=== PATIENT | male | born 1940 | race Hispanic/Latino ===

== ENCOUNTER 2020-01-11 11:50 | Inpatient (IN) | payer OTHER ==
--- NOTE | 2020-01-15 15:06 | R.PREADM ---
PRE-ADMISSION SCREENING FORM SCREENING DATE AND TIME 01/11/2020 07:57 (DB2 DEVELOPER) ANTICIPATED REHAB ADMISSION DATE 01/13/[address] [facility] MEDICAL REFERRAL DATE AND TIME 01/11/2020 07:57 (DB2 DEVELOPER) ACUTE ADMIT DATE 01/12/2020 Previous Rehabilitation(s): No. ACUTE JAVA JSF DEVELOPER/DC REEL MAN NERY ZAVALA REFERRING PHYSICIAN marilyn Connors PRIMARY CARE PHYSICIAN [facility]NYFER [facility] REHAB FACILITY [facility] CLINICAL LIAISON Erik Pace PHYSICIAN REVIEWER Dr. Marcell Mccarthy M.D. MR# [id number] NAME ALEXANDER PUTNAM ADDRESS [address] [place] [address] PHONE [facility] [id number] DATE OF 1940 AGE 79 SSN# [id number] GENDER male MARITAL STATUS RACE unknown race ADMIT FROM 02 - [facility] PRE-HOSPITAL LIVING SETTING 01 - Home (private home/apt. board/care, assisted living, retirement, transitional living) HOME TYPE AND DETAILS Type of home: single family house # of levels in the residence: 1 # of steps within the residence: 0 # of steps to enter the residence: 0 PRE-HOSPITAL LIVING WITH Family/Relatives FAMILY SUPPORT Yes PRIMARY FAMILY CONTACT NAME Sonja Putnam PRIMARY FAMILY CONTACT PHONE PRIMARY FAMILY CONTACT RELATIONSHIP Spouse PHONE PRIMARY FAMILY CONTACT ON ADM.? no IS PRIMARY FAMILY CONTACT AUTH. REP.? no 1ST EMERGENCY CONTACT Sonja Putnam 1ST CONTACT PHONE 1ST CONTACT RELATIONSHIP Spouse PHONE 1ST CONTACT ON ADM. no IS 1ST CONTACT AUTH. REP.? no PHONE 2ND CONTACT ON ADM.? no PATIENT EMPLOYMENT STATUS Retired (for age) PATIENT EMPLOYER No Employer PAYOR INFORMATION: 1ST PAYOR NAME [facility] 1ST PAYOR CONTACT Karlee 1ST PAYOR INJURY/ILLNESS DUE TO ACCIDENT? No ANOTHER CONSTITUTION PARTY RESPONSIBLE? No PRIMARY REHAB/ACUTE DIAGNOSIS: WEAKNESS,SCS PLACEMENT ONSET DATE 01/02/2020 REHAB IMPAIRMENT CATEGORY (JEROME): 20 Miscellaneous (Misc) does NOT meet 60% rule PRIMARY DIAGNOSIS-RELATED SURGERIES: PLACEMENT OF SPINAL CORD STIMULATOR SUMMARY OF ACUTE HOSPITALIZATION: Pt. is a 79 yo Right-handed male of unknown race. On 01/02/2020 he was admitted to [facility] with diagnosis WEAKNESS,SCS PLACEMENT. His impairment category is Debility 16 - Debility (16). Pre-morbidly, Pt. was independent/mod-I in Safety Awareness, Social Cognition, Transfers Control, and Communication; and he had good Endurance and Self-Care. Currently, he has deficits of Balance, Sphincter Control, Transfers Control, Social Cognition, and En durance. Pt. is now referred to [facility] for acute in-patient rehabilitation in order to maximize patient's functional independence in activities of daily living, strength, ROM, and mobi lity. Patient has realistic goal of being discharged at assistance level 7-Ind to reside at Home with Fami ly/Relatives. PAST MEDICAL HISTORY ARRHYTHMIA DYSPHAGIA PNEUMONIA BMI 33.0-33.9, ADULT BPH CHRONIC PAIN CURRENT USE OF ANTICOAGULANT THERAPY DEPRESSION HIGH CHOLESTEROL HYPERTENSION CHRONIA PAIN MALAISE PAROXYSMAL ARTIL FIB PAST SURGICAL HISTORY: ANKLE SURGERY BACK SURGERY CERVICAL SPINE SURGERY INSERTION, NEUROSTIMULATOR ELECTRODE PERCUTANEOUS SPINAL CORD STIMULATOR TRIAL KNEE SURGERY PROCEDURE W/C-ARM REPLACEMENT, SPINAL CORD NEUROSTIMULATOR GENERATOR/SALES RECRUITING COORDINATOR UPPER ENDOSCOPY, BIOPSY MEDICATION ALLERGIES: No Known Drug Allergies (NKDA) ENVIRONMENTAL ALLERGIES: - Substance Allergies None Known - Other Allergies None Known CODE STATUS: Full code WEIGHT/HEIGHT/BMI: WEIGHT 210 lbs HEIGHT 5' 7" BMI 32.9 DIET: - Diet Type Regular - Diet - Solid Texture Regular - Diet - Liquid Texture Regular - Tube Feed N/A REVIEW OF SYSTEMS: - Gen Alert and awake Lying in bed No apparent distress Oriented to: person, time, and place - Vital Signs Temperature: 97.5 F SBP/DBP: 182/81 Pulse: 49 Resp: 18 Vital signs stable, afebrile - CVS RRR VITAL SIGNS Temperature: 97.5 F SBP/DBP: 182/81 Pulse: 49 Resp: 18 Vital signs stable, afebrile MEDICATIONS/TREATMENT: Other- See attached MAR (Medication Administration Record). CURRENT SPHINCTER CONTROL: Pre-hospital bladder status: unspecified # of bladder accidents in the last 7 days prior to screenin Pre-hospital bowel status: unspecified # of bowel accidents in the last 7 days prior to screenin Last Bowel Movement Date: 01/11/2020 CURRENT LOCOMOTION STATUS: distance walked 70 feet WITH ROLLING WALKER DETAILED CURRENT FUNCTIONAL STATUS: - Bladder accident frequency: Ind - No accidents in the past 7 days - Bowel accident frequency: Ind - No accidents in the past 7 days - Walking score based on distance walked: 0(N/A) score based on distance walked: 2(5149ft) - Wheelchair score based on distance traveled: 0(N/A) QI SCORES: - Self-Care A. Eating 04-Supervision or touching assistance B. Oral hygiene 03-Partial/moderate assistance C. Toileting hygiene 03-Partial/moderate assistance E. Shower/bathe self 03-Partial/moderate assistance F. Upper body dressing 03-Partial/moderate assistance G. Lower body dressing 03-Partial/moderate assistance H. Putting on/taking off footwear 88-Not attempted due to medical condition or safety concerns - Mobility A. Roll left and right 03-Partial/moderate assistance B. Sit to lying 03-Partial/moderate assistance C. Lying to sitting on side of bed 03-Partial/moderate assistance D. Sit to stand 03-Partial/moderate assistance E. Chair/wkq-eh-xrwup transfer 03-Partial/moderate assistance F. Toilet transfer 03-Partial/moderate assistance G. Car transfer 88-Not attempted due to medical condition or safety concerns I. Walk 10 feet 03-Partial/moderate assistance J. Walk 50 feet with two turns 88-Not attempted due to medical condition or safety concerns K. Walk 150 feet 88-Not attempted due to medical condition or safety concerns L. Walking 10 feet on uneven surfaces 88-Not attempted due to medical condition or safety concerns M. 1 step (curb) 88-Not attempted due to medical condition or safety concerns N. 4 steps 88-Not attempted due to medical condition or safety concerns O. 12 steps 88-Not attempted due to medical condition or safety concerns P. Picking up object 88-Not attempted due to medical condition or safety concerns R. Wheel 50 feet with two turns 88-Not attempted due to medical condition or safety concerns S. Wheel 150 feet 88-Not attempted due to medical condition or safety concerns - Bladder and Bowel Bladder continence Bowel continence - Endurance Fair - Balance Fair - Safety Awareness Fair CURRENT FUNC. DEFICITS: Self-Care, Mobility, Endurance, Balance, and Safety Awareness HISTORY OF FALLS. HAS THE PATIENT HAD TWO OR MORE FALLS IN THE PAST YEAR OR ANY FALL WITH INJURY IN T HE PAST YEAR?: No PRIOR SURGERY. DID THE PATIENT HAVE MAJOR SURGERY DURING THE 100 DAYS PRIOR TO ADMISSION?: No THERAPY NOTES FROM ACUTE CARE: Attached. SPECIAL NEEDS: - Safety Concerns Skin breakdown precautions needed due to skin breakdown risk PATIENT NEEDS ACTIVE AND ONGOING THERAPEUTIC INTERVENTION OF MULTIPLE THERAPY DISCIPLINES, INCLUDING: - Dietary and Nutrition Adequate Nutrition. Nutritional Education. Nutritional Supplements. PATIENT NEEDS CLOSE MEDICAL SUPERVISION BY A REHABILITATION PHYSICIAN FOR: Coordination of Treatment Team PATIENT REQUIRES 24X7 REHAB NURSING FOR MEDICAL AND FUNCTIONAL MGT. OF THE FOLLOWING DEFICITS: Disease Management Medication Management Patient/Family Education Providing Safe Environment PATIENT REQUIRES INTENSIVE, COORDINATED INTERDISCIPLINARY APPROACH TO REHAB: Arranging Home Equipment/Services Discharge Planning Family Intervention/Training Monorail Car Operator/Case Management PATIENT REHAB POTENTIAL: Jose PUTNAM is able and expected to receive 3 hours of individualized therapy daily on at least 5 of e very 7 days Jose PUTNAM'shaan prognosis for significant practical improvement within a reasonable period of time appea rs Good Expected level of measurable improvement will be of a practical value to Jose PUTNAM'shaan functional cap[place] city or adaptations to impairments Has a viable Discharge Plan Medically appropriate; condition is sufficiently stable to participate in intensive rehab program DISCHARGE PLAN: - Estimated Length of Stay (days) 13. - Consensus on plan Discharge plan has been discussed with primary caregiver. Patient/Family is in agreement with the megan n. Primary caregiver is in agreement with the plan. - Patient/Family Goals Return home independently. - Planned Living Setting Upon Discharge Home, to live with Family/Relatives. Transitional Living. RECOMMENDED CARE LEVEL: IRF RECOMMENDATION DETAILS: Recommended Admission to Comprehensive Rehabilitation Program to Increase Functional Lydia SCREENER'S COMPLETENESS CONFIRMATION: - Screening Confirmation The patient data collection on this preadmission screening form is finished PHYSICIANS REVIEW AND ADMISSION DETERMINATION Admit - Based on my review of the Pre-Admission Screening results, in my medical judgment and experie nce, I concur with the findings and recommend admission to [facility], as this patient requires an IRF level of care. SIGNATURE PANEL: Loader Operator/Ground Leader - [electronically] signed by Erik Pace on 01/15/2020 at 14:23 (DB2 DEVELOPER) Loader Operator/Ground Leader - [electronically] signed by Paco Carbajal PT on 01/15/2020 at 14:28 (DB2 DEVELOPER) Physician Reviewer - [electronically] signed by Dr. Marcell Mccarthy M.D. on 01/15/2020 at 15:05 (DB2 DEVELOPER )
--- OUTSIDE RECORDS SUMMARY | 2020-01-15 18:44 | XMS REPORT | Clinical Summary ---
:1940 Author Organization [facility] Address [address] [place] [address] Care Team Providers Name Role Phone Reynaldo Odom Primary Care Provider Unavailable Allergies No Known Allergies Medications Medication Sig Dispensed Refills Start End Date Status Date amiodarone Take 200 mg by 0 Acti ve (PACERONE) 200 MG mouth 2 (two) tablet times daily. DULoxetine Take 60 mg by 0 Activ e (CYMBALTA) 60 MG mouth daily. capsule finasteride Take 5 mg by 0 Activ e (PROSCAR) 5 mg mouth daily. tablet fLUoxetine Take 10 mg by 0 Activ e (PROZAC) 10 MG mouth daily. capsule HYDROcodone-aceta Take 1 tablet by 0 Active minophen (NORCO mouth every 6 7.5-325) 7.5-325 (six) hours as mg per tablet needed for Pain. metoprolol Take by mouth 2 0 Act anastasiya tartrate (two) times (LOPRESSOR) 50 MG daily Takes 2 tablet tab in am and 1 tab in pm . loratadine Take 10 mg by 0 Activ e (CLARITIN) 10 mg mouth daily as tablet needed for Allergies. mirabegron Take 50 mg by 0 Activ e (MYRBETRIQ) 50 mg mouth daily. Tb24 ER tablet pravastatin Take 40 mg by 0 Acti ve (PRAVACHOL) 40 MG mouth daily. tablet terazosin Take 10 mg by 0 Active (HYTRIN) 10 MG mouth nightly. capsule traZODone Take 100 mg by 0 Activ e (DESYREL) 100 MG mouth nightly. tablet tiZANidine Take 4 mg by 0 Active (ZANAFLEX) 4 MG mouth every 6 tablet (six) hours as needed. rivaroxaban Take 1 tablet by 0 A ctive (Xarelto) 20 mg mouth daily. 0 Tab tablet amLODIPine Take 10 mg by 0 Activ e (NORVASC) 10 MG mouth daily. 7 tablet diclofenac 1 % Apply 1 0 Activ e Gel application 0 topically 2 (two) times daily. cloNIDine HCL Take 2 tablets 0 A ctive (CATAPRES) 0.1 MG (0.2 mg total) 0 tablet by mouth 2 (two) times daily. lisinopriL Take 2 tablets 0 Acti ve (PRINIVIL,ZESTRIL (40 mg total) by 0 ) 20 MG tablet mouth daily. docusate sodium Take 1 capsule 10 capsule 0 01/26/20 Active (COLACE) 100 MG (100 mg total) 0 20 capsule by mouth daily for 10 days. fluconazole Take 1 tablet 0 01/23/20 Acti ve (DIFLUCAN) 200 MG (200 mg total) 0 20 tablet by mouth daily for 7 days. pantoprazole Take 1 tablet 0 Act anastasiya (PROTONIX) 40 MG (40 mg total) by 0 tablet mouth 2 (two) times daily before meals. cloNIDine HCL Take 0.1 mg by 0 01/15/20 D iscontinued (CATAPRES) 0.1 MG mouth 2 (two) 20 (Reorder) tablet times daily. lisinopriL Take 20 mg by 0 01/15/20 Disco ntinued (PRINIVIL,ZESTRIL mouth daily. 20 (Reorder) ) 20 MG tablet rivaroxaban Take 20 mg by 0 12/31/19 Disc ontinued (XARELTO) 20 mg mouth daily with 20 (Stop Taking at Tab tablet dinner. Discharge ) Active Problems Problem Noted Date Weakness 01/03/2020 Postoperative complication 01/02/2020 Shortness of breath 01/02/2020 Post-operative complication 12/28/2019 Pre-op testing 12/27/2019 Chronic pain disorder 11/29/2019 Encounters Date Type Specialty Care Team Description 01/08/2020 Anesthesia Event Gastroenterology Amilcar So MD 01/08/2020 Surgery Gastroenterology Priscilla, BIPIN Springereal Migel, ENDOSCOPY,BIOP MANJINDER ARAUZ 01/04/2020 Travel 01/03/2020 Orders Only General Internal Medicine 01/02/2020 [facility] Internal Saeed, Postoperati ve surgical complication involving nervous system associated with nervous system procedure, unspecified complication (Primary Dx); - Encounter Medicine Trish Impaired mobili ty and ADLs; 01/15/2020 MD Jodi Delirium; Dory, Visual hallucin ations; MD Adithya Pain; Leukocytosis, u nspecified type; Aspiration pneu monia, unspecified aspiration pneumonia type, unspecified laterality, unspecified part of lung (HCC); Essential hyper tension; Acute pancreati tis, unspecified complication status, unspecified pancreatitis type; Paroxysmal atri al fibrillation (HCC); Other chronic p ain; Physical decond itioning; Dysphagia, unsp ecified type; Pneumonia due t o infectious organism, unspecified laterality, unspecified part of lung 01/02/2020 Travel 12/27/2019 Anesthesia Event Loreto Stewart MD Narayan, Rakesh, MD 12/27/2019 Surgery Dory, INSERTION,NEURO STIMUL MD Adithya ATOR ELECTRODE PERCUTANEOUS 12/27/2019 [facility], Pre-op test ing (Primary Dx); - Encounter Medicine MD Adithya Chronic pain di sorder; 12/31/2019 Impaired mobili ty and ADLs; Pain 12/27/2019 Travel 12/26/2019 Hospital Pre-Admission Testing Encounter 12/26/2019 Travel 12/25/2019 Hospital Pre-Admission Testing [facility], Pre-op testing Encounter MD Adithya 12/22/2019 Orders Only Adithya Connors MD 12/08/2019 Orders Only Neurosurgery [facility], Pre-op testing MD Adithya (Primary Dx) 11/29/2019 Surgery Dory, INSERTION,SPINA L CORD MD Adithya NEUROSTIMULATOR TRIAL 11/29/2019 Anesthesia Event Chris Osman MD 11/29/2019 [facility], Pre-op testing Encounter MD Adithya 11/29/2019 Travel 11/28/2019 Hospital Pre-Admission Testing Encounter 11/28/2019 Travel 11/24/2019 Hospital Pre-Admission Testing [facility], Pre-op testing; Encounter MD Adithya Special screeni ng examination for viral disease 11/24/2019 Orders Only Neurosurgery Special bere Connors examination for viral disease (Primary Dx); MD Adithya Pre-op testing after 01/14/2019 Social History Tobacco Use Types Packs/Day Years Used Date Former Smoker Quit: 2007 Smokeless Tobacco: Never Used Alcohol Use Drinks/Week oz/Week Comments No Alcohol Habits Answer Date Recorded How often do you have a drink containing alcohol? Never 11/28/2019 How many drinks containing alcohol do you have on a typical Not asked day when you are drinking? How often do you have six or more drinks on one occasion? No t asked Sex Assigned at Date Recorded Not on file COVID-19 Exposure Response Date Recorded In the last month, have you been in contact with No / Unsure 01/04/2020 5:46 AM DISPLAY SPECIALIST someone who was confirmed or suspected to have Coronavirus / COVID-19? Last Filed Vital Signs Vital Sign Reading Time Taken Comments Blood Pressure 138/88 01/15/2020 4:28 PM DISPLAY SPECIALIST Pulse 128 01/15/2020 4:28 PM DISPLAY SPECIALIST Temperature 36.6 C (97.9 F) 01/15/2020 4:28 PM DISPLAY SPECIALIST Respiratory Rate 18 01/15/2020 4:28 PM DISPLAY SPECIALIST Oxygen Saturation 95% 01/15/2020 4:28 PM DISPLAY SPECIALIST Inhaled Oxygen Concentration 21% 01/14/2020 7:24 PM DISPLAY SPECIALIST Weight 95.3 kg (210 lb) 01/02/2020 5:15 PM DISPLAY SPECIALIST Height 170.2 cm (5' 7") 01/02/2020 5:15 PM DISPLAY SPECIALIST Body Mass Index 32.89 01/02/2020 5:15 PM DISPLAY SPECIALIST Plan of Treatment Health Maintenance Due Date Last Done Comments PNEUMOCOCCAL 65+ YRS (1 of 1 - [id number]) 2005 Medicare IPPE (WELCOME TO MEDICARE) 03/01/2019 INFLUENZA VACCINE (#1) 2019 Implants Implanted Type Area Timber Management Professor Device Shelf Model / Identifier Expiration Serial / Date Lot Kt Trial Lead 03/16 Cntct 50cm [id number] - [id number] IMPLANT S N/A: Spine [employer]: 10/08/2021 [id number] / Implanted: Qty: 1 on 11/29/2019 by Adithya Monk MD at [facility] Thoracic NEUROMODULATION [id number] / Kt Trial Lead 03/16 Cntct 50cm [id number] - [id number] IMPLANT S N/A: Spine [employer]: 10/08/2021 [id number] / Implanted: Qty: 1 on 11/29/2019 by Adithya Monk MD at [facility] Thoracic NEUROMODULATION [id number] / Clik X Zapata [id number] - [id number] IMPLANTS N/A: Back [employer]:ADV 11/11/2021 [id number] / Implanted: Qty: 1 on 12/27/2019 by Adithya Monk MD at [facility] BIONICS / [id number] Kt Lead Infinion Cx 50cm [id number] - [id number] IMPLANTS N/A: Back [employer]: 05/20/2021 [id number] / Implanted: Qty: 1 on 12/27/2019 by Adithya Monk MD at [facility] NEUROMODULATION [id number] / Genrtr Imp Pulse Spectr W[place] [id number] - [id number] IMPLANTS N/A: Back KUMAR STON 12/05/2021 [id number] / Implanted: Qty: 1 on 12/27/2019 by Adithya Monk MD at [facility] SCI:NEUROVASC [id number] / Kt Lead Infinion Cx 50cm [id number] - [id number] IMPLANTS N/A: Back [employer]: 05/15/2021 [id number] / Implanted: Qty: 1 on 12/27/2019 by Adithya Monk MD at [facility] NEUROMODULATION [id number] / Procedures Procedure Name Priority Date/Time Associated Comments Diagnosis POCT-GLUCOSE METER Routine 01/15/2020 1:01 Resul ts for this PM DISPLAY SPECIALIST procedure are i n the results section. POCT-GLUCOSE METER Routine 01/15/2020 8:05 Resul ts for this AM DISPLAY SPECIALIST procedure are i n the results section. CBC W/PLT COUNT & Routine 01/15/2020 6:56 Result s for this AUTO DIFFERENTIAL AM DISPLAY SPECIALIST procedure are in the results section. BASIC METABOLIC PANEL Routine 01/15/2020 6:56 Re sults for this (7) AM DISPLAY SPECIALIST procedure are i n the results section. CBC W/PLT COUNT & Routine 01/15/2020 6:56 Result s for this AUTO DIFFERENTIAL AM DISPLAY SPECIALIST procedure are in the results section. POCT-GLUCOSE METER Routine 01/14/2020 8:36 Resul ts for this PM DISPLAY SPECIALIST procedure are i n the results section. POCT-GLUCOSE METER Routine 01/14/2020 5:26 Resul ts for this PM DISPLAY SPECIALIST procedure are i n the results section. POCT-GLUCOSE METER Routine 01/14/2020 8:43 Resul ts for this AM DISPLAY SPECIALIST procedure are i n the results section. POCT-GLUCOSE METER Routine 01/13/2020 9:02 Resul ts for this PM DISPLAY SPECIALIST procedure are i n the results section. POCT-GLUCOSE METER Routine 01/13/2020 8:47 Resul ts for this AM DISPLAY SPECIALIST procedure are i n the results section. POCT-GLUCOSE METER Routine 01/12/2020 8:39 Resul ts for this PM DISPLAY SPECIALIST procedure are i n the results section. POCT-GLUCOSE METER Routine 01/12/2020 5:14 Resul ts for this PM DISPLAY SPECIALIST procedure are i n the results section. POCT-GLUCOSE METER Routine 01/12/2020 12:14 Resul ts for this PM DISPLAY SPECIALIST procedure are i n the results section. CBC W/PLT COUNT & SAI 01/12/2020 8:47 Result s for this AUTO DIFFERENTIAL AM DISPLAY SPECIALIST procedure are in the results section. BASIC METABOLIC PANEL SAI 01/12/2020 8:47 Re sults for this (7) AM DISPLAY SPECIALIST procedure are i n the results section. CBC W/PLT COUNT & SAI 01/12/2020 8:47 Result s for this AUTO DIFFERENTIAL AM DISPLAY SPECIALIST procedure are in the results section. POCT-GLUCOSE METER Routine 01/12/2020 8:20 Resul ts for this AM DISPLAY SPECIALIST procedure are i n the results section. POCT-GLUCOSE METER Routine 01/11/2020 8:18 Resul ts for this PM DISPLAY SPECIALIST procedure are i n the results section. POCT-GLUCOSE METER Routine 01/11/2020 4:55 Resul ts for this PM DISPLAY SPECIALIST procedure are i n the results section. POCT-GLUCOSE METER Routine 01/11/2020 12:05 Resul ts for this PM DISPLAY SPECIALIST procedure are i n the results section. POCT-GLUCOSE METER Routine 01/11/2020 7:45 Resul ts for this AM DISPLAY SPECIALIST procedure are i n the results section. CBC W/PLT COUNT & Routine 01/11/2020 6:14 Result s for this AUTO DIFFERENTIAL AM DISPLAY SPECIALIST procedure are in the results section. BASIC METABOLIC PANEL Routine 01/11/2020 6:14 Re sults for this (7) AM DISPLAY SPECIALIST procedure are i n the results section. CBC W/PLT COUNT & Routine 01/11/2020 6:14 Result s for this AUTO DIFFERENTIAL AM DISPLAY SPECIALIST procedure are in the results section. HEMOGLOBIN A1C Routine 01/11/2020 6:14 Results f or this AM DISPLAY SPECIALIST procedure are i n the results section. POCT-GLUCOSE METER Routine 01/10/2020 8:59 Resul ts for this PM DISPLAY SPECIALIST procedure are i n the results section. POCT-GLUCOSE METER Routine 01/10/2020 12:13 Resul ts for this PM DISPLAY SPECIALIST procedure are i n the results section. SARS-COV2/RT-PCR Routine 01/10/2020 11:41 Results for this (HS & REF LABS) AM DISPLAY SPECIALIST procedure are in the results section. POCT-GLUCOSE METER Routine 01/10/2020 8:52 Resul ts for this AM DISPLAY SPECIALIST procedure are i n the results section. CBC W/PLT COUNT & Routine 01/10/2020 5:35 Result s for this AUTO DIFFERENTIAL AM DISPLAY SPECIALIST procedure are in the results section. CBC W/PLT COUNT & Routine 01/10/2020 5:35 Result s for this AUTO DIFFERENTIAL AM DISPLAY SPECIALIST procedure are in the results section. POCT-GLUCOSE METER Routine 01/09/2020 10:01 Resul ts for this PM DISPLAY SPECIALIST procedure are i n the results section. URINALYSIS W/ REFLEX Routine 01/09/2020 7:14 Res ults for this URINE CULTURE PM DISPLAY SPECIALIST procedure are in the results section. XR CHEST 1 VIEW Routine 01/09/2020 10:42 Results for this PORTABLE/BEDSIDE AM DISPLAY SPECIALIST procedure a re in the results section. POCT-GLUCOSE METER Routine 01/09/2020 8:41 Resul ts for this AM DISPLAY SPECIALIST procedure are i n the results section. CBC W/PLT COUNT & Routine 01/09/2020 5:09 Result s for this AUTO DIFFERENTIAL AM DISPLAY SPECIALIST procedure are in the results section. BASIC METABOLIC PANEL Routine 01/09/2020 5:09 Re sults for this (7) AM DISPLAY SPECIALIST procedure are i n the results section. CBC W/PLT COUNT & Routine 01/09/2020 5:09 Result s for this AUTO DIFFERENTIAL AM DISPLAY SPECIALIST procedure are in the results section. POCT-GLUCOSE METER Routine 01/08/2020 9:38 Resul ts for this PM DISPLAY SPECIALIST procedure are i n the results section. POCT-GLUCOSE METER Routine 01/08/2020 4:31 Resul ts for this PM DISPLAY SPECIALIST procedure are i n the results section. POCT-GLUCOSE METER Routine 01/08/2020 1:11 Resul ts for this PM DISPLAY SPECIALIST procedure are i n the results section. REPORT OF PROCEDURE - 01/08/2020 11:49 ENDOSCOPY URL AM DISPLAY SPECIALIST TISSUE EXAM AP Routine 01/08/2020 11:40 Results for this AM DISPLAY SPECIALIST procedure are i n the results section. UPPER 01/08/2020 11:14 Dysphagia, ENDOSCOPY,BIOPSY AM DISPLAY SPECIALIST unspecified type POCT-GLUCOSE METER Routine 01/08/2020 8:40 Resul ts for this AM DISPLAY SPECIALIST procedure are i n the results section. CBC W/PLT COUNT & Routine 01/08/2020 4:12 Result s for this AUTO DIFFERENTIAL AM DISPLAY SPECIALIST procedure are in the results section. BASIC METABOLIC PANEL Routine 01/08/2020 4:12 Re sults for this (7) AM DISPLAY SPECIALIST procedure are i n the results section. CBC W/PLT COUNT & Routine 01/08/2020 4:12 Result s for this AUTO DIFFERENTIAL AM DISPLAY SPECIALIST procedure are in the results section. POCT-GLUCOSE METER Routine 01/07/2020 9:52 Resul ts for this PM DISPLAY SPECIALIST procedure are i n the results section. POCT-GLUCOSE METER Routine 01/07/2020 4:59 Resul ts for this PM DISPLAY SPECIALIST procedure are i n the results section. POCT-GLUCOSE METER Routine 01/07/2020 12:12 Resul ts for this PM DISPLAY SPECIALIST procedure are i n the results section. POCT-GLUCOSE METER Routine 01/07/2020 8:21 Resul ts for this AM DISPLAY SPECIALIST procedure are i n the results section. POCT-GLUCOSE METER Routine 01/06/2020 9:52 Resul ts for this PM DISPLAY SPECIALIST procedure are i n the results section. POCT-GLUCOSE METER Routine 01/06/2020 5:36 Resul ts for this AM DISPLAY SPECIALIST procedure are i n the results section. FL ESOPHAGUS PHARNYX SAI 01/05/2020 10:38 Res ults for this AND/OR CERVICAL AM DISPLAY SPECIALIST procedure ar e in the results section. XR ESOPH SWALLOW Routine 01/05/2020 10:38 Results for this FUNCTION W/CINE VIDEO AM DISPLAY SPECIALIST proced ure are in the results section. POCT-GLUCOSE METER Routine 01/05/2020 7:21 Resul ts for this AM DISPLAY SPECIALIST procedure are i n the results section. MAGNESIUM Routine 01/05/2020 3:55 Results for this AM DISPLAY SPECIALIST procedure are i n the results section. BASIC METABOLIC PANEL Routine 01/05/2020 3:55 Re sults for this (7) AM DISPLAY SPECIALIST procedure are i n the results section. MR BRAIN WITHOUT IV Routine 01/04/2020 6:55 Resu lts for this CONTRAST PM DISPLAY SPECIALIST procedure are i n the results section. BLOOD CULTURE Routine 01/04/2020 3:58 Results fo r this PM DISPLAY SPECIALIST procedure are i n the results section. BLOOD CULTURE Routine 01/04/2020 3:58 Results fo r this PM DISPLAY SPECIALIST procedure are i n the results section. 2D ECHO W/ DOPPLER Routine 01/04/2020 2:29 Resul ts for this (CW/PW/COLOR) PM DISPLAY SPECIALIST procedure are in the results section. SPUTUM CULTURE + GRAM Routine 01/04/2020 8:34 Re sults for this STAIN AM DISPLAY SPECIALIST procedure are i n the results section. HEPATIC FUNCTION Add-On 01/04/2020 6:39 Results for this PANEL AM DISPLAY SPECIALIST procedure are i n the results section. MAGNESIUM Routine 01/04/2020 6:39 Results for this AM DISPLAY SPECIALIST procedure are i n the results section. BASIC METABOLIC PANEL Routine 01/04/2020 6:39 Re sults for this (7) AM DISPLAY SPECIALIST procedure are i n the results section. XR CHEST 1 VIEW SAI 01/03/2020 8:04 Results for this PORTABLE/BEDSIDE PM DISPLAY SPECIALIST procedure a re in the results section. ECG 12-LEAD Routine 01/03/2020 7:51 PM DISPLAY SPECIALIST Procedure Note - Interface, External Ris In - 01/03/2020 8:05 PM DISPLAY SPECIALIST Ventricular Rate 67 BPM Atrial Rate 67 BPM P-R Interval 218 ms QRS Duration 106 ms Q-T Interval 430 ms QTC Calculation(Bazett) 454 ms P [place] -4 degrees R [place] -33 degrees T [place] 1 degrees Sinus rhythm with 1st degree A-V block Left axis deviation Possible Inferior infarct (c ited on or before 24-NOV-2019) Abnormal ECG When compared with ECG of 12:50, No significant change was fo und ECG 12-LEAD Routine 01/03/2020 7:51 Results for this PM DISPLAY SPECIALIST procedure are i n the results section. URINALYSIS W/ REFLEX Routine 01/03/2020 5:51 Res ults for this URINE CULTURE PM DISPLAY SPECIALIST procedure are in the results section. POCT-GLUCOSE METER Routine 01/03/2020 12:19 Resul ts for this PM DISPLAY SPECIALIST procedure are i n the results section. (CELLAVISION MANUAL Routine 01/03/2020 5:32 Resu lts for this DIFF) AM DISPLAY SPECIALIST procedure are i n the results section. CBC W/PLT COUNT & AUTO Routine 01/03/2020 5:32 R esults for this DIFFERENTIAL AM DISPLAY SPECIALIST procedure are i n the results section. LIPASE STAT Add-on 01/03/2020 5:32 Results for this AM DISPLAY SPECIALIST procedure are i n the results section. AMYLASE STAT Add-on 01/03/2020 5:32 Results for this AM DISPLAY SPECIALIST procedure are i n the results section. COMPREHENSIVE STAT Add-on 01/03/2020 5:32 Results fo r this METABOLIC PANEL AM DISPLAY SPECIALIST procedure ar e in the results section. PHOSPHORUS Routine 01/03/2020 5:32 Results for this AM DISPLAY SPECIALIST procedure are i n the results section. MAGNESIUM Routine 01/03/2020 5:32 Results for this AM DISPLAY SPECIALIST procedure are i n the results section. BASIC METABOLIC PANEL Routine 01/03/2020 5:32 Re sults for this (7) AM DISPLAY SPECIALIST procedure are i n the results section. CBC W/PLT COUNT & AUTO Routine 01/03/2020 5:32 R esults for this DIFFERENTIAL AM DISPLAY SPECIALIST procedure are i n the results section. CT CHEST PE TEST STAT 01/03/2020 12:42 Results for this DESIGN AM DISPLAY SPECIALIST procedure are i n the results section. VENOUS DOPPLER LEGS STAT 01/02/2020 11:24 Resu lts for this BILATERAL PM DISPLAY SPECIALIST procedure are i n the results section. ED ECG INTERPRETATION Routine 01/02/2020 9:08 Re sults for this PM DISPLAY SPECIALIST procedure are i n the results section. SARS-COV2/RT-PCR ([facility] STAT 01/02/2020 7:38 R esults for this & REF LABS) PM DISPLAY SPECIALIST procedure are i n the results section. XR CHEST 1 VIEW STAT 01/02/2020 6:22 Results for this PORTABLE/BEDSIDE PM DISPLAY SPECIALIST procedure a re in the results section. (CELLAVISION MANUAL STAT 01/02/2020 6:04 Resu lts for this DIFF) PM DISPLAY SPECIALIST procedure are i n the results section. CBC W/PLT COUNT & AUTO STAT 01/02/2020 6:04 R esults for this DIFFERENTIAL PM DISPLAY SPECIALIST procedure are i n the results section. D-DIMER STAT 01/02/2020 6:04 Results for this PM DISPLAY SPECIALIST procedure are i n the results section. PROTHROMBIN TIME/INR STAT 01/02/2020 6:04 Res ults for this PM DISPLAY SPECIALIST procedure are i n the results section. B-TYPE NATRIURETIC STAT 01/02/2020 6:04 Resul ts for this FACTOR (BNP) PM DISPLAY SPECIALIST procedure are i n the results section. CBC W/PLT COUNT & AUTO STAT 01/02/2020 6:04 R esults for this DIFFERENTIAL PM DISPLAY SPECIALIST procedure are i n the results section. TROPONIN I STAT 01/02/2020 6:04 Results for this PM DISPLAY SPECIALIST procedure are i n the results section. MAGNESIUM STAT 01/02/2020 6:04 Results for this PM DISPLAY SPECIALIST procedure are i n the results section. BASIC METABOLIC PANEL STAT 01/02/2020 6:04 Re sults for this (7) PM DISPLAY SPECIALIST procedure are i n the results section. URINALYSIS W/ Routine 12/31/2019 11:23 Results fo r this MICROSCOPIC AM DISPLAY SPECIALIST procedure are i n the results section. POCT-GLUCOSE METER Routine 12/30/2019 8:54 Resul ts for this PM CDT procedure are i n the results section. POCT-GLUCOSE METER Routine 12/30/2019 5:04 Resul ts for this PM CDT procedure are i n the results section. (CELLAVISION MANUAL STAT 12/30/2019 4:39 Resu lts for this DIFF) PM CDT procedure are i n the results section. CBC W/PLT COUNT & AUTO STAT 12/30/2019 4:39 R esults for this DIFFERENTIAL PM CDT procedure are i n the results section. COMPREHENSIVE STAT 12/30/2019 4:39 Results fo r this METABOLIC PANEL PM CDT procedure ar e in the results section. CBC W/PLT COUNT & AUTO STAT 12/30/2019 4:39 R esults for this DIFFERENTIAL PM CDT procedure are i n the results section. POCT-GLUCOSE METER Routine 12/30/2019 7:50 Resul ts for this AM CDT procedure are i n the results section. POCT-GLUCOSE METER Routine 12/30/2019 12:36 Resul ts for this AM CDT procedure are i n the results section. POCT-GLUCOSE METER Routine 12/29/2019 4:10 Resul ts for this PM CDT procedure are i n the results section. POCT-GLUCOSE METER Routine 12/29/2019 12:06 Resul ts for this PM CDT procedure are i n the results section. POCT-GLUCOSE METER Routine 12/29/2019 8:49 Resul ts for this AM CDT procedure are i n the results section. POCT-GLUCOSE METER Routine 12/28/2019 9:07 Resul ts for this PM CDT procedure are i n the results section. BASIC METABOLIC PANEL Routine 12/28/2019 11:31 Re sults for this (7) AM CDT procedure are i n the results section. POCT-GLUCOSE METER Routine 12/28/2019 8:46 Resul ts for this AM CDT procedure are i n the results section. CBC (HEMOGRAM ONLY) Routine 12/28/2019 6:53 Resu lts for this AM CDT procedure are i n the results section. POCT-GLUCOSE METER Routine 12/27/2019 7:26 Resul ts for this PM CDT procedure are i n the results section. CT LUMBAR SPINE STAT 12/27/2019 4:13 Results for this WITHOUT IV CONTRAST PM CDT procedur e are in the results section. CT THORACIC SPINE STAT 12/27/2019 4:13 Result s for this WITHOUT IV CONTRAST PM CDT procedur e are in the results section. FL FLUORO NON-SPECIFIC Routine 12/27/2019 1:57 R esults for this UP TO 1 HOUR PM CDT procedure are i n the results section. PROCEDURE W/ C-ARM 12/27/2019 12:34 Chronic pain PM CDT disorder Case Notes 60 MINS PER CHEYANNEPATIENT ISN'T A DIALYSIS PATIENT Special Needs (C-ARM, [employer]) REPLACEMENT,SPINAL CORD 12/27/2019 12:34 PM CDT Chroni c pain disorder NEUROSTIMULATOR GENERATOR/BOATWRIGHT Case Notes 60 MINS PER CHEYANNEPATIENT ISN'T A DIALYSIS PATIENT Special Needs (C-ARM, [employer]) INSERTION,NEUROSTIMULATOR ELECTRODE 12/27/2019 12:34 P M CDT Chronic pain PERCUTANEOUS disorder Case Notes 60 MINS PER CHEYANNEPATIENT ISN'T A DIALYSIS PATIENT Special Needs (C-ARM, [employer]) CBC W/PLT COUNT & AUTO Routine 12/25/2019 1:18 PM Results for this DIFFERENTIAL CDT procedure are i n the results section. TYPE AND SCREEN, Routine 12/25/2019 1:18 PM Pre-op testing Re sults for this AUTOMATED CDT procedure are i n the results section. URINALYSIS W/ REFLEX Routine 12/25/2019 1:18 PM Results for this URINE CULTURE CDT procedure are in the results section. PT/APTT Routine 12/25/2019 1:18 PM Results for this CDT procedure are i n the results section. CBC W/PLT COUNT & AUTO Routine 12/25/2019 1:18 PM Results for this DIFFERENTIAL CDT procedure are i n the results section. BASIC METABOLIC PANEL Routine 12/25/2019 1:18 PM Results for this (7) CDT procedure are i n the results section. SARS-COV2/RT-PCR ([facility] Routine 12/25/2019 1:18 PM Results for this REF LABS) CDT procedure are i n the results section. TRANSFUSION SERVICE 11/30/2019 6:04 PM REPORT - SCAN CDT RHYTHM STRIP - SCAN 11/30/2019 3:21 PM CDT FL FLUORO NON-SPECIFIC Routine 11/29/2019 9:00 AM Results for this UP TO 1 HOUR CDT procedure are i n the results section. INSERTION,SPINAL CORD 11/29/2019 7:37 AM Chronic pain NEUROSTIMULATOR TRIAL CDT disorder ABORH, MANUAL STAT 11/29/2019 6:15 AM Results for this CDT procedure are i n the results section. TRANSFUSION SERVICE 11/25/2019 6:03 PM REPORT - SCAN CDT XR CHEST 2 VIEWS Routine 11/24/2019 1:14 PM Pre-op testing Re sults for this CDT procedure are i n the results section. ECG 12-LEAD Routine 11/24/2019 12:50 PM CDT Procedure Note - Interface, External Ris In - 11/24/2019 4:27 PM CDT Ventricular Rate 68 BPM Atrial Rate 68 BPM P-R Interval 218 ms QRS Duration 106 ms Q-T Interval 424 ms QTC Calculation(Bazett) 450 ms P [place] 2 degrees R [place] -63 degrees T [place] 5 degrees Sinus rhythm with 1st degree A-V block Left anterior fascicular blo ck Cannot rule out Inferior inf arct (masked by fascicular block?) , age undetermined Possible Anterior infarct , age undetermined Abnormal ECG No previous ECGs available ECG 12-LEAD STAT 11/24/2019 12:50 PM Pre-op testing Result s for this CDT procedure are i n the results section. CBC W/PLT COUNT & Routine 11/24/2019 12:49 PM Pre-op testing R esults for this AUTO DIFFERENTIAL CDT procedure are in the results section. TYPE AND SCREEN, Routine 11/24/2019 12:49 PM Pre-op testing Re sults for this AUTOMATED CDT procedure are i n the results section. URINALYSIS W/ REFLEX Routine 11/24/2019 12:49 PM Pre-op testin g Results for this URINE CULTURE CDT procedure are in the results section. CBC W/PLT COUNT & Routine 11/24/2019 12:49 PM Pre-op testing R esults for this AUTO DIFFERENTIAL CDT procedure are in the results section. PROTHROMBIN TIME/INR Routine 11/24/2019 12:49 PM Pre-op testin g Results for this CDT procedure are i n the results section. APTT Routine 11/24/2019 12:49 PM Pre-op testing Result s for this CDT procedure are i n the results section. SARS-COV2/RT-PCR Routine 11/24/2019 12:49 PM Special screening Results for this ([facility] & REF LABS) CDT examination for procedu re are in viral disease the results section. after 01/14/2019 Results POC-Glucose meter (01/15/2020 1:01 PM DISPLAY SPECIALIST)Only the most recent of42 results within the time period is included. POC-Glucose Meter 114 (H) 70 - 110 mg/dL [facility] Comment: [facility] : TESTED AT [address], [address] MEDICAL CENTER : Supervisor [employer]/Invasive Cardiologist ID = [id number] for TENA GRIMALDO Specimen Blood Performing Organization Address City/State/Zipcode Phone Number [place] [phone] CENTER CBC with platelet count + automated diff (01/15/2020 6:56 AM DISPLAY SPECIALIST)Only the most recent of11 resultswithin the time period is included. Pathologist Sig nature WBC 11.5 (H) 3.5 - 10.5 [facility] K/L [facility] RBC 4.37 (L) 4.63 - 6.08 [facility] M/L [facility] Hemoglobin 12.6 (L) 13.7 - 17.5 [facility] GM/DL [facility] Hematocrit 40.7 40.1 - 51.0 % [facility] MCV 93.1 (H) 79.0 - 92.2 fL [facility] MCH 28.8 25.7 - 32.2 pg [facility] MCHC 31.0 (L) 32.3 - 36.5 [facility] GM/DL [facility] RDW 13.8 11.6 - 14.4 % [facility] Platelets 186 150 - 450 K/CU [facility] MPV 10.3 9.4 - 12.4 fL [facility] nRBC 0 0 - 0 /100 WBC [facility] % Neutros 74 % [facility] % Lymphs 14 % [facility] % Monos 10 % [facility] % Eos 2 % [facility] % Baso 0 % [facility] # Neutros 8.48 (H) 1.78 - 5.[address] [facility] [place] # Lymphs 1.63 1.32 - 3.57 [facility] # Monos 1.12 (H) 0.30 - 0.[address] [facility] [place] # Eos 0.18 0.04 - 0.[address] [facility] [place] # Baso 0.02 0.01 - 0.[address] [facility] [place] Immature 1 0 - 1 % [facility] Granulocytes-Relative [facility] Specimen Blood Performing Organization Address City/State/Zipcode Phone Number [facility] [address] [place] [address] CENTER Basic Metabolic Panel (01/15/2020 6:56 AM DISPLAY SPECIALIST)Only the most recent of11 results within the time period is included. Sodium 134 (L) 136 - 145 meq/L [facility] Potassium 5.0 3.5 - 5.1 meq/L [facility] Chloride 100 98 - 107 meq/L [facility] CO2 29 22 - 29 meq/L [facility] BUN 18 7 - 21 mg/dL [facility] Creatinine 0.91 0.57 - 1.25 [facility] mg/dL [facility] Glucose 127 (H) 70 - 105 mg/dL [facility] Calcium 8.1 (L) 8.4 - 10.2 [facility] mg/dL [facility] EGFR 80Comment: ESTIMATED mL/min/1.73 sq [facility] GFR IS NOT m [facility] ACCURATE [place] CREATININE CLEARANCE IN PREDICTING GLOMERULAR FILTRATION RATE. ESTIMATED GFR IS NOT APPLICABLE FOR DIALYSIS PATIENTS. Specimen Blood Narrative Performed At [facility] DANA - KAVON [facility] Performing Organization Address City/State/Zipcode Phone Number [facility] [address] [place] [address] [place] Hemoglobin A1c (01/11/2020 6:14 AM DISPLAY SPECIALIST) Pathologist Sig nature Hemoglobin A1C 6.0 4.3 - 6.1 % [facility] Specimen Blood Performing Organization Address City/[facility]/Zipcode Phone Number [facility] [address] [place] [address] CENTER SARS-CoV2/RT-PCR (Asymptomatic ONLY) (01/10/2020 11:41 AM DISPLAY SPECIALIST)Only the most recent of4 resultswithin the time period is included. SARS-COV2/RT-PCR Negative Not Detected, [facility] Negative, [facility] external report CENTER for linked test SARS-COV-2 [facility] ALEX [facility] PERFORMING LAB [facility] Specimen Other - Nasopharyngeal wall structure (b allen structure) Narrative Performed At Negative result for this test determines that [facility] SARS-CoV-2 RNA was not present in the specimen above the Limit of Detection (LOD). However, Negative results do not preclude SARS-CoV-2 infection and should not be used as the sole basis for treatment or patient management decisions. Negative results must be combined with clinical observations, patient history, and epidemiological information. A false negative result may occur if a specimen is improperly collected, transported or handled. A false negative result should be considered if patient's recent exposures or clinical presentation indicate that COVID-19 (SARS-CoV-2) is likely and diagnostic tests for other causes of illness are negative. Re-testing should be considered in cases of suspected false negatives. The limit of detection for this assay is 800 copies/mL. This SARS CoV-2 test is a real-time RT-PCR test intended for the qualitative detection of nucleic acid from SARS-CoV-2 in a nasopharyngeal swab specimen collected from individuals suspected of COVID-19 by their healthcare provider. This test has not been Food and Drug Administration (FDA) cleared or approved. This is a modified version of an approved Emergency Use Authorization (EUA) and is in the process of review by the FDA. Once authorized by the FDA, the issued EUA will be effective until the declaration that circumstances exist justifying the authorization of the emergency use of in vitro diagnostic tests for detection and/or diagnosis of COVID-19 is terminated under Section 564(b)(2) of the Act or the EUA is revoked under Section 564(g) of the Act. Fact Sheet for Healthcare Providers: https://www.[employer].com/sites/default/files/pro duct/documents/Fact_Sheet_HC_Providers_Lyra_SA RS-CoV-2.pdf Fact Sheet for Healthcare Patients: https://www.[employer].com/sites/default/files/pro duct/documents/Fact_Sheet_Patients_Lyra_SARS-C oV-2.pdf Performing Laboratory: [place] [address] [place] [address] Performing Organization Address City/State/Zipcode Phone Number [facility] [address] [place] [address] [place] Urinalysis w/Microscopic + Reflex to Culture (01/09/2020 7:14 PM DISPLAY SPECIALIST)Only the most recent of4 resultswithin the time period is included. Color, UA Light Yellow [facility] Clarity, UA Clear [facility] Specific [place], 1.015 1.001 - 1.035 [facility] pH, UA 8.0 5.0 - 8.0 [facility] Protein, UA Negative Negative [facility] Glucose, UA Negative Negative [facility] Ketones, UA Negative Negative [facility] Bilirubin, UA Negative Negative [facility] Blood, UA Negative Negative [facility] Nitrite, UA Negative Negative [facility] Leukocytes, UA Negative Negative [facility] Urobilinogen, UA 0.2 0.2 - 1.0 mg/dL [facility] RBC, UA 0 /HPF [facility] WBC, UA 1 /HPF [facility] Bacteria, UA Rare [facility] Mucus Rare [facility] Specimen Source [facility] Specimen Urine Narrative Performed At [facility] ID - [auto] [facility] Supervisor [facility] ID - tech Performing Organization Address City/State/Zipcode Phone Number [facility] [address] [place] [address] [place] XR chest 1 view portable / bedside (01/09/2020 10:42 AM DISPLAY SPECIALIST)Only the most recent of3 resultswithin the time period is included. Specimen Narrative Performed At FINAL REPORT GE RIS INDICATION: increasing leukocytosis COMPARISON: None TECHNIQUE: Single frontal view of the ch est. FINDINGS: Lungs and pleura: Diffuse bilateral inte rstitial thickening, unchanged. No effusion. Heart and mediastinum: Normal heart size . Unremarkable mediastinal contours. Osseous structures: No acute abnormality . Other: Cervical hardware and spinal stim ulator are unchanged. Signed: Wilmer Myles MD Report Verified Date/Time: 01/09/2020 10:55:15 Reading Location: [employer] Reading Room Procedure Note Interface, External Ris In - 01/09/2020 11:36 AM DISPLAY SPECIALIST FINAL REPORT INDICATION: increasing leukocytosis COMPARISON: None TECHNIQUE: Single frontal view of the ch est. FINDINGS: Lungs and pleura: Diffuse bilateral inte rstitial thickening, unchanged. No effusion. Heart and mediastinum: Normal heart size . Unremarkable mediastinal contours. Osseous structures: No acute abnormality . Other: Cervical hardware and spinal stim ulator are unchanged. Signed: Wilmer Myles MD Report Verified Date/Time: 01/09/2020 1 0:55:15 Reading Location: [employer] Reading Room Performing Organization Address City/State/Zipcode Phone Number RIS REPORT OF PROCEDURE - ENDOSCOPY URL (01/08/2020 11:49 AM DISPLAY SPECIALIST) Narrative Performed At This result has an attachment that is no t available. Tissue Exam (01/08/2020 11:40 AM DISPLAY SPECIALIST) Case Report Surgical Pathology Report Case: [id number] [facility] Authorizing Provider: Nathalia Sloan MD Collected: 01/08/2020 11:40 AM [facility] Ordering Location: [address] Received: 01/08/2020 01:47 PM MEDICAL CENTER Service Pathologist: Ketan Oseguera MD Specimen: Biopsy, Gastr oesophageal Junction, Bx DIAGNOSIS A. GASTROESOPHAGEAL JUNCTION, BIOPSY [facility] Electronically - SQUAMOCOLUMNAR MUCOSA WITH MILD CHRONIC CARDITIS [facility] signed by Oumar, - NEGATIVE FOR GOBLET CELL METAPLASIA [facility] MD Ketan on 01/09/2020 at 6:17 Signing Pathologist Direct Phone Line: PM CPT Code(s) [address]87 [facility] NAVEEDClayton [facility] CLINICAL HISTORY Dysphagia, unspecific [facility] type [facility] SPECIMEN SOURCE A. Biopsy esophagus [facility] junction biopsy [facility] GROSS DESCRIPTION A. The specimen is JENNA MURRIETA received in one [facility] container A, labeled MEDICAL CENTER with the patient's information, accession number and medical record number and "GE junction biopsy" are two fragments of gonzales-pink tissue measuring up to 0.2 cm in the greatest dimension. The specimen is submitted in toto in cassette A1. WA/pl MICROSCOPIC Section shows JENNA MURRIETA DESCRIPTION squamocolumnar mucosa [facility] with mild chronic MEDICAL CENTER carditis. There is multilayered epithelium and focal pancreatic acinar metaplasia. No goblet cell metaplasia is seen. Specimen Tissue - Biopsy, Gastroesophageal Juncti on Performing Organization Address City/State/Zipcode Phone Number [facility] AKUTANCynthia [facility] [address] [place] [address] [facility] esophagus (01/05/2020 10:38 AM DISPLAY SPECIALIST) Specimen Narrative Performed At FINAL REPORT GE RIS Barium esophagogram Clinical History: dysphagia Discussion: Effervescent crystals, thick barium, and thin barium are given to the patient to drink, without difficulties. There is distal esophageal spasm. No def inite mucosal abnormality is identified. GE junction appears unremark able. There is severe gastroesophageal reflux. Fluoro time: 1.5 minutes Number of images obtained: 12 Impression: Normal barium esophagogram Signed: Hoa Soto MD Report Verified Date/Time: 01/05/2020 13:46:40 Reading Location: [facility] [id number] [facility] Reading Room Procedure Note Interface, External Ris In - 01/05/2020 1:48 PM DISPLAY SPECIALIST FINAL REPORT Barium esophagogram Clinical History: dysphagia Discussion: Effervescent crystals, thick barium, and thin barium are given to the patient to drink, without difficulties. There is distal esophageal spasm. No def inite mucosal abnormality is identified. GE junction appears unremark able. There is severe gastroesophageal reflux. Fluoro time: 1.5 minutes Number of images obtained: 12 Impression: Normal barium esophagogram Signed: Hoa Soto MD Report Verified Date/Time: 01/05/2020 1 3:46:40 Reading Location: [address] Reading Room Performing Organization Address [facility] Phone Number GE RIS [place] esoph swallow funct with cine video (01/05/2020 10:38 AM DISPLAY SPECIALIST) Specimen Narrative Performed At FINAL REPORT GE RIS Modified barium swallow exam with speech pathology service CLINICAL HISTORY: dysphagia IMPRESSION: Please see the speech pathology service report for details. Barium contrast of multiple consistencie s is given to the patient to swallow. Fluoroscopic observation is per formed during swallowing. No aspiration Fluoro time: Two minutes Number of images: 1 Signed: Hoa Soto MD Report Verified Date/Time: 01/05/2020 13:42:46 Reading Location: [facility] C013[facility] Reading Room Procedure Note Interface, External Ris In - 01/05/2020 1:44 PM DISPLAY SPECIALIST FINAL REPORT Modified barium swallow exam with speech pathology service CLINICAL HISTORY: dysphagia IMPRESSION: Please see the speech pathology service report for details. Barium contrast of multiple consistencie s is given to the patient to swallow. Fluoroscopic observation is per formed during swallowing. No aspiration Fluoro time: Two minutes Number of images: 1 Signed: Hoa Soto MD Report Verified Date/Time: 01/05/2020 1 3:42:46 Reading Location: [address] Reading Room Performing Organization Address [facility] Phone Number GE RIS Magnesium (01/05/2020 3:55 AM DISPLAY SPECIALIST)Only the most recent of4 resultswithin the time period is included. Pathologist Sig nature Magnesium 1.9 1.6 - 2.6 mg/dL [facility] [place] Specimen Blood Narrative Performed At Supervisor [facility] ID - KAVON [facility] MED [facility] Performing Organization Address City/[facility] Phone Number [facility] [address] [place] [address] CENTER MR brain without IV contrast (01/04/2020 6:55 PM DISPLAY SPECIALIST) Specimen Narrative Performed At FINAL REPORT [facility] MR, BRAIN, WITHOUT CONTRAST INDICATION: Altered mental status TECHNIQUE: Multiplanar, multisequence MR imaging of the brain was obtained. COMPARISON: None FINDINGS: Brain parenchyma is normal in morphology . Midline structures are normally developed. No restricted diffus ion to suggest recent ischemic insult. No abnormal susceptibil ity. Scattered T2/FLAIR hyperintense foci wit hin the periventricular and subcortical white matter are nonspecific , however, statistically represent chronic microvascular ischemic changes. No hydrocephalus. Orbits are within normal limits. No obstructive paranasal sinus disease. IMPRESSION: No acute intracranial findings Signed: Wilmer Myles MD Report Verified Date/Time: 01/04/2020 19:26:20 Reading Location: [address] Room Procedure Note Interface, External Ris In - 01/04/2020 7:28 PM DISPLAY SPECIALIST FINAL REPORT MR, BRAIN, WITHOUT CONTRAST INDICATION: Altered mental status TECHNIQUE: Multiplanar, multisequence MR imaging of the brain was obtained. COMPARISON: None FINDINGS: Brain parenchyma is normal in morphology . Midline structures are normally developed. No restricted diffus ion to suggest recent ischemic insult. No abnormal susceptibil ity. Scattered T2/FLAIR hyperintense foci wit hin the periventricular and subcortical white matter are nonspecific , however, statistically represent chronic microvascular ischemic changes. No hydrocephalus. Orbits are within normal limits. No obstructive paranasal sinus disease. IMPRESSION: No acute intracranial findings Signed: Wilmer Myles MD Report Verified Date/Time: 01/04/2020 1 9:26:20 Reading Location: [facility] [address] [place] [address] Room Performing Organization Address City/State/Zipcode Phone Number [facility] Blood Culture - Routine (Left Venipuncture) (01/04/2020 3:58 PM DISPLAY SPECIALIST)Only the most recent of2 resultswithin the time period is included. Pathologist Sig nature Result No growth in 5 days [facility] Specimen Blood - Entire left upper arm (body stru cture) Performing Organization Address City/State/Zipcode Phone Number [facility] [address] [place] [address] CENTER 2D Echo W/Doppler(CW/PW/Color) (01/04/2020 2:29 PM DISPLAY SPECIALIST) Pathologist Sig nature Ejection Fraction [facility] ECHO [facility] Specimen Narrative Performed At Transthoracic Echocardiography Report (T TE) [facility] ECHO [facility] Demographics Patient Name LINDEN PUTNAM Date of Study 01/04/2020 EROS VAZQUEZ Gender Male Visit Number [id number] Race Unknown Room Number 2209 Number Date of 1940 Referring LULA CORTEZ Physician MIGEL Age 79 year(s) Mechanical Facilities Technician Fanny Linton RD CS Family Health Nurse Practitioner Avery Burkett Interpreting Char Valles Physician Procedure Type of Study TTE procedure:2DECHO W DOPPLER(CW/PW/COLOR) (Routine) Indications:Shortness of breath. Clinical History ARRHYTHMIA; HIGH CHOLEST;HTN. Height: 67 inches Weight: 95.25 kg (210 lbs) BSA: 2.06 m^2 BMI: 32.89 kg/m^2 HR: 64 bpm BP: 191/87 mmHg Summary 1. The left ventricle is chamber size (by vol index) is normal. Mild concentric LV hypertrophy. All of the LV segments contract normally. Estimated LVEF by qualitative assessment is normal (55-60%). Normal diastolic function with normal LV filling pressure (LAP) at rest. LA size is mildly enlarged . 2. Normal right ventricle structure and function. Normal right atrium. Estimated peak systolic PA pressure is 20-25 mmHg + RA pressure. 3. Irfr-pt-zlqinrhc mitral regurgitation. Mild aortic regurgitation. 4. Yqku-ao-zjizupyd tricuspid regurgita tion. Previous Study No prior exam available for comparison. Signature Findings Left Ventricle The left ventricle is chamber size (by vol index) is normal (male - LVED vol - 34-74ml/m2). Mild concentric LV hypertrophy. All of the LV segments contract normally . Estimated LVEF by qualitative assessment is normal (55-60%) . Normal diastolic function with normal LV filling pressure (LAP) at rest . Left Atrium LA size is mildly enlarged . Right Ventricle Normal right ventricle structure and function. Right Atrium Normal righ t atrium. Aortic Valve Mild AoV cusp thickening. Mild aortic regurgitation. Mitral Valve Mild MV leaflet thickening. Rcoe-dx-gmmbgtpj mitral regu rgitation. Tricuspid Valve Ldlb-hh-jadfdvpb tricuspid regurgitation. Estimated peak systolic PA pressure is 20-25 mmHg + RA p ressure. Pulmonic Valve Normal PV structure and function by limited views and Doppler. Aorta Aortic root size (SInus of Valsalva diameter) is norm al . Pericardium No evidence of pericardial effusion. IVC/SVC/PA/PV/Pleural The estimated RA pressure by IVC dynamics indeterminate . Chambers/Structures Left Atrium LA Dimension: 5.05 cm LA Volume: 78.95 ml LA Vol. Index: 38 ml/m^2 Left Ventricle LVIDd: 5.34 cm LVEDV:137.78 ml LV Septum Diastolic: 1.34 cm LV PW Diastolic: 1.32 cm LVEDV Cline's:98.85 ml LVESV Cline's:34.87 ml LVEF Cline's: 57.5 % LVEDVI: 48 ml/m^2 LVESVI: 17 ml/ m^2 LVOT Diameter: 2.24 cm Right Ventricle RVOT VTI: 15.83 cm Aorta Ao Root S of Aysha.: 3.74 cm Doppler/Quantitative Measurements Mitral Valve MV Peak E-Wave: 0.55 m/s MV Peak A-Wave: 0.47 m/s E/A Ratio: 1.18 Peak Gradient: 1.23 mmHg Deceleration Time: 213.5 msec MV Ranulfo. Peak: Tissue Doppler E' Lateral Velocity: 0.07 m/s E/E': 8.33 Aortic Valve Peak Velocity: 1.25 m/s Mean Velocity: 0.89 m/s Peak Gradient: 6.28 mmHg Mean Gradient: 3.6 mmHg AV Area (continuity): 3.04 cm^2 AV VTI: 34.39 cm AV DVI: 0.77 LVOT Peak Velocity: 1.08 m/s Peak Gradient: 4.64 mmHg Mean Velocity: 0.75 m/s Mean Gradient: 2.5 mmHg LVOT Diameter: 2.24 cm LVOT VTI: 26.53 cm LVOT Area: 3.94 cm^2 LVOT SV:104.5 ml LVOT CO: 6.69 l/min LVOT CI: 3.25 l/min/m^2 Procedure Note Interface, External Ris In - 01/04/2020 7:21 PM DISPLAY SPECIALIST Transthoracic Echocardiography Report (TTE) Demographics Patient Name LINDEN PUTNAM Date of Study 01/04/2020 EROS VAZQUEZ Genkendall r Male Visit Number [id number] Race Unknown Room Number 2209 Number Date of 1940 Refer ring LULA CORTEZ Physi live MIGEL Age 79 year(s) Sonog nancy Linton [facility] Family Health Nurse Practitioner Avery Oleary MD Physi live Procedure Type of Study TTE procedure:2DECHO W DOPPLE R(CW/PW/COLOR) (Routine) Indications:Shortness of breath. Clinical History ARRHYTHMIA; HIGH CHOLEST;HTN. Height: 67 inches Weight: 95.25 kg (210 lbs) BSA: 2.06 m^2 BMI: 32.89 kg/m^2 HR: 64 bpm BP: 191/87 mmHg Summary 1. The left ventricle is chamber size ( by vol index) is normal. Mild concentric LV hypertrophy. All of the L V segments contract normally. Estimated LVEF by qualitative assessmen t is normal (55-60%). Normal diastolic function with normal LV filli ng pressure (LAP) at rest. LA size is mildly enlarged . 2. Normal right ventricle structure and function. Normal right atrium. Estimated peak systolic PA pressure is 20-25 mmHg + RA pressure. 3. Ecsc-gm-capvwoku mitral regurgitatio n. Mild aortic regurgitation. 4. Yksj-jx-ajgtkeef tricuspid regurgita tion. Previous Study No prior exam available for comparison. Signature Findings Left Ventricle The left ventric le is chamber size (by vol index) is normal (male - LVED vol - 34-74ml/m2). Mild concentric LV hy pertrophy. All of the LV segments contract normall y . Estimated LVEF by qualitative assessment is no rmal (55-60%) . Normal diastolic function with no rmal LV filling pressure (LAP) at rest. Left Atrium LA size is mildl y enlarged . Right Ventricle Normal right kai tricle structure and function. Right Atrium Normal right atr ium. Aortic Valve Mild AoV cusp th ickening. Mild aortic regu rgitation. Mitral Valve Mild MV leaflet thickening. Qnkp-jx-exohtgrk mitral regurgitation. Tricuspid Valve Vyjj-at-dclczjsf tricuspid regurgitation. Estimated peak s ystolic PA pressure is 20-25 mmHg + RA pressure. Pulmonic Valve Normal PV struct ure and function by limited views and Doppler. Aorta Aortic root size (SInus of Valsalva diameter) is normal . Pericardium No evidence of p ericardial effusion. IVC/SVC/PA/PV/Pleural The estimated RA pressure by IVC dynamics indeterminate . Chambers/Structures Left Atrium LA Dimension: 5.05 cm LA Volume: 78.95 ml LA Vol. Index: 38 ml/m^2 Left Ventricle LVIDd: 5.34 cm LVEDV:137.78 ml LV Septum Diastolic: 1.34 cm LV PW Diastolic: 1.32 cm LVEDV Cline's:98.85 ml LVESV Cline's:34.87 ml LVEF Cline's: 57.5 % LVEDVI: 48 ml/m^2 LVESVI: 17 ml/m^2 LVOT Diameter: 2.24 cm Right Ventricle RVOT VTI: 15.83 cm Aorta Ao Root S of Aysha.: 3.74 cm Doppler/Quantitative Measurements Mitral Valve MV Peak E-Wave: 0.55 m/s M V Peak A-Wave: 0.47 m/s E /A Ratio: 1.18 P eak Gradient: 1.23 mmHg D eceleration Time: 213.5 msec MV Ranulfo. Peak: Tissue Doppler E' Lateral Velocity: 0.07 m/s E /E': 8.33 Aortic Valve Peak Velocity: 1.25 m/s Mean Velocity: 0.89 m/s Peak Gradient: 6.28 mmHg Mean Gradient: 3.6 mmHg AV Area (continuity): 3.04 cm^2 AV VTI: 34.39 cm AV DVI: 0.77 LVOT Peak Velocity: 1.08 m/s Pea k Gradient: 4.64 mmHg Mean Velocity: 0.75 m/s Nava n Gradient: 2.5 mmHg LVOT Diameter: 2.24 cm LVO T VTI: 26.53 cm LVOT Area: 3.94 cm^2 LVO T SV:104.5 ml LVOT CO: 6.69 l/min LVO T CI: 3.25 l/min/m^2 Performing Organization Address City/State/Zipcode Phone Number [facility] Sputum Culture + Gram Stain (01/04/2020 8:34 AM DISPLAY SPECIALIST) Result Oropharyngeal [facility], [facility] specimen rejected. [facility] Recollect requested. Gram Stain Result <1+ WBCs [facility] Gram Stain Result >25 epithelial cells [facility] Gram Stain Result 2+ gram negative rods [facility] Gram Stain Result 2+ gram positive rods [facility] Gram Stain Result 1+ gram negative [facility] cocci [facility] Gram Stain Result 2+ gram positive [facility] cocci in pairs [facility] Gram Stain Result 2+ gram positive [facility] cocci in clusters [facility] Specimen Sputum - Expectorated Performing Organization Address City/[facility]/Zipcode Phone Number [facility] [address] [place] [phone] [place] Hepatic function panel (01/04/2020 6:39 AM DISPLAY SPECIALIST) Pathologist Sig nature Protein, Total 6.0 6.0 - 8.3 gm/dL [facility] Albumin 3.1 (L) 3.5 - 5.0 g/dL [facility] Total Bilirubin 0.7 0.2 - 1.2 mg/dL [facility] Bilirubin, Direct 0.4 0.1 - 0.5 mg/dL [facility] Alkaline Phosphatase 81 40 - 150 U/L [facility] AST 23 5 - 34 U/L [facility] ALT 46 6 - 55 U/L [facility] Specimen Blood Narrative Performed At [facility] DANA - ZOYA Schneider [facility] Performing Organization Address City/[facility] Cent[facility]ode Phone Number [address] [address] [place] ECG 12 lead (01/03/2020 7:51 PM DISPLAY SPECIALIST)Only the most recent of2 resultswithin the time period is included. Specimen Narrative Performed At Ventricular Rate 67 BPM GE MUSE Atrial Rate 67 BPM P-R Interval 218 ms QRS Duration 106 ms Q-T Interval 430 ms QTC Calculation(Bazett) 454 ms P [place] -4 degrees R [place] -33 degrees T [place] 1 degrees Sinus rhythm with 1st degree A-V block Left axis deviation Possible Inferior infarct (cited on or b efore 24-NOV-2019) Abnormal ECG When compared with ECG of 24-NOV-2019 12 :50, No significant change was found Confirmed by Ottoniel Castellanos ([id number]) on 01/04/2020 8:03:36 AM Procedure Note Interface, External Ris In - 01/04/2020 8:03 AM DISPLAY SPECIALIST Ventricular Rate 67 BPM Atrial Rate 67 BPM P-R Interval 218 ms QRS Duration 106 ms Q-T Interval 430 ms QTC Calculation(Bazett) 454 ms P [place] -4 degrees R [place] -33 degrees T [place] 1 degrees Sinus rhythm with 1st degree A-V block Left axis deviation Possible Inferior infarct (cited on or b efore 24-NOV-2019) Abnormal ECG When compared with ECG of 24-NOV-2019 12 :50, No significant change was found Confirmed by Ottoniel Castellanos ([id number]) on 01/03 8:03:36 AM Performing Organization Address City/State/Zipcode Phone Number GE MUSE Manual Differential (01/03/2020 5:32 AM DISPLAY SPECIALIST)Only the most recent of3 results within the time period is included. Pathologist Sig nature % Neutros 86 % [facility] % Lymphs 2 % [facility] % Monos 10 % [facility] % Bands 1 0 - 10 % [facility] % Atypical Lymphs 1 (H) 0 - 0 % [facility] # Neutros 12.73 (H) 1.78 - 5.38 K/ul [facility] # Lymphs 0.30 (L) 1.32 - 3.57 K/ul [facility] # Monos 1.48 (H) 0.30 - 0.82 K/uL [facility] # Bands 0.15 0.00 - 0.80 K/uL [facility] # Atypical Lymphs 0.15 (H) 0.00 - 0.00 K/uL [facility] Total Counted 100 [facility] WBC Morphology Normal [facility] Large Platelet Present [facility] Polychromasia 1+ few [facility] Hypochromia 1+ few [facility] Anisocytosis 1+ few [facility] Poikilocytes 1+ few [facility] Spherocytes 1+ few [facility] Ovalocytes 1+ few [facility] Artifact Present [facility] Platelet Conc Adequate [facility] Specimen Blood Narrative Performed At [facility] ID - Zoya Montemayor [facility] User comments: Slide comments: Performing Organization Address City/[facility]/Zipcode Phone Number [facility] [address] [place] [address] C[place] Phosphorus (01/03/2020 5:32 AM DISPLAY SPECIALIST) Pathologist Sig nature Phosphorus 2.6Comment: 2.3 - 4.7 mg/dL [facility] hemolyzed [place] Specimen Blood Narrative Performed At [facility] ID - DENISHA Pardo [facility] Performing Organization Address City/[facility] Centercode Phone Number [address] [address] [place] Lipase (01/03/2020 5:32 AM DISPLAY SPECIALIST) Pathologist Sig nature Lipase 27 8 - 78 U/L [facility] Specimen Blood Narrative Performed At [facility] ID - SUZANNE [facility] Performing Organization Address City/[facility] Centercode Phone Number [address] [address] C[place] Amylase (01/03/2020 5:32 AM DISPLAY SPECIALIST) Pathologist Sig nature Amylase 32Comment: Specimen 25 - 125 U/L [facility] slightly hemolyzed [facility] Specimen Blood Narrative Performed At [facility] ID - [facility] Performing Organization Address City/[facility]/Zipcode Phone Number [address] [address] CENTER Comprehensive metabolic panel (01/03/2020 5:32 AM DISPLAY SPECIALIST)Only the most recent of2 resultswithin the time period is included. Protein, Total 6.2Comment: 6.0 - 8.3 [facility] Specimen slightly gm/dL [facility] Albumin 3.2 (L)Comment: 3.5 - 5.0 [facility] Specimen slightly g/dL [facility] Alkaline 83 40 - 150 U/L [facility] Phosphatase [facility] Total Bilirubin 1.3 (H)Comment: 0.2 - 1.2 [facility] Specimen slightly mg/dL [facility] Sodium 137 136 - 145 [facility] meq/L [facility] Potassium 4.3Comment: 3.5 - 5.1 [facility] Specimen slightly meq/L [facility] Chloride 104 98 - 107 [facility] meq/L [facility] CO2 23 22 - 29 meq/L [facility] BUN 16 7 - 21 mg/dL [facility] Creatinine 0.76Comment: 0.57 - 1.25 [facility] slightly mg/dL [facility] Glucose 103 70 - 105 [facility] mg/dL [facility] Calcium 8.3 (L) 8.4 - 10.2 [facility] mg/dL [facility] AST 38 (H)Comment: 5 - 34 U/L [facility] ALT 52Comment: 6 - 55 U/L [facility] EGFR 99Comment: mL/min/1.73 [facility] ESTIMATED GFR IS sq [facility] NOT ACCURATE MEDICAL CENTER CREATININE CLEARANCE IN PREDICTING GLOMERULAR FILTRATION RATE. ESTIMATED GFR IS NOT APPLICABLE FOR DIALYSIS PATIENTS. Specimen Blood Narrative Performed At [facility] ID - [facility] Performing Organization Address City/State/Zipcode Phone Number [facility] [address] [place] [address] chest PE test design (01/03/2020 12:42 AM DISPLAY SPECIALIST) Specimen Narrative Performed At FINAL REPORT [employer] RIS EXAM: CT of the chest, with contrast, PE protocol CLINICAL HISTORY: PE suspected, high p retest probability. Shortness of breath. TECHNIQUE: Chest CT was performed with i ntravenous contrast utilizing a PE protocol. 2-D and 3-D reformatted i mages were obtained. This exam was performed according to our depa rtmental dose optimization program which includes automated exposur e control, adjustment of the mA and/or kV according to patient's size and/or use of iterative reconstructive technique. COMPARISON: None FINDINGS: LOWER NECK: Within normal limits. AIRWAYS AND LUNGS: Patent central trache obronchial tree. No focal pulmonary consolidation. PLEURA: No pleural effusion or pneumotho rax. VESSELS: Atherosclerotic calcifications of the aorta and branches. No thoracic aortic aneurysm. No pulmonary e mbolism. HEART: Mild cardiomegaly. Trace pericard ial effusion. SONAL AND MEDIASTINUM: Within normal limi ts. VISUALIZED UPPER ABDOMEN: Status post ch olecystectomy. Diffuse hepatic steatosis. Diffuse fatty stran ding surrounding the head and body of the pancreas and in the lesser c urvature concerning for acute pancreatitis. Mild nonspecific bilateral adrenal gland thickening. Calcified splenic and liver granulomata. SOFT TISSUES: Partially imaged thoracic neurostimulator with lead tip at the T7 spinal canal. BONES: Partially imaged lower cervical s aleja fixation hardware. Thoracic kyphosis. Degenerative changes of the visualized spine and bilateral shoulders. Small sclerotic foc i in the T3 and T5 vertebral bodies, favored to represent bone island s. IMPRESSION: No pulmonary embolism. Mild cardiomegaly. Trace pericardial eff usion. Diffuse peripancreatic fatty stranding c oncerning for acute pancreatitis. Findings were not present on thoracic spine CT 12/27/2019. Clinical correlation is advi sed. A CT abdomen is recommended for further evaluation. Hepatic steatosis. Signed: Kayce Roman MD Report Verified Date/Time: 01/03/2020 00:54:14 Procedure Note Interface, External Ris In - 01/03/2020 12:57 AM DISPLAY SPECIALIST FINAL REPORT EXAM: CT of the chest, with contrast, PE protocol CLINICAL HISTORY: PE suspected, high pr etest probability. Shortness of breath. TECHNIQUE: Chest CT was performed with i ntravenous contrast utilizing a PE protocol. 2-D and 3-D reformatted i mages were obtained. This exam was performed according to our depa rtmental dose optimization program which includes automated exposur e control, adjustment of the mA and/or kV according to patient's size and/or use of iterative reconstructive technique. COMPARISON: None FINDINGS: LOWER NECK: Within normal limits. AIRWAYS AND LUNGS: Patent central trache obronchial tree. No focal pulmonary consolidation. PLEURA: No pleural effusion or pneumotho rax. VESSELS: Atherosclerotic calcifications of the aorta and branches. No thoracic aortic aneurysm. No pulmonary e mbolism. HEART: Mild cardiomegaly. Trace pericard ial effusion. SONAL AND MEDIASTINUM: Within normal limi ts. VISUALIZED UPPER ABDOMEN: Status post ch olecystectomy. Diffuse hepatic steatosis. Diffuse fatty strand ing surrounding the head and body of the pancreas and in the lesser c urvature concerning for acute pancreatitis. Mild nonspecific bilateral adrenal gland thickening. Calcified splenic and liver granulomata. SOFT TISSUES: Partially imaged thoracic neurostimulator with lead tip at the T7 spinal canal. BONES: Partially imaged lower cervical s aleja fixation hardware. Thoracic kyphosis. Degenerative changes of the visualized spine and bilateral shoulders. Small sclerotic foc i in the T3 and T5 vertebral bodies, favored to represent bone island s. IMPRESSION: No pulmonary embolism. Mild cardiomegaly. Trace pericardial eff usion. Diffuse peripancreatic fatty stranding c oncerning for acute pancreatitis. Findings were not present on thoracic spine CT 12/27/2019. Clinical correlation is advi sed. A CT abdomen is recommended for further evaluation. Hepatic steatosis. Signed: Kayce Roman MD Report Verified Date/Time: 01/03/2020 0 0:54:14 Performing Organization Address City/State/Zipcode Phone Number [employer] Venous doppler legs bilateral (01/02/2020 11:24 PM DISPLAY SPECIALIST) Pathologist Sig nature Ejection Fraction [facility] U Catch [employer] Marketing Agency[employer] [facility] CPACS Specimen Impressions Performed At Right Impression [facility] 1. There is no deep venous obstruction in the common femoral, profunda femoral, femoral, popliteal, posterior tibial or peroneal veins. 2. There is no superficial venous obstruction in the great saphenous vein. Left Impression 1. There is no deep venous obstruction in the common femoral, profunda femoral, femoral, popliteal, posterior tibial or peroneal veins. 2. There is no superficial venous obstruction in the great saphenous vein. Conclusions Summary Venous duplex imaging and compression of the bilateral lower extremities were performed. The veins were adequately visualized. The bilateral venous systems were patent and compressible with no evidence of thrombus. Signature Velocities are measured in cm/s ; Diameters are measured in cm Narrative Performed At PV LAB - Lower Extremities DVT Study [facility] Demographics Patient Name LINDEN PUTNAM Date of Study 01/02/2020 EROS VAZQUEZ Age 79 Visit Number [id number] Gender Male Accession Number [id number] Date of 1940 Referring Trish Saeed Room Number ED13 Physician Mechanical Facilities Technician Reji Elliott Interpreting Physician DAVONTE Brandt Procedure Type of Study: Veins: Lower Extremities DVT Study, VENOUS DOPPLER LEG, BILATERAL. Indications for Study:Shortness of breath, Leg pain and Swelling. Patient Status:STAT. Study Location:Portable. Technical Quality:Adequate visualization . Risk Factors History of Disease + +----+ + !Diagnosis !Date!Comments ! + +----+ + !History/Risk ! !Recent Surgery (Spinal Stimulator), HTN, HLD, ! !Factors: ! !Obesity ! + +----+ + Procedure Note Interface, External Ris In - 01/03/2020 8:27 AM DISPLAY SPECIALIST [facility] - Lower Extremities DVT Study Demographics Patient Name LINDEN PUTNAM te of Study 01/02/2020 EROS VAZQUEZ Ag e 79 Visit Number [id number] nder Male Accession Number [id number] Da te of 1940 Referring Trish Klein om Number [id number] Physician Mechanical Facilities Technician Reji Elliott In terpreting Molly Plaza, Ph ysician Procedure Type of Study: Veins: Lower Extremities DVT Study, KAI OUS DOPPLER LEG, BILATERAL. Indications for Study:Shortness of breat h, Leg pain and Swelling. Patient Status:STAT. Study Location:Portable. Technical Quality:Adequate visualization . Risk Factors History of Disease + +----+ + !Diagnosis !Date!Comments ! + +----+ + !History/Risk ! !Recent Surgery (Spinal Stimulator), HTN, HLD, ! !Factors: ! !Obesity ! + +----+ + Impressions Right Impression 1. There is no deep venous obstruction i n the common femoral, profunda femoral, femoral, popliteal, posterior t ibial or peroneal veins. 2. There is no superficial venous obstru ction in the great saphenous vein. Left Impression 1. There is no deep venous obstruction i n the common femoral, profunda femoral, femoral, popliteal, posterior t ibial or peroneal veins. 2. There is no superficial venous obstru ction in the great saphenous vein. Conclusions Summary Venous duplex imaging and compression o f the bilateral lower extremities were performed. The veins were adequate ly visualized. The bilateral venous systems were patent and compressible wi th no evidence of thrombus. Signature Velocities are measured in cm/s ; Diamet ers are measured in cm Performing Organization Address [place] [place] [facility] ECG/EKG Interpretation (01/02/2020 9:08 PM DISPLAY SPECIALIST) Narrative Performed At Trish Saeed MD 0 4:40 PM ECG/EKG Interpretation Date/Time: 01/03/2020 1:45 AM Performed by: Trish Saeed MD Authorized by: Trish Saeed MD Troponin I (01/02/2020 6:04 PM DISPLAY SPECIALIST) Pathologist Sig nature Troponin I <0.01 0.00 - 0.03 ng/mL [facility] Specimen Blood Narrative Performed At Troponin I (TnI) levels must be interpreted [facility] in the context of the presenting symptoms and the clinical findings. Elevated TnI levels indicate myocardial damage, but are not specific for ischemic heart disease. Elevated TnI levels are seen in patients with other cardiac conditions (including myocarditis and congestive heart failure), and slight TnI elevations occur in patients with other conditions, including sepsis, renal failure, acidosis, acute neurological disease, and persistent tachyarrhythmia. [facility] ID - ADMIN Performing Organization Address City/State/Zipcode Phone Number [address] [address] C[place] PT/INR (01/02/2020 6:04 PM DISPLAY SPECIALIST)Only the most recent of2 resultswithin the time period is included. Pathologist Sig nature Protime 14.7 (H) 11.9 - 14.2 seconds [facility] INR 1.18 <=5.90 [facility] Specimen Blood Narrative Performed At Effective 07/27/2018: PT Reference Range [facility] Change New: 11.9-14.2 Previous: 11.7-14.7 RECOMMENDED COUMADIN/WARFARIN INR THERAPY RANGES STANDARD DOSE: 2.0-3.0 Includes: PROPHYLAXIS for venous thrombosis, systemic embolization; TREATMENT for venous thrombosis and/or pulmonary embolus. HIGH RISK: Target INR is 2.5-3.5 for patients wiht mechanical heart valves. Performing Organization Address City/State/Zipcode Phone Number [address] [phone] CENTER D-dimer, quantitative (01/02/2020 6:04 PM DISPLAY SPECIALIST) Pathologist Sig elieser D-Dimer, Quant 3.30 (H) <0.50 MG/L FEU [facility] Specimen Blood Narrative Performed At Intended Use: The D-Dimer Assay can be used [facility] to aid in the diagnosis of Deep Vein Thrombosis (DVT) and Pulmonary Embolism Disease (PED). In patients with low pre-test probability, various studies concerning STA Liatest D-dimer test have reported that with a cutoff value of 0.50 MG/L FEU, the Negative Predictive Value (NPV) regarding the exclusion of thrombosis is within 95-100% range. Performing Organization Address City/[facility]/Zipcode Phone Number [address] [address] CENTER B-type Natriuretic Factor (BNP) (01/02/2020 6:04 PM DISPLAY SPECIALIST) Pathologist [facility]er BNP 57 0 - 100 pg/mL [facility] [place] Specimen Blood Narrative Performed At Super[facility] ID - ADMIN [facility] [place] Performing Organization Address City/[facility]/Zipcode Phone Number [address] [address] CENTER Urinalysis w/Microscopic (12/31/2019 11:23 AM DISPLAY SPECIALIST) Color, UA Yellow [facility] Clarity, UA Clear [facility] Specific [place], 1.023 1.001 - 1.035 [facility] pH, UA 6.0 5.0 - 8.0 [facility] Protein, UA 30 mg/dL (A) Negative [facility] Glucose, UA Negative Negative [facility] Ketones, UA Negative Negative [facility] Bilirubin, UA Negative Negative [facility] Blood, UA Trace (A) Negative [facility] Nitrite, UA Negative Negative [facility] Leukocytes, UA Negative Negative [facility] Urobilinogen, UA 0.2 0.2 - 1.0 mg/dL [facility] RBC, UA 1 /HPF [facility] WBC, UA 1 /HPF [facility] Mucus Rare [facility] Squam Epithel, UA <1 /HPF [facility] Specimen Source [facility] Specimen Urine Narrative Performed At [facility] ID - [auto] [facility] Supervisor [facility] ID - tech Performing Organization Address City/State/Zipcode Phone Number [facility] [address] [place] [address] CENTER CBC w/o diff (12/28/2019 6:53 AM CDT) Pathologist Sig nature WBC 13.1 (H) 3.5 - 10.5 K/L [facility] RBC 4.19 (L) 4.63 - 6.08 M/L [facility] Hemoglobin 12.3 (L) 13.7 - 17.5 GM/DL [facility] Hematocrit 39.4 (L) 40.1 - 51.0 % [facility] MCV 94.0 (H) 79.0 - 92.2 fL [facility] MCH 29.4 25.7 - 32.2 pg [facility] MCHC 31.2 (L) 32.3 - 36.5 GM/DL [facility] RDW 13.8 11.6 - 14.4 % [facility] Platelets 207 150 - 450 K/CU MM [facility] MPV 10.2 9.4 - 12.4 fL [facility] nRBC 0 0 - 0 /100 WBC [facility] Specimen Blood Performing Organization Address City/State/Zipcode Phone Number [facility] [address] [place] [address] spine lumbar without IV contrast (12/27/2019 4:13 PM CDT) Specimen Narrative Performed At FINAL REPORT [employer] CT, SPINE, THORACIC, WO CONTRAST, CT, SP INE, LUMBAR, WO CONTRAST INDICATION: Spinal cord neurostimulator displacement COMPARISON: None TECHNIQUE: Contiguous noncontrast axial images of t he thoracic and lumbar spine are obtained. Computer reformatted coron al and sagittal images are also provided. Axial images are availabl e in both bone and soft tissue algorithm. DOSE REDUCTION: Dose modulation, iterati ve reconstruction, and/or weight-based adjustment of the mA/kV was utilized to reduce the radiation dose to as low as reasonably a chievable. FINDINGS: Nomenclature: L5-S1 is axial image 134. Alignment: Normal. Vertebrae: Thin anterior syndesmophytes spanning T4-T12, consistent with ankylosing spondylitis. Bones are d iffusely demineralized. Sclerotic bone islands within the T3, T5 , T9, and L4 vertebral bodies. Degenerative loss of interverteb ral disc space at L2-3 with Schmorl's nodes indenting the endplates. Prior laminectomy and interbody fusion of L5-S1. No acute frac ture. No aggressive osseous lesions. Spondylosis: A spinal cord stimulator barreto s been placed within the left gluteal soft tissues. There are two lead s, one entering the spinal canal on the left at T12-L1 and the othe r entering on the right at T11-12. The leads terminate at the T7-8 level. No high-grade canal or foraminal stenosi s. Soft tissues: Dorsal paraspinous soft ti ssue fluid and air as expected postoperatively. Scattered bila teral pulmonary groundglass opacities. Trace pleural fluid tracks al leonard the fissures. Small bilateral renal stones. Cholecystectomy clips are in place. Extensive vascular calcifications. IMPRESSION: Spinal cord stimulator leads terminate a t the T7-8 level. Signed: Jodi Olivarez MD Report Verified Date/Time: 12/27/2019 16:55:12 Procedure Note Interface, External Ris In - 12/27/2019 4:57 PM CDT FINAL REPORT CT, SPINE, THORACIC, WO CONTRAST, CT, SP INE, LUMBAR, WO CONTRAST INDICATION: Spinal cord neurostimulator displacement COMPARISON: None TECHNIQUE: Contiguous noncontrast axial images of t he thoracic and lumbar spine are obtained. Computer reformatted coron al and sagittal images are also provided. Axial images are availabl e in both bone and soft tissue algorithm. DOSE REDUCTION: Dose modulation, iterati ve reconstruction, and/or weight-based adjustment of the mA/kV was utilized to reduce the radiation dose to as low as reasonably a chievable. FINDINGS: Nomenclature: L5-S1 is axial image 134. Alignment: Normal. Vertebrae: Thin anterior syndesmophytes spanning T4-T12, consistent with ankylosing spondylitis. Bones are d iffusely demineralized. Sclerotic bone islands within the T3, T5 , T9, and L4 vertebral bodies. Degenerative loss of interverteb ral disc space at L2-3 with Schmorl's nodes indenting the endplates. Prior laminectomy and interbody fusion of L5-S1. No acute frac ture. No aggressive osseous lesions. Spondylosis: A spinal cord stimulator barreto s been placed within the left gluteal soft tissues. There are two lead s, one entering the spinal canal on the left at T12-L1 and the othe r entering on the right at T11-12. The leads terminate at the T7-8 level. No high-grade canal or foraminal stenosi s. Soft tissues: Dorsal paraspinous soft ti ssue fluid and air as expected postoperatively. Scattered bila teral pulmonary groundglass opacities. Trace pleural fluid tracks al leonard the fissures. Small bilateral renal stones. Cholecystectomy clips are in place. Extensive vascular calcifications. IMPRESSION: Spinal cord stimulator leads terminate a t the T7-8 level. Signed: Jodi Olivarez MD Report Verified Date/Time: 12/27/2019 1 6:55:12 Performing Organization Address City/State/Zipcode Phone Number [facility] CT spine thoracic without IV contrast (12/27/2019 4:13 PM CDT) Specimen Narrative Performed At FINAL REPORT [facility] CT, SPINE, THORACIC, WO CONTRAST, CT, SP INE, LUMBAR, WO CONTRAST INDICATION: Spinal cord neurostimulator displacement COMPARISON: None TECHNIQUE: Contiguous noncontrast axial images of t he thoracic and lumbar spine are obtained. Computer reformatted coron al and sagittal images are also provided. Axial images are availabl e in both bone and soft tissue algorithm. DOSE REDUCTION: Dose modulation, iterati ve reconstruction, and/or weight-based adjustment of the mA/kV was utilized to reduce the radiation dose to as low as reasonably a chievable. FINDINGS: Nomenclature: L5-S1 is axial image 134. Alignment: Normal. Vertebrae: Thin anterior syndesmophytes spanning T4-T12, consistent with ankylosing spondylitis. Bones are d iffusely demineralized. Sclerotic bone islands within the T3, T5 , T9, and L4 vertebral bodies. Degenerative loss of interverteb ral disc space at L2-3 with Schmorl's nodes indenting the endplates. Prior laminectomy and interbody fusion of L5-S1. No acute frac ture. No aggressive osseous lesions. Spondylosis: A spinal cord stimulator barreto s been placed within the left gluteal soft tissues. There are two lead s, one entering the spinal canal on the left at T12-L1 and the othe r entering on the right at T11-12. The leads terminate at the T7-8 level. No high-grade canal or foraminal stenosi s. Soft tissues: Dorsal paraspinous soft ti ssue fluid and air as expected postoperatively. Scattered bila teral pulmonary groundglass opacities. Trace pleural fluid tracks al leonard the fissures. Small bilateral renal stones. Cholecystectomy clips are in place. Extensive vascular calcifications. IMPRESSION: Spinal cord stimulator leads terminate a t the T7-8 level. Signed: Jodi Olivarez MD Report Verified Date/Time: 12/27/2019 16:55:12 Procedure Note Interface, External Ris In - 12/27/2019 4:57 PM CDT FINAL REPORT CT, SPINE, THORACIC, WO CONTRAST, CT, SP INE, LUMBAR, WO CONTRAST INDICATION: Spinal cord neurostimulator displacement COMPARISON: None TECHNIQUE: Contiguous noncontrast axial images of t he thoracic and lumbar spine are obtained. Computer reformatted coron al and sagittal images are also provided. Axial images are availabl e in both bone and soft tissue algorithm. DOSE REDUCTION: Dose modulation, iterati ve reconstruction, and/or weight-based adjustment of the mA/kV was utilized to reduce the radiation dose to as low as reasonably a chievable. FINDINGS: Nomenclature: L5-S1 is axial image 134. Alignment: Normal. Vertebrae: Thin anterior syndesmophytes spanning T4-T12, consistent with ankylosing spondylitis. Bones are d iffusely demineralized. Sclerotic bone islands within the T3, T5 , T9, and L4 vertebral bodies. Degenerative loss of interverteb ral disc space at L2-3 with Schmorl's nodes indenting the endplates. Prior laminectomy and interbody fusion of L5-S1. No acute frac ture. No aggressive osseous lesions. Spondylosis: A spinal cord stimulator barreto s been placed within the left gluteal soft tissues. There are two lead s, one entering the spinal canal on the left at T12-L1 and the othe r entering on the right at T11-12. The leads terminate at the T7-8 level. No high-grade canal or foraminal stenosi s. Soft tissues: Dorsal paraspinous soft ti ssue fluid and air as expected postoperatively. Scattered bila teral pulmonary groundglass opacities. Trace pleural fluid tracks al leonard the fissures. Small bilateral renal stones. Cholecystectomy clips are in place. Extensive vascular calcifications. IMPRESSION: Spinal cord stimulator leads terminate a t the T7-8 level. Signed: Jodi Olivarez MD Report Verified Date/Time: 12/27/2019 1 6:55:12 Performing Organization Address City/State/Zipcode Phone Number [employer] fluoro non-specific up to 1 hour (12/27/2019 1:57 PM CDT)Only the most recent of2 resultswithin the time period is included. Specimen Narrative Performed At Fluoroscopic unit utilized for a procedure performed i n the OR. No GE RIS interpretation was requested. Refer to the operative report for findings. Refer to PACS for patient radiation dose i nformation. Procedure Note Interface, External Ris In - 01/01/2020 9:17 AM DISPLAY SPECIALIST Fluoroscopic unit utilized for a procedu re performed in the OR. No interpretation was requested. Refer to the operative r eport for findings. Refer to PACS for patient radiation dose information. Performing Organization Address City/[facility] Phone Number GE RIS Type and screen, automated (12/25/2019 1:18 PM CDT)Only the most recent of2 resultswithin the time period is included. Pathologist Sig nature ABO/RH AUTOMATED A POSITIVE [facility] Ab Scrn NEGATIVE [facility] Specimen Blood Performing Organization Address [facility] Phone Number [address] [address] PT/aPTT (12/25/2019 1:18 PM CDT) Pathologist Sig nature Protime 13.6 11.9 - 14.2 seconds [facility] INR 1.07 <=5.90 [facility] PTT 30.3 22.5 - 36.0 seconds [facility] Specimen Blood Narrative Performed At Effective 07/27/2018: PT Reference Range [facility] Change New: 11.9-14.2 Previous: 11.7-14.7 RECOMMENDED COUMADIN/WARFARIN INR THERAPY RANGES STANDARD DOSE: 2.0-3.0 Includes: PROPHYLAXIS for venous thrombosis, systemic embolization; TREATMENT for venous thrombosis and/or pulmonary embolus. HIGH RISK: Target INR is 2.5-3.5 for patients wiht mechanical heart valves. Performing Organization Address City/[facility] Phone Number [address] [address] CENTER TRANSFUSION SERVICE REPORT - SCAN (11/30/2019 6:04 PM CDT)Only the most recent of2 resultswithin the time period is included. Narrative Performed At This result has an attachment that is no t available. RHYTHM STRIP - SCAN (11/30/2019 3:21 PM CDT) Narrative Performed At This result has an attachment that is no t available. ABORH, manual (11/29/2019 6:15 AM CDT) Pathologist Sig nature ABO Grouping A [facility] DICAL [place] Rh Factor POS [facility] Specimen Blood Performing Organization Address City/State/Zipcode Phone Number [facility] [address] [place] [address] XR chest 2 views (11/24/2019 1:14 PM CDT) Specimen Narrative Performed At FINAL REPORT RIS TECHNIQUE: Frontal and lateral views of the chest. INDICATION: Chronic pain disorder COMPARISON: None. FINDINGS: LINES/TUBES: None. LUNGS: The lungs are well inflated and c lear. No consolidation or pulmonary edema. PLEURA: No pleural effusion or pneumotho rax. HEART AND MEDIASTINUM: The cardiomediast inal silhouette is within normal limits. SOFT TISSUES AND BONES: Status post ante rior cervical fusion.. IMPRESSION: No acute cardiopulmonary abnormalities. Signed: Rocio Rivera MD Report Verified Date/Time: 11/24/2019 14:23:08 Procedure Note Interface, External Ris In - 11/24/2019 2:25 PM CDT FINAL REPORT TECHNIQUE: Frontal and lateral views of the chest. INDICATION: Chronic pain disorder COMPARISON: None. FINDINGS: LINES/TUBES: None. LUNGS: The lungs are well inflated and c lear. No consolidation or pulmonary edema. PLEURA: No pleural effusion or pneumotho rax. HEART AND MEDIASTINUM: The cardiomediast inal silhouette is within normal limits. SOFT TISSUES AND BONES: Status post ante rior cervical fusion.. IMPRESSION: No acute cardiopulmonary abnormalities. Signed: Rocio Rivera MD Report Verified Date/Time: 11/24/2019 1 4:23:08 Performing Organization Address City/State/Zipcode Phone Number GE RIS aPTT (11/24/2019 12:49 PM CDT) Pathologist Sig nature PTT 35.4 22.5 - 36.0 seconds [facility] Specimen Blood - Entire left upper arm (body stru cture) Performing Organization Address City/State/Zipcode Phone Number [facility] [address] [place] [address] CENTER after 01/14/2019 Insurance Payer Benefit Plan / Subscriber ID Effective Phone Address T ype Group Dates CIGNA CIGNA [id number] 2019-Pre Maps [employer] [facility] sent Cont racted ALL CDC REVIEW CDC REVIEW [id number] 2019-[place] [address] Advance Directives For more information, please contact: [phone] Code Status Date Activated Date Inactivated Comments Full Code 12/27/2019 9:01 PM 12/31/2019 5:01 PM This code status was determined by: Patient Full Code 12/27/2019 11:29 AM 12/27/2019 9:00 PM This code status was determined by: Patient Full Code 11/29/2019 5:48 AM 11/29/2019 1:28 PM This code status was determined by: Patient
--- OUTSIDE RECORDS SUMMARY | 2020-01-15 18:48 | XMS REPORT | Summary of Care ---
:1940 Author Organization [facility] [place] [address] Care Team Providers Name Role Phone MD Lei Primary Care Provider Reason for Visit Reason Comments Post-op Follow-up chronic pain - s/p SCS trial Consult, Test & Treat (Routine) Status Reason Specialty Diagnoses / Referred By Referred To Procedures Contact Contact Authorized Neurosurgery Diagnoses Lumbar spine instability ok per anton (SCS, Pending: MRI L-spine) SCS Pt will bring 11/06 MRI L-spine Singh Odom Viswanathan, Procedures NEUROSURGERY NEW OFFICE VISIT MD Chrissy [address] [place] [address] [address]th [address] Phone: [place], [place] [address] Phone: Fax: Encounter Details Date Type Department Care Team Description 12/07/2019 Office Visit [facility] Gertrude, Post-op Fo llow-up Medicine Brennen Taveras, (chronic pain - s/p Neurosurgery 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- 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 ) [address] [facility] [address], [address] [place], [place] [address] [phone] Allergies No Known Allergiesdocumented as of this encounter (statuses as of 12/07/2019) Medications Medication Sig Dispensed Refills Start Date End Date Status clonidine (CATAPRES) TAKE 1 TABLET BY 0 08/21/2019 Active 0.1 MG tablet MOUTH TWICE A DAY amiodarone TAKE 1 TABLET BY 0 08/31/2019 A ctive (PACERONE) 200 MG MOUTH TWICE A DAY tablet Diclofenac Sodium 1 DIRECTED TWICE A 0 09/07/2019 Active % GEL DAY TRANSDERMAL 90 duloxetine TAKE 1 CAPSULE BY 0 08/31/2019 Active (CYMBALTA) 60 MG MOUTH EVERY DAY capsule finasteride TAKE 1 TABLET BY 0 08/17/2019 Active (PROSCAR) 5 MG MOUTH EVERY DAY tablet fluoxetine (PROZAC) Take 10 mg by mouth. 0 Active 10 MG capsule hydrocodone-acetamin TAKE 1/2 1 TABLET 0 0 Active ophen (NORCO) NEEDED EVERY 8 7.5-325 MG per HOURS NEEDED FOR tablet PAIN ORALLY 28 DAYS Lidocaine HCl 15 ML NEEDED 0 10/20/2019 Active (LIDOCAINE VISCOUS EVERY 3 HRS HCL) 2 % SOLN MOUTH/THROAT PROCTOSOL HC 2.5 % APPLY A SMALL AMOUNT 0 09/06/2019 Active CREA RECTALLY 3 4 TIMES DAILY lisinopril TAKE 1 TABLET BY 0 08/31/2019 A ctive (PRINIVIL, ZESTRIL) MOUTH EVERY DAY 20 MG tablet loratadine TAKE 1 TABLET BY 0 08/17/2019 A ctive (CLARITIN) 10 MG MOUTH EVERY DAY tablet metoprolol TAKE 2 TABLETS BY 0 08/17/2019 Active (LOPRESSOR) 50 MG MOUTH EVERY DAY IN tablet THE MORNING AND TAKE ONE TABLET IN PM TWICE DAILY WITH FOOD MYRBETRIQ 50 MG TB24 TAKE 1 TABLET BY 0 08/17/2019 Active MOUTH EVERY DAY nystatin TAKE 4 ML BY MOUTH 0 10/11/2019 Active (MYCOSTATIN) 395124 FOUR TIMES A DAY UNIT/ML suspension pravastatin Take 40 mg by mouth. 0 Active (PRAVACHOL) 40 MG tablet XARELTO 20 MG TABS TAKE 1 TABLET BY 0 10/02/2019 Active MOUTH EVERY DAY WITH FOOD terazosin (HYTRIN) Take 10 mg by mouth. 0 Active 10 MG capsule tizanidine TAKE 1 TABLET BY 0 10/05/2019 A ctive (ZANAFLEX) 4 MG MOUTH THREE TIMES A tablet DAY NEEDED FOR 2 WEEKS trazodone (DESYREL) Take 100 mg by 0 Active 100 MG tablet mouth. documented as of this encounter (statuses as of 12/07/2019) Active Problems Not on filedocumented as of this encounter (statuses as of 12/07/2019) Social History Tobacco Use Types Packs/Day Years Used Date Never Smoker Smokeless Tobacco: Never Used Alcohol Use Drinks/Week oz/Week Comments Not Currently Sex Assigned at Date Recorded Not on file documented as of this encounter Last Filed Vital Signs Vital Sign Reading Time Taken Comments Blood Pressure 192/96 12/07/2019 1:07 PM CDT 196/95 Pulse 88 12/07/2019 1:07 PM CDT Temperature 35.2 C (95.4 F) 12/07/2019 1:07 PM CDT Respiratory Rate 14 12/07/2019 1:07 PM CDT Oxygen Saturation 97% 12/07/2019 1:07 PM CDT Inhaled Oxygen Concentration - - Weight 100.5 kg (221 lb 8 oz) 12/07/2019 1:07 PM CDT Height 172.7 cm (5' 8") 12/07/2019 1:07 PM CDT Body Mass Index 33.68 12/07/2019 1:07 PM CDT documented in this encounter Patient Instructions Patient InstructionsBrennen Loredo, 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-BC - 12/07/2019 1:20 PM CDTYour Body mass index is 33.68 kg/m. Body mass index (BMI) can help you see if your weight is raising your risk for health problems. It uses a formula to compare how much you weigh with how tall you are. A BMI between 18.5 and 24.9 is considered healthy. A BMI between 25 and 29.9 is considered overweight. A BMI of 30 or higher is considered obese. If your BMI is in the normal range, it means that you have a lower risk for weight-related health problems. If your BMI is in the overweight or obese range, you may be at increased risk for weight-related health problems, such as high blood pressure, heart disease, stroke, arthritis or joint pain, anddiabetes. BMI is just one measure of your risk for weight-related health problems. You may be at higher risk for health problems if you are not active, you eat an unhealthy diet, or you drink too much alcohol oruse tobacco products. Follow-up care is a cabrales part of your treatment and safety. Be sure to make and go to all appointments, and call your doctor if you are having problems. It's also a good idea to know your test results and keep a list of the medicines you take. How can you care for yourself at home? Practice healthy eating habits. This includes eating plenty of fruits, vegetables, whole grains, lean protein, and low-fat dairy. Get at least 30 minutes of exercise 5 days a week or more. Brisk walking is a good choice. You also may want to do other activities, such as running, swimming, cycling, or playing tennis or team sports. Do not smoke. Smoking can increase your risk for health problems. If you need help quitting, talkto your doctor about stop-smoking programs and medicines. These can increase your chances of quitting for good. Limit alcohol Where can you learn more? Go to [email or web address] Go to the Search tab with the magnifying glass on the right side of AT Internet home page. Enter S176 in the search box to learn more about "Body Mass Index: Care Instructions." documented in this encounter Progress Notes Brennen Loredo FNP-BC - 12/07/2019 1:20 PM CDTRE: Linden Putnam : 1940 DOS: 12/07/2019 Mr. Putnam was seen in the [facility] today as a follow up. Chief Complaint: chronic pain - s/p SCS trial History of Present Illness: Mr. Putnam is a pleasant 79 y.o. {male with who presents with chronic neck, and low back pain. The patient has failed multimodal conservative management by his pain management physician. Mr. Putnam underwent an attempted trial of spinal cord stimulation however, they w ere unable to pass the perc leads. He is now s/p percutaneous SCS trial ( [facility]) by Dr. Connors on 11/29/19. Mr. Putnam reports significant improvement in his low back, and knee pain with the trial and would like to proceed with the permanent implantation. He states he is currently getting close to 100% pain relief with the trial. Medications: Mr. Putnam has a current medication list which includes the following prescription(s):amiodarone, clonidine, diclofenac sodium, duloxetine, finasteride, fluoxetine, hydrocodone-acetaminophen, lidocaine viscous hcl, lisinopril, loratadine, metoprolol, myrbetriq, nystatin, pravastatin, proctosol hc, terazosin, tizanidine, trazodone, and xarelto. Vital Signs: BP (!) 192/96 (BP Location: right arm, Patient Position: Sitting, Cuff Size: regular) Comment: 196/95 | Pulse 88 | Temp 95.4 F (35.2 C) (Temporal) | Resp 14 | Ht 5' 8" (1.727 m) |Wt 221 lb 8 oz (100.5 kg) | SpO2 97% | BMI 33.68 kg/m Plans/Recommendations: Perc SCS trial leads removed in clinic without difficulty. No drainage noted. We discussed the surgical procedure including the associated risks which can include bleeding, infection, lead migration, hardware malfunction, and failure to achieve desired results. Patient voiced his understanding and wishes to proceed. All his questions were answered. documented in this encounter Plan of Treatment Health Maintenance Due Date Last Done Comments TETANUS SHOT (ADULT) 11[birth year]22/1955 HEPATITIS C SCREENING 1958 ZOSTER VACCINE (1 of 2) 1990 PNEUMOVAX >=65 (PPSV23) 2005 MEDICARE IPPE (WELCOME TO MEDICARE) 03/01/2019 FLU VACCINE > 6 MONTHS 09/30/2019 BMI FOLLOW UP PLAN 11/12/2020 11/13/2019 FALL SCREEN 12/06/2020 12/07/2019 documented as of this encounter Results Not on filedocumented in this encounter Visit Diagnoses Diagnosis Chronic pain syndrome - Primary documented in this encounter Insurance Payer Benefit Plan / Subscriber ID Effective Phone Address T ype Group Dates [employer]IGNA TOTALCARE SNP [id number] 2019-Pres [address] Medicare HEALTHCARE HMO-CIGNA ent [id number] [facility] [place] [address] documented as of this encounter
--- OUTSIDE RECORDS SUMMARY | 2020-01-15 18:48 | XMS REPORT | Continuity of Care Document ---
:1940 Author Organization [facility] t Address [facility] [place] [address] Care Team Providers Name Role Phone Reynaldo Odom Primary Care Physician Unavailable Lorrie Saeed MD Attending Clinician Dory ARAUZ Attending Clinician Florin So MD Attending Clinician Migel Wells MD Attending Clinician LORRIE SAEED Attending Clinician Unavailable Mina Stewart MD Attending Clinician Parveen ARAUZ Attending Clinician DORY Attending Clinician Unavailable Nitin Lamas Attending Clinician Jim Osman MD Attending Clinician Dory ARAUZ Attending Clinician DORY Admitting Clinician Unavailable Payers Payer Name Policy Type Policy Effective Date Expiration Date Sour ce Number CIG[employer] [id number] 2019 [facility] 00:00:00 [facility] [id number] -PresentMaps Contracted [facility] [place] 2] REVIEWCD [id number] [facility] [id number] 00:00:00 - [place] [address] Problems Condition Condition Condition Status Onset Resolution Last Treating Co mments Source Name Details Category Date Date Treatment Clinician Date Weakness Weakness Disease Active 2019-03 [facility] Center Postoperat Postoperat Disease Active 2019-[address] anastasiya anastasiya 1-03 [facility] - complicati complicati 00:00: Me dical on on Center Shortness Shortness Disease Active 2019-[address] [facility] of breath of breath 1-03 [facility] - 00:00: Medical 00 [place] Post-opera Post-opera Disease Active 2019-[address] tive tive 0-29 [facility] - complicati complicati 00:00: Me dical on Center Pre-op Pre-op Disease Active 2019-[address] [facility] testing testing 0-28 [facility] - 00:00: Medical 00 [place] Chronic Chronic Disease Active 2019- [facility] pain [facility] 9-30 [facility] [address] Allergies, Adverse Reactions, Alerts Allergy Allergy Status Severity Reaction(s) Onset Inactive Treating Comm ents Source Name Type Date Date Clinician No Known DA Active U 2019-0 [facility] 7[facility] 00:[facility]: e 00 [facility] No Known DA Active U 2019-0 [facility] All[facility]ie 9-07 [facility] 00:[facility]: e 00 [facility] No Known DA Active U 2019-0 [facility] Allergie 9-04 Clear s 00:00: Joseph 00 [facility] No Known DA Active U 2019-0 [facility] Allergie 6-21 Clear s 00:00: Joseph 00 [facility] No Known DA Active U 2016-0 [facility] Allergie 1-24 Clear s 00:00: Joseph 00 [facility] Social History Social Habit Start Date Stop Date Quantity Comments Source History of tobacco Current sm[facility] - use Medical [place] History SDOH [facility] - Alcohol Std Drinks [facility] History SDOH [facility] - Alcohol Binge Medical [facility] Sex Assigned At [facility] Exposure to Not sure [facility] Kramer - SARS-CoV-2 (event) [facility] Tobacco use and 2020-01-08 2020-01-08 Never used [facility] Allyson cantu - exposure 00:00:00 00:00:00 [facility] Alcohol intake 2020-01-08 2020-01-08 Current [facility] Shepard es - 00:00:00 00:00:00 non-drinker of Medical Ce nter alcohol (finding) History SDOH 2019-11-28 2019-11-28 1 [facility] [place] - Alcohol Frequency 00:00:00 00:00:00 [facility] Smoking Status Start Date Stop Date Source Former smoker 2020-01-08 00:00:00 2020-01-08 00:00:00 [facility] Medications Ordered Filled Start Stop Current Ordering Indication Dosage Frequency Signature Comments Components Source Medication Medication Date Date Medication? Clinician (SIG) Name Name amiodarone 2019-03 Yes 200mg Q.5D Take [address] (PACERONE) 1-16 mg by [facility] - 200 MG 17:38: mouth 2 Medical tablet 17 (two) Center times daily. DULoxetine 2019-03 Yes 60mg QD Take [address] (CYMBALTA) 1-16 by mouth [facility] - 60 MG 17:38: daily. Medical capsule 17 [place] finasteride 2019-03 Yes 5mg QD Take [address] (PROSCAR) 5 1-16 by mouth Luke s - mg tablet 17:38: daily. Medica l 17 [place] fLUoxetine 2019-03 Yes 10mg QD Take [address] (PROZAC) 10 -16 by mouth Luke s - MG capsule 17:38: daily. Medic al 17 Center HYDROcodone 2019-03 Yes 1{tbl} Take [address] -acetaminop 1-16 tablet by Drea es - hen (NORCO 17:38: mouth Medica l 7.5-325) 17 every 6 Center 7.5-325 mg (six) per tablet hours as needed for Pain. metoprolol 2019-03 Yes Q.5D Take by [facility] tartrate 1-16 mouth 2 [facility] - (LOPRESSOR) 17:38: (two) Medic al 50 MG 17 times Center tablet daily Takes 2 tab in am and 1 tab in pm . loratadine 2019-03 Yes 10mg Take [address] (CLARITIN) 1-16 by mouth [facility] - 10 mg 17:38: daily as Medical tablet 17 needed for Center Allergies. mirabegron 2019-03 Yes 50mg QD Take [address] (MYRBETRIQ) 1-16 by mouth Luke s - 50 mg Tb24 17:38: daily. Medic al ER tablet 17 [place] pravastatin 2019-03 Yes 40mg QD Take [address] (PRAVACHOL) 1-16 by mouth Luke s - 40 MG 17:38: daily. Medical tablet 17 [place] terazosin 2019-03 Yes 10mg QD Take [address] (HYTRIN) 10 1-16 by mouth Luke s - MG capsule 17:38: nightly. Med ical 17 [place] traZODone 2019-03 Yes 100mg QD Take [address] (DESYREL) 1-16 mg by [facility]ukes - 100 MG 17:38: mouth Medical tablet 17 nightly. [place] tiZANidine 2019-03 Yes 4mg Take [address] (ZANAFLEX) 1-16 by mouth [facility] - 4 MG tablet 17:38: every 6 Med ical 17 (six) Center hours as needed. lisinopriL 2019-03 2020- No 20mg QD Take [address] (PRINIVIL,Z 1-16 11-16 by mouth Drea es - ESTRIL) 20 14:30: 00:00 daily. Medi yo MG tablet 23 :00 Center cloNIDine 2019-03 2020- No .1mg Q.5D Take 0.[address] HCL 1-16 11-16 mg by [facility]ukes - (CATAPRES) 14:30: 00:00 mouth 2 Med ical 0.1 MG 22 :00 (two) Center tablet times daily. cloNIDine 2019-03 Yes .2mg Q.5D Take [address] HCL 1-16 tablets [facility]ukes - (CATAPRES) 00:00: (0.2 mg Medi yo 0.1 MG 00 total) by Center tablet mouth 2 (two) times daily. lisinopriL 2019-03 Yes 40mg QD Take 2 [facility] t (PRINIVIL,Z 1-16 tablets [facility]ukes - ESTRIL) 20 00:00: (40 mg Medic al MG tablet 00 total) by Cente r mouth daily. pantoprazol 2019-03 Yes 40mg Take [address] e 1-16 tablet (40 [facility] - (PROTONIX) 00:00: mg total) Me dical 40 MG 00 by mouth 2 Center tablet (two) times daily before meals. rivaroxaban 2019-03- No 20mg Take [address] (XARELTO) 03-01 by mouth [facility] - 20 mg Tab 11:59: 00:00 daily with M edical tablet 14 :00 dinner. [place] rivaroxaban Yes 1{tbl} QD Take [address] (Xarelto) 8-03 tablet by [facility] - 20 mg Tab 00:00: mouth Medical tablet 00 daily. [place] diclofenac Yes 1{appli Q.5D Apply [address] 1 % Gel 09-06 cation} applicatio Drea es - 00:00: n Medical 00 topically Center 2 (two) times daily. amLODIPine 2016-03 Yes 10mg QD Take [address] (NORVASC) 1-25 by mouth [facility] - 10 MG 00:00: daily. Medical tablet 00 Center Vital Signs Vital Name Observation Time Observation Value Comments Source Systolic blood 2020-01-15 16:28:00 138 mm[Hg] [facility] Diastolic blood 2020-01-15 16:28:00 88 mm[Hg] [facility] Heart rate 2020-01-15 16:28:00 128 /min [facility] Body temperature 2020-01-15 16:28:00 36.61 Cathy [facility] Respiratory rate 2020-01-15 16:28:00 18 /min [facility] Oxygen saturation in 2020-01-15 16:28:00 95 /min [facility] Arterial blood by Medical Ce nter Pulse oximetry Body height 2020-01-02 17:15:00 170.2 cm [facility] Body weight 2020-01-02 17:15:00 95.255 kg [facility] BMI 2020-01-02 17:15:00 32.89 kg/m2 [facility] Procedures Procedure Date / Time Performing Clinician Source Performed POCT-GLUCOSE METER 2020-01-15 13:01:00 Dory, [facility] POCT-GLUCOSE METER 2020-01-15 08:05:00 [facility] BASIC METABOLIC PANEL (7) 2020-01-15 06:56:00 Avery Cramer [facility] CBC W/PLT COUNT & AUTO 2020-01-15 06:56:00 Avery Cramer [facility] POCT-GLUCOSE METER 2020-01-14 20:36:00 [facility] Adihtya [facility] POCT-GLUCOSE METER 2020-01-14 17:26:00 [facility] POCT-GLUCOSE METER 2020-01-14 08:43:00 [facility] POCT-GLUCOSE METER 2020-01-13 21:02:00 [facility] POCT-GLUCOSE METER 2020-01-13 08:47:00 [facility] POCT-GLUCOSE METER 2020-01-12 20:39:00 [facility] POCT-GLUCOSE METER 2020-01-12 17:14:00 [facility] POCT-GLUCOSE METER 2020-01-12 12:14:00 [facility] BASIC METABOLIC PANEL (7) 2020-01-12 08:47:00 Josefina Velasquez [facility] CBC W/PLT COUNT & AUTO 2020-01-12 08:47:00 Josefina Velasquez [facility] POCT-GLUCOSE METER 2020-01-12 08:20:00 [facility] POCT-GLUCOSE METER 2020-01-11 20:18:00 [facility] POCT-GLUCOSE METER 2020-01-11 16:55:00 [facility] POCT-GLUCOSE METER 2020-01-11 12:05:00 [facility] POCT-GLUCOSE METER 2020-01-11 07:45:00 [facility] HEMOGLOBIN A1C 2020-01-11 06:14:00 Josefina Velasquez [facility] BASIC METABOLIC PANEL (7) 2020-01-11 06:14:00 Josefina Velasquez [facility] CBC W/PLT COUNT & AUTO 2020-01-11 06:14:00 Josefina Velasquez [facility] POCT-GLUCOSE METER 2020-01-10 20:59:00 [facility] POCT-GLUCOSE METER 2020-01-10 12:13:00 [facility] SARS-COV2/RT-PCR ([facility] & 2020-01-10 11:41:00 Josefina Velasquez [facility] REF [facility]) [facility] POCT-GLUCOSE METER 2020-01-10 08:52:00 [facility] CBC W/PLT COUNT & AUTO 2020-01-10 05:35:00 Josefina Velasquez [facility] POCT-GLUCOSE METER 2020-01-09 22:01:00 [facility] URINALYSIS W/ REFLEX URINE 2020-01-09 19:14:00 Josefina Velasquez [facility] XR CHEST 1 VIEW 2020-01-09 10:42:00 Josefina Velasquez [facility] PORTABLE/BEDSIDE [facility] POCT-GLUCOSE METER 2020-01-09 08:41:00 [facility] BASIC METABOLIC PANEL (7) 2020-01-09 05:09:00 Josefina Velasquez [facility] CBC W/PLT COUNT & AUTO 2020-01-09 05:09:00 Josefina Velasquez [facility] POCT-GLUCOSE METER 2020-01-08 [facility] 2020-01-08 [facility]:31[facility] POCT-[facility]SE METER 2020-01-08 13:11:00 [facility] REPORT OF PROCEDURE - 2020-01-08 11:49:56 Priscilla [facility] ENDOSCOPY [facility] TISSUE EXAM 2020-01-08 11:40:00 Priscilla [facility] UPPER ENDOSCOPY,BIOPSY 2020-01-08 11:14:00 [facility] POCT-GLUCOSE METER 2020-01-08 08:40[facility]EL (7) 2020-01-08 04:12:00 Josefina Velasquez [facility] CBC W/PLT COUNT & AUTO 2020-01-08 04:12:00 Josefina Velasquez [facility] POCT-GLUCOSE METER 2020-01-07 21:52:00 [facility] POCT-GLUCOSE METER 2020-01-07 16:59:00 [facility] POCT-GLUCOSE METER 2020-01-07 12:12:00 [facility] POCT-GLUCOSE METER 2020-01-07 08:21:00 [facility] POCT-GLUCOSE METER 2020-01-06 21:52:00 [facility] POCT-GLUCOSE METER 2020-01-06 05:36:00 [facility] XR ESOPH SWALLOW FUNCTION 2020-01-05 10:38:00 Mirna Rust I [facility] - W/CINE VIDEO [facility] [place] ESOPHAGUS PHARNYX 2020-01-05 10:38:00 Mirna Rust [facility] - AND/OR CERVICAL [facility] POCT-GLUCOSE METER 2020-01-05 07:21:00 Adithya Connors [facility] BASIC METABOLIC PANEL (7) 2020-01-05 03:55:00 Avery Cramer [facility] MAGNESIUM 2020-01-05 03:55:00 Avery Cramer [facility] MR BRAIN WITHOUT IV 2020-01-04 18:55:00 Bill Bond [facility] BLOOD CULTURE 2020-01-04 15:58:00 [facility]in[facility] 2D ECHO W/ DOPPLER 2020-01-04 14:29:37 [facility] SPUTUM CULTURE + GRAM 2020-01-04 08:34:00 MigelMirna [facility] STAIN [facility] BASIC METABOLIC PANEL (7) 2020-01-04 06:39:00 Avery Cramer [facility] MAGNESIUM 2020-01-04 06:39:00 Avery Cramer [facility] HEPATIC FUNCTION PANEL 2020-01-04 06:39:00 Migel [facility] XR CHEST 1 VIEW 2020-01-03 20:04:00 MigelMirna [facility] - PORTABLE/BEDSIDE [facility] ECG 12-LEAD 2020-01-03 19:51:37 Unknown, Hl7 [facility] URINALYSIS W/ REFLEX URINE 2020-01-03 17:51:[address] [facility] POCT-GLUCOSE METER 2020-01-03 12:19:00 Adithya Connors [facility] BASIC METABOLIC PANEL (7) 2020-01-03 05:32:00 Avery Cramer [facility] MAGNESIUM 2020-01-03 05:32:00 Avery Cramer [facility] PHOSPHORUS 2020-01-03 05:32:00 Avery Cramer [facility] COMPREHENSIVE METABOLIC 2020-01-03 05:32:00 Rao Villeda Mariano [facility] AMYLASE 2020-01-03 05:32:00 Rao Villeda Mariano [facility] LIPASE 2020-01-03 05:32:00 Rao Villeda Mariano [facility] CBC W/PLT COUNT & AUTO 2020-01-03 05:32:00 Avery Cramer [facility] (CELLAVISION MANUAL DIFF) 2020-01-03 05:32:00 Avery Cramer [facility] CT CHEST PE TEST DESIGN 2020-01-03 00:42:00 Trish Saeed [facility] VENOUS DOPPLER LEGS 2020-01-02 23:24:00 Trish Saeed [facility] ED ECG INTERPRETATION 2020-01-02 21:08:42 Trish Saeed [facility] SARS-COV2/RT-PCR ([facility] & 2020-01-02 19:38:00 Trish Saeed [facility] REF LABS) [facility] XR CHEST 1 VIEW 2020-01-02 18:22:00 Trish Saeed [facility] PORTABLE/BEDSIDE Medical Center BASIC METABOLIC PANEL (7) 2020-01-02 18:04:00 Trish Saeed Ma [facility] MAGNESIUM 2020-01-02 18:04:00 Trish Saeed [facility] TROPONIN I 2020-01-02 18:04:00 Trish Saeed [facility] B-TYPE NATRIURETIC FACTOR 2020-01-02 18:04:00 Trish Saeed Ma [facility] (BNP) [facility] PROTHROMBIN TIME/INR 2020-01-02 18:04:00 Trish Saeed [facility] D-DIMER 2020-01-02 18:04:00 Trish Saeed [facility] CBC W/PLT COUNT & AUTO 2020-01-02 18:04:00 Trish Saeed [facility] (CELLAVISION MANUAL DIFF) 2020-01-02 18:04:00 Trish Saeed Ma [facility] URINALYSIS W/ MICROSCOPIC 2019-12-31 11:23:00 [facility] POCT-GLUCOSE METER 2019-12-30 20:54:00 [facility] POCT-GLUCOSE METER 2019-12-30 17:04:00 [facility] COMPREHENSIVE METABOLIC 2019-12-30 16:39:00 [facility] CBC W/PLT COUNT & AUTO 2019-12-30 16:39:00 [facility] (CELLAVISION MANUAL DIFF) 2019-12-30 16:39:00 Addison Fawad [facility] POCT-GLUCOSE METER 2019-12-30 07:50:00 [facility] POCT-GLUCOSE METER 2019-12-30 00:36:00 [facility] POCT-GLUCOSE METER 2019-12-29 16:10:00 [facility] POCT-GLUCOSE METER 2019-12-29 12:06:00 [facility] POCT-GLUCOSE METER 2019-12-29 08:49:00 [facility] POCT-GLUCOSE METER 2019-12-28 21:07:00 [facility] BASIC METABOLIC PANEL (7) 2019-12-28 11:31:00 [facility] POCT-GLUCOSE METER 2019-12-28 08:46:00 [facility] CBC (HEMOGRAM ONLY) 2019-12-28 06:53:00 Hans Calvin [facility] POCT-GLUCOSE METER 2019-12-27 19:26:00 Dory, Adithya [facility] CT THORACIC SPINE WITHOUT 2019-12-27 16:13:00 Hans Calvin [facility] - IV CONTRAST [facility] CT LUMBAR SPINE WITHOUT IV 2019-12-27 16:13:00 Leodan Calvin [facility] - CONTRAST [facility] [place] FLUORO NON-SPECIFIC UP 2019-12-27 13:57:00 Zaid Connors [facility] - TO 1 HOUR [facility] INSERTION,NEUROSTIMULATOR 2019-12-27 12:34:00 Dory [facility] - ELECTRODE PERCUTANEOUS Medical C enter REPLACEMENT,SPINAL CORD 2019-12-27 12:34:00 Dory, [facility] NEUROSTIMULATOR [facility] GENERATOR/ROBOTICS SYSTEMS ENGINEER PROCEDURE W/ C-ARM 2019-12-27 12:34:00 Dory, Adithya [facility] SARS-COV2/RT-PCR ([facility] & 2019-12-25 13:18:00 Dory Adithya [facility] - REF LABS) [facility] BASIC METABOLIC PANEL (7) 2019-12-25 13:18:00 Dory, [facility] PT/APTT 2019-12-25 13:18:00 Adithya Connors [facility] URINALYSIS W/ REFLEX URINE 2019-12-25 13:18:[address] [facility] TYPE AND SCREEN, AUTOMATED 2019-12-25 13:18:00 David Connors in [facility] CBC W/PLT COUNT & AUTO 2019-12-25 13:18:00 Adithya Connors [facility] TRANSFUSION SERVICE REPORT 2019-11-30 18:04:48 Provider, Default [facility] - - SCAN Scanning [facility] RHYTHM STRIP - SCAN 2019-11-30 15:21:03 Provider, Default [facility] - Scanning [facility] [place] FLUORO NON-SPECIFIC UP 2019-11-29 09:00:00 Zaid Connors [facility] - TO 1 HOUR [facility] INSERTION,SPINAL CORD 2019-11-29 07:37:00 Adithya Connors CH I [facility] - NEUROSTIMULATOR TRIAL Medical Ce nter ABORH, MANUAL 2019-11-29 06:15:00 Jenny Chaudhry [facility] TRANSFUSION SERVICE REPORT 2019-11-25 18:03:48 Provider, Sergio [facility] - - SCAN Scanning [facility] XR CHEST 2 VIEWS 2019-11-24 13:14:00 Adithya Connors [facility] ECG 12-LEAD 2019-11-24 12:50:13 Unknown, Hl7 Doctor [facility] SARS-COV2/RT-PCR ([facility] & 2019-11-24 12:49:00 Adithya Connors [facility] - REF LABS) [facility] APTT 2019-11-24 12:49:00 Dory Adithya [facility] PROTHROMBIN TIME/INR 2019-11-24 12:49:00 Adithya Connors [facility] URINALYSIS W/ REFLEX URINE 2019-11-24 12:49:00 David Connors in [facility] TYPE AND SCREEN, AUTOMATED 2019-11-24 12:49:00 David Connors in [facility] CBC W/PLT COUNT & AUTO 2019-11-24 12:49:00 Adithya Connors [facility] Plan of Care Planned Activity Planned Date Details Comments Source Future Scheduled 2019-10-31 INFLUENZA VACCINE (#[facility] [code = INFLUENZA Medical Ce nter VACCINE (#1)] Future Scheduled 2019-03-01 Medicare IPPE (WELCOME [facility]00 TO MEDICARE) [code = [facility] Medicare IPPE (WELCOME TO MEDICARE)] Future Scheduled 2005 PNEUMOCOCCAL 65+ YRS [facility] - Test 00:00:00 (1 of 1 - Medical Center [id number]) [code = PNEUMOCOCCAL 65+ YRS (1 of 1 - [id number] PCV13)] Medication 2020-01-16 docusate sodium [facility] - 00:00:00 (COLACE) 100 MG Medical Cent er capsule [code = 1370924] Medication 2020-01-16 fluconazole (DIFLUCAN) [facility] - 00:00:00 200 MG tablet [[facility] = [facility] 483660] Encounters Start End Encounter Admission Attending Care Care Encounter Source Date/Time Date/Time Type Type Clinicians Facility Department ID 2019-12-07 2019-12-07 Office BRENDA Loredo [id number] 12:51:04 16:09:13 Visit Brennen AMBULATOR [id number] Nitin Y [id number] 2019-11-13 2019-11-13 Office Dory BCM [id number] 08:10:52 10:06:49 Visit Adithya AMBULATOR [id number] Y [id number] 2018-06-14 2018-06-14 Outpatient MHSE URO [id number] MH 09:00:00 09:00:00 [facility] Results Test Description Test Time Test Comments Results Result Comments Source POC-Glucose meter 2020-01-15 13:13:00 Test Item Value Reference Range Interpretation Comme [facility] POC-Glucose Meter (test code = 114 mg/dL 70-110 H : TESTED AT [facility] [address] [address]) [facility], [facility] 30: Metal Riveter/Techni live ID = [id number] for BROWN, TENA Lab Interpretation (test code = Abnormal 57500-2) [facility] [id number] 13:13:00 Test Item Value Reference Range Interpretation Comments POC-GLUCOSE METER 114 mg/dL 70-110 H : TESTED A T [facility] [address] (BEAKER) (test code = [facility], 1538) [address]: Metal Riveter/Techni live ID = [id number] for BR OWN, TENA POCT-GLUCOSE [id number] 08:17:00 Test Item Value Reference Range Interpretation Comments POC-GLUCOSE METER 121 mg/dL 70-110 H : TESTED A T [facility] 67[address] (BEAKER) (test code = [facility], 1538) [address]: Metal Riveter/Techni live ID = [id number] for BR OWN, TENA Basic Metabolic [id number] 07:33:00 Test Item Value Reference Range Interpretation Comments Sodium (test code = 134 meq/L 136-145 L 2951-2) Potassium (test code = 5.0 meq/L 3.5-5.1 2823-3) Chloride (test code = 100 meq/L 98-107 2075-0) CO2 (test code = 29 meq/L 22-29 2028-9) BUN (test code = 18 mg/dL 7-21 3094-0) Creatinine (test code 0.91 mg/dL 0.57-1.25 = 2160-0) Glucose (test code = 127 mg/dL 70-105 H 2345-7) Calcium (test code = 8.1 mg/dL 8.4-10.2 L 35266-3) EGFR (test code = 80 mL/min/1.73 [place] [address]-0) NOT ACCURATE CREATININE CLEARANCE IN PREDICTING GLOMERULAR FILTRATION RATE . ESTIMATED GFR I S NOT APPLICABLE FOR DIALYSIS PATIENTS. JACKIE (test code = JACKIE) Metal Riveter ID - EDASI Lab Interpretation Abnormal (test code = 66098-5) [facility] METABOLIC [id number] 07:33:00 Test Item Value Reference Range Interpretation Comments SODIUM (BEAKER) 134 meq/L 136-145 L (test code = 381) POTASSIUM (BEAKER) 5.0 meq/L 3.5-5.1 (test code = 379) CHLORIDE (BEAKER) 100 meq/L 98-107 (test code = 382) CO2 (BEAKER) (test 29 meq/L 22-29 code = 355) BLOOD UREA NITROGEN 18 mg/dL 7-21 (BEAKER) (test code = 354) CREATININE (BEAKER) 0.91 mg/dL 0.57-1.25 (test code = 358) GLUCOSE RANDOM 127 mg/dL 70-105 H (BEAKER) (test code = 652) CALCIUM (BEAKER) 8.1 mg/dL 8.4-10.2 L (test code = 697) EGFR (BEAKER) (test 80 mL/min/1.73 ESTIMA LEONIDES GFR IS code = 1092) sq m NOT ACCURATE CREATININE CLEARANCE IN PREDICTING GLOMERULAR FILTRATION RATE . ESTIMATED GFR I S NOT APPLICABLE FOR DIALYSIS PATIEN TS. Metal Riveter ID - EDASICBC with platelet count + automated [id number] 07:15:00 Test Item Value Reference Range Interpretation Comments WBC (test code = 6690-2) 11.5 3.5- 10.5 K/L H RBC (test code = 789-8) 4.37 4.63- 6.08 M/L L MCHC (test code = 786-4) 31.0 32.3- 36.5 GM/DL L Hematocrit (test code = 4544-3) 40.7 % 40.1-51 MCV (test code = 787-2) 93.1 fL 79-92.2 H MCH (test code = 785-6) 28.8 pg 25.7-32.2 RDW (test code = 788-0) 13.8 % 11.6-14.4 Platelets (test code = 777-3) 186 150- 450 K/CU MM MPV (test code = 45586-5) 10.3 fL 9.4-12.4 nRBC (test code = 413) 0 0- 0 /100 WBC % Neutros (test code = 429) 74 % % Lymphs (test code = 430) 14 % % Monos (test code = 431) 10 % % Eos (test code = 432) 2 % % Baso (test code = 437) 0 % # Neutros (test code = 670) 8.48 1.78- 5.38 K/L H # Lymphs (test code = 414) 1.63 1.32- 3.57 K/L # Monos (test code = 415) 1.12 0.30- 0.82 K/L H # Eos (test code = 416) 0.18 0.04- 0.54 K/L # Baso (test code = 417) 0.02 0.01- 0.08 K/L Immature Granulocytes-Relative 1 % 0-1 (test code = 2801) Lab Interpretation (test code = Abnormal 86764-0) [facility] W/PLT COUNT & AUTO [id number] 07:15:00 Test Item Value Reference Range Interpretation Comments WHITE BLOOD CELL COUNT (BEAKER) 11.5 K/ L 3.5-10.5 H (test code = 775) RED BLOOD CELL COUNT (BEAKER) 4.37 M/ L 4.63-6.08 L (test code = 761) HEMOGLOBIN (BEAKER) (test code = 12.6 GM/DL 13.7-17.5 L 410) HEMATOCRIT (BEAKER) (test code = 40.7 % 40.1-51.0 411) MEAN CORPUSCULAR VOLUME (BEAKER) 93.1 fL 79.0-92.2 H (test code = 753) MEAN CORPUSCULAR HEMOGLOBIN 28.8 pg 25.7-32.2 (BEAKER) (test code = 751) MEAN CORPUSCULAR HEMOGLOBIN CONC 31.0 GM/DL 32.3-36.5 L (BEAKER) (test code = 752) RED CELL DISTRIBUTION WIDTH 13.8 % 11.6-14.4 (BEAKER) (test code = 412) PLATELET COUNT (BEAKER) (test 186 K/CU MM 150-450 code = 756) MEAN PLATELET VOLUME (BEAKER) 10.3 fL 9.4-12.4 (test code = 754) NUCLEATED RED BLOOD CELLS 0 /100 WBC 0-0 (BEAKER) (test code = 413) NEUTROPHILS RELATIVE PERCENT 74 % (BEAKER) (test code = 429) LYMPHOCYTES RELATIVE PERCENT 14 % (BEAKER) (test code = 430) MONOCYTES RELATIVE PERCENT 10 % (BEAKER) (test code = 431) EOSINOPHILS RELATIVE PERCENT 2 % (BEAKER) (test code = 432) BASOPHILS RELATIVE PERCENT 0 % (BEAKER) (test code = 437) NEUTROPHILS ABSOLUTE COUNT 8.48 K/ L 1.78-5.38 H (BEAKER) (test code = 670) LYMPHOCYTES ABSOLUTE COUNT 1.63 K/ L 1.32-3.57 (BEAKER) (test code = 414) MONOCYTES ABSOLUTE COUNT (BEAKER) 1.12 K/ L 0.30-0.82 H (test code = 415) EOSINOPHILS ABSOLUTE COUNT 0.18 K/ L 0.04-0.54 (BEAKER) (test code = 416) BASOPHILS ABSOLUTE COUNT (BEAKER) 0.02 K/ L 0.01-0.08 (test code = 417) IMMATURE GRANULOCYTES-RELATIVE 1 % 0-1 PERCENT (BEAKER) (test code = 2801) POCT-GLUCOSE [id number] 20:47:00 Test Item Value Reference Range Interpretation Comments POC-GLUCOSE METER 168 mg/dL 70-110 H : Notified RN/MD: ([facility]) (test code = TESTED AT [place] [address] 1537) [facility], [address]: Metal Riveter/Techni live ID = [id number] for DO VE, CHEKARA POCT-GLUCOSE [id number] 17:37:00 Test Item Value Reference Range Interpretation Comments POC-GLUCOSE METER 119 mg/dL 70-110 H : [facility]) (test code = [facility], [facility]) [address]: Metal Riveter/Techni live ID = [id number] for BR OWN, TENA POCT-GLUCOSE [id number] 08:55:00 Test Item Value Reference Range Interpretation Comments POC-GLUCOSE METER 100 mg/dL 70-110 : [facility] ([facility]) (test code = [facility], [facility]) [address]: Metal Riveter/Techni live ID = [id number] for BR OWN, TENA POCT-GLUCOSE [id number] 21:14:00 Test Item Value Reference Range Interpretation Comments POC-GLUCOSE METER 132 mg/dL 70-110 H : [facility] ([facility] (test code = [facility], [facility]) [address]: Metal Riveter/Techni live ID = [id number] for DEBRA HNSON, ALEXAQUETTA POCT-GLUCOSE [id number] 08:59:00 Test Item Value Reference Range Interpretation Comments POC-GLUCOSE METER 106 mg/dL 70-110 : [facility] ([facility]) (test code = [facility], [facility]) [address]: Metal Riveter/Techni live ID = [id number] for BR OWN, TENA POCT-GLUCOSE [id number] 20:50:00 Test Item Value Reference Range Interpretation Comments POC-GLUCOSE METER 247 mg/dL 70-110 H : [facility] ([facility]) (test code = [facility], [facility]) [address]: Metal Riveter/Techni live ID = [id number] for LO PEZ, NADINA POCT-GLUCOSE [id number] 17:28:00 Test Item Value Reference Range Interpretation Comments POC-GLUCOSE METER 90 mg/dL 70-110 : TESTED A T [facility] 6720 (BEAKER) (test code [facility], = 1538) [address]: Metal Riveter/Techni live ID = [id number] for HAYDER COLE POCT-GLUCOSE [id number] 12:26:00 Test Item Value Reference Range Interpretation Comments POC-GLUCOSE METER 196 mg/dL 70-110 H : Notified RN/MD: TESTED (BEAKER) (test code AT [facility] [address] [place] = 1538) [facility], [address]: Metal Riveter/Techni live ID = [id number] for HAYDER COLE BASIC METABOLIC [id number] 11:05:00 Test Item Value Reference Range Interpretation Comments SODIUM (BEAKER) 134 meq/L 136-145 L (test code = 381) POTASSIUM (BEAKER) 4.8 meq/L 3.5-5.1 Specimen slightly (test code = 379) hemolyzed CHLORIDE (BEAKER) 100 meq/L 98-107 (test code = 382) CO2 (BEAKER) (test 27 meq/L 22-29 code = 355) BLOOD UREA NITROGEN 17 mg/dL 7-21 (BEAKER) (test code = 354) CREATININE (BEAKER) 0.83 mg/dL 0.57-1.25 Specimen slightly (test code = 358) hemolyzed GLUCOSE RANDOM 124 mg/dL 70-105 H (BEAKER) (test code = 652) CALCIUM (BEAKER) 8.1 mg/dL 8.4-10.2 L (test code = 697) EGFR (BEAKER) (test 89 mL/min/1.73 ESTIMA LEONIDES GFR IS code = 1092) sq m NOT ACCURATE CREATININE CLEARANCE IN PREDICTING GLOMERULAR FILTRATION RATE . ESTIMATED GFR I S NOT APPLICABLE FOR DIALYSIS PATIEN TS. Metal Riveter ID - EDU CCBC W/PLT COUNT & AUTO [id number] 09:02:00 Test Item Value Reference Range Interpretation Comments WHITE BLOOD CELL COUNT (BEAKER) 16.8 K/ L 3.5-10.5 H (test code = 775) RED BLOOD CELL COUNT (BEAKER) 4.57 M/ L 4.63-6.08 L (test code = 761) HEMOGLOBIN (BEAKER) (test code = 13.7 GM/DL 13.7-17.5 410) HEMATOCRIT (BEAKER) (test code = 41.7 % 40.1-51.0 411) MEAN CORPUSCULAR VOLUME (BEAKER) 91.2 fL 79.0-92.2 (test code = 753) MEAN CORPUSCULAR HEMOGLOBIN 30.0 pg 25.7-32.2 (BEAKER) (test code = 751) MEAN CORPUSCULAR HEMOGLOBIN CONC 32.9 GM/DL 32.3-36.5 (BEAKER) (test code = 752) RED CELL DISTRIBUTION WIDTH 13.3 % 11.6-14.4 (BEAKER) (test code = 412) PLATELET COUNT (BEAKER) (test 223 K/CU MM 150-450 code = 756) MEAN PLATELET VOLUME (BEAKER) 10.2 fL 9.4-12.4 (test code = 754) NUCLEATED RED BLOOD CELLS 0 /100 WBC 0-0 (BEAKER) (test code = 413) NEUTROPHILS RELATIVE PERCENT 86 % (BEAKER) (test code = 429) LYMPHOCYTES RELATIVE PERCENT 7 % (BEAKER) (test code = 430) MONOCYTES RELATIVE PERCENT 5 % (BEAKER) (test code = 431) EOSINOPHILS RELATIVE PERCENT 0 % (BEAKER) (test code = 432) BASOPHILS RELATIVE PERCENT 0 % (BEAKER) (test code = 437) NEUTROPHILS ABSOLUTE COUNT 14.50 K/ L 1.78-5.38 H (BEAKER) (test code = 670) LYMPHOCYTES ABSOLUTE COUNT 1.13 K/ L 1.32-3.57 L (BEAKER) (test code = 414) MONOCYTES ABSOLUTE COUNT (BEAKER) 0.90 K/ L 0.30-0.82 H (test code = 415) EOSINOPHILS ABSOLUTE COUNT 0.02 K/ L 0.04-0.54 L (BEAKER) (test code = 416) BASOPHILS ABSOLUTE COUNT (BEAKER) 0.01 K/ L 0.01-0.08 (test code = 417) IMMATURE GRANULOCYTES-RELATIVE 2 % 0-1 H PERCENT (BEAKER) (test code = 2801) POCT-GLUCOSE [id number] 08:56:00 Test Item Value Reference Range Interpretation Comments POC-GLUCOSE METER 222 mg/dL 70-110 H : TESTED A T [facility] 6720 (BEAKER) (test code [facility], = 1538) [address]: Metal Riveter/Techni live ID = [id number] for TSEG GARobinson, THONGEREDA POCT-GLUCOSE [id number] 20:30:00 Test Item Value Reference Range Interpretation Comments POC-GLUCOSE METER 183 mg/dL 70-110 H : TESTED A T [facility] 6720 (BEAKER) (test code = ADRIANA Cha [facility], 1538) [address]: Metal Riveter/Techni live ID = [id number] for MEREDITH LYONS POCT-GLUCOSE [id number] 17:07:00 Test Item Value Reference Range Interpretation Comments POC-GLUCOSE METER 147 mg/dL 70-110 H : TESTED A T [facility] 6720 (BEAKER) (test code [facility], = 1538) [address]: Metal Riveter/Techni live ID = [id number] for MAXIMOG GARobinson, STEPHANIEIGHEREDA POCT-GLUCOSE [id number] 12:18:00 Test Item Value Reference Range Interpretation Comments POC-GLUCOSE METER 209 mg/dL 70-110 H : Notified RN/MD: TESTED (BEAKER) (test [facility] [facility], [address]: Metal Riveter/Techni live ID = [id number] for SHILPA ROD, FAROOQA Hemoglobin [id number] 08:48:00 Test Item Value Reference Range Interpretation Comments Hemoglobin A1C (test code = 4548-4) 6.0 % 4.3-6.1 Lab Interpretation (test code = Normal 76999-9) [facility] [id number] 08:48:00 Test Item Value Reference Range Interpretation Comments HEMOGLOBIN A1C (BEAKER) (test code = 6.0 % 4.3-6.1 368) BASIC METABOLIC [id number] 08:02:00 Test Item Value Reference Range Interpretation Comments SODIUM (BEAKER) 137 meq/L 136-145 (test code = 381) POTASSIUM (BEAKER) 4.5 meq/L 3.5-5.1 Specimen slightly (test code = 379) hemolyzed CHLORIDE (BEAKER) 103 meq/L 98-107 (test code = 382) CO2 (BEAKER) (test 31 meq/L 22-29 H code = 355) BLOOD UREA NITROGEN 19 mg/dL 7-21 (BEAKER) (test code = 354) CREATININE (BEAKER) 0.90 mg/dL 0.57-1.25 Specimen slightly (test code = 358) hemolyzed GLUCOSE RANDOM 129 mg/dL 70-105 H (BEAKER) (test code = 652) CALCIUM (BEAKER) 8.1 mg/dL 8.4-10.2 L (test code = 697) EGFR (BEAKER) (test 81 mL/min/1.73 ESTIMA LEONIDES GFR IS code = 1092) sq m NOT ACCURATE CREATININE CLEARANCE IN PREDICTING GLOMERULAR FILTRATION RATE . ESTIMATED GFR I S NOT APPLICABLE FOR DIALYSIS PATIEN TS. Metal Riveter ID - DENISHA MPOCT-GLUCOSE [id number] 07:59:00 Test Item Value Reference Range Interpretation Comments POC-GLUCOSE METER 106 mg/dL 70-110 : TESTED A T [facility] 6720 (BEAKER) (test code [facility], = 1538) [address]: Metal Riveter/Techni live ID = [id number] for HAYDER COLE CBC W/PLT COUNT & AUTO [id number] 07:36:00 Test Item Value Reference Range Interpretation Comments WHITE BLOOD CELL COUNT (BEAKER) 18.5 K/ L 3.5-10.5 H (test code = 775) RED BLOOD CELL COUNT (BEAKER) 4.25 M/ L 4.63-6.08 L (test code = 761) HEMOGLOBIN (BEAKER) (test code = 12.5 GM/DL 13.7-17.5 L 410) HEMATOCRIT (BEAKER) (test code = 38.7 % 40.1-51.0 L 411) MEAN CORPUSCULAR VOLUME (BEAKER) 91.1 fL 79.0-92.2 (test code = 753) MEAN CORPUSCULAR HEMOGLOBIN 29.4 pg 25.7-32.2 (BEAKER) (test code = 751) MEAN CORPUSCULAR HEMOGLOBIN CONC 32.3 GM/DL 32.3-36.5 (BEAKER) (test code = 752) RED CELL DISTRIBUTION WIDTH 13.3 % 11.6-14.4 (BEAKER) (test code = 412) PLATELET COUNT (BEAKER) (test 220 K/CU MM 150-450 code = 756) MEAN PLATELET VOLUME (BEAKER) 10.2 fL 9.4-12.4 (test code = 754) NUCLEATED RED BLOOD CELLS 0 /100 WBC 0-0 (BEAKER) (test code = 413) NEUTROPHILS RELATIVE PERCENT 82 % (BEAKER) (test code = 429) LYMPHOCYTES RELATIVE PERCENT 9 % (BEAKER) (test code = 430) MONOCYTES RELATIVE PERCENT 7 % (BEAKER) (test code = 431) EOSINOPHILS RELATIVE PERCENT 1 % (BEAKER) (test code = 432) BASOPHILS RELATIVE PERCENT 0 % (BEAKER) (test code = 437) NEUTROPHILS ABSOLUTE COUNT 15.06 K/ L 1.78-5.38 H (BEAKER) (test code = 670) LYMPHOCYTES ABSOLUTE COUNT 1.73 K/ L 1.32-3.57 (BEAKER) (test code = 414) MONOCYTES ABSOLUTE COUNT (BEAKER) 1.20 K/ L 0.30-0.82 H (test code = 415) EOSINOPHILS ABSOLUTE COUNT 0.10 K/ L 0.04-0.54 (BEAKER) (test code = 416) BASOPHILS ABSOLUTE COUNT (BEAKER) 0.04 K/ L 0.01-0.08 (test code = 417) IMMATURE GRANULOCYTES-RELATIVE 2 % 0-1 H PERCENT (BEAKER) (test code = 2801) SARS-CoV2/RT-PCR (Asymptomatic ONLY)2020-01-11 02:35:00 Test Item Value Reference Range Interpretation Comments SARS-COV2/RT-PCR Negative Not Detected, (test code = Negative, See 97950-7) external report for linked test [facility]-COV-2 [facility] (test code = 34757-4) JACKIE (test code = Negative result for this JACKIE) test determines that SARS-CoV-2 RNA was not present in the [...] of the Act. Fact Sheet for Healthcare Providers:https://www.infoBizz/sites/default/f kvng/product/documents/F act_Sheet_HC_Providers_L czk_RABA-QpX-5.pdf Fact Sheet for Healthcare Patients:https://www.[employer]/sites/default/fi les/product/documents/Fa ct_Sheet_Patients_Lyra_S ARS-CoV-2.pdf Performing Laboratory:[facility], [place] [id number] [place], [place] [address]ARS-COV2/RT-PCR ([facility] REF LABS)2020-01-11 02:35:00 Test Item Value Reference Range Interpretation Comments SARS-COV2/RT-PCR (test Negative Not Detected, Negative, code = 7568923) See external report for linked test SARS-COV-[address] [facility] ALEX (test code = 8424627) Negative result for this test determines that SARS-CoV-2 RNA was not present in the specimen above the Limit of Detection (LOD). However, Negative results do not preclude SARS-CoV-2 infection and should not be used as the sole basis for treatment or patient management decisions. Negative results mustbe combined with clinical observations, patient history, and epidemiological information. A false negative result may occur if a specimen is improperly collected, transported or handled. A false negative result should be considered if patient's recent exposures or clinical presentation indicate that COVID-19 (SARS-CoV-2) is likely and diagnostic tests for other causes of illness are negative. Re-testing should be considered in cases of suspected false negatives.The limit of detection for this assay is 800 copies/mL.This SARS CoV-2 test is a real-time RT-PCR test intended for the qualitative detection of nucleic acid from SARS-CoV-2 in a nasopharyngeal swab specimen collected from individuals susp ected of COVID-19 by their healthcare provider.This test has not been Food and Drug [...] is revoked under Section 564(g) of the Act.Fact Sheet for Healthcare Providers:https://www.[employer].iValidate.me/sites/default/files/product/documents/Fact_Shee j_TG_Ettwvudcd_Lhwy_ATMN-OzZ-5.pdfFact Sheet for Healthcare Patients:https://www.[employer].iValidate.me/sites/default/files/product/ documents/Hszu_Meotj_Zyhmgiam_Mgaj_CXAY-TjR-4.pdfPerforming Laboratory:[facility], [place] [address]EOFA-PEGYGHC METER 2020-01-10 21:11:00 Test Item Value Reference Range Interpretation Comments POC-GLUCOSE METER 173 mg/dL 70-110 H : TESTED A T [facility] 6720 (BEAKER) (test code = [facility], 1538) [address]: Metal Riveter/Techni live ID = [id number] for SAMSON FREY POCT-GLUCOSE [id number] 12:26:00 Test Item Value Reference Range Interpretation Comments POC-GLUCOSE METER 186 mg/dL 70-110 H : TESTED A T [facility] 6720 (BEAKER) (test code = [facility], 1538) [address]: Metal Riveter/Techni live ID = [id number] for JERRY PERSAUD POCT-GLUCOSE [id number] 09:04:00 Test Item Value Reference Range Interpretation Comments POC-GLUCOSE METER 115 mg/dL 70-110 H : TESTED A T [facility] 6720 (BEAKER) (test code = [facility] [place] [place], 1538) [address]: Metal Riveter/Techni live ID = [id number] for TENA CORBETT CBC W/PLT COUNT & AUTO [id number] 07:10:00 Test Item Value Reference Range Interpretation Comments WHITE BLOOD CELL COUNT (BEAKER) 17.1 K/ L 3.5-10.5 H (test code = 775) RED BLOOD CELL COUNT (BEAKER) 4.20 M/ L 4.63-6.08 L (test code = 761) HEMOGLOBIN (BEAKER) (test code = 12.3 GM/DL 13.7-17.5 L 410) HEMATOCRIT (BEAKER) (test code = 38.3 % 40.1-51.0 L 411) MEAN CORPUSCULAR VOLUME (BEAKER) 91.2 fL 79.0-92.2 (test code = 753) MEAN CORPUSCULAR HEMOGLOBIN 29.3 pg 25.7-32.2 (BEAKER) (test code = 751) MEAN CORPUSCULAR HEMOGLOBIN CONC 32.1 GM/DL 32.3-36.5 L (BEAKER) (test code = 752) RED CELL DISTRIBUTION WIDTH 13.5 % 11.6-14.4 (BEAKER) (test code = 412) PLATELET COUNT (BEAKER) (test 237 K/CU MM 150-450 code = 756) MEAN PLATELET VOLUME (BEAKER) 10.2 fL 9.4-12.4 (test code = 754) NUCLEATED RED BLOOD CELLS 0 /100 WBC 0-0 (BEAKER) (test code = 413) NEUTROPHILS RELATIVE PERCENT 88 % (BEAKER) (test code = 429) LYMPHOCYTES RELATIVE PERCENT 6 % (BEAKER) (test code = 430) MONOCYTES RELATIVE PERCENT 5 % (BEAKER) (test code = 431) EOSINOPHILS RELATIVE PERCENT 0 % (BEAKER) (test code = 432) BASOPHILS RELATIVE PERCENT 0 % (BEAKER) (test code = 437) NEUTROPHILS ABSOLUTE COUNT 15.02 K/ L 1.78-5.38 H (BEAKER) (test code = 670) LYMPHOCYTES ABSOLUTE COUNT 0.95 K/ L 1.32-3.57 L (BEAKER) (test code = 414) MONOCYTES ABSOLUTE COUNT (BEAKER) 0.77 K/ L 0.30-0.82 (test code = 415) EOSINOPHILS ABSOLUTE COUNT 0.02 K/ L 0.04-0.54 L (BEAKER) (test code = 416) BASOPHILS ABSOLUTE COUNT (BEAKER) 0.02 K/ L 0.01-0.08 (test code = 417) IMMATURE GRANULOCYTES-RELATIVE 2 % 0-1 H PERCENT (BEAKER) (test code = 2801) Urinalysis w/Microscopic + Reflex to [id number] 04:45:00 Test Item Value Reference Range Interpretation Comments Color, UA (test code = Light Yellow 5778-6) Clarity, UA (test code Clear = 5767-9) Specific [place], UA 1.015 1.001-1.035 (test code = 5811-5) pH, UA (test code = 8.0 5.0-8.0 5803-2) Protein, UA (test code Negative Negative = 23974-9) Glucose, UA (test code Negative Negative = 365) Ketones, UA (test code Negative Negative = 2514-8) Bilirubin, UA (test Negative Negative code = 44123-3) Blood, UA (test code = Negative Negative 19859-0) Nitrite, UA (test code Negative Negative = 5802-4) Leukocytes, UA (test Negative Negative code = 5799-2) Urobilinogen, UA (test 0.2 mg/dL 0.2-1 code = 10731-1) RBC, UA (test code = 0 /HPF 13493-3) WBC, UA (test code = 1 /HPF 5821-4) Bacteria, UA (test code Rare = 02086-4) Mucus (test code = Rare 8247-9) Specimen Source (test code = 2795) JACKIE (test code = JACKIE) Metal Riveter ID - [auto]Metal Riveter ID - tech [facility] URINE [id number] 04:45:00 Test Item Value Reference Range Interpretation Comments COLOR (BEAKER) (test code = 470) Light Yellow CLARITY (BEAKER) (test code = Clear 469) SPECIFIC GRAVITY UA (BEAKER) 1.015 1.001-1.035 (test code = 468) PH UA (BEAKER) (test code = 467) 8.0 5.0-8.0 PROTEIN UA (BEAKER) (test code = Negative Negative 464) GLUCOSE UA (BEAKER) (test code = Negative Negative 365) KETONES UA (BEAKER) (test code = Negative Negative 371) BILIRUBIN UA (BEAKER) (test code Negative Negative = 462) BLOOD UA (BEAKER) (test code = Negative Negative 461) NITRITE UA (BEAKER) (test code = Negative Negative 465) LEUKOCYTE ESTERASE UA (BEAKER) Negative Negative (test code = 466) UROBILINOGEN UA (BEAKER) (test 0.2 mg/dL 0.2-1.0 code = 463) RBC UA (BEAKER) (test code = 0 /HPF 519) WBC UA (BEAKER) (test code = 1 /HPF 520) BACTERIA (BEAKER) (test code = Rare 517) MUCUS (BEAKER) (test code = Rare 1574) SOURCE(BEAKER) (test code = 4944) Metal Riveter ID - [auto]Metal Riveter ID - techPOCT-GLUCOSE [id number] 22:13:00 Test Item Value Reference Range Interpretation Comments POC-GLUCOSE METER 184 mg/dL 70-110 H : Notified RN/MD: (ARTIE) (test code = TESTED AT [facility] 6720 3428) [facility], [address]: Metal Riveter/Techni live ID = [id number] for DO VE, CHEKARA Blood Culture - Routine (Left Venipuncture)2020-01-09 19:00:00 Test Item Value Reference Range Interpretation Comments Result (test code = No growth in 5 days 6463-4) [facility] [id number] 19:00:00 Test Item Value Reference Range Interpretation Comments CULTURE (BEAKER) (test No growth in 5 days code = 1095) BLOOD [id number] 19:00:00 Test Item Value Reference Range Interpretation Comments CULTURE (BEAKER) (test No growth in 5 days code = 1095) Tissue [id number] 18:17:00 Test Item Value Reference Range Interpretation Comments Case Report (test Surgical Pathology Report code = 104) Case: [id number] Authorizing Provider: Nathalia Wells MD Collected: 01/08/2020 11:40 AM Ordering Location: [address] Received: 01/08/2020 01:47 PM Service Pathologist: Ketan Oseguera MD Specimen: Biopsy, Gastroesophageal Junction, Bx DIAGNOSIS (test code k6dakUWgBOQhw1peKJEfzKWnX = 3220) zEwMzNcZnRuYmpcdWMxIHtccn RmMVxlcGljOTIwMFxhbnNpXHN unDXgY0XikdldHUyrIL6zHR6o uXequLLrtWJwBWYiLzOcu7usd 785uDQaf8mnVTLGkdvgiQt2nD voN67yb7C5PhsbB90akANtSCk xpNLbztwcxkTqKAXqPKqTD2HD A6RMS7SSPHnDLIbaOtNUO4IWI 18dODFQX3LSVOkbGIKsGIKUHX NMME8XA5lHPE6FPgVLEHGXB4Z rA7pQCGKYIWbPWCHZLr9LNGLd I2JCJNmKAOAolBUfBE7wUmYUW QRVGsTjAy0SSDpAUpmTPUQXNC fJMA6NAPXKFHOBUHVerDWpYPF zkw62GFB9PoApq7H1VWG9TEQl CWHzz4roENQbqHGlYhTbUvLmW qUiXhrynIRgGCDcAvTis2fkn1 47gCFfh0nmSDBfBpT7rUKfOWP yxMCuV066VMZbIPxdc3hvy4Gm UXJhbXQqq3Y2XGGUewecrEr8c EuiT28kl0Z1IdofX7dpZAGtHO YmL5BvSR3wLEIrWfj0KHQ3KZO 4KRGyLTDtQ9ZlCT9zFDYltIOm TVq8g2sskHmdGFClFZH0q4opO PqzjiGpGR0tcm5usBc6z4zamg IqRBUoMSEeaTHTREBxC2DldRe bEc5ssGu3rHncEoccYJB7Htg5 EL9tyv26zmd3nJkdRQZkrekrB eB8XBgnKJWtnkfwKTn6WXvuTB EajXJ3RJRbnHGfX7EeTJLkFX4 yryq0RRU1MJeqOWGfQeB6TQIx mGOkSHDkpCwvUYete732GNI7B wMxVN2wC0Vxh5K0rY6sgURxNA EpcJCxBoDkKRSmia1poKXrTGr yy0AfHUE0zfP5fHVadQYpOQLb EgY6NNluBZ9qld35JXEzJXR1g k8dmIHxmLybcdVotBHwQVojP9 ZhFUFvz753HYTkH7RhNFMbb3Y 0txYeQdPlTFEpiMX6ksL5QMYy TX8qylcpv8pmMOgkXTdiLTMwd uD0hqV9BMHfqAHzW9SyfI9aWK ZlVH3wfumhk4ioCDG3TTflJVI gIUQ9KwQyZVYwe1Vgouw1ZvVo p0IdxPIeUWkdD76ql659NTDzv dLzP9nsnTWkwwcckRYktpjlOT uzbxE2CYCpAPalzmrvTZAhNEv zV3jqSlUxGBYtyXlbJWqpg6Ga EWUbXYIgIsQhtRVlTTEjJwg4Y OHlaVYiSELoReFdV7xqbqeoBg ULPYXdg5bgA5tekTQNyGKiI3W gUGhvbmUgTGluZTogODMyLTM1 QB3sHULvMHPaty23 CPT Code(s) (test h4gveBKzYJCdcHO5FdRcVFPlv code = 3357) 0bkt6YgwLRudURjAJfcoZKdpg Mmga83tPO9wB21FO9iMYVhNyK 7YONkccP2Nel3SCOxFCItwPCn E901e6nfx9ufvkLofDS3fTvkG XJkXHBsYWluXGZzMjAgODgzMD VccGFyfQ== CLINICAL HISTORY x4fxqRLaPZRtcTQ1SbPbQWLlg (test code = 3356) 9iir5CgsWNtnLBvMUqnaPZefo Kdvc56wGA8mF45EY0jXQIdWjT 3EMScfhJ9Bgi8QBNaKTBghKDa J259w2ibl4uffhLxjWK1xHiqN XJkXHBsYWluXGZzMjAgRHlzcG guQ0pzRXH6qrShSHDaIbnsDJF 5cGVccGFyfQ== SPECIMEN SOURCE h5qojCAsOMVzeUS1DnZiOESvc (test code = 3377) 2hzk9ZxnORvhAGwDMfjvYFehi Evwt67bSV4pH09GS4iTOMeRnN 4NTSqlxA8Lvb0FTFkRDBlkIGw V200f6kol8auluFtfHE3aTnpO OUkGYZaLOwnKUTsTeFbSA5rTl jsyBV0WDEfi7CsDNo0liPzhO5 kzHktgmAseJ4di0poqQYyvZ== GROSS DESCRIPTION u6dnhCUyKSSphOK0QqSuWIBtp (test code = 3366) 9tfd7OcvYJznLYaVFjmwQAjzm Nans58gRT9sB55NM9eKMYiTqU 0YLActaE5Txg2XZAoLPCpkGZx T874z5ash7ylacGbdSW5jLbxB DKzVGNzYOgwYZHiHgKaQX6eNN nyHPTcUIAeeVKvBYnnEPSlI9C zqgEeAChuDX5mCCYdd358MPjd GVBiTOrmlEPpOSoiYEX5iXCfR SRxNHPqNSKkLX25M5SywN9cg2 YyOBRjr94iHDGoZ3Dzk1cesnW avM3kPGMpFV2rKX5lEEnoQBdn uwQef4ViAR13yLXzzyUgodDdQ yiAENl8gzX4eV0rSESfm2YmxO EoYZHkKPF4wpMxfaGqqTZvlKN pt8ZquUNtDJBzyghlePmcw8Rd AG9aSOO8twfeYqN2qXB5vyHyC gRsH43gpF2xmUqmATqsSRC8AS Q3VPDpsXHqe2nckl7mPYdfXFX aJWBpaQVeLTxeYFR3Gl2fwWAm JGEktvD7l7SpBRujJNPkg6Opi MIaONHbFxYsBJqFX1GzNXEqxz 0= MICROSCOPIC w0odoWKkWIFcwGY1OvBnCKWld DESCRIPTION (test 3fxx1DqaBNscPXnKEfnkLKlvt code = 3371) Dzhy83oAH3wX67CQ9iMOGmUqV 7WZNmyfO0Mcq7HJCjRNJcwHBb P517w6rtq8qcwaCjsAX7uRbxY YOwCEYtXRoyBWMyGnYhB2JqlH aunoEuiD01jbLjnFHvtN0hc4w 5dD5wuuGwdKQpu2Iqt7p4jIEu rUrsCFKlrn3xhSKlL7WyGOf4u YCbXZSmSRWcEBwbAT67yXEgiV Z6PRBjBHGshCp1dYTaqMVaQBH dLIKkm5XdpEReVE4btzIyaTal FZVegV3wxmNtNCLscYevj7kzZ eJXewUgu6VbEPOuA0VrhHYnOE ZpnQbai4mnJHchTRNnHS4oVVh wYXJ9 [id number] 18:17:00Surgical Pathology Report Case: [id number] Authorizing Provider: Nathalia Wells MD Collected: 01/08/2020 11:40 AM Ordering Location: [address] Received: 01/08/2020 01:47 PM Service Pathologist: Ketan Oseguera MD Specimen: Biopsy, Gastroesophageal Junction, Bx A. GASTROESOPHAGEAL JUNCTION, BIOPSY- SQUAMOCOLUMNAR MUCOSA WITH MILD CHRONIC CARDITIS- NEGATIVE FOR GOBLET CELL METAPLASIA Signing Pathologist Direct Phone Line: [phone] signed by Ketan Oseguera MD on 01/09/2020 at 6:17 [id number], unspecific typeA. Biopsy esophagus junction biopsyA. The specimen is received in one container A, labeled with the patient's information, accession number and medical record number and "GE junction biopsy" are two fragments of gonzales-pink tissue measuring up to 0.2 cm in the greatest dimension. The specimen is submitted in toto in cassette A1. WA/plSectionshows squamocolumnar mucosa with mild chronic carditis. There is multilayered epithelium and focal pancreatic acinar metaplasia. No goblet cell metaplasia is seen.RAD, CHEST, 1 VIEW, NON [id number] 10:55:00Reason for exam:->increasing leukocytosisShould this be performed at the bedside?->Yes[facility] : 1940 Sex: MFINAL REPORT INDICATION: increasing leukocytosis COMPARISON: None TE CHNIQUE: Single frontal view of the chest. FINDINGS: Lungs and pleura: Diffuse bilateral interstitial thickening, unchanged. No effusion.Heart and mediastinum: Normal heart size. Unremarkable mediastinal contours.Osseous structures: No acute abnormality.Other: Cervical hardware and spinal stimulator are unchanged. Signed: Khadra Reddyort Verified Date/Time: 01/09/2020 10:55:15 Reading Location: [facility] Radiology Reading Room XR chest 1 view portable / [id number] 10:55:00Interface, External Ris In - 01/09/2020 11:36 AM CSTFINAL REPORT INDICATION: increasing leukocytosis COMPARISON: None TECHNIQUE: Single frontal view of the chest. FINDINGS: Lungsand pleura: Diffuse bilateral interstitial thickening, unchanged. No effusion.Heart and mediastinum:Normal heart size. Unremarkable mediastinal contours.Osseous structures: No acute abnormality.Other:Cervical hardware and spinal stimulator are unchanged. Signed: Khadra Reddy MDReport Verified Date/Time: 01/09/2020 10:55:15 Reading Location: [facility] Radiology Reading Room [facility] [id number] 08:53:00 Test Item Value Reference Range Interpretation Comments POC-GLUCOSE METER 123 mg/dL 70-110 H : TESTED A T [facility] 6720 (BEAKER) (test code = ADRIANA [place], 1538) [address]: Metal Riveter/Techni live ID = [id number] for TENA CORBETT CBC W/PLT COUNT & AUTO [id number] 07:45:00 Test Item Value Reference Range Interpretation Comments WHITE BLOOD CELL COUNT (BEAKER) 18.2 K/ L 3.5-10.5 H (test code = 775) RED BLOOD CELL COUNT (BEAKER) 4.21 M/ L 4.63-6.08 L (test code = 761) HEMOGLOBIN (BEAKER) (test code = 12.3 GM/DL 13.7-17.5 L 410) HEMATOCRIT (BEAKER) (test code = 38.5 % 40.1-51.0 L 411) MEAN CORPUSCULAR VOLUME (BEAKER) 91.4 fL 79.0-92.2 (test code = 753) MEAN CORPUSCULAR HEMOGLOBIN 29.2 pg 25.7-32.2 (BEAKER) (test code = 751) MEAN CORPUSCULAR HEMOGLOBIN CONC 31.9 GM/DL 32.3-36.5 L (BEAKER) (test code = 752) RED CELL DISTRIBUTION WIDTH 13.4 % 11.6-14.4 (BEAKER) (test code = 412) PLATELET COUNT (BEAKER) (test 249 K/CU MM 150-450 code = 756) MEAN PLATELET VOLUME (BEAKER) 10.3 fL 9.4-12.4 (test code = 754) NUCLEATED RED BLOOD CELLS 0 /100 WBC 0-0 (BEAKER) (test code = 413) NEUTROPHILS RELATIVE PERCENT 86 % (BEAKER) (test code = 429) LYMPHOCYTES RELATIVE PERCENT 6 % (BEAKER) (test code = 430) MONOCYTES RELATIVE PERCENT 5 % (BEAKER) (test code = 431) EOSINOPHILS RELATIVE PERCENT 0 % (BEAKER) (test code = 432) BASOPHILS RELATIVE PERCENT 0 % (BEAKER) (test code = 437) NEUTROPHILS ABSOLUTE COUNT 15.68 K/ L 1.78-5.38 H (BEAKER) (test code = 670) LYMPHOCYTES ABSOLUTE COUNT 1.13 K/ L 1.32-3.57 L (BEAKER) (test code = 414) MONOCYTES ABSOLUTE COUNT (BEAKER) 0.88 K/ L 0.30-0.82 H (test code = 415) EOSINOPHILS ABSOLUTE COUNT 0.02 K/ L 0.04-0.54 L (BEAKER) (test code = 416) BASOPHILS ABSOLUTE COUNT (BEAKER) 0.03 K/ L 0.01-0.08 (test code = 417) IMMATURE GRANULOCYTES-RELATIVE 2 % 0-1 H PERCENT (BEAKER) (test code = 2801) BASIC METABOLIC [id number] 07:09:00 Test Item Value Reference Range Interpretation Comments SODIUM (BEAKER) 135 meq/L 136-145 L (test code = 381) POTASSIUM (BEAKER) 4.5 meq/L 3.5-5.1 (test code = 379) CHLORIDE (BEAKER) 101 meq/L 98-107 (test code = 382) CO2 (BEAKER) (test 28 meq/L 22-29 code = 355) BLOOD UREA NITROGEN 18 mg/dL 7-21 (BEAKER) (test code = 354) CREATININE (BEAKER) 0.82 mg/dL 0.57-1.25 (test code = 358) GLUCOSE RANDOM 133 mg/dL 70-105 H (BEAKER) (test code = 652) CALCIUM (BEAKER) 8.1 mg/dL 8.4-10.2 L (test code = 697) EGFR (BEAKER) (test 91 mL/min/1.73 ESTIMA LEONIDES GFR IS code = 1092) sq m NOT ACCURATE CREATININE CLEARANCE IN PREDICTING GLOMERULAR FILTRATION RATE . ESTIMATED GFR I S NOT APPLICABLE FOR DIALYSIS PATIEN TS. Metal Riveter ID - ZOYA FPOCT-GLUCOSE [id number] 21:50:00 Test Item Value Reference Range Interpretation Comments POC-GLUCOSE METER 128 mg/dL 70-110 H : TESTED A T [facility] 6720 (BEAKER) (test code = [facility], 1538) [address]: Metal Riveter/Techni live ID = [id number] for DO VE, HAYLEEA POCT-GLUCOSE [id number] 16:49:00 Test Item Value Reference Range Interpretation Comments POC-GLUCOSE METER 134 mg/dL 70-110 H : TESTED A T [facility] 6720 (BEAKER) (test code = [facility], 1538) [address]: Metal Riveter/Techni live ID = [id number] for MERRILL NNY, MAHESH POCT-GLUCOSE [id number] 13:31:00 Test Item Value Reference Range Interpretation Comments POC-GLUCOSE METER 131 mg/dL 70-110 H : TESTED A T [facility] 6720 (BEAKER) (test code = [facility], 1538) [address]: Metal Riveter/Techni live ID = [id number] for MERRILL NNY, MAHESH POCT-GLUCOSE [id number] 08:51:00 Test Item Value Reference Range Interpretation Comments POC-GLUCOSE METER 120 mg/dL 70-110 H : TESTED A T [facility] 6720 (BEAKER) (test code = [facility], 1538) [address]: Metal Riveter/Techni live ID = [id number] for MERRILL NNY, MAHESH BASIC METABOLIC [id number] 05:30:00 Test Item Value Reference Range Interpretation Comments SODIUM (BEAKER) 136 meq/L 136-145 (test code = 381) POTASSIUM (BEAKER) 4.2 meq/L 3.5-5.1 (test code = 379) CHLORIDE (BEAKER) 102 meq/L 98-107 (test code = 382) CO2 (BEAKER) (test 26 meq/L 22-29 code = 355) BLOOD UREA NITROGEN 17 mg/dL 7-21 (BEAKER) (test code = 354) CREATININE (BEAKER) 0.82 mg/dL 0.57-1.25 (test code = 358) GLUCOSE RANDOM 147 mg/dL 70-105 H (BEAKER) (test code = 652) CALCIUM (BEAKER) 8.1 mg/dL 8.4-10.2 L (test code = 697) EGFR (BEAKER) (test 91 mL/min/1.73 ESTIMA LEONIDES GFR IS code = 1092) sq m NOT ACCURATE CREATININE CLEARANCE IN PREDICTING GLOMERULAR FILTRATION RATE . ESTIMATED GFR I S NOT APPLICABLE FOR DIALYSIS PATIEN TS. Metal Riveter ID - DENISHA MCBC W/PLT COUNT & AUTO [id number] 05:24:00 Test Item Value Reference Range Interpretation Comments WHITE BLOOD CELL COUNT (BEAKER) 17.0 K/ L 3.5-10.5 H (test code = 775) RED BLOOD CELL COUNT (BEAKER) 4.25 M/ L 4.63-6.08 L (test code = 761) HEMOGLOBIN (BEAKER) (test code = 12.4 GM/DL 13.7-17.5 L 410) HEMATOCRIT (BEAKER) (test code = 38.4 % 40.1-51.0 L 411) MEAN CORPUSCULAR VOLUME (BEAKER) 90.4 fL 79.0-92.2 (test code = 753) MEAN CORPUSCULAR HEMOGLOBIN 29.2 pg 25.7-32.2 (BEAKER) (test code = 751) MEAN CORPUSCULAR HEMOGLOBIN CONC 32.3 GM/DL 32.3-36.5 (BEAKER) (test code = 752) RED CELL DISTRIBUTION WIDTH 13.3 % 11.6-14.4 (BEAKER) (test code = 412) PLATELET COUNT (BEAKER) (test 254 K/CU MM 150-450 code = 756) MEAN PLATELET VOLUME (BEAKER) 10.0 fL 9.4-12.4 (test code = 754) NUCLEATED RED BLOOD CELLS 0 /100 WBC 0-0 (BEAKER) (test code = 413) NEUTROPHILS RELATIVE PERCENT 86 % (BEAKER) (test code = 429) LYMPHOCYTES RELATIVE PERCENT 6 % (BEAKER) (test code = 430) MONOCYTES RELATIVE PERCENT 4 % (BEAKER) (test code = 431) EOSINOPHILS RELATIVE PERCENT 0 % (BEAKER) (test code = 432) BASOPHILS RELATIVE PERCENT 0 % (BEAKER) (test code = 437) NEUTROPHILS ABSOLUTE COUNT 14.52 K/ L 1.78-5.38 H (BEAKER) (test code = 670) LYMPHOCYTES ABSOLUTE COUNT 1.07 K/ L 1.32-3.57 L (BEAKER) (test code = 414) MONOCYTES ABSOLUTE COUNT (BEAKER) 0.70 K/ L 0.30-0.82 (test code = 415) EOSINOPHILS ABSOLUTE COUNT 0.02 K/ L 0.04-0.54 L (BEAKER) (test code = 416) BASOPHILS ABSOLUTE COUNT (BEAKER) 0.05 K/ L 0.01-0.08 (test code = 417) IMMATURE GRANULOCYTES-RELATIVE 4 % 0-1 H PERCENT (BEAKER) (test code = 2801) POCT-GLUCOSE [id number] 22:04:00 Test Item Value Reference Range Interpretation Comments POC-GLUCOSE METER 186 mg/dL 70-110 H : Notified RN[facility]: [facility] (test code = TESTED AT [place] [address] 1538) [facility], [address]: Metal Riveter/Techni live ID = [id number] for DO VE, CHEKARA POCT-GLUCOSE [id number] 17:10:00 Test Item Value Reference Range Interpretation Comments POC-GLUCOSE METER 122 mg/dL 70-110 H : [facility]) (test code [facility], = 1538) [address]: Metal Riveter/Techni live ID = [id number] for TSEG GAI, TSIGHEREDA POCT-GLUCOSE [id number] 12:27:00 Test Item Value Reference Range Interpretation Comments POC-GLUCOSE METER 218 mg/dL 70-110 H : Notified RN/MD: TESTED ([facility]) (test code AT [facility] = 1538) [facility], [address]: Metal Riveter/Techni live ID = [id number] for TSEG GAI, TSIGHEREDA POCT-GLUCOSE [id number] 08:43:00 Test Item Value Reference Range Interpretation Comments POC-GLUCOSE METER 119 mg/dL 70-110 H : TESTED A T [facility] 6720 ([facility] (test code [facility], = 1538) [address]: Metal Riveter/Techni live ID = [id number] for TSEFAROOQ DAOA POCT-GLUCOSE [id number] 22:04:00 Test Item Value Reference Range Interpretation Comments POC-GLUCOSE METER 146 mg/dL 70-110 H : TESTED A T [facility] 6720 (ARTIE) (test code = [facility], 1538) [address]: Metal Riveter/Techni live ID = [id number] for LO PEZ, NADINA POCT-GLUCOSE [id number] 05:48:00 Test Item Value Reference Range Interpretation Comments POC-GLUCOSE METER 129 mg/dL 70-110 H : TESTED A T [facility] 6720 (ARTIE) (test code = [facility], 1538) [address]: Metal Riveter/Techni live ID = [id number] for LO PEZ, NADINA FL, [id number] 13:46:00Reason for exam:->dysphagia [facility] : 1940 Sex: MFINAL REPORT Barium esophagogram Clinical History: dysphagia Discus kaushal: Effervescent crystals, thick barium, and thin barium are given to the patient to drink, without difficulties. There is distal esophageal spasm. No definite mucosal abnormality is identified. GE junction appears unremarkable. There is severe gastroesophageal reflux. Fluoro time: 1.5 minutes Number of images obtained: 12 Impression: Normal barium esophagogram Signed: Hoa Soto Verified Date/Time: 01/05/2020 13:46:40 Reading Location: [facility] C0X [facility] Consult Reading Room [place] [id number] 13:46:00Interface, External Ris In - 01/05/2020 1:48 PM CSTFINAL REPORT Barium esophagogram Clinical History: dysphagia Discussion: Effervescent crystals, thick barium, and thin bariumare given to the patient to drink, without difficulties. There is distal esophageal spasm. No definite mucosal abnormality is identified. GE junction appears unremarkable. There is severe gastroesophageal reflux. Fluoro time: 1.5 minutes Number of images obtained: 12 Impression: Normal barium esophagogram Signed: Hoa Soto Verified Date/Time: 01/05/2020 13:46:40 Reading Location: [address] Reading Room [facility] FL, ESOPH, SWALLOW FUNCTION, WITH CINE OR [id number] 13:42:00Reason for exam:->dysphagia [facility] : 1940 Sex: MFINAL REPORT Modified barium swallow exam with speech pathology ser vice CLINICAL HISTORY: dysphagia IMPRESSION: Please see the speech pathology service report for details. Barium contrast of multiple consistencies is given to the patient to swallow. Fluoroscopic observation is performed during swallowing. No aspiration Fluoro time: Two minutes Number of images: 1 Signed: Hoa Soto Verified Date/Time: 01/05/2020 13:42:46 Reading Location: [address] OrthoConsult Reading Room [place] esoph swallow funct with cine [id number] 13:42:00Interface, External Ris In - 01/05/2020 1:44 PM CSTFINAL REPORT Modified barium swallow exam with speech pathology service CLINICAL HISTORY: dysphagia IMPRESSION: Please see the speech pathology service report for details. Barium contrast of multiple consistencies is given to the patient to swallow. Fluoroscopic observation is performed during swallowing. No aspiration Fluorotime: Two minutes Number of images: 1 Signed: Hoa Soto MDReport Verified Date/Time: 01/05/2020 13:42:46 Reading Location: [address] Ortho Consult Reading [facility] [id number] 07:32:00 Test Item Value Reference Range Interpretation Comments POC-GLUCOSE METER 205 mg/dL 70-110 H : TESTED A T [facility] 67[address] (BEAKER) (test code = [place]ANA [place], 1538) [address]: Metal Riveter/Techni live ID = [id number] for BOOM CAMERON [id number] 04:35:00 Test Item Value Reference Range Interpretation Comments Magnesium (test code = 1.9 mg/dL 1.6-2.6 95755-1) JACKIE (test code = JACKIE) Metal Riveter ID - EDASI Lab Interpretation (test Normal code = 07587-8) [facility] [id number] 04:35:00 Test Item Value Reference Range Interpretation Comments SODIUM (BEAKER) 136 meq/L 136-145 (test code = 381) POTASSIUM (BEAKER) 4.4 meq/L 3.5-5.1 (test code = 379) CHLORIDE (BEAKER) 101 meq/L 98-107 (test code = 382) CO2 (BEAKER) (test 28 meq/L 22-29 code = 355) BLOOD UREA NITROGEN 13 mg/dL 7-21 (BEAKER) (test code = 354) CREATININE (BEAKER) 0.80 mg/dL 0.57-1.25 (test code = 358) GLUCOSE RANDOM 171 mg/dL 70-105 H (BEAKER) (test code = 652) CALCIUM (BEAKER) 8.2 mg/dL 8.4-10.2 L (test code = 697) EGFR (BEAKER) (test 93 mL/min/1.73 ESTIMA LEONIDES GFR IS code = 1092) sq m NOT ACCURATE CREATININE CLEARANCE IN PREDICTING GLOMERULAR FILTRATION RATE . ESTIMATED GFR I S NOT APPLICABLE FOR DIALYSIS PATIEN TS. Metal Riveter ID - [id number] 04:35:00 Test Item Value Reference Range Interpretation Comments MAGNESIUM (BEAKER) (test code = 1.9 mg/dL 1.6-2.6 627) Metal Riveter ID - EDASIMR, BRAIN, WITHOUT [id number] 19:26:00Unlisted Reason for Exam - Click Yes and Enter Reason Below->NoDeos the patient have an implantedelectronic device?->YesSpinal Cord Stimulator, placed by NSGY last week.[facility] : 1940 Sex: MFINAL REPORT MR, BRAIN, WITHOUT CONTRAST INDICATION: Altered mental status TECHNIQUE: Multiplanar, multisequence MR imaging of the brain was obtained. COMPARISON: None FINDINGS:Brain parenchyma is normal in morphology. Midline structures are normally developed. No restricted diffusion to suggest recent ischemic insult. No abnormal susceptibility. Scattered T2/FLAIR hyp erintense foci within the periventricular and subcortical white matter are nonspecific, however, statistically represent chronic microvascular ischemic changes. No hydrocephalus. Orbits are within normal limits. No obstructive paranasal sinus disease. IMPRESSION: No acute intracranial findings Signed: Khadra Reddy Verified Date/Time: 01/04/2020 19:26:20 Reading Location: [address] Neuro Reading Room MR brain without IV contrast 2020-01-04 19:26:00Interface, External Ris In - 01/04/2020 7:28 PM CSTFINAL REPORT MR, BRAIN, WITHOUT CONTRAST INDICATION: Altered mental status TECHNIQUE: Multiplanar, multisequence MR imaging ofthe brain was obtained. COMPARISON: None FINDINGS:Brain parenchyma is normal in morphology. Midline structures are normally developed. No restricted diffusion to suggest recent ischemic insult. No abnormal susceptibility. Scattered T2/FLAIR hyperintense foci within the periventricular and subcortical white matter are nonspecific, however, statistically represent chronic microvascular ischemic changes. No hydrocephalus. Orbits are within normal limits. No obstructive paranasal sinus disease. IMPRESSION: No acute intracranial findings Signed: Khadra Reddy MDReport Verified Date/Time: 01/04/202019:26:20 Reading Location: [facility] B1 C013V Neuro Reading Room [facility]2D Echo W/Doppler(CW/PW/Color)2020-01-04 19:20:49Ejection FractionSLE ECHO HEARTLAB MKCKESSON CPACSInterface, External Ris In - 01/04/2020 7:21 PM C STTransthoracic Echocardiography Report (TTE) Demographics Patient Name ALEXANDER CONNOR Date of Study 01/04/2020 CARMEN VAZQUEZ Gender Male Visit Number [id number] Race Unknown Room Number 2209 Number Date of 1940 Referring LULA GREENTomi Physician MIGEL Age 79 year(s) Donor Recruitment Manager Fanny Linton [facility] Cyber Security Architect Avery Burkett Interpreting Catrachito Oleary MD Physician Procedure Type of Study TTE procedure:2DECHO W DOPPLER(CW/PW/COLOR) (Routine) Indications:Shortness of breath.Clinical HistoryARRHYTHMIA; HIGH CHOLEST;HTN.Height: 67 inches Weight: 95.25 kg (210 lbs) BSA: 2.06 m^2 BMI: 32.89 kg/m^2HR: 64 bpm BP: 191/87 mmHg Summary 1. The left ventricle is chamber size (by vol index) is normal. Mild concentric LV h ypertrophy. All of the LV segments contract normally. Estimated LVEF by qualitative assessment is normal (55-60%). Normal diastolic function with normal LV filling pressure (LAP) at rest. LA size is mildly enlarged . 2. Normal right ventricle structure and function. Normal right atrium. Estimated peak systolic PA pressure is 20-25 mmHg + RA pressure. 3. Jgut-iw-lhomarae mitral regurgitation. Mild aortic regurgitation. 4. Huxh-zw-xxcjtdyp tricuspid regurgitation. Previous Study No prior exam available for comparison. Signature Marisol ctronically signed by Catrachito Oleary MD(Interpreting physician) on 01/04/2020 07:20 PM Findings Left Ventricle The left ventricle is chamber size (by vol index) is normal (male - LVED vol - 34-74ml/m2).Mild concentric LV hypertrophy. All of the LV segmentscontract normally . Estimated LVEF by qualitative assessment is normal (55-60%) . Normal diastolic function with normal LV filling pressure (LAP) at rest. Left Atrium LA size is mildly enlarged . Right Ventricle Normal right ventricle structure and function. Right Atrium Normal right atrium. Aortic Aysha ve Mild AoV cusp thickening. Mild aortic regurgitation. Mitral Valve Mild MV leaflet thickening. Aemt-po-taugrhqw mitral regurgitation. Tricuspid Valve Gamn-kx-yksfmyse tricuspid regurgitation. Estimated peak systolic PA pressure is 20-25 mmHg + RA pressure. Pulmonic ValveNormal PV structure and function by limited views and Doppler. Aorta Aortic root size (SInus of Valsalva diameter) is normal . Pericardium No evidence of pericardial effusion. IVC/SVC/PA/PV/Pleural The estimated RA pressure by IVC dynamics indeterminate . Chambers/Structures Left Atrium LA Dimension:5.05 cm LA Volume: 78.95 ml LA Vol. [...] LVOT CO: 6.69 l/min LVOT CI: 3.25 l/min/m^2CEnloe Medical Centerputum Culture + Gram [id number] 18:08:00 Test Item Value Reference Range Interpretation Comments Result (test code = Oropharyngeal 6463-4) contamination, specimen rejected. Recollect requested. Gram Stain Result 2+ gram positive cocci in (test code = 1123) [facility] GRAM [id number] 18:08:00 Test Item Value Reference Range Interpretation Comments CULTURE (BEAKER) Oropharyngeal (test code = 1095) contamination, specimen rejected. Recollect requested. GRAM STAIN RESULT <1+ WBCs (BEAKER) (test code = 1123) GRAM STAIN RESULT >25 epithelial cells (BEAKER) (test code = 44976) GRAM STAIN RESULT 2+ gram negative rods (BEAKER) (test code = 19160) GRAM STAIN RESULT 2+ gram positive rods (BEAKER) (test code = 948459) GRAM STAIN RESULT 1+ gram negative cocci (BEAKER) (test code = 835142) GRAM STAIN RESULT 2+ gram positive cocci in (BEAKER) (test code pairs = 861936) GRAM STAIN RESULT 2+ gram positive cocci in (BEAKER) (test code clusters = 856782) Hepatic function [id number] 10:56:00 Test Item Value Reference Range Interpretation Comments Protein, Total (test code 6.0 6.0- 8.3 gm/dL = 2885-2) Albumin (test code = 3.1 g/dL 3.5-5 L 29645-1) Total Bilirubin (test code 0.7 mg/dL 0.2-1.2 = 1975-2) Bilirubin, Direct (test 0.4 mg/dL 0.1-0.5 code = 1968-7) Alkaline Phosphatase (test 81 U/L 40-150 code = 6768-6) AST (test code = 1920-8) 23 U/L 5-34 ALT (test code = 1742-6) 46 U/L 6-55 JACKIE (test code = JACKIE) Metal Riveter ID - ZOYA [facility] Interpretation (test Abnormal code = 70517-0) [facility] CenterHEPATIC FUNCTION [id number] 10:56:00 Test Item Value Reference Range Interpretation Comments TOTAL PROTEIN (BEAKER) (test code = 6.0 gm/dL 6.0-8.3 770) ALBUMIN (BEAKER) (test code = 1145) 3.1 g/dL 3.5-5.0 L BILIRUBIN TOTAL (BEAKER) (test code 0.7 mg/dL 0.2-1.2 = 377) BILIRUBIN DIRECT (BEAKER) (test 0.4 mg/dL 0.1-0.5 code = 706) ALKALINE PHOSPHATASE (BEAKER) (test 81 U/L 40-150 code = 346) AST (SGOT) (BEAKER) (test code = 23 U/L 5-34 353) ALT (SGPT) (BEAKER) (test code = 46 U/L 6-55 347) Metal Riveter ID - ZOYA FECG 12 [id number] 08:03:38Interface, External Ris In - 01/04/2020 8:03 AM CSTVentricular Rate 67 BPMAtrial Rate 67 BPMP-R Interval 218 msQRS Duration 106 msQ-T Interval 430 msQTC Calculation(Bazett) 454 msP [place] -4 degreesR [place] -33 degreesT [place] 1 degreesSinus rhythm with 1st degree A-V blockLeft axis deviationPossible Inferior infarct (cited on or before 24-NOV-2019)Abnormal ECGWhen compared with ECG of 24-NOV-2019 12:50,No significant change was foundConfirmed by Ottoniel Castellanos ([id number]) on 01/04/2020 8:03:36 [facility] [id number] 07:29:00 Test Item Value Reference Range Interpretation Comments SODIUM (BEAKER) 136 meq/L 136-145 (test code = 381) POTASSIUM (BEAKER) 4.3 meq/L 3.5-5.1 (test code = 379) CHLORIDE (BEAKER) 102 meq/L 98-107 (test code = 382) CO2 (BEAKER) (test 32 meq/L 22-29 H code = 355) BLOOD UREA NITROGEN 16 mg/dL 7-21 (BEAKER) (test code = 354) CREATININE (BEAKER) 0.80 mg/dL 0.57-1.25 (test code = 358) GLUCOSE RANDOM 151 mg/dL 70-105 H (BEAKER) (test code = 652) CALCIUM (BEAKER) 8.3 mg/dL 8.4-10.2 L (test code = 697) EGFR (BEAKER) (test 93 mL/min/1.73 ESTIMA LEONIDES GFR IS code = 1092) sq m NOT ACCURATE CREATININE CLEARANCE IN PREDICTING GLOMERULAR FILTRATION RATE . ESTIMATED GFR I S NOT APPLICABLE FOR DIALYSIS PATIEN TS. Metal Riveter ID Kassandra ZOYA [id number] 07:29:00 Test Item Value Reference Range Interpretation Comments MAGNESIUM (BEAKER) (test code = 2.1 mg/dL 1.6-2.6 627) Metal Riveter DANA NINO FRAD, CHEST, 1 VIEW, NON [id number] 02:24:00Reason for exam:->cough, dyspneaShould this be performed at the bedside?->Yes [facility] ALEXAND[facility] CONNOR : 1940 Sex: MFINAL REPORT RAD, CHEST, 1 VIEW, NON DEPT INDICATION: cough, dyspnea COMPARISON: Prior day's exam FINDINGS: Portable frontal view of the chest. IMPRESSION: Support Lines: Stable. Lungs and pleura: Unchanged airspace and pleural opacities. No pneumothorax.Heart and mediastinum: Stable contours. Additional findings: Stable surgical changes. Signed: Glo [place] Verified Date/Time: 01/04/2020 02:24:08 URINALYSIS W/ REFLEX URINE [id number] 18:41:00 Test Item Value Reference Range Interpretation Comments COLOR (BEAKER) (test code = 470) Yellow CLARITY (BEAKER) (test code = 469) Clear SPECIFIC GRAVITY UA (BEAKER) (test 1.029 1.001-1.035 code = 468) PH UA (BEAKER) (test code = 467) 6.5 5.0-8.0 PROTEIN UA (BEAKER) (test code = 30 mg/dL Negative A 464) GLUCOSE UA (BEAKER) (test code = 70 mg/dL Negative A 365) KETONES UA (BEAKER) (test code = Negative Negative 371) BILIRUBIN UA (BEAKER) (test code = Negative Negative 462) BLOOD UA (BEAKER) (test code = 461) Negative Negative NITRITE UA (BEAKER) (test code = Negative Negative 465) LEUKOCYTE ESTERASE UA (BEAKER) Negative Negative (test code = 466) UROBILINOGEN UA (BEAKER) (test code 6.0 mg/dL 0.2-1.0 H = 463) RBC UA (BEAKER) (test code = 519) 3 /HPF WBC UA (BEAKER) (test code = 520) 1 /HPF MUCUS (BEAKER) (test code = 1574) Rare SOURCE(BEAKER) (test code = 2795) Metal Riveter ID - [auto]Metal Riveter ID - techComprehensive metabolic [id number] 14:34:00 Test Item Value Reference Range Interpretation Comments Protein, Total (test 6.2 6.0- 8.3 gm/dL Speci men slightly code = 2885-2) hemolyzed Albumin (test code = 3.2 g/dL 3.5-5 L Specime n slightly 39995-6) hemolyzed Alkaline Phosphatase 83 U/L 40-150 (test code = 6768-6) Total Bilirubin (test 1.3 mg/dL 0.2-1.2 H Specim en slightly code = 1975-2) hemolyzed Sodium (test code = 137 meq/L 262-413 4888-2) Potassium (test code = 4.3 meq/L 3.5-5.1 Speci men slightly 2823-3) hemolyzed Chloride (test code = 104 meq/L 98-107 2075-0) CO2 (test code = 23 meq/L 22-29 8-9) BUN (test code = 16 mg/dL 7-21 3094-0) Creatinine (test code 0.76 mg/dL 0.57-1.25 Specim en slightly = 2160-0) hemolyzed Glucose (test code = 103 mg/dL 70-105 2345-7) Calcium (test code = 8.3 mg/dL 8.4-10.2 L 13896-3) AST (test code = 38 U/L 5-34 H Specimen sl ightly 1920-8) hemolyzed ALT (test code = 52 U/L 6-55 Specimen sl ightly 1742-6) hemolyzed EGFR (test code = 99 mL/min/1.73 [place] [address]-2) NOT ACCURATE CREATININE CLEARANCE IN PREDICTING GLOMERULAR FILTRATION RATE . ESTIMATED GFR I S NOT APPLICABLE FOR DIALYSIS PATIENTS. JACKIE (test code = JACKIE) Metal Riveter ID - JM Lab Interpretation Abnormal (test code = 08052-9) [facility] Center[facility] 14:34:00 Test Item Value Reference Range Interpretation Comments Amylase (test code = 32 U/L 25-125 Specime n 1798-8) slightly hemolyzed JACKIE (test code = JACKIE) Metal Riveter ID - JM Lab Interpretation Normal (test code = 92150-0) [facility] Center[facility] 14:34:00 Test Item Value Reference Range Interpretation Comments Lipase (test code = 3040-3) 27 U/L 8-78 JACKIE (test code = JACKIE) Metal Riveter ID - JM Lab Interpretation (test Normal code = 47161-8) [facility] CenterCOMPREHENSIVE METABOLIC [id number] 14:34:00 Test Item Value Reference Range Interpretation Comments TOTAL PROTEIN 6.2 gm/dL 6.0-8.3 Specimen sligh tly (BEAKER) (test code = hemoly zed 770) ALBUMIN (BEAKER) 3.2 g/dL 3.5-5.0 L Specimen sl ightly (test code = 1145) hemolyzed ALKALINE PHOSPHATASE 83 U/L 40-150 (BEAKER) (test code = 346) BILIRUBIN TOTAL 1.3 mg/dL 0.2-1.2 H Specimen sli ghtly (BEAKER) (test code = hemoly zed 377) SODIUM (BEAKER) (test 137 meq/L 136-145 code = 381) POTASSIUM (BEAKER) 4.3 meq/L 3.5-5.1 Specimen slightly (test code = 379) hemolyzed CHLORIDE (BEAKER) 104 meq/L 98-107 (test code = 382) CO2 (BEAKER) (test 23 meq/L 22-29 code = 355) BLOOD UREA NITROGEN 16 mg/dL 7-21 (BEAKER) (test code = 354) CREATININE (BEAKER) 0.76 mg/dL 0.57-1.25 Specimen slightly (test code = 358) hemolyzed GLUCOSE RANDOM 103 mg/dL 70-105 (BEAKER) (test code = 652) CALCIUM (BEAKER) 8.3 mg/dL 8.4-10.2 L (test code = 697) AST (SGOT) (BEAKER) 38 U/L 5-34 H Specimen slightly (test code = 353) hemolyzed ALT (SGPT) (BEAKER) 52 U/L 6-55 Specimen slightly (test code = 347) hemolyzed EGFR (BEAKER) (test 99 mL/min/1.73 ESTIMA LEONIDES GFR IS code = 1092) sq m NOT ACCURATE CREATININE CLEARANCE IN PREDICTING GLOMERULAR FILTRATION RATE . ESTIMATED GFR I S NOT APPLICABLE FOR DIALYSIS PATIEN TS. Metal Riveter ID - [id number] 14:34:00 Test Item Value Reference Range Interpretation Comments AMYLASE (BEAKER) (test 32 U/L 25-125 Speci men slightly code = 349) hemolyzed Metal Riveter ID - [id number] 14:34:00 Test Item Value Reference Range Interpretation Comments LIPASE (BEAKER) (test code = 749) 27 U/L 8-78 Metal Riveter ID - JMPOCT-GLUCOSE [id number] 12:30:00 Test Item Value Reference Range Interpretation Comments POC-GLUCOSE METER 167 mg/dL 70-110 H : Notified RN/MD: (ARTIE) (test code = TESTED AT [facility] 7159 8566) [facility], [address]: Metal Riveter/Techni live ID = [id number] for JÚNIOR PETERSON SARS-COV2/RT-PCR ([facility])2020-01-03 12:18:00 Test Item Value Reference Range Interpretation Comments SARS-COV2/RT-PCR (test code Negative Not Detected, Negative, = 6168733) See external report for linked test SARS-COV-[address] [facility] (test code = 3899208) Negative results do not preclude SARS-CoV-2 infection and should not be used as the sole basis for patient management decisions. Negative results must be combined with clinical observations, patient history, and epidemiological information. A false negative result may occur if a specimen is improperly collected, transported or handled.The limit of detection for this assay is 250 copies/mL.This SARS CoV-2 test is a rapid, real-time RT-PCR test intended for the qualitative detection of nucleic acid from SARS-CoV-2 in a nasopharyngeal swab specimen collected from individuals suspected of COVID-19 by their healthcare provider.This test has not been Food and Drug Administration (FDA) cleared or approved and has been authorized by FDA under an Emergency Use Authorization (EUA). This EUA will be effective until the declaration that circumstances exist justifying the authorization of the emergency use of in vitro diagnostic tests for detection and/or diagnosis of COVID-19 is terminated under Section 564(b)(2) of the Act or the EUA is revoked under Section 564(g) of the Act.Fact Sheet for Healthcare Pro viders:https://www.[employer]/Documents/Xpert%20Xpress%20SARS%20CoV-2/Fact%20Sh eets/302-3802%58KBCD-NAT-0%20HEALTHCARE%20PROVIDERS%20FACT%20SHEET.pdfFact Sheet for Healthcare Patients:https://www.[employer]/Documents/Xpert%20Xpress%20SARS%20CoV-2/Fact%20Sheets/302-3801%20SARS-COV -2%20PATIENT%20FACT%20SHEET.pdfPerforming Laboratory:[facility].[place], [place] [address]Wltxkg doppler legs [id number] 08:27:10Ejection FractionSLEH ECHO HEARTLAB MKCKESSON CPACSRight Impression1. There is no deep venous obstruction in the common femoral, profundafemoral, femoral, popliteal, posterior tibial or peroneal veins.2. There is no superficial venous obstruction in the great saphenous vein.Left Impression1. There is no deep venous obstruction in the common femoral, profundafemoral, femoral, popliteal, posterior tibial or peroneal veins.2. There is no superficial venous obstruction in the great saphenous vein. Conclusions Summary Venous duplex imaging and compression of the bilateral lower extremities were performed. The veins were adequately visualized. The bilateral venous systems were patent and compressiblewith no evidence of thrombus. Signature --- Velocities are measured in cm/s ; Diameters are measured in cm Interface, External Ris In - 01/03/2020 8:27 AM CSTPV LAB - Lower Extremities DVT Study Demographics Patient Name ALEXANDER CONNOR Date of Study 01/02/2020 CARMEN VAZQUEZ Age 79 Visit Number [id number] Gender Male Accession Number [id number] Date of 1940 Referring Trish Saeed Room Number ED13 Physician Donor Recruitment Manager Reji Elliott Interpreting [place] Physician ProcedureType of Study: Veins: Lower Extremities DVT Study, VENOUS DOPPLER LEG, BILATERAL. Indications for Study:Shortness of breath, Leg pain and Swelling.Patient Status:STAT.Study Location:Portable.Technical Quality:Adequate visualization.Risk FactorsHistory of Disease+ +----+ +!Diagnosis !Date!Comments !+ +----+ -----+!History/Risk ! !Recent Surgery (Spinal Stimulator), HTN, HLD, !!Factors: ! !Obesity !+ +----+ +ImpressionsRight Impression1. There is no deep venous obstruction inthe common femoral, profundafemoral, femoral, popliteal, posterior tibial or peroneal veins.2. Thereis no superficial venous obstruction in the great saphenous vein.Left Impression1. There is no deep venous obstruction in the common femoral, profundafemoral, femoral, popliteal, posterior tibial or peroneal veins.2. There is no superficial venous obstruction in the great saphenous vein. Conclusions Summary Venous duplex imaging and compression of the bilateral lower extremities were performed. Theveins were adequately visualized. The bilateral venous systems were patent and compressible with no evidence of thrombus. Signature Velocities are measured in cm/s ; Diameters aremeasured in [facility] Manual [id number] 07:54:00 Test Item Value Reference Range Interpretation Comments % Neutros (test code = 86 % 281) % Lymphs (test code = 2 % 2816) % Monos (test code = 10 % 2818) % Bands (test code = 1 % 0-10 2825) % Atypical Lymphs (test 1 % 0-0 H code = 2829) # Neutros (test code = 12.73 K/ul 1.78-5.38 H 2830) # Lymphs (test code = 0.30 K/ul 1.32-3.57 L 2831) # Monos (test code = 1.48 K/uL 0.3-0.82 H 2832) # Bands (test code = 0.15 K/uL 0-0.8 2840) # Atypical Lymphs (test 0.15 K/uL 0-0 H code = 2858) Total Counted (test 100 code = 1351) WBC Morphology (test Normal code = 487) Large Platelet (test Present code = 2156) Polychromasia (test 1+ few code = 478) Hypochromia (test code 1+ few = 963) Anisocytosis (test code 1+ few = 961) Poikilocytes (test code 1+ few = 966) Spherocytes (test code 1+ few = 768) Ovalocytes (test code = 1+ few 477) Artifact (test code = Present 3432) Platelet Conc (test Adequate code = 3438) JACKIE (test code = JACKIE) Metal Riveter ID - Zyoa Sumanth comments: Slide comments: Lab Interpretation Abnormal (test code = 07391-4) [facility] W/PLT COUNT & AUTO [id number] 07:54:00 Test Item Value Reference Range Interpretation Comments WHITE BLOOD CELL COUNT (BEAKER) 14.8 K/ L 3.5-10.5 H (test code = 775) RED BLOOD CELL COUNT (BEAKER) 4.12 M/ L 4.63-6.08 L (test code = 761) HEMOGLOBIN (BEAKER) (test code = 12.3 GM/DL 13.7-17.5 L 410) HEMATOCRIT (BEAKER) (test code = 38.7 % 40.1-51.0 L 411) MEAN CORPUSCULAR VOLUME (BEAKER) 93.9 fL 79.0-92.2 H (test code = 753) MEAN CORPUSCULAR HEMOGLOBIN 29.9 pg 25.7-32.2 (BEAKER) (test code = 751) MEAN CORPUSCULAR HEMOGLOBIN CONC 31.8 GM/DL 32.3-36.5 L (BEAKER) (test code = 752) RED CELL DISTRIBUTION WIDTH 13.6 % 11.6-14.4 (BEAKER) (test code = 412) PLATELET COUNT (BEAKER) (test 207 K/CU MM 150-450 code = 756) MEAN PLATELET VOLUME (BEAKER) 10.7 fL 9.4-12.4 (test code = 754) NUCLEATED RED BLOOD CELLS 0 /100 WBC 0-0 (BEAKER) (test code = 413) (CELLAVISION MANUAL DIFF)2020-01-03 07:54:00 Test Item Value Reference Range Interpretation Comments NEUTROPHILS - REL 86 % (CELLAVISION)(BEAKER) (test code = 2816) LYMPHOCYTES - REL 2 % (CELLAVISION)(BEAKER) (test code = 2817) MONOCYTES - REL 10 % (CELLAVISION)(BEAKER) (test code = 2818) BANDS - REL (CELLAVISION)(BEAKER) 1 % 0-10 (test code = 2826) ATYPICAL LYMPHOCYTES - REL 1 % 0-0 H (CELLAVISION)(BEAKER) (test code = 2829) NEUTROPHILS - ABS 12.73 K/ul 1.78-5.38 H (CELLAVISION)(BEAKER) (test code = 2830) LYMPHOCYTES - ABS 0.30 K/ul 1.32-3.57 L (CELLAVISION)(BEAKER) (test code = 2831) MONOCYTES - ABS 1.48 K/uL 0.30-0.82 H (CELLAVISION)(BEAKER) (test code = 2832) BANDS - ABS (CELLAVISION)(BEAKER) 0.15 K/uL 0.00-0.80 (test code = 2840) ATYPICAL LYMPHOCYTES - ABS 0.15 K/uL 0.00-0.00 H (CELLAVISION)(BEAKER) (test code = 2858) TOTAL COUNTED (BEAKER) (test code 100 = 1351) WBC MORPHOLOGY (BEAKER) (test code Normal = 487) LARGE PLT(BEAKER) (test code = Present 2156) POLYCHROMATOPHILLIC RBCS(BEAKER) 1+ few (test code = 478) HYPOCHROMIA (BEAKER) (test code = 1+ few 963) ANISOCYTOSIS (BEAKER) (test code = 1+ few 961) POIKILOCYTES (BEAKER) (test code = 1+ few 966) SPHEROCYTES (BEAKER) (test code = 1+ few 768) OVALOCYTES (BEAKER) (test code = 1+ few 477) ARTIFACT (CELLAVISION)(BEAKER) Present (test code = 3432) PLATELET CONCENTRATION Adequate (CELLAVISION)(BEAKER) (test code = 3438) Metal Riveter ID - Zoya Julio comments: Slide comments:Phosphorus 2020-01-03 06:10:00 Test Item Value Reference Range Interpretation Comments Phosphorus (test code 2.6 mg/dL 2.3-4.7 Specim en = 2777-1) slightly hemolyzed JACKIE (test code = JACKIE) Metal Riveter ID - DENISHA M Lab Interpretation Normal (test code = 98524-6) [facility] 06:10:00 Test Item Value Reference Range Interpretation Comments MAGNESIUM (BEAKER) 2.1 mg/dL 1.6-2.6 Specimen slightly (test code = 627) hemolyzed Metal Riveter ID - DENISHA [id number] 06:10:00 Test Item Value Reference Range Interpretation Comments PHOSPHORUS (BEAKER) 2.6 mg/dL 2.3-4.7 Specimen slightly (test code = 604) hemolyzed Metal Riveter ID - DENISHA MBASIC METABOLIC [id number] 06:10:00 Test Item Value Reference Range Interpretation Comments SODIUM (BEAKER) 136 meq/L 136-145 (test code = 381) POTASSIUM (BEAKER) 4.1 meq/L 3.5-5.1 Specimen slightly (test code = 379) hemolyzed CHLORIDE (BEAKER) 103 meq/L 98-107 (test code = 382) CO2 (BEAKER) (test 26 meq/L 22-29 code = 355) BLOOD UREA NITROGEN 15 mg/dL 7-21 (BEAKER) (test code = 354) CREATININE (BEAKER) 0.75 mg/dL 0.57-1.25 Specimen slightly (test code = 358) hemolyzed GLUCOSE RANDOM 112 mg/dL 70-105 H (BEAKER) (test code = 652) CALCIUM (BEAKER) 8.2 mg/dL 8.4-10.2 L (test code = 697) EGFR (BEAKER) (test 100 mL/min/1.73 ESTIM ATED GFR IS code = 1092) sq m NOT ACCURATE CREATININE CLEARANCE IN PREDICTING GLOMERULAR FILTRATION RATE . ESTIMATED GFR I S NOT APPLICABLE FOR DIALYSIS PATIEN TS. Metal Riveter ID - DENISHA MCT, CHEST WITH IV CONTRAST- PE TEST [id number] 00:54:00Reason for exam:->SHORTNESS OF BREATHWhat is the patient's sedation requirement?->No Sedation [facility] CENTERName: ALEXANDER CONNOR : 1940 Sex: MFINAL REPORT EXAM: CT of the chest, with contrast, PE protocol CLINI YO HISTORY: PE suspected, high pretest probability. Shortness of breath. TECHNIQUE: Chest CT was performed with intravenous contrast utilizing a PE protocol. 2-D and 3-D reformatted images were obtained. This exam was performed according to our departmental dose optimization program which includes automated exposure control, adjustment of the mA and/or kV according to patient's size and/or use of iterative reconstructive technique. COMPARISON: None FINDINGS: LOWER NECK: Within normal limits.AIRWAYS AND LUNGS: Patent central tracheobronchial tree. No focal pulmonary consolidation.PLEURA: No pleural effusion or pneumothorax.VESSELS: Atherosclerotic calcifications of the aorta and branches. No thoracic aortic aneurysm. No pulmonary embolism.HEART: Mild cardiomegaly. Trace pericardial effusion.SONAL AND MEDIASTINUM: Within normal limits. VISUALIZED UPPER ABDOMEN: Status post cholecystectomy. Diffuse hepatic steatosis. Diffuse fatty stranding surrounding the head and body of the pancreas and in the lesser curvature concerning for acute pancreatitis. Mild nonspecific bilateral adrenal gland thickening. Calcified splenic and liver granulomata.SOFT TISSUES: Partially imaged thoracic neurostimulator with lead tip at the T7 spinal canal.BONES: Partially imaged lower cervical spinal fixation hardware. Thoracic kyphosis. Degenerative changes of the visualized spine and bilateral shoulders. Small sclerotic foci in the T3 and T5 vertebral bodies, favored to represent bone islands. IMPRESSION:No pulmonary embolism. Mild cardiomegaly. Trace pericardial effusion. Diffuse peripancreatic fatty stranding concerning for acute pancreatitis. Findings were not present on thoracic spine CT 12/27/2019. Clinical correlation is advised. A CT abdomen is recommended for further evaluation. Hepatic steatosis. Signed: Kayce Santoyo Verified Date/Time: 01/03/2020 00:54:14 CT chest PE test [id number] 00:54:00Interface, External Ris In - 01/03/2020 12:57 AM CSTFINAL REPORT EXAM: CT of the chest, with contrast, PE protocol CLINICAL HISTORY: PE suspected, high pretest probability. Shortness of breath. TECHNIQUE: Chest CT was performed with intravenous contrast utilizing a PE protocol.2-D and 3-D reformatted images were obtained. This exam was performed according to our departmental dose optimization program which includes automated exposure control, adjustment of the mA and/or kV according to patient's size and/or use of iterative reconstructive technique. COMPARISON: None FINDINGS: LOWER NECK: Within normal limits.AIRWAYS AND LUNGS: Patent central tracheobronchial tree. No focal pulmonary consolidation.PLEURA: No pleural effusion or pneumothorax.VESSELS: Atherosclerotic calcifications of the aorta and branches. No thoracic aortic aneurysm. No pulmonary embolism.HEART: Mild car diomegaly. Trace pericardial effusion.SONAL AND MEDIASTINUM: Within normal limits. VISUALIZED UPPER ABDOMEN: Status post cholecystectomy. Diffuse hepatic steatosis. Diffuse fatty stranding surroundingthe head and body of the pancreas and in the lesser curvature concerning for acute pancreatitis. Mild nonspecific bilateral adrenal gland thickening. Calcified splenic and liver granulomata.SOFT TISSUES: Partially imaged thoracic neurostimulator with lead tip at the T7 spinal canal.BONES: Partially imaged lower cervical spinal fixation hardware. Thoracic kyphosis. Degenerative changes of the visualized spine and bilateral shoulders. Small sclerotic foci in the T3 and T5 vertebral bodies, favored to represent bone islands. IMPRESSION:No pulmonary embolism. Mild cardiomegaly. Trace pericardial effusion. Diffuse peripancreatic fatty stranding concerning for acute pancreatitis. Findings were not present on thoracic spine CT 12/27/2019. Clinical correlation is advised. A CT abdomen is recommended forfurther evaluation. Hepatic steatosis. Signed: Kayce Santoyo Verified Date/Time: 01/03/2020 00:54:14 [facility] [id number] 21:23:00 Test Item Value Reference Range Interpretation Comments D-Dimer, Quant (test code 3.30 <0.50 MG/L FEU H = 86152-1) JACKIE (test code = JACKIE) Intended Use: The D-Dimer Assay can be used to aid in the diagnosis of Deep Vein Thrombosis (DVT) and Pulmonary Embolism Disease (PED).In patients with low pre-test probability, various studies concerning STA Liatest D-dimer test have reported that with a cutoff value of 0.50 MG/L FEU, the Negative Predictive Value (NPV) regarding the exclusion of thrombosis is within 95-100% range. Lab Interpretation (test Abnormal code = 77459-5) [facility] CenterD-[id number] 21:23:00 Test Item Value Reference Range Interpretation Comments D-DIMER QUANTITATIVE (BEAKER) 3.30 MG/L FEU <0.50 H (test code = 671) Intended Use: The D-Dimer Assay can be used to aid in the diagnosis of Deep Vein Thrombosis (DVT) and Pulmonary Embolism Disease (PED).In patients with low pre- test probability, various studies concerning STA Liatest D-dimer test have reported that with a cutoff value of 0.50 MG/L FEU, the Negative Predictive Value (NPV) regarding the exclusion of thrombosis is within 95-100% range. ECG/EKG [id number] 21:08:42Trish Saeed MD 01/05/2020 4:40 PMECG/EKG Interpretation Date/Time: 01/03/2020 1:45 AMPerformed by: Trish Saeed MDAuthorized by: Trish Saeed, [facility] CenterRAD, CHEST, 1 VIEW, NON [id number] 19:17:00Reason for exam:- >SHORTNESS OF BREATH [facility] : 1940 Sex: MFINAL REPORT History: Shortness of breath. Comparison: 11/24/2019 Fi ndings: A single view of the chest is submitted. The cardiac silhouette is within normal limits for size. There is atherosclerotic calcification of the tortuous aorta. The lung volumes are low. There is mild central vascular engorgement, which may be exaggerated by low lung volumes or reflect pulmonary vascular congestion. There is no focal consolidation pneumothorax, large pleural effusion or acute bony abnormality. Thoracic spine stimulator leads and cervical fusion hardware are in place. Signed: Andria Groves MDRday [facility] Verified Date/Time: 01/02/2020 19:17:39 Troponin [id number] 18:52:00 Test Item Value Reference Range Interpretation Comments Troponin I (test code = <0.01 0-0.03 17666-4) JACKIE (test code = JACKIE) Troponin I (TnI) levels must be interpreted in the context of the presenting symptoms and the clinical findings. Elevated TnI levels indicate myocardial damage, but are not specific for ischemic heart disease. Elevated TnI levels are seen in patients with other cardiac conditions (including myocarditis and congestive heart failure), and slight TnI elevations occur in patients with other conditions, including sepsis, renal failure, acidosis, acute neurological disease, and persistent tachyarrhythmia.Opera tor ID - ADMIN Lab Interpretation (test Normal code = 92799-1) [facility] CenterTROPOBANNER [id number] 18:52:00 Test Item Value Reference Range Interpretation Comments TROPONIN I (BEAKER) (test code = 397) < ng/mL 0.00-0.03 Troponin I (TnI) levels must be interpreted in the context of the presenting symptoms and the clinical findings. Elevated TnI levels indicate myocardial damage, but are not specific for ischemic heart disease. Elevated TnI levels are seen in patients with other cardiac conditions (including myocarditis and congestive heart failure), and slight TnI elevations occur in patients with other conditions, including sepsis, renal failure, acidosis, acute neurological disease, and persistent tachyarrhythmia.Metal Riveter ID - ADMINB-type Natriuretic Factor (BNP)2020-01-02 18:48:00 Test Item Value Reference Range Interpretation Comments BNP (test code = 23898-8) 57 pg/mL 0-100 JACKIE (test code = JACKIE) Metal Riveter ID - ADMIN Lab Interpretation (test Normal code = 18554-9) [facility] CenterB-TYPE NATRIURETIC FACTOR (BNP)2020-01-02 18:48:00 Test Item Value Reference Range Interpretation Comments B-TYPE NATRIURETIC PEPTIDE (BEAKER) 57 pg/mL 0-100 (test code = 700) Metal Riveter ID - [id number] 18:44:00 Test Item Value Reference Range Interpretation Comments MAGNESIUM (BEAKER) 2.1 mg/dL 1.6-2.6 Specimen slightly (test code = 627) hemolyzed Metal Riveter ID - ADMINBASIC METABOLIC [id number] 18:44:00 Test Item Value Reference Range Interpretation Comments SODIUM (BEAKER) 138 meq/L 136-145 (test code = 381) POTASSIUM (BEAKER) 4.4 meq/L 3.5-5.1 Specimen slightly (test code = 379) hemolyzed CHLORIDE (BEAKER) 99 meq/L 98-107 (test code = 382) CO2 (BEAKER) (test 29 meq/L 22-29 code = 355) BLOOD UREA NITROGEN 19 mg/dL 7-21 (BEAKER) (test code = 354) CREATININE (BEAKER) 0.93 mg/dL 0.57-1.25 Specimen slightly (test code = 358) hemolyzed GLUCOSE RANDOM 149 mg/dL 70-105 H (BEAKER) (test code = 652) CALCIUM (BEAKER) 8.6 mg/dL 8.4-10.2 (test code = 697) EGFR (BEAKER) (test 78 mL/min/1.73 ESTIMA LEONIDES GFR IS code = 1092) sq m NOT ACCURATE CREATININE CLEARANCE IN PREDICTING GLOMERULAR FILTRATION RATE . ESTIMATED GFR I S NOT APPLICABLE FOR DIALYSIS PATIEN TS. Metal Riveter ID - ADMIN(CELLAVISION MANUAL DIFF)2020-01-02 18:43:00 Test Item Value Reference Range Interpretation Comments NEUTROPHILS - REL 87 % (CELLAVISION)(BEAKER) (test code = 2816) LYMPHOCYTES - REL 4 % (CELLAVISION)(BEAKER) (test code = 2817) MONOCYTES - REL 5 % (CELLAVISION)(BEAKER) (test code = 2818) BANDS - REL (CELLAVISION)(BEAKER) 4 % 0-10 (test code = 2826) NEUTROPHILS - ABS 13.83 K/ul 1.78-5.38 H (CELLAVISION)(BEAKER) (test code = 2830) LYMPHOCYTES - ABS 0.64 K/ul 1.32-3.57 L (CELLAVISION)(BEAKER) (test code = 2831) MONOCYTES - ABS 0.80 K/uL 0.30-0.82 (CELLAVISION)(BEAKER) (test code = 2832) BANDS - ABS (CELLAVISION)(BEAKER) 0.64 K/uL 0.00-0.80 (test code = 2840) TOTAL COUNTED (BEAKER) (test code 100 = 1351) RBC MORPHOLOGY (BEAKER) (test code Normal = 762) PLT MORPHOLOGY (BEAKER) (test code Normal = 486) SMUDGE CELLS (BEAKER) (test code = Present 1371) ARTIFACT (CELLAVISION)(BEAKER) Present (test code = 3432) PLATELET CONCENTRATION Adequate (CELLAVISION)(BEAKER) (test code = 3438) Metal Riveter ID - Renee Perry comments: Slide comments:PT/[id number] 18:23:00 Test Item Value Reference Range Interpretation Comments Protime (test code = 14.7 11.9- 14.2 H 5902-2) seconds INR (test code = 1.18 <=5.90 6301-6) JACKIE (test code = JACKIE) Effective 07/27/2018: PT Reference Range ChangeNew: 11.9-14.2 Previous: 11.7-14.7 RECOMMENDED COUMADIN/WARFARIN INR THERAPY RANGESSTANDARD DOSE: 2.0-3.0 Includes: PROPHYLAXIS for venous thrombosis, systemic embolization; TREATMENT for venous thrombosis and/or pulmonary embolus.HIGH RISK: Target INR is 2.5-3.5 for patients wiht mechanical heart valves. Lab Interpretation Abnormal (test code = 26992-7) [facility] CenterPROTHROMBIN TIME/[id number] 18:23:00 Test Item Value Reference Range Interpretation Comments PROTIME (BEAKER) (test code = 14.7 seconds 11.9-14.2 H 759) INR (BEAKER) (test code = 370) 1.18 <=5.90 Effective 07/27/2018: PT Reference Range ChangeNew: 11.9-14.2 Previous: 11.7- 14.7RECOMMENDED COUMADIN/WARFARIN INR THERAPY RANGESSTANDARD DOSE: 2.0-3.0 Includes: PROPHYLAXIS for venous thrombosis, systemic embolization; TREATMENT for venous thrombosis and/or pulmonary embolus.HIGH RISK: Target INR is2.5-3.5 for patients wiht mechanical heart valves.CBC W/PLT COUNT & AUTO [id number] 18:17:00 Test Item Value Reference Range Interpretation Comments WHITE BLOOD CELL COUNT (BEAKER) 15.9 K/ L 3.5-10.5 H (test code = 775) RED BLOOD CELL COUNT (BEAKER) 4.38 M/ L 4.63-6.08 L (test code = 761) HEMOGLOBIN (BEAKER) (test code = 12.7 GM/DL 13.7-17.5 L 410) HEMATOCRIT (BEAKER) (test code = 40.6 % 40.1-51.0 411) MEAN CORPUSCULAR VOLUME (BEAKER) 92.7 fL 79.0-92.2 H (test code = 753) MEAN CORPUSCULAR HEMOGLOBIN 29.0 pg 25.7-32.2 (BEAKER) (test code = 751) MEAN CORPUSCULAR HEMOGLOBIN CONC 31.3 GM/DL 32.3-36.5 L (BEAKER) (test code = 752) RED CELL DISTRIBUTION WIDTH 13.5 % 11.6-14.4 (BEAKER) (test code = 412) PLATELET COUNT (BEAKER) (test 220 K/CU MM 150-450 code = 756) MEAN PLATELET VOLUME (BEAKER) 10.4 fL 9.4-12.4 (test code = 754) NUCLEATED RED BLOOD CELLS 0 /100 WBC 0-0 (BEAKER) (test code = 413) Urinalysis w/[id number] 12:39:00 Test Item Value Reference Range Interpretation Comments Color, UA (test code = Yellow 5778-6) Clarity, UA (test code = Clear 5767-9) Specific [place], UA (test 1.023 1.001-1.035 code = 5811-5) pH, UA (test code = 6.0 5.0-8.0 5803-2) Protein, UA (test code = 30 mg/dL Negative A 12911-6) Glucose, UA (test code = Negative Negative 365) Ketones, UA (test code = Negative Negative 2514-8) Bilirubin, UA (test code = Negative Negative 47872-5) Blood, UA (test code = Trace Negative A 49490-3) Nitrite, UA (test code = Negative Negative 5802-4) Leukocytes, UA (test code Negative Negative = 5799-2) Urobilinogen, UA (test 0.2 mg/dL 0.2-1 code = 88423-7) RBC, UA (test code = 1 /HPF 74311-3) WBC, UA (test code = 1 /HPF 5821-4) Mucus (test code = 8247-9) Rare Squam Epithel, UA (test <1 /HPF code = 99767-3) Specimen Source (test code = 2795) JACKIE (test code = JACKIE) Metal Riveter ID - [auto]Metal Riveter ID - tech Lab Interpretation (test Abnormal code = 74643-7) [facility] Center[facility]IN[facility] W/ [id number] 12:39:00 Test Item Value Reference Range Interpretation Comments COLOR (BEAKER) (test code = 470) Yellow CLARITY (BEAKER) (test code = 469) Clear SPECIFIC GRAVITY UA (BEAKER) (test 1.023 1.001-1.035 code = 468) PH UA (BEAKER) (test code = 467) 6.0 5.0-8.0 PROTEIN UA (BEAKER) (test code = 30 mg/dL Negative A 464) GLUCOSE UA (BEAKER) (test code = Negative Negative 365) KETONES UA (BEAKER) (test code = Negative Negative 371) BILIRUBIN UA (BEAKER) (test code = Negative Negative 462) BLOOD UA (BEAKER) (test code = 461) Trace Negative A NITRITE UA (BEAKER) (test code = Negative Negative 465) LEUKOCYTE ESTERASE UA (BEAKER) Negative Negative (test code = 466) UROBILINOGEN UA (BEAKER) (test code 0.2 mg/dL 0.2-1.0 = 463) RBC UA (BEAKER) (test code = 519) 1 /HPF WBC UA (BEAKER) (test code = 520) 1 /HPF MUCUS (BEAKER) (test code = 1574) Rare SQUAMOUS EPITHELIAL (BEAKER) (test < /HPF code = 516) SOURCE(BEAKER) (test code = 2795) Metal Riveter ID - [auto]Metal Riveter ID - techPOCT-GLUCOSE [id number] 21:06:00 Test Item Value Reference Range Interpretation Comments POC-GLUCOSE METER 155 mg/dL 70-110 H : TESTED A T [facility] 67[facility] (BEAKER) (test code = [place], 1538) [address]: Metal Riveter/Techni live ID = [id number] for DE NNIS, OFELIA (CELLAVISION MANUAL DIFF)2019-12-30 17:33:00 Test Item Value Reference Range Interpretation Comments NEUTROPHILS - REL 88 % (CELLAVISION)(BEAKER) (test code = 2816) LYMPHOCYTES - REL 3 % (CELLAVISION)(BEAKER) (test code = 2817) MONOCYTES - REL 4 % (CELLAVISION)(BEAKER) (test code = 2818) BANDS - REL (CELLAVISION)(BEAKER) 4 % 0-10 (test code = 2826) ATYPICAL LYMPHOCYTES - REL 1 % 0-0 H (CELLAVISION)(BEAKER) (test code = 2829) NEUTROPHILS - ABS 15.49 K/ul 1.78-5.38 H (CELLAVISION)(BEAKER) (test code = 2830) LYMPHOCYTES - ABS 0.53 K/ul 1.32-3.57 L (CELLAVISION)(BEAKER) (test code = 2831) MONOCYTES - ABS 0.70 K/uL 0.30-0.82 (CELLAVISION)(BEAKER) (test code = 2832) BANDS - ABS (CELLAVISION)(BEAKER) 0.70 K/uL 0.00-0.80 (test code = 2840) ATYPICAL LYMPHOCYTES - ABS 0.18 K/uL 0.00-0.00 H (CELLAVISION)(BEAKER) (test code = 2858) TOTAL COUNTED (BEAKER) (test code 100 = 1351) WBC MORPHOLOGY (BEAKER) (test code Normal = 487) PLT MORPHOLOGY (BEAKER) (test code Normal = 486) ANISOCYTOSIS (BEAKER) (test code = 1+ few 961) MICROCYTES (BEAKER) (test code = 1+ few 965) PLATELET CONCENTRATION Adequate (CELLAVISION)(BEAKER) (test code = 3438) Metal Riveter ID - dalton Shaw comments: Slide comments:POCT-GLUCOSE METER 2019-12-30 17:16:00 Test Item Value Reference Range Interpretation Comments POC-GLUCOSE METER 144 mg/dL 70-110 H : TESTED A T [facility] (BEAKER) (test code = ADRIANA Starla [facility], 1538) [address]: Metal Riveter/Techni live ID = [id number] for FAN PARADA COMPREHENSIVE METABOLIC [id number] 17:11:00 Test Item Value Reference Range Interpretation Comments TOTAL PROTEIN 6.7 gm/dL 6.0-8.3 (BEAKER) (test code = 770) ALBUMIN (BEAKER) 3.8 g/dL 3.5-5.0 (test code = 1145) ALKALINE PHOSPHATASE 74 U/L 40-150 (BEAKER) (test code = 346) BILIRUBIN TOTAL 0.8 mg/dL 0.2-1.2 (BEAKER) (test code = 377) SODIUM (BEAKER) (test 139 meq/L 136-145 code = 381) POTASSIUM (BEAKER) 4.8 meq/L 3.5-5.1 (test code = 379) CHLORIDE (BEAKER) 104 meq/L 98-107 (test code = 382) CO2 (BEAKER) (test 28 meq/L 22-29 code = 355) BLOOD UREA NITROGEN 26 mg/dL 7-21 H (BEAKER) (test code = 354) CREATININE (BEAKER) 1.06 mg/dL 0.57-1.25 (test code = 358) GLUCOSE RANDOM 137 mg/dL 70-105 H (BEAKER) (test code = 652) CALCIUM (BEAKER) 8.2 mg/dL 8.4-10.2 L (test code = 697) AST (SGOT) (BEAKER) 46 U/L 5-34 H (test code = 353) ALT (SGPT) (BEAKER) 46 U/L 6-55 (test code = 347) EGFR (BEAKER) (test 67 mL/min/1.73 ESTIMA LEONIDES GFR IS code = 1092) sq m NOT ACCURATE CREATININE CLEARANCE IN PREDICTING GLOMERULAR FILTRATION RATE . ESTIMATED GFR I S NOT APPLICABLE FOR DIALYSIS PATIEN TS. Metal Riveter ID - EDASICBC W/PLT COUNT & AUTO [id number] 16:54:00 Test Item Value Reference Range Interpretation Comments WHITE BLOOD CELL COUNT (BEAKER) 17.6 K/ L 3.5-10.5 H (test code = 775) RED BLOOD CELL COUNT (BEAKER) 4.11 M/ L 4.63-6.08 L (test code = 761) HEMOGLOBIN (BEAKER) (test code = 12.2 GM/DL 13.7-17.5 L 410) HEMATOCRIT (BEAKER) (test code = 38.9 % 40.1-51.0 L 411) MEAN CORPUSCULAR VOLUME (BEAKER) 94.6 fL 79.0-92.2 H (test code = 753) MEAN CORPUSCULAR HEMOGLOBIN 29.7 pg 25.7-32.2 (BEAKER) (test code = 751) MEAN CORPUSCULAR HEMOGLOBIN CONC 31.4 GM/DL 32.3-36.5 L (BEAKER) (test code = 752) RED CELL DISTRIBUTION WIDTH 13.5 % 11.6-14.4 (BEAKER) (test code = 412) PLATELET COUNT (BEAKER) (test 175 K/CU MM 150-450 code = 756) MEAN PLATELET VOLUME (BEAKER) 10.3 fL 9.4-12.4 (test code = 754) NUCLEATED RED BLOOD CELLS 0 /100 WBC 0-0 (BEAKER) (test code = 413) NEUTROPHILS RELATIVE PERCENT 86 % (BEAKER) (test code = 429) LYMPHOCYTES RELATIVE PERCENT 3 % (BEAKER) (test code = 430) MONOCYTES RELATIVE PERCENT 10 % (BEAKER) (test code = 431) EOSINOPHILS RELATIVE PERCENT 0 % (BEAKER) (test code = 432) BASOPHILS RELATIVE PERCENT 0 % (BEAKER) (test code = 437) NEUTROPHILS ABSOLUTE COUNT 15.17 K/ L 1.78-5.38 H (BEAKER) (test code = 670) LYMPHOCYTES ABSOLUTE COUNT 0.49 K/ L 1.32-3.57 L (BEAKER) (test code = 414) MONOCYTES ABSOLUTE COUNT (BEAKER) 1.72 K/ L 0.30-0.82 H (test code = 415) EOSINOPHILS ABSOLUTE COUNT 0.00 K/ L 0.04-0.54 L (BEAKER) (test code = 416) BASOPHILS ABSOLUTE COUNT (BEAKER) 0.02 K/ L 0.01-0.08 (test code = 417) IMMATURE GRANULOCYTES-RELATIVE 1 % 0-1 PERCENT (BEAKER) (test code = 2801) POCT-GLUCOSE [id number] 13:54:00 Test Item Value Reference Range Interpretation Comments POC-GLUCOSE METER 155 mg/dL 70-110 H : TESTED A T [facility] 6720 (BEAKER) (test code = [facility], [facility]) [address]: Metal Riveter/Techni live ID = [id number] for HU NT, FAN POCT-GLUCOSE [id number] 13:48:00 Test Item Value Reference Range Interpretation Comments POC-GLUCOSE METER 153 mg/dL 70-110 H : TESTED A T [facility] 6720 (BEAKER) (test code = [facility], [facility]) [address]: Metal Riveter/Techni live ID = [id number] for RE REANNAS, CARMEN POCT-GLUCOSE [id number] 16:37:00 Test Item Value Reference Range Interpretation Comments POC-GLUCOSE METER 161 mg/dL 70-110 H : TESTED A T [facility] 6720 (BEAKER) (test code = [facility], 153) [address]: Metal Riveter/Techni live ID = [id number] for RO DGERS, JAMECA POCT-GLUCOSE [id number] 12:38:00 Test Item Value Reference Range Interpretation Comments POC-GLUCOSE METER 226 mg/dL 70-110 H : TESTED A T [facility] 6720 (BEAKER) (test code = [facility], 153) [address]: Metal Riveter/Techni live ID = [id number] for RO DGERS, JAMECA POCT-GLUCOSE [id number] 09:01:00 Test Item Value Reference Range Interpretation Comments POC-GLUCOSE METER 173 mg/dL 70-110 H : TESTED A T [facility] 6720 (BEAKER) (test code = [facility], 1538) [address]: Metal Riveter/Techni live ID = [id number] for SUSIE ALDRICH POCT-GLUCOSE [id number] 21:20:00 Test Item Value Reference Range Interpretation Comments POC-GLUCOSE METER 178 mg/dL 70-110 H : TESTED A T [facility] 6720 (BEAKER) (test code = [facility], 1538) [address]: Metal Riveter/Techni live ID = [id number] for OFELIA OLIVEIRA BASIC METABOLIC [id number] 12:22:00 Test Item Value Reference Range Interpretation Comments SODIUM (BEAKER) 135 meq/L 136-145 L (test code = 381) POTASSIUM (BEAKER) 4.7 meq/L 3.5-5.1 (test code = 379) CHLORIDE (BEAKER) 103 meq/L 98-107 (test code = 382) CO2 (BEAKER) (test 26 meq/L 22-29 code = 355) BLOOD UREA NITROGEN 26 mg/dL 7-21 H (BEAKER) (test code = 354) CREATININE (BEAKER) 1.24 mg/dL 0.57-1.25 (test code = 358) GLUCOSE RANDOM 195 mg/dL 70-105 H (BEAKER) (test code = 652) CALCIUM (BEAKER) 8.2 mg/dL 8.4-10.2 L (test code = 697) EGFR (BEAKER) (test 56 mL/min/1.73 ESTIMA LEONIDES GFR IS code = 1092) sq m NOT ACCURATE CREATININE CLEARANCE IN PREDICTING GLOMERULAR FILTRATION RATE . ESTIMATED GFR I S NOT APPLICABLE FOR DIALYSIS PATIEN TS. Metal Riveter ID - ZOYA FPOCT-GLUCOSE [id number] 08:58:00 Test Item Value Reference Range Interpretation Comments POC-GLUCOSE METER 183 mg/dL 70-110 H : TESTED A T [facility] 6720 (BEAKER) (test code = [facility], 1538) [address]: Metal Riveter/Techni live ID = [id number] for JESSICA PAVON CBC w/o [id number] 07:03:00 Test Item Value Reference Range Interpretation Comments WBC (test code = 6690-2) 13.1 3.5- 10.5 K/L H RBC (test code = 789-8) 4.19 4.63- 6.08 M/L L MCHC (test code = 786-4) 31.2 32.3- 36.5 GM/DL L Hematocrit (test code = 4544-3) 39.4 % 40.1-51 L MCV (test code = 787-2) 94.0 fL 79-92.2 H MCH (test code = 785-6) 29.4 pg 25.7-32.2 RDW (test code = 788-0) 13.8 % 11.6-14.4 Platelets (test code = 777-3) 207 150- 450 K/CU MM MPV (test code = 30591-2) 10.2 fL 9.4-12.4 nRBC (test code = 413) 0 0- 0 /100 WBC Lab Interpretation (test code = Abnormal 12861-8) [facility])2019-12-28 07:03:00 Test Item Value Reference Range Interpretation Comments WHITE BLOOD CELL COUNT (BEAKER) 13.1 K/ L 3.5-10.5 H (test code = 775) RED BLOOD CELL COUNT (BEAKER) 4.19 M/ L 4.63-6.08 L (test code = 761) HEMOGLOBIN (BEAKER) (test code = 12.3 GM/DL 13.7-17.5 L 410) HEMATOCRIT (BEAKER) (test code = 39.4 % 40.1-51.0 L 411) MEAN CORPUSCULAR VOLUME (BEAKER) 94.0 fL 79.0-92.2 H (test code = 753) MEAN CORPUSCULAR HEMOGLOBIN 29.4 pg 25.7-32.2 (BEAKER) (test code = 751) MEAN CORPUSCULAR HEMOGLOBIN CONC 31.2 GM/DL 32.3-36.5 L (BEAKER) (test code = 752) RED CELL DISTRIBUTION WIDTH 13.8 % 11.6-14.4 (BEAKER) (test code = 412) PLATELET COUNT (BEAKER) (test 207 K/CU MM 150-450 code = 756) MEAN PLATELET VOLUME (LIOAKER) 10.2 fL 9.4-12.4 (test code = 754) NUCLEATED RED BLOOD CELLS 0 /100 WBC 0-0 (LIOAKER) (test code = 413) POCT-GLUCOSE [id number] 19:37:00 Test Item Value Reference Range Interpretation Comments POC-GLUCOSE METER 176 mg/dL 70-110 H : Notified RN/MD: (ARTIE) (test code = TESTED AT [facility] 6720 1538) [facility], [address]: Metal Riveter/Techni live ID = [id number] for ABY BOX CT, SPINE, THORACIC, WO [id number] 16:55:00Unlisted Reason for Exam - Click Yes and Enter Reason Below->No [facility] : 1940 Sex: MFINAL REPORT CT, SPINE, THORACIC, WO CONTRAST, CT, SPINE, LUMBAR, WO CONTRAST INDICATION: Spinal cord neurostimulator displacement COMPARISON: None TECHNIQUE: Contiguous noncontrast axial images of the thoracic and lumbar spine are obtained. Computer reformatted coronal and sagittal images are also provided. Axial images are available in both bone and soft tissue algorithm. DOSE REDUCTION: Dose modulation, iterative reconstruction, and/or weight-based adjustment of the mA/kV was utilized to reduce the radiation dose to as low as reasonably achievable. FINDINGS: Nomenclature: L5-S1 is axial image 134. Alignment: Normal. Vertebrae: Thin anterior syndesmophytes spanning T4-T12, consistent with ankylosing spondylitis. Bones are diffusely demineralized. Sclerotic boneislands within the T3, T5, T9, and L4 vertebral bodies. Degenerative loss of intervertebral disc space at L2-3 with Schmorl's nodes indenting the endplates. Prior laminectomy and interbody fusion of L5-S1. No acute fracture. No aggressive osseous lesions. Spondylosis: A spinal cord stimulator has beenplaced within the left gluteal soft tissues. There are two leads, one entering the spinal canal on the left at T12-L1 and the other entering on the right at T11-12. The leads terminate at the T7-8 level. No high-grade canal or foraminal stenosis. Soft tissues: Dorsal paraspinous soft tissue fluid andair as expected postoperatively. Scattered bilateral pulmonary groundglass opacities. Trace pleural fluid tracks along the fissures. Small bilateral renal stones. Cholecystectomy clips are in place. Extensive vascular calcifications. IMPRESSION:Spinal cord stimulator leads terminate at the T7-8 level. Signed: Lorrie Olivarez MDReport Verified Date/Time: 12/27/2019 16:55:12 , SPINE, LUMBAR, WO [id number] 16:55:00Unlisted Reason for Exam - Click Yes and Enter Reason Below->No [facility] : 1940 Sex: MFINAL REPORT CT, SPINE, THORACIC, WO CONTRAST, CT, SPINE, LUMBAR, WO CONTRAST INDICATION: Spinal cord neurostimulator displacement COMPARISON: None TECHNIQUE: Contiguous noncontrast axial images of the thoracic and lumbar spine are obtained. Computer reformatted coronal and sagittal images are also provided. Axial images are available in both bone and soft tissue algorithm. DOSE REDUCTION: Dose modulation, iterative reconstruction, and/or weight-based adjustment of the mA/kV was utilized to reduce the radiation dose to as low as reasonably achievable. FINDINGS: Nomenclature: L5-S1 is axial image 134. Alignment: Normal. Vertebrae: Thin anterior syndesmophytes spanning T4-T12, consistent with ankylosing spondylitis. Bones are diffusely demineralized. Sclerotic boneislands within the T3, T5, T9, and L4 vertebral bodies. Degenerative loss of intervertebral disc space at L2-3 with Schmorl's nodes indenting the endplates. Prior laminectomy and interbody fusion of L5-S1. No acute fracture. No aggressive osseous lesions. Spondylosis: A spinal cord stimulator has beenplaced within the left gluteal soft tissues. There are two leads, one entering the spinal canal on the left at T12-L1 and the other entering on the right at T11-12. The leads terminate at the T7-8 level. No high-grade canal or foraminal stenosis. Soft tissues: Dorsal paraspinous soft tissue fluid andair as expected postoperatively. Scattered bilateral pulmonary groundglass opacities. Trace pleural fluid tracks along the fissures. Small bilateral renal stones. Cholecystectomy clips are in place. Extensive vascular calcifications. IMPRESSION:Spinal cord stimulator leads terminate at the T7-8 level. Signed: Lorrie Olivarez MDRort Verified Date/Time: 12/27/2019 16:55:12 spine thoracic without IV [id number] 16:55:00Interface, External Ris In - 12/27/2019 4:[address], SPINE, TH ORACIC, WO CONTRAST, CT, SPINE, LUMBAR, WO CONTRAST INDICATION: Spinal cord neurostimulator displacement COMPARISON: None TECHNIQUE: Contiguous noncontrast axial images of the thoracic and lumbar spineare obtained. Computer reformatted coronal and sagittal images are also provided. Axial images are available in both bone and soft tissue algorithm. DOSE REDUCTION: Dose modulation, iterative reconstruction, and/or weight-based adjustment of the mA/kV was utilized to reduce the radiation dose to as low as reasonably achievable. FINDINGS: Nomenclature: L5-S1 is axial image 134. Alignment: Normal. Vertebrae: Thin anterior syndesmophytes spanning T4-T12, consistent with ankylosing spondylitis. Bones are diffusely demineralized. Sclerotic bone islands within the T3, T5, T9, and L4 vertebral bodies. Degenerative loss of intervertebral disc space at L2-3 with Schmorl's nodes indenting the endplates. Prior laminectomy and interbody fusion of L5-S1. No acute fracture. No aggressive osseous lesions. Spondylosis: A spinal cord stimulator has been placed within the left gluteal soft tissues. There are twoleads, one entering the spinal canal on the left at T12-L1 and the other entering on the right at T11-12. The leads terminate at the T7-8 level. No high-grade canal or foraminal stenosis. Soft tissues: Dorsal paraspinous soft tissue fluid and air as expected postoperatively. Scattered bilateral pulmonary groundglass opacities. Trace pleural fluid tracks along the fissures. Small bilateral renal stones. Cholecystectomy clips are in place. Extensive vascular calcifications. IMPRESSION:Spinal cord stimulator leads terminate at the T7-8 level. Signed: Lorrie Olivarez MDReport Verified Date/Time: 12/27/2019 16:55:12 [facility] [id number] 16:55:00Interface, External Ris In - 12/27/2019 4:[address], SPINE, THORACIC, WO CONTRAST, CT, SPINE, LUMBAR, WO CONTRAST INDICATION: Spinal cord neurostimulator displacement COMPARISON: None TECHNIQUE: Contiguous noncontrast axial images of the thoracic and lumbar spineare obtained. Computer reformatted coronal and sagittal images are also provided. Axial images are available in both bone and soft tissue algorithm. DOSE REDUCTION: Dose modulation, iterative reconstruc tion, and/or weight-based adjustment of the mA/kV was utilized to reduce the radiation dose to as low as reasonably achievable. FINDINGS: Nomenclature: L5- S1 is axial image 134. Alignment: Normal. Vertebrae: Thin anterior syndesmophytes spanning T4-T12, consistent with ankylosing spondylitis. Bones ar e diffusely demineralized. Sclerotic bone islands within the T3, T5, T9, and L4 vertebral bodies. Degenerative loss of intervertebral disc space at L2-3 with Schmorl's nodes indenting the endplates. Prior laminectomy and interbody fusion of L5-S1. No acute fracture. No aggressive osseous lesions. Spondylosis: A spinal cord stimulator has been placed within the left gluteal soft tissues. There are twoleads, one entering the spinal canal on the left at T12-L1 and the other entering on the right at T11-12. The leads terminate at the T7-8 level. No high-grade canal or foraminal stenosis. Soft tissues: Dorsal paraspinous soft tissue fluid and air as expected postoperatively. Scattered bilateral pulmonary groundglass opacities. Trace pleural fluid tracks along the fissures. Small bilateral renal stones. Cholecystectomy clips are in place. Extensive vascular calcifications. IMPRESSION:Spinal cord stimulator leads terminate at the T7-8 level. Signed: Lorrie Olivarez Verified Date/Time: 12/27/2019 16:55:12 [facility] CenterFL, FLUORO, NON-SPECIFIC, UP TO 1 [id number] 14:23:56Reason for exam:->IMPLANTATION OF SPINAL CORD STIMULATOR, IMPLANTABLE PULSE GENERATORMARTIN [facility] : 1940 Sex: MFluoroscopic unit utilized for a procedure performed in the OR. No interpretation was requ ested. Refer to the operative report for findings. Refer to PACS for patient radiation dose information.FL fluoro non-specific up to 1 [id number] 13:57:00Interface, External Ris In - 01/01/2020 9:17 AM CSTFluoroscopic unit utilized for a procedure performed in the OR. No interpretation was requested. Refer to the operative report for findings. Referto PACS for patient radiation dose information.[facility] ([facility])2019-12-26 08:26:00 Test Item Value Reference Range Interpretation Comments SARS-COV2/RT-PCR (test Negative Not Detected, Negative, code = 3991793) See external report for linked test SARS-COV-[address] [facility] ALEX (test code = 0911672) Negative result for this test determines that SARS-CoV-2 RNA was not present in the specimen above the Limit of Detection (LOD). However, Negative results do not preclude SARS-CoV-2 infection and should not be used as the sole basis for treatment or patient management decisions. Negative results mustbe combined with clinical observations, patient history, and epidemiological information. A false negative result may occur if a specimen is improperly collected, transported or handled. A false negative result should be considered if patient's recent exposures or clinical presentation indicate that COVID-19 (SARS-CoV-2) is likely and diagnostic tests for other causes of illness are negative. Re-testing should be considered in cases of suspected false negatives.The limit of detection for this assay is 800 copies/mL.This SARS CoV-2 test is a real-time RT-PCR test intended for the qualitative detection of nucleic acid from SARS-CoV-2 in a nasopharyngeal swab specimen collected from individuals suspected of COVID-19 by their healthcare provider.This test has not been Food and Drug [...] is revoked under Section 564(g) of the Act.Fact Sheet for Healthcare Providers:https://www.[employer].iValidate.me/sites/default/files/product/documents/Fact_Shee l_EM_Cayuapkdd_Akex_QKYV-ZsM-7.pdfFact Sheet for Healthcare Patients:https://www.[employer].i[employer]ate.me/sites/default/files/product/ documents/Gccv_Mbifb_Zmhhkqto_Gkxh_TJXS-UgQ-0.pdfPerforming Laboratory:[facility], [place] [address]Tcrw and screen, [id number] 14:50:00 Test Item Value Reference Range Interpretation Comments ABO/RH AUTOMATED (BEAKER) (test A POSITIVE code = 2260) Ab Scrn (test code = 890-4) NEGATIVE [facility] [id number] 14:12:00 Test Item Value Reference Range Interpretation Comments SODIUM (BEAKER) 139 meq/L 136-145 (test code = 381) POTASSIUM (BEAKER) 4.7 meq/L 3.5-5.1 (test code = 379) CHLORIDE (BEAKER) 100 meq/L 98-107 (test code = 382) CO2 (BEAKER) (test 33 meq/L 22-29 H code = 355) BLOOD UREA NITROGEN 16 mg/dL 7-21 (BEAKER) (test code = 354) CREATININE (BEAKER) 1.14 mg/dL 0.57-1.25 (test code = 358) GLUCOSE RANDOM 106 mg/dL 70-105 H (BEAKER) (test code = 652) CALCIUM (BEAKER) 8.9 mg/dL 8.4-10.2 (test code = 697) EGFR (BEAKER) (test 62 mL/min/1.73 ESTIMA LEONIDES GFR IS code = 1092) sq m NOT ACCURATE CREATININE CLEARANCE IN PREDICTING GLOMERULAR FILTRATION RATE . ESTIMATED GFR I S NOT APPLICABLE FOR DIALYSIS PATIEN TS. Metal Riveter ID - ADMINURINALYSIS W/ REFLEX URINE [id number] 13:55:00 Test Item Value Reference Range Interpretation Comments COLOR (BEAKER) (test code = 470) Yellow CLARITY (BEAKER) (test code = 469) Clear SPECIFIC GRAVITY UA (BEAKER) (test 1.018 1.001-1.035 code = 468) PH UA (BEAKER) (test code = 467) 6.0 5.0-8.0 PROTEIN UA (BEAKER) (test code = Negative Negative 464) GLUCOSE UA (BEAKER) (test code = Negative Negative 365) KETONES UA (BEAKER) (test code = Negative Negative 371) BILIRUBIN UA (BEAKER) (test code = Negative Negative 462) BLOOD UA (BEAKER) (test code = 461) Small Negative A NITRITE UA (BEAKER) (test code = Negative Negative 465) LEUKOCYTE ESTERASE UA (BEAKER) Negative Negative (test code = 466) UROBILINOGEN UA (BEAKER) (test code 0.2 mg/dL 0.2-1.0 = 463) RBC UA (BEAKER) (test code = 519) 7 /HPF WBC UA (BEAKER) (test code = 520) < /HPF MUCUS (BEAKER) (test code = 1574) Rare SOURCE(BEAKER) (test code = 2795) Metal Riveter ID - [auto]Metal Riveter ID - techPT/[id number] 13:54:00 Test Item Value Reference Range Interpretation Comments Protime (test code = 13.6 11.9- 14.2 5902-2) seconds INR (test code = 1.07 <=5.90 6301-6) PTT (test code = 30.3 22.5- 36.0 69098-5) seconds JACKIE (test code = JACKIE) Effective 07/27/2018: PT Reference Range ChangeNew: 11.9-14.2 Previous: 11.7-14.7 RECOMMENDED COUMADIN/WARFARIN INR THERAPY RANGESSTANDARD DOSE: 2.0-3.0 Includes: PROPHYLAXIS for venous thrombosis, systemic embolization; TREATMENT for venous thrombosis and/or pulmonary embolus.HIGH RISK: Target INR is 2.5-3.5 for patients wiht mechanical heart valves. Lab Interpretation Normal (test code = 85331-0) [id number] 13:54:00 Test Item Value Reference Range Interpretation Comments PROTIME (BEAKER) (test code = 13.6 seconds 11.9-14.2 759) INR (BEAKER) (test code = 370) 1.07 <=5.90 PARTIAL THROMBOPLASTIN TIME 30.3 seconds 22.5-36.0 (BEAKER) (test code = 760) Effective 07/27/2018: PT Reference Range ChangeNew: 11.9-14.2 Previous: 11.7- 14.7RECOMMENDED COUMADIN/WARFARIN INR THERAPY RANGESSTANDARD DOSE: 2.0-3.0 Includes: PROPHYLAXIS for venous thrombosis, systemic embolization; TREATMENT for venous thrombosis and/or pulmonary embolus.HIGH RISK: Target INR is2.5-3.5 for patients wiht mechanical heart valves.CBC W/PLT COUNT & AUTO [id number] 13:44:00 Test Item Value Reference Range Interpretation Comments WHITE BLOOD CELL COUNT (BEAKER) 7.6 K/ L 3.5-10.5 (test code = 775) RED BLOOD CELL COUNT (BEAKER) 4.58 M/ L 4.63-6.08 L (test code = 761) HEMOGLOBIN (BEAKER) (test code = 13.4 GM/DL 13.7-17.5 L 410) HEMATOCRIT (BEAKER) (test code = 42.0 % 40.1-51.0 411) MEAN CORPUSCULAR VOLUME (BEAKER) 91.7 fL 79.0-92.2 (test code = 753) MEAN CORPUSCULAR HEMOGLOBIN 29.3 pg 25.7-32.2 (BEAKER) (test code = 751) MEAN CORPUSCULAR HEMOGLOBIN CONC 31.9 GM/DL 32.3-36.5 L (BEAKER) (test code = 752) RED CELL DISTRIBUTION WIDTH 13.3 % 11.6-14.4 (BEAKER) (test code = 412) PLATELET COUNT (BEAKER) (test 219 K/CU MM 150-450 code = 756) MEAN PLATELET VOLUME (BEAKER) 10.0 fL 9.4-12.4 (test code = 754) NUCLEATED RED BLOOD CELLS 0 /100 WBC 0-0 (BEAKER) (test code = 413) NEUTROPHILS RELATIVE PERCENT 66 % (BEAKER) (test code = 429) LYMPHOCYTES RELATIVE PERCENT 21 % (BEAKER) (test code = 430) MONOCYTES RELATIVE PERCENT 10 % (BEAKER) (test code = 431) EOSINOPHILS RELATIVE PERCENT 2 % (BEAKER) (test code = 432) BASOPHILS RELATIVE PERCENT 0 % (BEAKER) (test code = 437) NEUTROPHILS ABSOLUTE COUNT 5.01 K/ L 1.78-5.38 (BEAKER) (test code = 670) LYMPHOCYTES ABSOLUTE COUNT 1.63 K/ L 1.32-3.57 (BEAKER) (test code = 414) MONOCYTES ABSOLUTE COUNT (BEAKER) 0.77 K/ L 0.30-0.82 (test code = 415) EOSINOPHILS ABSOLUTE COUNT 0.16 K/ L 0.04-0.54 (BEAKER) (test code = 416) BASOPHILS ABSOLUTE COUNT (BEAKER) 0.03 K/ L 0.01-0.08 (test code = 417) IMMATURE GRANULOCYTES-RELATIVE 0 % 0-1 PERCENT (BEAKER) (test code = 2801) FL, FLUORO, NON-SPECIFIC, UP TO 1 [id number] 09:00:00Reason for exam:- >chronic painFluoroscopic unit utilized for a procedure performed in the OR. No interpretation was requested. Refer to the operative report for findings. Refer to PACS for patient radiation dose information.alvaro [id number] 06:46:00 Test Item Value Reference Range Interpretation Comments ABO Grouping (test code = 2588) A Rh Factor (test code = 2589) [facility])2019-11-25 10:41:00 Test Item Value Reference Range Interpretation Comments SARS-COV2/RT-PCR (test Negative Not Detected, Negative, code = 6614895) See external report for linked test SARS-COV-2 [facility] (test code = 4426202) Negative result for this test determines that SARS-CoV-2 RNA was not present in the specimen above the Limit of Detection (LOD). However, Negative results do not preclude SARS-CoV-2 infection and should not be used as the sole basis for treatment or patient management decisions. Negative results mustbe combined with clinical observations, patient history, and epidemiological information. A false negative result may occur if a specimen is improperly collected, transported or handled. A false negative result should be considered if patient's recent exposures or clinical presentation indicate that COVID-19 (SARS-CoV-2) is likely and diagnostic tests for other causes of illness are negative. Re-testing should be considered in cases of suspected false negatives.The limit of detection for this assay is 800 copies/mL.This SARS CoV-2 test is a real-time RT-PCR test intended for the qualitative detection of nucleic acid from SARS-CoV-2 in a nasopharyngeal swab specimen collected from individuals suspected of COVID-19 by their healthcare provider.This test has not been Food and Drug [...] is revoked under Section 564(g) of the Act.Fact Sheet for Healthcare Providers:https://www.[employer]/sites/default/files/product/documents/Fact_Shee x_UY_Lxoqqnhip_Gixn_INWY-YgA-0.pdfFact Sheet for Healthcare Patients:https://www.[employer]/sites/default/files/product/ documents/Wkpo_Kukwy_Jxlcchuu_Knqx_NHTG-TfE-0.pdfPerforming Laboratory:[address], [place] [address]ZEB, CHEST, 2 VIEWS 2019-11-24 14:23:00Reason for exam:->Chronic pain disorderFINAL REPORT TECHNIQUE: Frontal and lateral views of the chest. INDICATION: Chronic pain disorder COMPARISON: None. FINDINGS: LINES/TUBES: None. LUNGS: The lungs are well inflated and clear. No consolidation or pulmonary edema. PLEURA: No pleural effusion or pneumothorax. HEARTAND MEDIASTINUM: The cardiomediastinal silhouette is within normal limits. SOFT TISSUES AND BONES: Status post anterior cervical fusion.. IMPRESSION:No acute cardiopulmonary abnormalities. Signed: Rocio Rivera MDReport Verified Date/Time: 11/24/2019 14:23:08 XR chest 2 [id number] 14:23:00 Interface, External Ris In - 11/24/2019 2:25 PM CDTFINAL REPORT TECHNIQUE: Frontal and lateral views of the chest. INDICATION: Chronic pain disorder COMPARISON: None. FINDINGS:LINES/TUBES: None. LUNGS: The lungs are well inflated and clear. No consolidation or pulmonary edema. PLEURA: No pleural effusion or pneumothorax. HEART AND MEDIASTINUM: The cardiomediastinal silhouette is within normal limits. SOFT TISSUES AND BONES: Status post anterior cervical fusion.. IMPRESSION:No acute cardiopulmonary abnormalities. Signed: Rocio Rivera MDReport Verified Date/Time:11/24/2019 14:23:08 [facility] [id number] 14:12:00 Test Item Value Reference Range Interpretation Comments COLOR (BEAKER) (test code = 470) Yellow CLARITY (BEAKER) (test code = 469) Clear SPECIFIC GRAVITY UA (BEAKER) (test 1.023 1.001-1.035 code = 468) PH UA (BEAKER) (test code = 467) 5.5 5.0-8.0 PROTEIN UA (BEAKER) (test code = 20 mg/dL Negative A 464) GLUCOSE UA (BEAKER) (test code = Negative Negative 365) KETONES UA (BEAKER) (test code = Negative Negative 371) BILIRUBIN UA (BEAKER) (test code = Negative Negative 462) BLOOD UA (BEAKER) (test code = 461) Negative Negative NITRITE UA (BEAKER) (test code = Negative Negative 465) LEUKOCYTE ESTERASE UA (BEAKER) Negative Negative (test code = 466) UROBILINOGEN UA (BEAKER) (test code 2.0 mg/dL 0.2-1.0 H = 463) RBC UA (BEAKER) (test code = 519) 0 /HPF WBC UA (BEAKER) (test code = 520) 0 /HPF MUCUS (BEAKER) (test code = 1574) Few SQUAMOUS EPITHELIAL (BEAKER) (test 1 /HPF code = 516) HYALINE CASTS (BEAKER) (test code = 14 /LPF 514) SOURCE(BEAKER) (test code = 2795) Metal Riveter ID - [auto]Metal Riveter ID - [id number] 13:23:00 Test Item Value Reference Range Interpretation Comments PTT (test code = 11659-2) 35.4 22.5- 36.0 seconds Lab Interpretation (test code = Normal 00944-3) [id number] 13:23:00 Test Item Value Reference Range Interpretation Comments PARTIAL THROMBOPLASTIN TIME 35.4 seconds 22.5-36.0 (BEAKER) (test code = 760) PROTHROMBIN TIME/[id number] 13:22:00 Test Item Value Reference Range Interpretation Comments PROTIME (BEAKER) (test code = 14.6 seconds 11.9-14.2 H 759) INR (BEAKER) (test code = 370) 1.17 <=5.90 Effective 07/27/2018: PT Reference Range ChangeNew: 11.9-14.2 Previous: 11.7- 14.7RECOMMENDED COUMADIN/WARFARIN INR THERAPY RANGESSTANDARD DOSE: 2.0-3.0 Includes: PROPHYLAXIS for venous thrombosis, systemic embolization; TREATMENT for venous thrombosis and/or pulmonary embolus.HIGH RISK: Target INR is2.5-3.5 for patients wiht mechanical heart valves.CBC W/PLT COUNT & AUTO [id number] 13:10:00 Test Item Value Reference Range Interpretation Comments WHITE BLOOD CELL COUNT (BEAKER) 8.3 K/ L 3.5-10.5 (test code = 775) RED BLOOD CELL COUNT (BEAKER) 4.89 M/ L 4.63-6.08 (test code = 761) HEMOGLOBIN (BEAKER) (test code = 14.7 GM/DL 13.7-17.5 410) HEMATOCRIT (BEAKER) (test code = 45.1 % 40.1-51.0 411) MEAN CORPUSCULAR VOLUME (BEAKER) 92.2 fL 79.0-92.2 (test code = 753) MEAN CORPUSCULAR HEMOGLOBIN 30.1 pg 25.7-32.2 (BEAKER) (test code = 751) MEAN CORPUSCULAR HEMOGLOBIN CONC 32.6 GM/DL 32.3-36.5 (BEAKER) (test code = 752) RED CELL DISTRIBUTION WIDTH 13.5 % 11.6-14.4 (BEAKER) (test code = 412) PLATELET COUNT (BEAKER) (test 237 K/CU MM 150-450 code = 756) MEAN PLATELET VOLUME (BEAKER) 10.4 fL 9.4-12.4 (test code = 754) NUCLEATED RED BLOOD CELLS 0 /100 WBC 0-0 (BEAKER) (test code = 413) NEUTROPHILS RELATIVE PERCENT 69 % (BEAKER) (test code = 429) LYMPHOCYTES RELATIVE PERCENT 18 % (BEAKER) (test code = 430) MONOCYTES RELATIVE PERCENT 10 % (BEAKER) (test code = 431) EOSINOPHILS RELATIVE PERCENT 2 % (BEAKER) (test code = 432) BASOPHILS RELATIVE PERCENT 0 % (BEAKER) (test code = 437) NEUTROPHILS ABSOLUTE COUNT 5.76 K/ L 1.78-5.38 H (BEAKER) (test code = 670) LYMPHOCYTES ABSOLUTE COUNT 1.52 K/ L 1.32-3.57 (BEAKER) (test code = 414) MONOCYTES ABSOLUTE COUNT (BEAKER) 0.82 K/ L 0.30-0.82 (test code = 415) EOSINOPHILS ABSOLUTE COUNT 0.15 K/ L 0.04-0.54 (BEAKER) (test code = 416) BASOPHILS ABSOLUTE COUNT (BEAKER) 0.03 K/ L 0.01-0.08 (test code = 417) IMMATURE GRANULOCYTES-RELATIVE 0 % 0-1 PERCENT (BEAKER) (test code = 2801) COVID 19 Asymptomatic IH [id number] 18:07:00 Test Item Value Reference Range Interpretation Comments COVID 19 Asymptomatic IH AG (test NEGATIVE code = COVNONPUIAG) [id number] 15:13:00 Test Item Value Reference Range Interpretation Comments GLYCOSYLATED HEMOGLOBIN 6.1 % HbA1 LEXI NATARAJAN DIAGNOSIS: (HA1C) (test code = HbA1C GLYHGB) (%) ----- ----- Diab etic >6.4Prediabetes 5.7 - 6.4Normal <5.7 ESTIMATED AVERAGE 128 MG/DL GLUCOSE (test code = EAG) BASIC METABOLIC [id number] 15:11:00 Test Item Value Reference Range Interpretation Comments SODIUM (test code = 140 mmol/L 136-145 N NA) POTASSIUM (test code 4.2 mmol/L 3.5-5.1 N = K) CHLORIDE (test code = 105.0 mmol/L 98-107 N CL) CARBON DIOXIDE (test 31.0 mmol/L 21-32 N code = CO2) ANION GAP (test code 8.2 10-20 L = GAP) GLUCOSE (test code = 111 mg/dL 74-106 H GLU) BLOOD UREA NITROGEN 20 mg/dL 7-18 H (test code = BUN) GLOMERULAR FILTRATION 53 mL/min >=60 Estima leonides GFR by RATE (test code = using Sandi fied MDRD GFR) formula.Chronic kidney disease is defined as [facility] kidney damageor GFR <60 mL/min/1.73 m2 for >3 months. CREATININE (test code 1.30 mg/dL 0.7-1.3 N = CREAT) BUN/CREATININE RATIO 15.0 10-20 N (test code = BUN/CREA) CALCIUM (test code = 9.2 mg/dL 8.5-10.1 N CA) BASIC METABOLIC [id number] 15:08:00 Test Item Value Reference Range Interpretation Comments SODIUM (test code = NA) 140 mmol/L 136-145 N POTASSIUM (test code = K) 4.2 mmol/L 3.5-5.1 N CHLORIDE (test code = CL) 105.0 mmol/L 98-107 N CARBON DIOXIDE (test code = CO2) mmol/L 21-32 ANION GAP (test code = GAP) 10-20 GLUCOSE (test code = GLU) mg/dL 74-106 BLOOD UREA NITROGEN (test code = mg/dL 7-18 BUN) GLOMERULAR FILTRATION RATE (test mL/min >=60 code = GFR) CREATININE (test code = CREAT) mg/dL 0.7-1.3 BUN/CREATININE RATIO (test code 10-20 = BUN/CREA) CALCIUM (test code = CA) 9.2 mg/dL 8.5-10.1 N URINALYSIS [id number] 14:57:00 Test Item Value Reference Range Interpretation Comments UA COLOR (test code = COLU) YELLOW YELLOW UA APPEARANCE (test code = HAZY CLEAR A APPU) UA GLUCOSE DIPSTICK (test code NEGATIVE mg/dL NEGATIVE = DGLUU) UA BILIRUBIN DIPSTICK (test NEGATIVE NEGATIVE code = BILU) UA KETONE DIPSTICK (test code NEGATIVE mg/dL NEGATIVE = KETU) UA SPECIFIC GRAVITY (test code 1.025 1.001-1.035 = SGU) UA BLOOD DIPSTICK (test code = 1+ (Small) NEGATIVE A BETSY) UA PH DIPSTICK (test code = 6.0 5.0-8.0 SARA) UA PROTEIN DIPSTICK (test code NEGATIVE mg/dL Neg-15 = PROU) UA UROBILINIOGEN DIPSTICK 0.2 mg/dL 0.0-0.2 (test code = URO) UA NITRITE DIPSTICK (test code NEGATIVE NEGATIVE = KAI) UA LEUKOCYTE ESTERASE W REFLEX NEGATIVE NEGATIVE (test code = LEUUR) UA WBC (test code = WBCU) per HPF 0-5 UA RBC (test code = RBCU) per HPF 0-5 UA EPITHELIAL CELLS (test code per HPF Few = EPIU) UA BACTERIA (test code = BACU) per HPF NONE Urine Source? Clean CatchURINALYSIS [id number] 14:57:00 Test Item Value Reference Range Interpretation Comments UA COLOR (test code = YELLOW YELLOW COLU) UA APPEARANCE (test code HAZY CLEAR A = APPU) UA GLUCOSE DIPSTICK (test NEGATIVE mg/dL NEGATIVE code = DGLUU) UA BILIRUBIN DIPSTICK NEGATIVE NEGATIVE (test code = BILU) UA KETONE DIPSTICK (test NEGATIVE mg/dL NEGATIVE code = KETU) UA SPECIFIC GRAVITY (test 1.025 1.001-1.035 code = SGU) UA BLOOD DIPSTICK (test 1+ (Small) NEGATIVE A code = BETSY) UA PH DIPSTICK (test code 6.0 5.0-8.0 = SARA) UA PROTEIN DIPSTICK (test NEGATIVE mg/dL Neg-15 code = PROU) UA UROBILINIOGEN DIPSTICK 0.2 mg/dL 0.0-0.2 (test code = URO) UA NITRITE DIPSTICK (test NEGATIVE NEGATIVE code = KAI) UA LEUKOCYTE ESTERASE W NEGATIVE NEGATIVE REFLEX (test code = LEUUR) UA WBC (test code = WBCU) 0-5 per HPF 0-5 UA RBC (test code = RBCU) 11-20 #/HPF 0-5 A UA EPITHELIAL CELLS (test Few (2-5/hpf) per FEW code = EPIU) HPF UA BACTERIA (test code = FEW #/HPF NONE A BACU) UA HYALINE CAST (test 11-20 #/LPF 0-5 A code = HYALU) UA MUCUS (test code = FEW #/LPF FEW MUCU) Urine Source? Clean CatchCBC W/AUTO [id number] 14:44:00 Test Item Value Reference Range Interpretation Comments WHITE BLOOD CELL (test code = 7.5 K/mm3 4.5-12.5 N WBC) RED BLOOD CELL (test code = 4.79 mill/mm3 4.0-5.8 N RBC) HEMOGLOBIN (test code = HGB) 14.3 gram/dL 13.0-17.5 N HEMATOCRIT (test code = HCT) 44.4 % 42.0-52.0 N MEAN CELL VOLUME (test code = 92.7 fL 80-98 N MCV) MEAN CELL HGB (test code = MCH) 29.9 picogram 27.0-33.0 N MEAN CELL HGB CONCETRATION 32.2 gram/dL 33.0-36.0 L (test code = MCHC) RED CELL DISTRIBUTION WIDTH 13.4 % 11.6-16.2 N (test code = RDW) RED CELL DISTRIBUTION WIDTH SD 46.0 fL 37.0-51.0 N (test code = RDW-SD) PLATELET COUNT (test code = 209 K/mm3 150-450 N PLT) MEAN PLATELET VOLUME (test code 10.2 fL 6.7-11.0 N = MPV) NEUTROPHIL % (test code = NT%) 63.6 % 39.0-69.0 N IMMATURE GRANULOCYTE % (test 0.3 % 0.0-5.0 N code = IG%) LYMPHOCYTE % (test code = LY%) 22.4 % 25.0-55.0 L MONOCYTE % (test code = MO%) 10.0 % 0.0-10.0 N EOSINOPHIL % (test code = EO%) 3.3 % 0.0-5.0 N BASOPHIL % (test code = BA%) 0.4 % 0.0-1.0 N NUCLEATED RBC % (test code = 0.0 % 0-0 N NRBC%) NEUTROPHIL # (test code = NT#) 4.76 K/mm3 1.8-7.7 N IMMATURE GRANULOCYTE # (test 0.02 x10 3/uL 0-0.03 N code = IG#) LYMPHOCYTE # (test code = LY#) 1.68 K/mm3 1.0-5.0 N MONOCYTE # (test code = MO#) 0.75 K/mm3 0-0.8 N EOSINOPHIL # (test code = EO#) 0.25 K/mm3 0.0-0.5 N BASOPHIL # (test code = BA#) 0.03 K/mm3 0.0-0.2 N NUCLEATED RBC # (test code = 0.00 K/mm3 0.0-0.1 N NRBC#) [id number] 14:25:00 Test Item Value Reference Range Interpretation Comments ACT-ISTAT (test code 312 SEC 74-137 H Perform ed by certified = ACTI) 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 [facility] [id number] 14:00:00 Test Item Value Reference Range Interpretation Comments ACT-ISTAT (test code 367 SEC 74-137 H Perform ed by certified = ACTI) 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 FINDINGS: Left knee prosthesis appears well-positioned. No hardware loosening is identified. There is no fracture. No aggressive lesion is present. Tiny plantar calcanealspur is noted. IMPRESSION: 1. No acute abnormality involving left tibia or fibula. 2. 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 SL: [id number] at 1100 Reported and signed by: Tashi Hidalgo M.D. CC: Nazia Ellis DO Technologist: RT Kinga(Starla) Trnscrd Date/Time/By: 11/05/2018 (1100) : By: Maria [email or web address] Orig Print D/T: S: 11/05/2018 (4116) PAGE 1 Signed Report- XR CHEST 2 [id number] 12:49:00 FAX: Luciana Orantes MD [phone] [place]: St: PRE Name: ALEXANDER CONNOR [facility] : 1940 Age/S: 77/M [address] [place] [address] Unit#: [id number] Loc: [place] [address] Phys: Luciana Anguiano MD Acct: [id number] Dis Date: Status: PRE SD PHONE #: [phone] Exam Date: 11/02/2018 1228 FAX #: [phone] Reason: PRE-OP VENESSA,ABLATION EXAMS: CPT CODE: [id number] XR CHEST 2 V 38315 EXAM: PA and lateral chest. EXAM DATE: November 02, 2018 at 1150 hours CLINICAL HISTORY: PRE-OP VENESSA,ABLATION COMPARISON: August 19, 2018 at 0056 hours Heart size is within normal limits.. Atherosclerotic calcifications and tortuosity of the intrathoracic aorta is identified. Mild hyperinflation is identified. No acute lung disease is identified. Kyphosis is noted. Fixation device is identified in the lower cervical spine. IMPRESSION: No evidence of acute cardiopulmonary disease. at 1249 Reported and sign ed by: Marcie Groves M.D. CC: Luciana Anguiano MD Technologist: JAVIER Coppola) Gloria Date/Time/By: 11/02/2018 (8090) :By: Rahul Orig Print D/T: S: 11/02/2018 (6082) PAGE 1 Signed Report PROTHROMBIN [id number] 12:48:00 Test Item Value Reference Range Interpretation Comments PROTHROMBIN TIME 17.7 SECONDS 9.3-12.9 H PATIENT (test code = PTP) INTERNATIONAL NORMAL 1.6 0.8-1.2 H TARGET RATIO (test code = INR BY IN DICATION INR) Indication INR1. Prophyl axis of venous thrombos is 2.0 - 3. 0 (orthopedic deidra eduard), Prophylaxis of venous thrombos is (other than hig h-risk surgery), Scarlet tment of Deep Vein Thrombosis/Pulm onary Embolism, Preve ntion of systemic emb olism - Tissue heart va lves, Acute Myocardia l Infarction (to prevent systemic embo lism), Valvular heart disease, Atri al Fibrillation, Bileaflet mecha nical valve in aortic position.2. Mec hanical prosthetic valv es (high risk), 2.5 - 3.5 Presence of Lupus Anticoagu lant or Antiphospholi pid Antibodies, Pre vention of systemic e mbolism - Acute Myocard ial Infarction (t o prevent recurre nt infarct). BASIC METABOLIC [id number] 12:37:00 Test Item Value Reference Range Interpretation Comments SODIUM (test code = NA) 142 mEq/L 134-147 N POTASSIUM (test code = 3.9 mEq/L 3.4-5.0 N K) CHLORIDE (test code = 104 mEq/L 100-108 N CL) CARBON DIOXIDE (test 34 mEq/L 21-33 H code = CO2) ANION GAP (test code = 8 0-20 N GAP) GLUCOSE (test code = 100 mg/dL 70-110 N GLU) BLOOD UREA NITROGEN 15 mg/dL 7-18 N (test code = BUN) GLOMERULAR FILTRATION 64.9 70-80 L Units of measure = RATE (test code = GFR) ml/mi n/1.73 m2 CREATININE (test code = 1.1 mg/dL 0.6-1.3 N CREAT) CALCIUM (test code = 9.3 mg/dL 8.0-10.5 N CA) BASIC METABOLIC [id number] 12:36:00 Test Item Value Reference Range Interpretation Comments SODIUM (test code = NA) 142 mEq/L 134-147 N POTASSIUM (test code = K) 3.9 mEq/L 3.4-5.0 N CHLORIDE (test code = CL) 104 mEq/L 100-108 N CARBON DIOXIDE (test code = CO2) 34 mEq/L 21-33 H ANION GAP (test code = GAP) 8 0-20 N GLUCOSE (test code = GLU) 100 mg/dL 70-110 N BLOOD UREA NITROGEN (test code = 15 mg/dL 7-18 N BUN) GLOMERULAR FILTRATION RATE (test 70-80 code = GFR) CREATININE (test code = CREAT) mg/dL 0.6-1.3 CALCIUM (test code = CA) 9.3 mg/dL 8.0-10.5 N CBC W/AUTO [id number] 12:24:00 Test Item Value Reference Range Interpretation Comments WHITE BLOOD CELL (test code = 7.71 x10 3/uL 4.5-11.0 N WBC) RED BLOOD CELL (test code = 5.38 x10 6/uL 4.00-5.60 N RBC) HEMOGLOBIN (test code = HGB) 16.3 g/dL 12.5-16.9 N HEMATOCRIT (test code = HCT) 49.8 % 37.5-50.7 N MEAN CELL VOLUME (test code = 92.6 fL 81.0-99.0 N MCV) MEAN CELL HGB (test code = MCH) 30.3 pg 27.0-33.0 N MEAN CELL HGB CONCETRATION 32.7 g/dL 33.0-37.0 L (test code = MCHC) RED CELL DISTRIBUTION WIDTH CV 13.8 % 11.5-14.5 N (test code = RDW) RED CELL DISTRIBUTION WIDTH SD 46.9 fL 37.0-54.0 N (test code = RDW-SD) PLATELET COUNT (test code = 222 x10 3/uL 150-400 N PLT) MEAN PLATELET VOLUME (test code 10.7 fL 7.0-9.0 H = MPV) NEUTROPHIL % (test code = NT%) 64.3 % 56.0-77.0 N IMMATURE GRANULOCYTE % (test 0.3 % 0.0-2.0 N code = IG%) LYMPHOCYTE % (test code = LY%) 21.9 % 14.0-32.0 N MONOCYTE % (test code = MO%) 10.6 % 4.8-9.0 H EOSINOPHIL % (test code = EO%) 2.3 % 0.3-3.7 N BASOPHIL % (test code = BA%) 0.6 % 0.0-2.0 N NUCLEATED RBC % (test code = 0.0 % 0-0 N NRBC%) NEUTROPHIL # (test code = NT#) 4.95 x10 3/uL 2.0-7.6 N IMMATURE GRANULOCYTE # (test 0.02 x10 3/uL 0.00-0.03 N code = IG#) LYMPHOCYTE # (test code = LY#) 1.69 x10 3/uL 1.0-3.8 N MONOCYTE # (test code = MO#) 0.82 x10 3/uL 0.1-0.8 H EOSINOPHIL # (test code = EO#) 0.18 x10 3/uL 0.0-0.2 N BASOPHIL # (test code = BA#) 0.05 x10 3/uL 0.0-0.2 N NUCLEATED RBC # (test code = 0.00 x10 3/uL 0.0-0.1 N NRBC#) MANUAL DIFF REQUIRED (test code NO = MDIFF) BASIC METABOLIC [id number] 11:27:00 Test Item Value Reference Range Interpretation Comments SODIUM (test code = NA) 138 mEq/L 134-147 N POTASSIUM (test code = 4.2 mEq/L 3.4-5.0 N K) CHLORIDE (test code = 105 mEq/L 100-108 N CL) CARBON DIOXIDE (test 29 mEq/L 21-33 N code = CO2) ANION GAP (test code = 8 0-20 N GAP) GLUCOSE (test code = 98 mg/dL 70-110 N GLU) BLOOD UREA NITROGEN 18 mg/dL 7-18 N (test code = BUN) GLOMERULAR FILTRATION 64.9 70-80 L Units of measure = RATE (test code = GFR) ml/mi n/1.73 m2 CREATININE (test code = 1.1 mg/dL 0.6-1.3 N CREAT) CALCIUM (test code = 9.0 mg/dL 8.0-10.5 N CA) [id number] 11:27:00 Test Item Value Reference Range Interpretation Comments MAGNESIUM (test code = MAG) 2.20 mg/dL 1.8-2.4 N CBC W/AUTO [id number] 11:08:00 Test Item Value Reference Range Interpretation Comments WHITE BLOOD CELL (test code = 9.32 x10 3/uL 4.5-11.0 N WBC) RED BLOOD CELL (test code = 5.54 x10 6/uL 4.00-5.60 N RBC) HEMOGLOBIN (test code = HGB) 16.7 g/dL 12.5-16.9 N HEMATOCRIT (test code = HCT) 49.9 % 37.5-50.7 N MEAN CELL VOLUME (test code = 90.1 fL 81.0-99.0 N MCV) MEAN CELL HGB (test code = MCH) 30.1 pg 27.0-33.0 N MEAN CELL HGB CONCETRATION 33.5 g/dL 33.0-37.0 N (test code = MCHC) RED CELL DISTRIBUTION WIDTH CV 13.4 % 11.5-14.5 N (test code = RDW) RED CELL DISTRIBUTION WIDTH SD 44.4 fL 37.0-54.0 N (test code = RDW-SD) PLATELET COUNT (test code = 222 x10 3/uL 150-400 N PLT) MEAN PLATELET VOLUME (test code 10.2 fL 7.0-9.0 H = MPV) NEUTROPHIL % (test code = NT%) 71.1 % 56.0-77.0 N IMMATURE GRANULOCYTE % (test 0.5 % 0.0-2.0 N code = IG%) LYMPHOCYTE % (test code = LY%) 16.3 % 14.0-32.0 N MONOCYTE % (test code = MO%) 10.8 % 4.8-9.0 H EOSINOPHIL % (test code = EO%) 0.9 % 0.3-3.7 N BASOPHIL % (test code = BA%) 0.4 % 0.0-2.0 N NUCLEATED RBC % (test code = 0.0 % 0-0 N NRBC%) NEUTROPHIL # (test code = NT#) 6.62 x10 3/uL 2.0-7.6 N IMMATURE GRANULOCYTE # (test 0.05 x10 3/uL 0.00-0.03 H code = IG#) LYMPHOCYTE # (test code = LY#) 1.52 x10 3/uL 1.0-3.8 N MONOCYTE # (test code = MO#) 1.01 x10 3/uL 0.1-0.8 H EOSINOPHIL # (test code = EO#) 0.08 x10 3/uL 0.0-0.2 N BASOPHIL # (test code = BA#) 0.04 x10 3/uL 0.0-0.2 N NUCLEATED RBC # (test code = 0.00 x10 3/uL 0.0-0.1 N NRBC#) MANUAL DIFF REQUIRED (test code NO = MDIFF) B-TYPE NATRIURETIC [id number] 05:27:00 Test Item Value Reference Range Interpretation Comments B-TYPE NATRIURETIC PEPTIDE (test 288.6 PG/ML 0-100 H code = BNP) LIPID PROFILE (CORONARY RISK)2018-08-20 05:03:00 Test Item Value Reference Range Interpretation Comments TRIGLYCERIDES (test 98 mg/dL 40-150 N code = TRIG) CHOLESTEROL (test 146 mg/dL <200 code = CHOL) CHOLESTEROL/HDL 3.74 RATIO 3.43-4.97 N RISK ASSOCIA LEONIDES WITH RATIO (test code = CHOL/HDL RATIOS: RISK CHOLHDL) MALE FEMALE1/2 AVERA GE 3.43 3.27AVERAGE 4.97 4.4 42X AVERAGE 9.55 7.053X AVER AGE 23.39 1 1.04 NOTE THAT THE R EFERENCE VALUE IS RELATE DTO RISK LEVELS RECOM MENDED BY THE NATL.HEA RT, LUNG, AND BLOOD INST. HDL CHOLESTEROL 39.0 mg/dL 32-72 N (test code = HDL) LIPOPROTEIN LDL 99 mg/dL 0-100 N <100 OPT [id number] (test code = LDL) NEAR OPTI MAL/ABOVE [id number] 89 HIGH>DG=585 VE RY HIGH*Guidelines provided by the National Choles terol EducationProgra m Adult Treatment Panel III HGBA1C%2018-08-20 05:01:00 Test Item Value Reference Range Interpretation Comments HGBA1C% (test code = HGBA1C%) 6.3 %A1C 4.8-6.0 H [id number] 09:06:00 Test Item Value Reference Range Interpretation Comments TROPONIN-I < 0.015 ng/mL 0.000-0.045 N Negative: <= (test code = 0.045 Positive: TROPI) >= 0.046 Correl ation with serial results, other cardiac markers andclinical findings is nec essary to determine the clinicalsignifi cance of this result. Results using different metho dologies should not be c omparedto one another as cary titative results may rohan y by method. COMMENTS: 3 troponins total (including troponin done in ED)[id number] 05:04:00 Test Item Value Reference Range Interpretation Comments TROPONIN-I < 0.015 ng/mL 0.000-0.045 N Negative: <= (test code = 0.045 Positive: TROPI) >= 0.046 Correl ation with serial results, other cardiac markers andclinical findings is nec essary to determine the clinicalsignifi cance of this result. Results using different metho dologies should not be c omparedto one another as cary titative results may rohan y by method. COMMENTS: 3 troponins total (including troponin done in ED)BASIC METABOLIC PANEL 2018-08-19 02:41:00 Test Item Value Reference Range Interpretation Comments SODIUM (test code = NA) 141 mEq/L 134-147 N POTASSIUM (test code = 3.9 mEq/L 3.4-5.0 N K) CHLORIDE (test code = 105 mEq/L 100-108 N CL) CARBON DIOXIDE (test 30 mEq/L 21-33 N code = CO2) ANION GAP (test code = 10 0-20 N GAP) GLUCOSE (test code = 111 mg/dL 70-110 H GLU) BLOOD UREA NITROGEN 23 mg/dL 7-18 H (test code = BUN) GLOMERULAR FILTRATION 58.7 70-80 L Units of measure = RATE (test code = GFR) ml/mi n/1.73 m2 CREATININE (test code = 1.2 mg/dL 0.6-1.3 N CREAT) CALCIUM (test code = 8.9 mg/dL 8.0-10.5 N CA) HEPATIC FUNCTION [id number] 02:41:00 Test Item Value Reference Range Interpretation Comments TOTAL PROTEIN (test code = PROT) 7.0 g/dL 6.4-8.2 N ALBUMIN (test code = ALB) 3.60 g/dL 3.4-5.0 N BILIRUBIN TOTAL (test code = BILT) 1.10 mg/dL 0.0-1.0 H BILIRUBIN DIRECT (test code = 0.20 MG/DL 0.0-0.30 N BILD) BILIRUBIN INDIRECT (test code = 0.90 MG/DL BILIND) SGOT/AST (test code = AST) 21 IUnit/L 15-37 N SGPT/ALT (test code = ALT) 31 IUnit/L 15-65 N ALKALINE PHOSPHATASE TOTAL (test 64 IUnit/L 20-125 N code = ALKP) [id number] 02:41:00 Test Item Value Reference Range Interpretation Comments LIPASE (test code = LIP) 151 IUnit/L 73-393 N [id number] 02:41:00 Test Item Value Reference Range Interpretation Comments TROPONIN-I < 0.015 ng/mL 0.000-0.045 N Negative: <= (test code = 0.045 Positive: TROPI) >= 0.046 Correl ation with serial results, other cardiac markers andclinical findings is nec essary to determine the clinicalsignifi cance of this result. Results using different metho dologies should not be c omparedto one another as cary titative results may rohan y by method. PROTHROMBIN [id number] 02:32:00 Test Item Value Reference Range Interpretation Comments PROTHROMBIN TIME 13.5 SECONDS 9.3-12.9 H PATIENT (test code = PTP) INTERNATIONAL NORMAL 1.2 0.8-1.2 N TARGET RATIO (test code = INR BY IN DICATION INR) Indication INR1. Prophyl axis of venous thrombos is 2.0 - 3. 0 (orthopedic deidra eduard), Prophylaxis of venous thrombos is (other than hig h-risk surgery), Scarlet tment of Deep Vein Thrombosis/Pulm onary Embolism, Preve ntion of systemic emb olism - Tissue heart va lves, Acute Myocardia l Infarction (to prevent systemic embo lism), Valvular heart disease, Atri al Fibrillation, Bileaflet mecha nical valve in aortic position.2. Mec hanical prosthetic valv es (high risk), 2.5 - 3.5 Presence of Lupus Anticoagu lant or Antiphospholi pid Antibodies, Pre vention of systemic e mbolism - Acute Myocard ial Infarction (t o prevent recurre nt infarct). CBC W/AUTO [id number] 02:20:00 Test Item Value Reference Range Interpretation Comments WHITE BLOOD CELL (test code = 7.09 x10 3/uL 4.5-11.0 N WBC) RED BLOOD CELL (test code = 5.32 x10 6/uL 4.00-5.60 N RBC) HEMOGLOBIN (test code = HGB) 15.7 g/dL 12.5-16.9 N HEMATOCRIT (test code = HCT) 49.2 % 37.5-50.7 N MEAN CELL VOLUME (test code = 92.5 fL 81.0-99.0 N MCV) MEAN CELL HGB (test code = MCH) 29.5 pg 27.0-33.0 N MEAN CELL HGB CONCETRATION 31.9 g/dL 33.0-37.0 L (test code = MCHC) RED CELL DISTRIBUTION WIDTH CV 13.8 % 11.5-14.5 N (test code = RDW) RED CELL DISTRIBUTION WIDTH SD 46.7 fL 37.0-54.0 N (test code = RDW-SD) PLATELET COUNT (test code = 209 x10 3/uL 150-400 N PLT) MEAN PLATELET VOLUME (test code 10.4 fL 7.0-9.0 H = MPV) NEUTROPHIL % (test code = NT%) 68.7 % 56.0-77.0 N IMMATURE GRANULOCYTE % (test 0.4 % 0.0-2.0 N code = IG%) LYMPHOCYTE % (test code = LY%) 20.3 % 14.0-32.0 N MONOCYTE % (test code = MO%) 9.0 % 4.8-9.0 N EOSINOPHIL % (test code = EO%) 1.0 % 0.3-3.7 N BASOPHIL % (test code = BA%) 0.6 % 0.0-2.0 N NUCLEATED RBC % (test code = 0.0 % 0-0 N NRBC%) NEUTROPHIL # (test code = NT#) 4.87 x10 3/uL 2.0-7.6 N IMMATURE GRANULOCYTE # (test 0.03 x10 3/uL 0.00-0.03 N code = IG#) LYMPHOCYTE # (test code = LY#) 1.44 x10 3/uL 1.0-3.8 N MONOCYTE # (test code = MO#) 0.64 x10 3/uL 0.1-0.8 N EOSINOPHIL # (test code = EO#) 0.07 x10 3/uL 0.0-0.2 N BASOPHIL # (test code = BA#) 0.04 x10 3/uL 0.0-0.2 N NUCLEATED RBC # (test code = 0.00 x10 3/uL 0.0-0.1 N NRBC#) MANUAL DIFF REQUIRED (test code NO = IFF) - XR CHEST 1 [id number] 01:13:00 FAX: Jordan Krause MD [phone] [place]: St: REG Name: ALEXANDER CONNOR [facility] : 1940 Age/S: 77/M [address] [place] [address] Unit#: [id number] Loc: [address] [address] Phys: Jordan Crowley MD Acct: [id number] Dis Date: Status: REG ER PHONE #: [phone] Exam Date: 08/19/2018 0105 FAX #: [phone] Reason: Chest Pain EXAMS: CPT CODE: [id number] XR CHEST 1 V [id number] EXAM: CR, XR chest one view: 08/19/2018, 0048 hours HISTORY: Chest Pain TECHNIQUE: 1 view of the chest. COMPARISON: 08/17/2018, 1045 hours FINDINGS: Trachea is midline. Heart is borderline in size. Pulmonary vascularity is unremarkable. Calcified plaque in aortic arch. There is no airspace consolidation, pleural effusion or pneumothorax. Metallic plate and screws are projected to the lower cervical spine. IMPRESSION: No acute cardiopulmonary disease seen. SL: [JSYED-H] at 0113 Reported and signed by: Kenn Callaway M.D. CC: Jordan Crowley MD Technologist: Kristofer Massey RT(R) Trnscrd Date/Time/By: 08/19/2018 (0113) : By: Maria [email or web address] Orig Print D/T: S: 08/19/2018 (0116) PAGE 1 Signed ReportTROPONIN-I [id number] 01:09:00 Test Item Value Reference Range Interpretation Comments TROPONIN-I RAPID 0.02 ng/mL 0.00-0.08 N Performed b y certified (test code = 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 [facility]) [facility] Negative: <= 0.0 8 Positive: >= 0.09An elevated troponin value alone is not sufficient todi agnose a myocardial infa rction. Rather, the pat ient sclinical prese ntation (history, physi yo exam) and ECGshould b e used in conjunction wit h troponin in thediagnosti c evaluation of s uspected myocardial infa rction. Aserial samplin g protocol is recommended to facilitate the identification of temporal changes in trop onin levels characteristic of [place]. CHEMISTRY 8 [id number] 01:03:00 Test Item Value Reference Range Interpretation Comments ISTAT-SODIUM (test code = NAP) MMOL/L 134-147 ISTAT-POTASSIUM (test code = KP) MMOL/L 3.4-5.0 ISTAT-CHLORIDE (test code = CLP) MMOL/L 100-108 ISTAT CARBON DIOXIDE (test code = mmol/L 21-33 N ISTAT-CO2) ISTAT CALCIUM IONIZED (test code = MG/DL 1.12-1.32 ISTAT-JUANITA) ISTAT-GLUCOSE (test code = GLUP) MG/DL 70-110 H ISTAT-BUN (test code = BUNP) MG/DL 7-18 H BEDSIDE CREATININE (test code = MG/DL 0.6-1.3 N CREATBED) GLOMERULAR FILTRATION RATE POC 57 ML/MIN (test code = GFRBED) CHEMISTRY 8 [id number] 01:03:00 Test Item Value Reference Range Interpretation Comments ISTAT-SODIUM (test 141 MMOL/L 134-147 N code = NAP) ISTAT-POTASSIUM (test 4.1 MMOL/L 3.4-5.0 N code = KP) ISTAT-CHLORIDE (test 101 MMOL/L 100-108 N Perform ed by code = CLP) certified opera tor at [facility] ISTAT CARBON DIOXIDE 28.0 mmol/L 21-33 N (test code = ISTAT-CO2) ISTAT CALCIUM IONIZED 1.17 MG/DL 1.12-1.32 N (test code = ISTAT-JUANITA) ISTAT-GLUCOSE (test 119 MG/DL 70-110 H code = GLUP) ISTAT-BUN (test code = 24 MG/DL 7-18 H BUNP) BEDSIDE CREATININE 1.3 MG/DL 0.6-1.3 N (test code = CREATBED) GLOMERULAR FILTRATION 57 ML/MIN RATE POC (test code = GFRBED) BASIC METABOLIC [id number] 12:07:00 Test Item Value Reference Range Interpretation Comments SODIUM (test code = NA) 140 mEq/L 134-147 N POTASSIUM (test code = 3.8 mEq/L 3.4-5.0 N K) CHLORIDE (test code = 105 mEq/L 100-108 N CL) CARBON DIOXIDE (test 33 mEq/L 21-33 N code = CO2) ANION GAP (test code = 6 0-20 N GAP) GLUCOSE (test code = 98 mg/dL 70-110 N GLU) BLOOD UREA NITROGEN 15 mg/dL 7-18 N (test code = BUN) GLOMERULAR FILTRATION 58.7 70-80 L Units of measure = RATE (test code = GFR) ml/mi n/1.73 m2 CREATININE (test code = 1.2 mg/dL 0.6-1.3 N CREAT) CALCIUM (test code = 9.0 mg/dL 8.0-10.5 N CA) PROTHROMBIN [id number] 12:00:00 Test Item Value Reference Range Interpretation Comments PROTHROMBIN TIME 18.0 SECONDS 9.3-12.9 H PATIENT (test code = PTP) INTERNATIONAL NORMAL 1.6 0.8-1.2 H TARGET RATIO (test code = INR BY IN DICATION INR) Indication INR1. Prophyl axis of venous thrombos is 2.0 - 3. 0 (orthopedic deidra eduard), Prophylaxis of venous thrombos is (other than hig h-risk surgery), Scarlet tment of Deep Vein Thrombosis/Pulm onary Embolism, Preve ntion of systemic emb olism - Tissue heart va lves, Acute Myocardia l Infarction (to prevent systemic embo lism), Valvular heart disease, Atri al Fibrillation, Bileaflet mecha nical valve in aortic position.2. Mec hanical prosthetic valv es (high risk), 2.5 - 3.5 Presence of Lupus Anticoagu lant or Antiphospholi pid Antibodies, Pre vention of systemic e mbolism - Acute Myocard ial Infarction (t o prevent recurre nt infarct). CBC W/AUTO [id number] 11:47:00 Test Item Value Reference Range Interpretation Comments WHITE BLOOD CELL (test code = 8.31 x10 3/uL 4.5-11.0 N WBC) RED BLOOD CELL (test code = 5.61 x10 6/uL 4.00-5.60 H RBC) HEMOGLOBIN (test code = HGB) 16.8 g/dL 12.5-16.9 N HEMATOCRIT (test code = HCT) 51.0 % 37.5-50.7 H MEAN CELL VOLUME (test code = 90.9 fL 81.0-99.0 N MCV) MEAN CELL HGB (test code = MCH) 29.9 pg 27.0-33.0 N MEAN CELL HGB CONCETRATION 32.9 g/dL 33.0-37.0 L (test code = MCHC) RED CELL DISTRIBUTION WIDTH CV 13.7 % 11.5-14.5 N (test code = RDW) RED CELL DISTRIBUTION WIDTH SD 45.6 fL 37.0-54.0 N (test code = RDW-SD) PLATELET COUNT (test code = 227 x10 3/uL 150-400 N PLT) MEAN PLATELET VOLUME (test code 10.0 fL 7.0-9.0 H = MPV) NEUTROPHIL % (test code = NT%) 68.2 % 56.0-77.0 N IMMATURE GRANULOCYTE % (test 0.7 % 0.0-2.0 N code = IG%) LYMPHOCYTE % (test code = LY%) 20.7 % 14.0-32.0 N MONOCYTE % (test code = MO%) 9.0 % 4.8-9.0 N EOSINOPHIL % (test code = EO%) 1.0 % 0.3-3.7 N BASOPHIL % (test code = BA%) 0.4 % 0.0-2.0 N NUCLEATED RBC % (test code = 0.0 % 0-0 N NRBC%) NEUTROPHIL # (test code = NT#) 5.67 x10 3/uL 2.0-7.6 N IMMATURE GRANULOCYTE # (test 0.06 x10 3/uL 0.00-0.03 H code = IG#) LYMPHOCYTE # (test code = LY#) 1.72 x10 3/uL 1.0-3.8 N MONOCYTE # (test code = MO#) 0.75 x10 3/uL 0.1-0.8 N EOSINOPHIL # (test code = EO#) 0.08 x10 3/uL 0.0-0.2 N BASOPHIL # (test code = BA#) 0.03 x10 3/uL 0.0-0.2 N NUCLEATED RBC # (test code = 0.00 x10 3/uL 0.0-0.1 N NRBC#) MANUAL DIFF REQUIRED (test code NO = MDIFF) - XR CHEST 2 [id number] 10:57:00 FAX: Shayne Dillon MD [phone] [place]: St: PRE Name: ALEXANDER CONNOR [facility] : 1940 Age/S: 77/M [address] [place] [address] Unit#: [id number] Loc: [place] [address] Phys: Shayne Aburto MD Acct: [id number] Dis Date: Status: PRE SDC PHONE #: [phone] Exam Date: 08/17/2018 1055 FAX #: [phone] Reason: PREOP HEART CATH EXAMS: CPT CODE: [id number] XR CHEST 2 V [id number] CHEST RADIOGRAPHS - PA AND LATERAL: COMPARISON:July 19, 2006 CLINICAL HISTORY: PREOP HEART CATH Cardiomediastinal silhouette is borderline in size. There is mild tortuosity of the thoracic aorta. Lungs are clear. No vascular congestion or pneumothorax. Metallic plate noted in the lower cervical spine. IMPRESSION: No acute pulmonary abnormality. at 1057 Reported and signed by: Eros Alcantar M.D. CC: Shayne Aburto MD Technologist: RT Saima(R) Trnscrd Date/Time/By:08/17/2018 (5717) : By: Maria [email or web address] Orig Print D/T: S: 08/17/2018 (1100) PAGE 1 Signed Report
--- OUTSIDE RECORDS SUMMARY | 2020-01-15 18:48 | XMS REPORT | Summary of Care ---
:1940 Author Organization [facility] [place] [address] Care Team Providers Name Role Phone Singh Odom MD Primary Care Provider Reason for Visit Reason Comments Establish Care chronic pain - SCS consult Consult, Test & Treat (Routine) Status Reason Specialty Diagnoses / Referred By Referred To Procedures Contact Contact Authorized Neurosurgery Diagnoses Lumbar spine instability ok per anton (SCS, Pending: MRI L-spine) SCS Pt will bring 11/06 MRI L-spine Singh Odom Viswanathan, Procedures NEUROSURGERY NEW OFFICE VISIT MD Adithya MD [address] [place] [address] [address] [place] [address] 9th [address] Phone: [place] [phone] Phone: Fax: Encounter Details Date Type Department Care Team Description 11/13/2019 Office Visit [facility] Medicine Neurosurger mckinley Haji MD (chronic pain - SCS [address] consult ) 9th Floor, [address] 9th [address] [place], [place] [phone] Allergies No Known Allergiesdocumented as of this encounter (statuses as of 11/16/2019) Medications Medication Sig Dispensed Refills Start Date [...] ML BY MOUTH 0 10/11/2019 Active (MYCOSTATIN) 621221 FOUR TIMES A DAY UNIT/ML suspension pravastatin [...] as of this encounter (statuses as of 11/16/2019) Active Problems Not on filedocumented as of this encounter (statuses as of 11/16/2019) Social History Tobacco Use Types Packs/Day Years Used Date Never Smoker Smokeless Tobacco: Never Used Alcohol Use Drinks/Week oz/Week Comments Not Currently Sex Assigned at Date Recorded Not on file documented as of this encounter Last Filed Vital Signs Vital Sign Reading Time Taken Comments Blood Pressure 138/88 11/13/2019 8:34 AM CDT Pulse 81 11/13/2019 8:34 AM CDT Temperature 36.3 C (97.3 F) 11/13/2019 8:34 AM CDT Respiratory Rate 16 11/13/2019 8:34 AM CDT Oxygen Saturation 97% 11/13/2019 8:34 AM CDT Inhaled Oxygen Concentration - - Weight 97.5 kg (215 lb) 11/13/2019 8:34 AM CDT Height 172.7 cm (5' 8") 11/13/2019 8:34 AM CDT Body Mass Index 32.69 11/13/2019 8:34 AM CDT documented in this encounter Patient Instructions Patient InstructionsBrennen Loredo, INDUSTRIAL ORDER CLERK-BC - 11/13/2019 8:45 AM CDTYour Body mass index is 32.69 kg/m. Body mass index (BMI) can help [...] Where can you learn more? Go to [email or web address] [email or web address] [employer] Go to the Search tab with the magnifying glass on the right side of [employer] home page. Enter S176 in the search box to learn more about "Body Mass Index: Care Instructions." documented in this encounter Progress Notes Adithya Connors MD - 11/13/2019 8:45 AM CDT Referring Physician: Singh Odom MD [address] [place] [address] [place] [address] CHIEF COMPLAINT: Chronic pain - SCS consult HISTORY OF PRESENT ILLNESS: I had the pleasure of seeing Linden Putnam today at the [facility]. The patient is a 78 y.o. male who presents with chronic neck, and low back pain. The patient has failed multimodal conservative management by his pain management physician. Mr. Putnam underwent an attempted trial of spinal cord stimulation however, they were unable to pass the perc leads. He presents to our service to discuss surgery for paddle vs. perc SCS trial CURRENT MEDICATIONS: Current Outpatient Medications Medication Sig Dispense Refill amiodarone (PACERONE) 200 MG tablet TAKE 1 TABLET BY MOUTH TWICE A DAY clonidine (CATAPRES) 0.1 MG tablet TAKE 1 TABLET BY MOUTH TWICE A DAY Diclofenac Sodium 1 % GEL DIRECTED TWICE A DAY TRANSDERMAL 90 duloxetine (CYMBALTA) 60 MG capsule TAKE 1 CAPSULE BY MOUTH EVERY DAY finasteride (PROSCAR) 5 MG tablet TAKE 1 TABLET BY MOUTH EVERY DAY fluoxetine (PROZAC) 10 MG capsule Take 10 mg by mouth. hydrocodone-acetaminophen (NORCO) 7.5-325 MG per tablet TAKE 1/2 1 TABLET NEEDED EVERY 8 HOURS NEEDED FOR PAIN ORALLY 28 DAYS Lidocaine HCl (LIDOCAINE VISCOUS HCL) 2 % SOLN 15 ML NEEDED EVERY 3 HRS MOUTH/THROAT lisinopril (PRINIVIL, ZESTRIL) 20 MG tablet TAKE 1 TABLET BY MOUTH EVERY DAY loratadine (CLARITIN) 10 MG tablet TAKE 1 TABLET BY MOUTH EVERY DAY metoprolol (LOPRESSOR) 50 MG tablet TAKE 2 TABLETS BY MOUTH EVERY DAY IN THE MORNING AND TAKE ONE TABLET IN PM TWICE DAILY WITH FOOD MYRBETRIQ 50 MG TB24 TAKE 1 TABLET BY MOUTH EVERY DAY nystatin (MYCOSTATIN) 290981 UNIT/ML suspension TAKE 4 ML BY MOUTH FOUR TIMES A DAY pravastatin (PRAVACHOL) 40 MG tablet Take 40 mg by mouth. PROCTOSOL HC 2.5 % CREA APPLY A SMALL AMOUNT RECTALLY 3 4 TIMES DAILY terazosin (HYTRIN) 10 MG capsule Take 10 mg by mouth. tizanidine (ZANAFLEX) 4 MG tablet TAKE 1 TABLET BY MOUTH THREE TIMES A DAY NEEDED FOR 2 WEEKS trazodone (DESYREL) 100 MG tablet Take 100 mg by mouth. XARELTO 20 MG TABS TAKE 1 TABLET BY MOUTH EVERY DAY WITH FOOD No current facility-administered medications for this visit. ALLERGIES: No Known Allergies PAST MEDICAL HISTORY: Past Medical History: Diagnosis Date High blood pressure High cholesterol Prostate disorder PAST SURGICAL HISTORY: Past Surgical History: Procedure Laterality Date HX ANKLE SURGERY 2008 HX BACK SURGERY 2000 HX KNEE SURGERY 2009 HX KNEE SURGERY Left 2011 HX NECK SURGERY 2007 FAMILY HISTORY: Family History Problem Relation Name Age of Onset Other (blood disorder) Mother Brain Tumor Father SOCIAL HISTORY: Social History Socioeconomic History Marital status: Spouse name: Not on file Number of children: Not on file Years of education: Not on file Highest education level: Not on file Occupational History Not on file Social Needs Financial resource strain: Not on file Food insecurity Worry: Not on file Inability: Not on file Transportation needs Medical: Not on file Non-medical: Not on file Tobacco Use Smoking status: Never Smoker Smokeless tobacco: Never Used Substance and Sexual Activity Alcohol use: Not Currently Drug use: Never Sexual activity: Not Currently Lifestyle Physical activity Days per week: Not on file Minutes per session: Not on file Stress: Not on file Relationships Social connections Talks on phone: Not on file Gets together: Not on file Attends taoist service: Not on file Active member of club or organization: Not on file Attends meetings of clubs or organizations: Not on file Relationship status: Not on file Intimate partner violence Fear of current or ex partner: Not on file Emotionally abused: Not on file Physically abused: Not on file Forced sexual activity: Not on file Other Topics Concerns: Not on file Social History Narrative Left hand PHYSICAL EXAM: Body mass index is 32.69 kg/m. Vitals: 11/13/19 0834 BP: 138/88 BP Location: left arm Patient Position: Sitting Cuff Size: regular Pulse: 81 Resp: 16 Temp: 97.3 F (36.3 C) TempSrc: Temporal SpO2: 97% Weight: 215 lb (97.5 kg) Height: 5' 8" (1.727 m) DIAGNOSIS: Encounter Diagnosis and Orders ICD-10-CM 1. Chronic pain syndrome G89.4 2. Post-laminectomy syndrome ASSESSMENT/PLAN: Linden Putnam Is a 78 y.o. male who presents with chronic neck, and low back pain Will plan for trial of a spinal cord stimulation. The procedure was discussed in detail with the patient along with the technical aspects including paddle via laminectomy and percutaneous. We will attempt for percutaneous approach first, however givne previous failed attempt, we may need to convert to paddle approach. The risks of surgery were discussed to include infection, bleeding, CSF leak, migration of leads, spinal cord injury, continued pain, pain at battery site, and need for further surgery. All questions were answered and the patient wishes to proceed. More than 30 minutes were spent in the care of this patient of which greater than 50% of the time was spent in direct face to face consultation. Thank you for your referral. Adithya Connors Tow Motor Operator Department of Neurosurgery [facility] documented in this encounter Plan of Treatment Health Maintenance Due Date Last Done Comments TETANUS SHOT (ADULT) 11/22/1955 ZOSTER VACCINE (1 of 2) 1990 PNEUMOVAX >=65 (PPSV23) 2005 MEDICARE IPPE (WELCOME TO MEDICARE) 03/01/2019 FLU VACCINE > 6 MONTHS 09/30/2019 BMI FOLLOW UP PLAN 11/12/2020 11/13/2019 FALL SCREEN 11/12/2020 11/13/2019 documented as of this encounter Results Not on filedocumented in this encounter Visit Diagnoses Diagnosis Chronic pain syndrome - Primary documented in this encounter Insurance Payer Benefit Plan / Subscriber ID Effective Phone Address T ype Group Dates [employer] SNP [id number] 2019-Pres [address] Medicare HEALTHCARE HMO-[employer]IG[employer] ent [id number] [place] [address] documented as of this encounter
[2020-01-15] MEDS ORDERED: LORATADINE 10 MG TAB PO PRN (19:31)
[2020-01-15] MEDS ORDERED: APPL TOP SCH (20:00)
[2020-01-15] MEDS ORDERED: METOPROLOL TAR 50 MG TAB PO SCH ×2 (20:00→23:21)
[2020-01-15] MEDS: cloNIDine HCL 0.1 MG TAB PO SCH (20:00)
[2020-01-15] MEDS: TRAZODONE 50 MG TABLET PO SCH (20:45)
[2020-01-15] MEDS: AMIODARONE HCL 200 MG TAB PO SCH (20:46)
[2020-01-15] MEDS: ATORVASTATIN 40 MG TAB PO SCH (20:46)
[2020-01-15] MEDS: TERAZOSIN HCL 5 MG CAP PO SCH (20:50)
[2020-01-15 20:59] LABS: Urine Appearance CLEAR; Urine Bilirubin NEGATIVE (NEG); Urine Blood NEGATIVE (NEG); Urine Color YELLOW; Urine Glucose NEGATIVE (NEG); Urine Protein NEGATIVE (NEG); Urine Urobilinogen 0.2 mg/dL (0.2-1.0); Urine pH 5.5 (5.0-7.0)
[2020-01-15 21:25] LABS: Urine Bacteria <20 /HPF (NONE SEEN); Urine Mucus 1+ /HPF (NONE SEEN); Urine RBC <5 /HPF (NONE SEEN)
[2020-01-16] MEDS: HYDROCODONE/APAP 7.5/325 MG TAB PO PRN ×3 (00:14→12:46)
[2020-01-16] MEDS: METOPROLOL TAR 50 MG TAB PO SCH ×2 (05:10→17:27)
[2020-01-16 05:29] VITALS: BMI 32.6
[2020-01-16] MEDS ORDERED: METOPROLOL TAR 50 MG TAB PO SCH (06:00)
[2020-01-16 06:26] LABS: Absolute Lymphocytes (CBC) 1.5 K/uL (0.7-4.9); Basophils % 0.6 % (0-1.3); Hematocrit 37.2 % (39.6-49.0); Lymphocytes % 16.1 % (15.3-44.8); MPV 8.7 fL (7.6-11.3)
[2020-01-16] MEDS: PANTOPRAZOLE 40MG TABLET PO SCH ×2 (06:54→17:25)
[2020-01-16 07:03] LABS: Albumin 2.4 g/dL (3.4-5.0); Magnesium 2.1 mg/dL (1.8-2.4); Potassium 4.5 mmol/L (3.5-5.1); Prealbumin 22.8 mg/dL (20-40)
[2020-01-16] MEDS ORDERED: FLUCONAZOLE 100 MG TAB PO SCH (08:00)
[2020-01-16] MEDS ORDERED: [UNRECOGNIZED DRUG - OTHER] PO SCH (08:00)
[2020-01-16] MEDS: cloNIDine HCL 0.1 MG TAB PO SCH ×2 (08:00→21:16)
[2020-01-16] MEDS: DULOXETINE 30 MG CAP PO SCH (08:05)
[2020-01-16] MEDS: FINASTERIDE 5 MG TAB PO SCH (08:05)
[2020-01-16] MEDS: AMLODIPINE 10 MG TAB PO SCH (08:06)
[2020-01-16] MEDS: FLUOXETINE 10 MG CAP PO SCH (08:06)
[2020-01-16] MEDS: lisinopriL 20 MG TAB PO SCH (08:06)
[2020-01-16] MEDS: AMIODARONE HCL 200 MG TAB PO SCH ×2 (08:09→21:16)
[2020-01-16] MEDS: FLUCONAZOLE 100 MG TAB PO SCH (08:10)
[2020-01-16] MEDS ORDERED: PNEUMOCOCCAL VACCINE 0.5 ML IMVAC ONE (09:00)
[2020-01-16] MEDS ORDERED: TRAMADOL HCL 50 MG TAB PO PRN (13:42)
[2020-01-16] MEDS: ONDANSETRON 4 MG (ODT) TAB PO PRN (14:21)
[2020-01-16] MEDS: LIDOCAINE 4% PATCH TOP SCH (14:21)
[2020-01-16] MEDS ORDERED: RIVAROXABAN 10 MG TABLET PO SCH (17:00)
--- NOTE | 2020-01-16 17:10 | R.HP ---
HISTORY AND PHYSICAL FACILITY: [facility] ENCOUNTER DATE AND TIME: 01/16/2020 17:03 (FILM PRINTER) MR#: [id number] NAME ALEXANDER CONNOR ADDRESS: [address] [place] [address] CITY: [place] [address]IP [address] PHONE: DATE OF : 1940 AGE: 79 SSN# [id number] GENDER: Male DEXTERITY Right-handed MARITAL STATUS RACE Unknown race PRE-HOSPITAL LIVING SETTING 01 - Home (private home/apt. board/care, assisted living, mcc, transitional living) PRE-HOSPITAL LIVING WITH Family/Relatives ENCOUNTER PHYSICIAN: Dr. Marcell Mccarthy M.D. REFERRING DOCTOR: marilyn Connors DATE OF ADMISSION: 01/15/2020 16:40 (FILM PRINTER) REFERRING FACILITY [facility] PRIMARY CARE PHYSICIAN JENNYFER INTERIANO HOME TYPE AND DETAILS: Type of home: single family house # of levels in the residence: 1 # of steps within the residence: 0 # of steps to enter the residence: 0 ONSET DATE: 01/02/2020 PRIMARY DIAGNOSIS-RELATED SURGERIES: PLACEMENT OF SPINAL CORD STIMULATOR HISTORY OF PRESENT ILLNESS (HPI): Pt. is a 79 yo Right-handed male of unknown race. On 01/02/2020 he was admitted to [facility] with diagnosis WEAKNESS,SCS PLACEMENT. His impairment category is Debility 16 - Debility (16). Pre-morbidly, Pt. was independent/mod-I in Safety Awareness, Social Cognition, Transfers Control, and Communication; and he had good Endurance and Self-Care. Currently, he has deficits of Balance, Sphincter Control, Transfers Control, Social Cognition, and En durance. Pt. is now referred to [facility] for acute in-patient rehabilitation in order to maximize patient's functional independence in activities of daily living, strength, ROM, and mobi lity. Patient has realistic goal of being discharged at assistance level 7-Ind to reside at Home with Fami ly/Relatives. MEDICATION ALLERGIES: No Known Drug Allergies (NKDA) ENVIRONMENTAL ALLERGIES: - Substance Allergies None Known - Other Allergies None Known PAST MEDICAL HISTORY: ARRHYTHMIA DYSPHAGIA PNEUMONIA BMI 33.0-33.9, ADULT BPH CHRONIC PAIN CURRENT USE OF ANTICOAGULANT THERAPY DEPRESSION HIGH CHOLESTEROL HYPERTENSION CHRONIA PAIN MALAISE PAROXYSMAL ARTIL FIB PAST SURGICAL HISTORY: ANKLE SURGERY BACK SURGERY CERVICAL SPINE SURGERY INSERTION, NEUROSTIMULATOR ELECTRODE PERCUTANEOUS SPINAL CORD STIMULATOR TRIAL KNEE SURGERY PROCEDURE W/C-ARM REPLACEMENT, SPINAL CORD NEUROSTIMULATOR GENERATOR/MEETING MANAGER UPPER ENDOSCOPY, BIOPSY SOCIAL HISTORY: - Home Living Family/Relatives REVIEW OF SYSTEMS: - Gen No Chills Fatigue No Fever - Eyes No Double Vision No itchiness - ENMT Difficulty Swallowing - CVS No Chest Discomfort No Chest Pain Fatigue No Weight Gain - Resp No Cough No Shortness of Breath - GI Continent No Abdominal Pain Constipation No Diarrhea - Continent No Kidney Pain No Painful Urination No Urinary Urgency - MSK No Joint Pain Muscle Cramps Stiffness - Skin No Itching No Rash No Suspicious Lesions - Neuro Coordination Difficulty No Difficulty with Concentration No Memory Loss No Seizures Weakness - Psych No Anxiety No Depression No HIV Exposure No Persistent Infections No Seasonal Allergies - Endo No Cold/Heat Intolerance No Excessive Hunger No Excessive Thirst No Excessive Urination PHYSICAL EXAM - Gen Alert and awake Lying in bed No apparent distress Oriented to: person, time, and place - Skin No skin breakdown. Normacephalic - Eyes No abnormalities - ENMT No abnormalities - Neck No abnormalities No cervical adenopathy - CVS RRR - Chest No abnormalities - Resp Clear to auscultation - Abd Soft - GI + bowel sounds Deferred - No abnormalities - Ext No significant edema - MSK 4+/5 weakness in both lower extremities. - Neuro 4/5 strength bilaterally lower extremities. - Psych No abnormalities VITAL SIGNS Temperature: 97.2 F SBP/DBP: 121/62 Pulse: 61 Resp: 16 NURSING: - Shower allowing shower ACTIVITIES OOB only with supervision QI SCORES: - Self-Care A. Eating 04-Supervision or touching assistance B. Oral hygiene 03-Partial/moderate assistance C. Toileting hygiene 03-Partial/moderate assistance E. Shower/bathe self 03-Partial/moderate assistance F. Upper body dressing 03-Partial/moderate assistance G. Lower body dressing 03-Partial/moderate assistance H. Putting on/taking off footwear 88-Not attempted due to medical condition or safety concerns - Mobility A. Roll left and right 03-Partial/moderate assistance B. Sit to lying 03-Partial/moderate assistance C. Lying to sitting on side of bed 03-Partial/moderate assistance D. Sit to stand 03-Partial/moderate assistance E. Chair/dno-gv-tqkgs transfer 03-Partial/moderate assistance F. Toilet transfer 03-Partial/moderate assistance G. Car transfer 88-Not attempted due to medical condition or safety concerns I. Walk 10 feet 03-Partial/moderate assistance J. Walk 50 feet with two turns 88-Not attempted due to medical condition or safety concerns K. Walk 150 feet 88-Not attempted due to medical condition or safety concerns L. Walking 10 feet on uneven surfaces 88-Not attempted due to medical condition or safety concerns M. 1 step (curb) 88-Not attempted due to medical condition or safety concerns N. 4 steps 88-Not attempted due to medical condition or safety concerns O. 12 steps 88-Not attempted due to medical condition or safety concerns P. Picking up object 88-Not attempted due to medical condition or safety concerns R. Wheel 50 feet with two turns 88-Not attempted due to medical condition or safety concerns S. Wheel 150 feet 88-Not attempted due to medical condition or safety concerns - Bladder and Bowel Bladder continence Bowel continence - Endurance Fair - Balance Fair - Safety Awareness Fair CURRENT FUNC. DEFICITS: Self-Care, Mobility, Endurance, Balance, and Safety Awareness MEDICATIONS: - Other See attached MAR (Medication Administration Record) ASSESSMENT: Pt. is a 79 yo Right-handed male of unknown race.On 01/02/2020 he was admitted to [facility] with diagnosis WEAKNESS,SCS PLACEMENT.His impairment category is Debility 16 - Debility (1 6).Pre-morbidly, Pt. was independent/mod-I in Safety Awareness, Social Cognition, Transfers Control, and Communication; and he had good Endurance and Self-Care.Currently, he has deficits of Balance, Sph incter Control, Transfers Control, Social Cognition, and Endurance.Pt. is now referred to [facility] for acute in-patient rehabilitation in order to maximize patient's functional independence in activities of daily living, strength, ROM, and mobility.- Rehab Goal Patient has realistic goal of being discharged at assistance level 7-Ind to reside at Home with Fami ly/Relatives. REHAB PLAN: - Physical Therapy Gait dysfunction - to improve, our physical therapists will perform initial evaluation of pt's status upon admission and devise an individualized program for Gait Training, and Wheel Chair mobility Inability to transfer - to improve, our physical therapists will perform initial evaluation of pt's s tatus upon admission and devise an individualized program for Bed mobility Need for home safety evaluation - to improve, our physical therapists will perform initial evaluation of pt's status upon admission and devise an individualized program for Home Evaluation Need in caregiver upon discharge - to improve, our physical therapists will perform initial evaluatio n of pt's status upon admission and devise an individualized program for Caregiver Training New precaution - to improve, our physical therapists will perform initial evaluation of pt's status u anahi admission and devise an individualized program for Patient precaution education Edema - to improve, our physical therapists will perform initial evaluation of pt's status upon admi ssion and devise an individualized program for Elevation Training, and Lymphedema Therapy Poor balance - to improve, our physical therapists will perform initial evaluation of pt's status upo n admission and devise an individualized program for Balance Training Poor endurance - to improve, our physical therapists will perform initial evaluation of pt's status u anahi admission and devise an individualized program for Endurance Training Weakness - to improve, our physical therapists will perform initial evaluation of pt's status upon ad mission and devise an individualized program for Aquatic Therapy, Neuromuscular Reeducation, and Stre ngthening Achieving independence - to improve, our physical therapists will perform initial evaluation of pt's status upon admission and devise an individualized program for Community Reintegration Activities - Occupational Therapy Cognitive deficits - to improve, our occupation therapists will perform initial evaluation of pt's st atus upon admission and devise an individualized program for Cognition - orientation Need for nurse healthcare manager - to improve, our occupation therapists will perform initial evaluation of pt's s tatus upon admission and devise an individualized program for Caregiver Training Weakness - to improve, our occupation therapists will perform initial evaluation of pt's status upon admission and devise an individualized program for Aquatic Therapy, Balance, Endurance, UE ROM, and U E strengthening MEDICAL PLAN: - Diet Type Start Regular - Diet - Liquid Texture Start Regular - Tube Feed Start N/A - Other See attached MAR (Medication Administration Record) - Diet - Solid Texture Regular - Shower shower DISCHARGE PLAN: - Estimated Length of Stay (days) 13. - Consensus on plan Discharge plan has been discussed with primary caregiver. Patient/Family is in agreement with the megan n. Primary caregiver is in agreement with the plan. - Patient/Family Goals Return home independently. - Planned Living Setting Upon Discharge Home, to live with Family/Relatives. Transitional Living. SIGNATURE PANEL: (FILM PRINTER)
--- NOTE | 2020-01-16 17:12 | PAPE ---
POST ADMISSION PHYSICIAN EVALUATION PATIENT: [facility] MR# [id number] REFERRING DOCTOR marilyn Connors PRIMARY CARE PHYSICIAN JENNYFER INTERIANO EVALUATION DATE AND TIME 01/16/2020 17:10 (ADMINISTRATIVE SPECIALIST) NAME ALEXANDER CONNOR DATE OF 1940 AGE 79 PHONE SSN# [id number] GENDER male EVALUATING PHYSICIAN Dr. Marcell Mccarthy M.D. ADMISSION DIAGNOSIS: WEAKNESS,SCS PLACEMENT ONSET DATE 01/02/2020 POST-ADMISSION FUNCTIONAL/MEDICAL STATUS: - Bladder Same accident frequency: Ind - No accidents in the past 7 days - Bowel Same accident frequency: Ind - No accidents in the past 7 days - Walking Same score based on distance walked: 0(N/A) Same score based on distance walked: 2(5149ft) - Wheelchair Same score based on distance traveled: 0(N/A) STATUS CHANGE EVALUATION: No change in Functional or Medical Status is identified compared with Pre-Admission screening. PATIENT NEEDS CLOSE MEDICAL SUPERVISION BY A REHABILITATION PHYSICIAN FOR: Coordination of Treatment Team PATIENT REQUIRES 24X7 REHAB NURSING FOR MEDICAL AND FUNCTIONAL MGT. OF THE FOLLOWING DEFICITS: Disease Management Medication Management Patient/Family Education Providing Safe Environment PATIENT REQUIRES INTENSIVE, COORDINATED INTERDISCIPLINARY APPROACH TO REHAB: Arranging Home Equipment/Services Discharge Planning Family Intervention/Training Podiatric Medicine Doctor/Case Management LIST OF IDENTIFIED AND POTENTIAL PROBLEMS: Alteration in leisure activities Bladder, Incontinence Bowel, Incontinence Infection, Actual or Potential Mobility Impaired Pain, Alteration in Comfort Self Care Deficit Skin Integrity, Actual or Potential Urinary Tract Infection (UTI), Actual or Potential PATIENT COULD BE AT RISK FOR COMPLICATIONS FROM ADVERSE MEDICAL CONDITIONS DUE TO HIS/HER COMORBIDITI ES AND THE RIGORS OF THE INTENSIVE REHABILLITATION PROGRAM. METHODS OR INTERVENTIONS TO AVOID COMPLIC ATIONS INCLUDE: - Infection Clinical staff to assess and manage the signs and symptoms of infection including fever, redness, war mth, etc. - Urinary Tract Infection - Falls Patient will be evaluated for Fall Precautions and will be placed on Fall Precautions as indicated pe r protocol. - Skin Breakdown Nursing will assess skin daily using assessment tool and will place on Skin Breakdown Precautions as indicated per protocol. - Pain Clinical staff may employ non-medication methods such as massage, distraction, decrease stimulus, etc . as needed. Clinical staff will assess patient's pain level every shift per protocol to assess and e nsure pain management effectiveness. Medications will be given and the pain level re-assessed. PRELIMINARY PLAN OF CARE: - Physical Therapy Patient needs Physical Therapy for a daily minimum of 1.5 hours at least 5 out of 7 days, to improve: Mobility, Strengthening, Transfers, Stretching, ROM, Endurance, Ability to manage stairs, Gait, and Balance. - Speech Therapy Patient needs Speech Therapy for a daily minimum of 0.5 hours at least 5 out of 7 days, to improve: S wallowing, Cognition, Language Skills, and Compensatory Strategies. - Rehabilitation Nursing Patient requires 24x7 Rehabilitation Nursing for: Pain Issues, Identifying and preventing risk factor s, Monitoring and reporting current medical conditions, Assisting with ambulation and transfer, Frank ting with all ADL-s, Teaching patients about disease process and medications, Family teaching, Provid ing safe environment, Bowel and Bladder Issues, Skin Integrity, and Medication Management. Patient needs Podiatric Medicine Doctor and/or Case Management for: Discharge Planning, Arranging Home Equipmen t or Services, and Family Interventions. - Dietary and Nutrition Services Patient needs Dietary and Nutrition Services for: Adequate Nutrition, Nutritional Supplements, and Nu tritional Education. - Occupational Therapy Patient needs Occupational Therapy for a daily minimum of 1.5 hours at least 5 out of 7 days, to impr ove Activities of Daily Living, including: Eating, Grooming, Bathing, Dressing, Toileting, Toilet Tra nsfers, Community Reintegration, Higher functional activities, Adaptive Equipment, Splinting, Househo ld Tasks, and Other activities as determined. QI SCORES: - Self-Care A. Eating 04-Supervision or touching assistance B. Oral hygiene 03-Partial/moderate assistance C. Toileting hygiene 03-Partial/moderate assistance E. Shower/bathe self 03-Partial/moderate assistance F. Upper body dressing 03-Partial/moderate assistance G. Lower body dressing 03-Partial/moderate assistance H. Putting on/taking off footwear 88-Not attempted due to medical condition or safety concerns - Mobility A. Roll left and right 03-Partial/moderate assistance B. Sit to lying 03-Partial/moderate assistance C. Lying to sitting on side of bed 03-Partial/moderate assistance D. Sit to stand 03-Partial/moderate assistance E. Chair/uko-kb-xheum transfer 03-Partial/moderate assistance F. Toilet transfer 03-Partial/moderate assistance G. Car transfer 88-Not attempted due to medical condition or safety concerns I. Walk 10 feet 03-Partial/moderate assistance J. Walk 50 feet with two turns 88-Not attempted due to medical condition or safety concerns K. Walk 150 feet 88-Not attempted due to medical condition or safety concerns L. Walking 10 feet on uneven surfaces 88-Not attempted due to medical condition or safety concerns M. 1 step (curb) 88-Not attempted due to medical condition or safety concerns N. 4 steps 88-Not attempted due to medical condition or safety concerns O. 12 steps 88-Not attempted due to medical condition or safety concerns P. Picking up object 88-Not attempted due to medical condition or safety concerns R. Wheel 50 feet with two turns 88-Not attempted due to medical condition or safety concerns S. Wheel 150 feet 88-Not attempted due to medical condition or safety concerns - Bladder and Bowel Bladder continence Bowel continence - Endurance Fair - Balance Fair - Safety Awareness Fair POTENTIAL FUNCTIONAL GOALS FOR PATIENT TO ACHIEVE BY DISCHARGE: - Safety Precaution Patient will remain free from falls or injury at time of discharge. - Bed Mobility Patient will perform bed mobility at 4-Lizett level of assistance. - Transfers Patient will complete transfers from bed to chair at 4-Lizett level of assistance. - Mobility Patient will ambulate 150 ft with 4-Lizett level of assistance with RW. PATIENT REHAB POTENTIAL Jose CONNOR is able and expected to receive 3 hours of individualized therapy daily on at least 5 of e very 7 days Jose CONNOR's prognosis for significant practical improvement within a reasonable period of time appea rs Good Expected level of measurable improvement will be of a practical value to Jose CONNOR's functional [facility] or adaptations to impairments Has a viable Discharge Plan Medically appropriate; condition is sufficiently stable to participate in intensive rehab program DISCHARGE PLAN: - Estimated Length of Stay (days) 13. - Consensus on plan Discharge plan has been discussed with primary caregiver. Patient/Family is in agreement with the megan n. Primary caregiver is in agreement with the plan. - Patient/Family Goals Return home independently. - Planned Living Setting Upon Discharge Home, to live with Family/Relatives. Transitional Living. CONCLUSION ON REHABILITATION NECESSITY: I have evaluated patient's pre-admission functional status and, comparing it to the patient's post-ad mission functional status now, I conclude that the pre-admission assessment was accurate. Patient's c ondition on admission supports the medical necessity of admission to [facility]. It is safe to proceed with patient's therapy program. SIGNATURE PANEL: (ADMINISTRATIVE SPECIALIST)
[2020-01-16] MEDS: RIVAROXABAN 20 MG TABLET PO SCH (17:27)
[2020-01-16] MEDS ORDERED: DICLOFENAC 1% TOP SCH (20:00)
[2020-01-16] MEDS: GABAPENTIN 100 MG CAP PO SCH (21:15)
[2020-01-16] MEDS: TRAZODONE 50 MG TABLET PO SCH (21:15)
[2020-01-16] MEDS: TERAZOSIN HCL 5 MG CAP PO SCH (21:16)
[2020-01-16] MEDS: ATORVASTATIN 40 MG TAB PO SCH (21:16)
[2020-01-17] MEDS: METOPROLOL TAR 50 MG TAB PO SCH ×2 (05:29→16:57)
[2020-01-17] MEDS: PANTOPRAZOLE 40MG TABLET PO SCH ×2 (06:58→16:15)
[2020-01-17] MEDS: cloNIDine HCL 0.1 MG TAB PO SCH ×2 (08:00→19:27)
[2020-01-17] MEDS: lisinopriL 20 MG TAB PO SCH (08:00)
[2020-01-17] MEDS: AMLODIPINE 10 MG TAB PO SCH (08:00)
[2020-01-17] MEDS ORDERED: MIRABEGRON 50 MG PO SCH (08:00)
[2020-01-17] MEDS: ONDANSETRON 4 MG (ODT) TAB PO PRN ×2 (08:05→11:30)
[2020-01-17] MEDS: LIDOCAINE 4% PATCH TOP SCH (08:11)
[2020-01-17] MEDS: FLUCONAZOLE 100 MG TAB PO SCH (08:38)
[2020-01-17] MEDS: FINASTERIDE 5 MG TAB PO SCH (08:38)
[2020-01-17] MEDS: DULOXETINE 30 MG CAP PO SCH (08:38)
[2020-01-17] MEDS: FLUOXETINE 10 MG CAP PO SCH (08:38)
[2020-01-17] MEDS: GABAPENTIN 100 MG CAP PO SCH ×2 (08:38→19:27)
[2020-01-17] MEDS: AMIODARONE HCL 200 MG TAB PO SCH ×2 (09:36→19:26)
[2020-01-17] MEDS: TIZANIDINE 4 MG TABLET PO PRN (11:32)
[2020-01-17] MEDS ORDERED: NA CHLORIDE 0.9% 1,000 ML IV SCH ×2 (15:00)
[2020-01-17] MEDS: RIVAROXABAN 20 MG TABLET PO SCH (16:15)
[2020-01-17] MEDS: METOCLOPRAMIDE 5 MG TAB PO SCH (16:15)
--- NOTE | 2020-01-17 17:30 | R.PN ---
PROGRESS NOTES ENCOUNTER DATE AND TIME: 01/17/2020 17:24 (CONTRACT FORESTER) NAME ALEXANDER CONNOR DATE OF : 1940 DATE OF ADMISSION: 01/15/2020 16:40 (CONTRACT FORESTER) WEAKNESS,SCS PLACEMENTCHIEF COMPLAINT: Debility, diffuse weakness. SUBJECTIVE: Pt denied any depression. Pt denied any Shortness of Breath. WBC 9.3, Hgb 12.6, Plt 186, four h agent 0.97, prealbumin 22.8, UA is negative, COVID-19 negative. Ambulated 1000' in 250' stages with contact guard assistance using a rolling walker. VITAL SIGNS Temperature: 97.1 F SBP/DBP: 104/58 Pulse: 72 Resp: 16 MEDICATION ALLERGIES: No Known Drug Allergies (NKDA) ENVIRONMENTAL ALLERGIES: - Substance Allergies None Known - Other Allergies None Known NURSING: - Shower allowing shower ACTIVITIES OOB only with supervision THERAPIES: - Dietary and Nutrition Adequate Nutrition. Nutritional Education. Nutritional Supplements. PHYSICAL EXAM - Gen Alert and awake Lying in bed No apparent distress Oriented to: person, time, and place - Skin No skin breakdown. Normacephalic - Eyes No abnormalities - ENMT No abnormalities - Neck No abnormalities No cervical adenopathy - CVS RRR - Chest No abnormalities - Resp Clear to auscultation - Abd Soft - GI + bowel sounds Deferred - No abnormalities - Ext No significant edema - MSK 4+/5 weakness in both lower extremities. - Neuro 4/5 strength bilaterally lower extremities. - Psych No abnormalities ASSESSMENT: Pt. is a 79 yo Right-handed male of unknown race.On 01/02/2020 he was admitted to [facility] with diagnosis WEAKNESS,SCS PLACEMENT.His impairment category is Debility 16 - Debility (1 6).Pre-morbidly, Pt. was independent/mod-I in Safety Awareness, Social Cognition, Transfers Control, and Communication; and he had good Endurance and Self-Care.Currently, he has deficits of Balance, Sph incter Control, Transfers Control, Social Cognition, and Endurance.Pt. is now referred to [facility] for acute in-patient rehabilitation in order to maximize patient's functional independence in activities of daily living, strength, ROM, and mobility.- Rehab Goal Patient has realistic goal of being discharged at assistance level 7-Ind to reside at Home with Fami ly/Relatives. MDM/PLAN: - Physical Therapy Gait dysfunction - to improve, our physical therapists will perform initial evaluation of pt's statu s upon admission and devise an individualized program for Gait Training, and Wheel Chair mobility Inability to transfer - to improve, our physical therapists will perform initial evaluation of pt's status upon admission and devise an individualized program for Bed mobility Need for home safety evaluation - to improve, our physical therapists will perform initial evaluatio n of pt's status upon admission and devise an individualized program for Home Evaluation Need in caregiver upon discharge - to improve, our physical therapists will perform initial evaluati on of pt's status upon admission and devise an individualized program for Caregiver Training New precaution - to improve, our physical therapists will perform initial evaluation of pt's status upon admission and devise an individualized program for Patient precaution education Edema - to improve, our physical therapists will perform initial evaluation of pt's status upon admis kaushal and devise an individualized program for Elevation Training, and Lymphedema Therapy Poor balance - to improve, our physical therapists will perform initial evaluation of pt's status up on admission and devise an individualized program for Balance Training Poor endurance - to improve, our physical therapists will perform initial evaluation of pt's status upon admission and devise an individualized program for Endurance Training Weakness - to improve, our physical therapists will perform initial evaluation of pt's status upon a dmission and devise an individualized program for Aquatic Therapy, Neuromuscular Reeducation, and Str engthening Achieving independence - to improve, our physical therapists will perform initial evaluation of pt's status upon admission and devise an individualized program for Community Reintegration Activities - Occupational Therapy Cognitive deficits - to improve, our occupation therapists will perform initial evaluation of pt's s tatus upon admission and devise an individualized program for Cognition - orientation Need for respiratory care specialist - to improve, our occupation therapists will perform initial evaluation of pt's status upon admission and devise an individualized program for Caregiver Training Weakness - to improve, our occupation therapists will perform initial evaluation of pt's status upon admission and devise an individualized program for Aquatic Therapy, Balance, Endurance, UE ROM, and UE strengthening - Other See attached MAR (Medication Administration Record) - Diet Type Continue Regular - Diet - Liquid Texture Continue Regular - Tube Feed Continue N/A - Diet - Solid Texture Continue Regular - Shower allowing shower FUNCTIONAL STATUS: UPDATED AT WEEKLY TEAM CONFERENCE - Bladder Same accident frequency: 7-Ind - No accidents in the past 7 days - Bowel Same accident frequency: 7-Ind - No accidents in the past 7 days - Walking Same score based on distance walked: 0(N/A) Same score based on distance walked: 2(50-149ft) - Wheelchair Same score based on distance traveled: 0(N/A) FUNCTIONAL STATUS: - Self-Care A. Eating sup B. Grooming Danielle C. Bathing sup D. Dressing - Upper sup E. Dressing - Lower Lizett F. Toileting sup - Sphincter Control G. Bladder control Danielle H. Bowel control Danielle - Transfers Control I. Bed/Chair/Wheelchair Lizett J. Toilet Lizett K. Tub/Shower modA - Locomotion L. Walk/Wheelchair (B) Lizett M. Stairs ADNO - Communication N. Comprehension (B) Danielle O. Expression (B) Danielle - Social Cognition P. Social Interaction Danielle Q. Problem Solving Danielle R. Memory Danielle - Endurance Good - Balance Good - Safety Awareness Good QI SCORES: - Self-Care A. Eating 04-Supervision or touching assistance B. Oral hygiene 03-Partial/moderate assistance C. Toileting hygiene 03-Partial/moderate assistance E. Shower/bathe self 03-Partial/moderate assistance F. Upper body dressing 03-Partial/moderate assistance G. Lower body dressing 03-Partial/moderate assistance H. Putting on/taking off footwear 88-Not attempted due to medical condition or safety concerns - Mobility A. Roll left and right 03-Partial/moderate assistance B. Sit to lying 03-Partial/moderate assistance C. Lying to sitting on side of bed 03-Partial/moderate assistance D. Sit to stand 03-Partial/moderate assistance E. Chair/[id number]-[id number] transfer 03-Partial/moderate assistance F. Toilet transfer 03-Partial/moderate assistance G. Car transfer 88-Not attempted due to medical condition or safety concerns I. Walk 10 feet 03-Partial/moderate assistance J. Walk 50 feet with two turns 88-Not attempted due to medical condition or safety concerns K. Walk 150 feet 88-Not attempted due to medical condition or safety concerns L. Walking 10 feet on uneven surfaces 88-Not attempted due to medical condition or safety concerns M. 1 step (curb) 88-Not attempted due to medical condition or safety concerns N. 4 steps 88-Not attempted due to medical condition or safety concerns O. 12 steps 88-Not attempted due to medical condition or safety concerns P. Picking up object 88-Not attempted due to medical condition or safety concerns R. Wheel 50 feet with two turns 88-Not attempted due to medical condition or safety concerns S. Wheel 150 feet 88-Not attempted due to medical condition or safety concerns - Bladder and Bowel Bladder continence Bowel continence - Endurance Fair - Balance Fair - Safety Awareness Fair CURRENT [facility]. DEFICITS: Self-Care, Mobility, Endurance, Balance, and Safety Awareness SIGNATURE PANEL: (CONTRACT FORESTER)
[2020-01-17] MEDS: TRAZODONE 50 MG TABLET PO SCH (19:25)
[2020-01-17] MEDS: TERAZOSIN HCL 5 MG CAP PO SCH (19:26)
[2020-01-17] MEDS: HYDROCODONE/APAP 5/325 MG TAB PO PRN (19:26)
[2020-01-17] MEDS: ATORVASTATIN 40 MG TAB PO SCH (19:27)
[2020-01-18] MEDS: METOPROLOL TAR 50 MG TAB PO SCH ×2 (05:24→17:54)
[2020-01-18 06:44] LABS: Absolute Lymphocytes (CBC) 1.2 K/uL (0.7-4.9); Basophils % 0.5 % (0-1.3); Hematocrit 35.3 % (39.6-49.0); Lymphocytes % 15.9 % (15.3-44.8); MPV 8.5 fL (7.6-11.3); RBC Red Blood Cell Count 3.98 M/uL (4.33-5.43)
[2020-01-18 06:55] LABS: Albumin 2.3 g/dL (3.4-5.0); Magnesium 2.1 mg/dL (1.8-2.4); Potassium 4.8 mmol/L (3.5-5.1); Prealbumin 21.4 mg/dL (20-40)
[2020-01-18] MEDS: LIDOCAINE 4% PATCH TOP SCH (09:00)
[2020-01-18] MEDS: DULOXETINE 30 MG CAP PO SCH (09:23)
[2020-01-18] MEDS: METOCLOPRAMIDE 5 MG TAB PO SCH ×2 (09:24→12:21)
[2020-01-18] MEDS: AMLODIPINE 10 MG TAB PO SCH (09:24)
[2020-01-18] MEDS: PANTOPRAZOLE 40MG TABLET PO SCH ×2 (09:24→16:54)
[2020-01-18] MEDS: GABAPENTIN 100 MG CAP PO SCH ×2 (09:25→20:31)
[2020-01-18] MEDS: lisinopriL 20 MG TAB PO SCH (09:25)
[2020-01-18] MEDS: cloNIDine HCL 0.1 MG TAB PO SCH ×2 (09:25→20:00)
[2020-01-18] MEDS: FLUCONAZOLE 100 MG TAB PO SCH (09:26)
[2020-01-18] MEDS: FINASTERIDE 5 MG TAB PO SCH (09:26)
[2020-01-18] MEDS: AMIODARONE HCL 200 MG TAB PO SCH ×2 (09:27→20:30)
[2020-01-18] MEDS: FLUOXETINE 10 MG CAP PO SCH (09:27)
[2020-01-18] MEDS: RIVAROXABAN 20 MG TABLET PO SCH (16:54)
[2020-01-18] MEDS: ATORVASTATIN 40 MG TAB PO SCH (20:30)
[2020-01-18] MEDS: TERAZOSIN HCL 5 MG CAP PO SCH (20:30)
[2020-01-18] MEDS: TRAZODONE 50 MG TABLET PO SCH (20:30)
[2020-01-18] MEDS: HYDROCODONE/APAP 5/325 MG TAB PO PRN (20:54)
[2020-01-19] MEDS: METOPROLOL TAR 50 MG TAB PO SCH ×2 (05:44→17:23)
[2020-01-19] MEDS: PANTOPRAZOLE 40MG TABLET PO SCH ×2 (07:55→16:49)
[2020-01-19] MEDS: HYDROCODONE/APAP 5/325 MG TAB PO PRN (07:58)
[2020-01-19] MEDS ORDERED: METOCLOPRAMIDE 5 MG TAB PO SCH ×2 (08:00→20:00)
[2020-01-19] MEDS: cloNIDine HCL 0.1 MG TAB PO SCH ×2 (08:00→20:15)
[2020-01-19] MEDS: FLUCONAZOLE 100 MG TAB PO SCH (08:36)
[2020-01-19] MEDS: AMIODARONE HCL 200 MG TAB PO SCH ×2 (08:37→20:16)
[2020-01-19] MEDS: lisinopriL 20 MG TAB PO SCH (08:37)
[2020-01-19] MEDS: DULOXETINE 30 MG CAP PO SCH (08:37)
[2020-01-19] MEDS: FLUOXETINE 10 MG CAP PO SCH (08:37)
[2020-01-19] MEDS: FINASTERIDE 5 MG TAB PO SCH (08:37)
[2020-01-19] MEDS: AMLODIPINE 10 MG TAB PO SCH (08:37)
[2020-01-19] MEDS: GABAPENTIN 100 MG CAP PO SCH (08:38)
[2020-01-19] MEDS: LIDOCAINE 4% PATCH TOP SCH (09:50)
--- NOTE | 2020-01-19 10:07 | P.RH.PN ---
Estimated Length of Stay: 10 Expected Discharge Date: 01/25/20 Discharge Disposition Plan: Home Family Support: Yes [facility] Goal: Mobility, Transfers, Self Care Vital Signs: Last Vital Signs Temp 96.7 F L 01/19/20 07:55 Pulse 59 01/19/20 08:37 Resp 17 01/19/20 07:58 BP 134/67 01/19/20 08:37 Pulse Ox 97 01/19/20 07:58 Laboratory: Laboratory Last Values WBC 7.8 K/uL (4.3-10.9) D 01/18/20 06:19 RBC 3.98 M/uL (4.33-5.43) L 01/18/20 06:19 Hgb 11.9 g/dL (13.6-17.9) L 01/18/20 06:19 Hct 35.3 % (39.6-49.0) L 01/18/20 06:19 MCV 88.8 fL (80-100) 01/18/20 06:19 MCH 29.8 pg (27.0-35.0) 01/18/20 06:19 MCHC 33.6 g/dL (32.0-36.0) 01/18/20 06:19 RDW 14.1 % (12.1-15.2) 01/18/20 06:19 Plt Count 193 K/uL (152-406) 01/18/20 06:19 MPV 8.5 fL (7.6-11.3) 01/18/20 06:19 Neutrophils % 69.5 % (41.7-73.7) 01/18/20 06:19 Lymphocytes % 15.9 % (15.3-44.8) 01/18/20 06:19 Monocytes % 11.3 % (3.3-12.3) 01/18/20 06:19 Eosinophils % 2.8 % (0-4.4) 01/18/20 06:19 Basophils % 0.5 % (0-1.3) 01/18/20 06:19 Absolute Neutrophils 5.4 K/uL (1.8-8.0) 01/18/20 06:19 Absolute Lymphocytes 1.2 K/uL (0.7-4.9) 01/18/20 06:19 Absolute Monocytes 0.9 K/uL (0.1-1.3) 01/18/20 06:19 Absolute Eosinophils 0.2 K/uL (0-0.5) 01/18/20 06:19 Absolute Basophils 0.0 K/uL (0-0.5) 01/18/20 06:19 Sodium 141 mmol/L (136-145) 01/18/20 06:19 Potassium 4.8 mmol/L (3.5-5.1) 01/18/20 06:19 Chloride 107 mmol/L (98-107) 01/18/20 06:19 Carbon Dioxide 31 mmol/L (21-32) 01/18/20 06:19 BUN 17 mg/dL (7-18) 01/18/20 06:19 Creatinine 1.04 mg/dL (0.55-1.3) 01/18/20 06:19 Estimated GFR 69 mL/min (=/>90) L 01/18/20 06:19 Glucose 112 mg/dL (74-106) H 01/18/20 06:19 POC Glucose 128 mg/dL (65-120) H 01/19/20 07:30 Calcium 8.2 mg/dL (8.5-10.1) L 01/18/20 06:19 Magnesium 2.1 mg/dL (1.8-2.4) 01/18/20 06:19 Albumin 2.3 g/dL (3.4-5.0) L 01/18/20 06:19 Prealbumin 21.4 mg/dL (20-40) 01/18/20 06:19 Urine Color Yellow 01/15/20 19:05 Urine Appearance Clear 01/15/20 19:05 Urine pH 5.5 (5.0-7.0) 01/15/20 19:05 Ur Specific [place] 1.020 (1.005-1.030) 01/15/20 19:05 Glucose (UA)(Auto) Negative (NEG) 01/15/20 19:05 Urine Ketones Negative (NEG) 01/15/20 19:05 Urine Blood Negative (NEG) 01/15/20 19:05 Urine Nitrite Negative (NEG) 01/15/20 19:05 Urine Bilirubin Negative (NEG) 01/15/20 19:05 Urine Urobilinogen 0.2 mg/dL (0.2-1.0) 01/15/20 19:05 Ur Leukocyte Esterase Negative (NEG) 01/15/20 19:05 Urine RBC <5 /HPF (NONE SEEN) 01/15/20 19:05 Urine WBC <5 /HPF (<5) 01/15/20 19:05 Ur Squamous Epith Cells <5 /HPF (NONE SEEN) 01/15/20 19:05 Urine Bacteria <20 /HPF (NONE SEEN) 01/15/20 19:05 Urine Mucus 1+ /HPF (NONE SEEN) 01/15/20 19:05 Urine Culture Reflexed Not needed 01/15/20 19:05 Urine Total Protein Negative (NEG) 01/15/20 19:05 SARS-CoV-2 RNA (RT-PCR) Negative (NEGATIVE) 01/15/20 21:20 Weight: 208 lb 6.4 oz Wound Present: No Closed Surgical Incision Present: Yes Negative Pressure Wound Therapy Present: No Physician Update: Labs reviewed and are stable. Walking 250' with contact guard assistance. Comment: 12/26 SP Spinal cord stimulator placement Functional Improvement: pt has tolerated therapy fair. He has been limited by pain and nausea the past few days. pt typically performs better in the morning and is more fatigued in the afternoon. pt continues to require PT services to enhance functional abilities and safety. Summary: Patient's care plan and prison goals have been reviewed and revised as necessary. Please see the Rehabilitation Signature page for all necessary signatures.
--- NOTE | 2020-01-19 12:15 | R.PN ---
PROGRESS NOTES ENCOUNTER DATE AND TIME: 01/18/2020 20:11 (SUPERVISOR ANODIZING) NAME ALEXANDER CONNOR DATE OF : 1940 DATE OF ADMISSION: 01/15/2020 16:40 (SUPERVISOR ANODIZING) WEAKNESS,SCS PLACEMENTCHIEF COMPLAINT: Debility, diffuse weakness. SUBJECTIVE: Pt denied any depression. Pt denied any Shortness of Breath. WBC 7.8, Hgb 11.5, Plt 186, instructional technologist 0.97, prealbumin 21.4, glucose 112. UA is negative, COVID-19 negative . Ambulated 750' with contact guard assistance using a rolling walker. VITAL SIGNS Temperature: 97.1 F SBP/DBP: 135/68 Pulse: 63 Resp: 16 MEDICATION ALLERGIES: No Known Drug Allergies (NKDA) ENVIRONMENTAL ALLERGIES: - Substance Allergies None Known - Other Allergies None Known NURSING: - Shower allowing shower ACTIVITIES OOB only with supervision THERAPIES: - Dietary and Nutrition Adequate Nutrition. Nutritional Education. Nutritional Supplements. PHYSICAL EXAM - Gen Alert and awake Lying in bed No apparent distress Oriented to: person, time, and place - Skin No skin breakdown. Normacephalic - Eyes No abnormalities - ENMT No abnormalities - Neck No abnormalities No cervical adenopathy - CVS RRR - Chest No abnormalities - Resp Clear to auscultation - Abd Soft - GI + bowel sounds Deferred - No abnormalities - Ext No significant edema - MSK 4+/5 weakness in both lower extremities. - Neuro 4/5 strength bilaterally lower extremities. - Psych No abnormalities ASSESSMENT: Pt. is a 79 yo Right-handed male of unknown race.On 01/02/2020 he was admitted to [facility] with diagnosis WEAKNESS,SCS PLACEMENT.His impairment category is Debility 16 - Debility (1 6).Pre-morbidly, Pt. was independent/mod-I in Safety Awareness, Social Cognition, Transfers Control, and Communication; and he had good Endurance and Self-Care.Currently, he has deficits of Balance, Sph incter Control, Transfers Control, Social Cognition, and Endurance.Pt. is now referred to [facility] for acute in-patient rehabilitation in order to maximize patient's functional independence in activities of daily living, strength, ROM, and mobility.- Rehab Goal Patient has realistic goal of being discharged at assistance level 7-Ind to reside at Home with Fami ly/Relatives. MDM/PLAN: - Physical Therapy Gait dysfunction - to improve, our physical therapists will perform initial evaluation of pt's statu s upon admission and devise an individualized program for Gait Training, and Wheel Chair mobility Inability to transfer - to improve, our physical therapists will perform initial evaluation of pt's status upon admission and devise an individualized program for Bed mobility Need for home safety evaluation - to improve, our physical therapists will perform initial evaluatio n of pt's status upon admission and devise an individualized program for Home Evaluation Need in caregiver upon discharge - to improve, our physical therapists will perform initial evaluati on of pt's status upon admission and devise an individualized program for Caregiver Training New precaution - to improve, our physical therapists will perform initial evaluation of pt's status upon admission and devise an individualized program for Patient precaution education Edema - to improve, our physical therapists will perform initial evaluation of pt's status upon admi ssion and devise an individualized program for Elevation Training, and Lymphedema Therapy Poor balance - to improve, our physical therapists will perform initial evaluation of pt's status up on admission and devise an individualized program for Balance Training Poor endurance - to improve, our physical therapists will perform initial evaluation of pt's status upon admission and devise an individualized program for Endurance Training Weakness - to improve, our physical therapists will perform initial evaluation of pt's status upon a dmission and devise an individualized program for Aquatic Therapy, Neuromuscular Reeducation, and Str engthening Achieving independence - to improve, our physical therapists will perform initial evaluation of pt's status upon admission and devise an individualized program for Community Reintegration Activities - Occupational Therapy Cognitive deficits - to improve, our occupation therapists will perform initial evaluation of pt's s tatus upon admission and devise an individualized program for Cognition - orientation Need for primary care provider - to improve, our occupation therapists will perform initial evaluation of pt's status upon admission and devise an individualized program for Caregiver Training Weakness - to improve, our occupation therapists will perform initial evaluation of pt's status upon admission and devise an individualized program for Aquatic Therapy, Balance, Endurance, UE ROM, and UE strengthening - Other See attached MAR (Medication Administration Record) - Diet Type Continue Regular - Diet - Liquid Texture Continue Regular - Tube Feed Continue N/A - Diet - Solid Texture Continue Regular - Shower allowing shower FUNCTIONAL STATUS: UPDATED AT WEEKLY TEAM CONFERENCE - Bladder Same accident frequency: 7-Ind - No accidents in the past 7 days - Bowel Same accident frequency: 7-Ind - No accidents in the past 7 days - Walking Same score based on distance walked: 0(N/A) Same score based on distance walked: 2(50-149ft) - Wheelchair Same score based on distance traveled: 0(N/A) FUNCTIONAL STATUS: - Self-Care A. Eating sup B. Grooming Danielle C. Bathing sup D. Dressing - Upper sup E. Dressing - Lower Lizett F. Toileting sup - Sphincter Control G. Bladder control Danielle H. Bowel control Danielle - Transfers Control I. Bed/Chair/Wheelchair Lizett J. Toilet Lizett K. Tub/Shower modA - Locomotion L. Walk/Wheelchair (B) Lizett M. Stairs ADNO - Communication N. Comprehension (B) Danielle O. Expression (B) Danielle - Social Cognition P. Social Interaction Danielle Q. Problem Solving Danielle R. Memory Danielle - Endurance Good - Balance Good - Safety Awareness Good QI SCORES: - Self-Care A. Eating 04-Supervision or touching assistance B. Oral hygiene 03-Partial/moderate assistance C. Toileting hygiene 03-Partial/moderate assistance E. Shower/bathe self 03-Partial/moderate assistance F. Upper body dressing 03-Partial/moderate assistance G. Lower body dressing 03-Partial/moderate assistance H. Putting on/taking off footwear 88-Not attempted due to medical condition or safety concerns - Mobility A. Roll left and right 03-Partial/moderate assistance B. Sit to lying 03-Partial/moderate assistance C. Lying to sitting on side of bed 03-Partial/moderate assistance D. Sit to stand 03-Partial/moderate assistance E. Chair/[id number]-[id number] transfer 03-Partial/moderate assistance F. Toilet transfer 03-Partial/moderate assistance G. Car transfer 88-Not attempted due to medical condition or safety concerns I. Walk 10 feet 03-Partial/moderate assistance J. Walk 50 feet with two turns 88-Not attempted due to medical condition or safety concerns K. Walk 150 feet 88-Not attempted due to medical condition or safety concerns L. Walking 10 feet on uneven surfaces 88-Not attempted due to medical condition or safety concerns M. 1 step (curb) 88-Not attempted due to medical condition or safety concerns N. 4 steps 88-Not attempted due to medical condition or safety concerns O. 12 steps 88-Not attempted due to medical condition or safety concerns P. Picking up object 88-Not attempted due to medical condition or safety concerns R. Wheel 50 feet with two turns 88-Not attempted due to medical condition or safety concerns S. Wheel 150 feet 88-Not attempted due to medical condition or safety concerns - Bladder and Bowel Bladder continence Bowel continence - Endurance Fair - Balance Fair - Safety Awareness Fair CURRENT [facility]. DEFICITS: Self-Care, Mobility, Endurance, Balance, and Safety Awareness SIGNATURE PANEL: (SUPERVISOR ANODIZING)
[2020-01-19] MEDS: TIZANIDINE 4 MG TABLET PO PRN (12:53)
[2020-01-19] MEDS: MAGNESIUM CHLORIDE 64 MG TAB PO SCH (16:48)
[2020-01-19] MEDS: METOCLOPRAMIDE 5 MG TAB PO SCH (16:49)
[2020-01-19] MEDS: RIVAROXABAN 20 MG TABLET PO SCH (16:50)
[2020-01-19] MEDS: DOCUSATE NA 100 MG CAP PO PRN (17:16)
[2020-01-19] MEDS ORDERED: MAGNESIUM CHLORIDE 64 MG TAB PO SCH (20:00)
[2020-01-19] MEDS: TERAZOSIN HCL 5 MG CAP PO SCH (20:14)
[2020-01-19] MEDS: GABAPENTIN 300 MG CAP PO SCH (20:15)
[2020-01-19] MEDS: TRAZODONE 50 MG TABLET PO SCH (20:15)
[2020-01-19] MEDS: ATORVASTATIN 40 MG TAB PO SCH (20:15)
[2020-01-20] MEDS: METOPROLOL TAR 50 MG TAB PO SCH ×2 (05:09→17:07)
[2020-01-20] MEDS: AMLODIPINE 10 MG TAB PO SCH (08:00)
[2020-01-20] MEDS: lisinopriL 20 MG TAB PO SCH (08:00)
[2020-01-20] MEDS: METOCLOPRAMIDE 5 MG TAB PO SCH ×2 (09:01→17:06)
[2020-01-20] MEDS: MAGNESIUM CHLORIDE 64 MG TAB PO SCH ×2 (09:01→17:06)
[2020-01-20] MEDS: AMIODARONE HCL 200 MG TAB PO SCH ×2 (09:06→20:43)
[2020-01-20] MEDS: cloNIDine HCL 0.1 MG TAB PO SCH ×2 (09:06→20:44)
[2020-01-20] MEDS: HYDROCODONE/APAP 5/325 MG TAB PO PRN (09:06)
[2020-01-20] MEDS: FLUOXETINE 10 MG CAP PO SCH (09:07)
[2020-01-20] MEDS: FINASTERIDE 5 MG TAB PO SCH (09:07)
[2020-01-20] MEDS: DULOXETINE 30 MG CAP PO SCH (10:32)
[2020-01-20] MEDS: FLUCONAZOLE 100 MG TAB PO SCH (10:32)
[2020-01-20] MEDS: PANTOPRAZOLE 40MG TABLET PO SCH ×2 (10:32→17:06)
[2020-01-20] MEDS: GABAPENTIN 300 MG CAP PO SCH ×2 (10:32→20:44)
[2020-01-20] MEDS: LIDOCAINE 4% PATCH TOP SCH (10:33)
[2020-01-20] MEDS ORDERED: DOCUSATE NA/SENNA CONC 1 TAB PO PRN (15:25)
[2020-01-20] MEDS: DOCUSATE NA 100 MG CAP PO PRN (15:27)
[2020-01-20] MEDS: RIVAROXABAN 20 MG TABLET PO SCH (17:06)
[2020-01-20] MEDS: TRAZODONE 50 MG TABLET PO SCH (20:42)
[2020-01-20] MEDS: TERAZOSIN HCL 5 MG CAP PO SCH (20:43)
[2020-01-20] MEDS: ATORVASTATIN 40 MG TAB PO SCH (20:43)
[2020-01-21] MEDS: METOPROLOL TAR 50 MG TAB PO SCH ×2 (05:06→17:09)
[2020-01-21] MEDS: HYDROCODONE/APAP 5/325 MG TAB PO PRN (05:12)
[2020-01-21] MEDS: cloNIDine HCL 0.1 MG TAB PO SCH ×2 (08:00→21:06)
[2020-01-21] MEDS: LIDOCAINE 4% PATCH TOP SCH (08:18)
[2020-01-21] MEDS: FLUOXETINE 10 MG CAP PO SCH (08:19)
[2020-01-21] MEDS: DULOXETINE 30 MG CAP PO SCH (08:19)
[2020-01-21] MEDS: FINASTERIDE 5 MG TAB PO SCH (08:19)
[2020-01-21] MEDS: PANTOPRAZOLE 40MG TABLET PO SCH ×2 (08:19→16:39)
[2020-01-21] MEDS: AMIODARONE HCL 200 MG TAB PO SCH ×2 (08:19→21:07)
[2020-01-21] MEDS: MAGNESIUM CHLORIDE 64 MG TAB PO SCH ×2 (08:19→16:39)
[2020-01-21] MEDS: METOCLOPRAMIDE 5 MG TAB PO SCH ×2 (08:19→16:39)
[2020-01-21] MEDS: GABAPENTIN 300 MG CAP PO SCH ×2 (08:20→21:05)
[2020-01-21] MEDS: FLUCONAZOLE 100 MG TAB PO SCH (08:20)
[2020-01-21] MEDS ORDERED: BISACODYL 10 MG RECTAL SUPP PR PRN (12:05)
[2020-01-21] MEDS ORDERED: MAGNESIUM HYDROXIDE 8% 30 ML PO PRN (12:05)
[2020-01-21] MEDS: RIVAROXABAN 20 MG TABLET PO SCH (16:39)
[2020-01-21] MEDS: TRAZODONE 50 MG TABLET PO SCH (21:00)
[2020-01-21] MEDS: TERAZOSIN HCL 5 MG CAP PO SCH (21:05)
[2020-01-21] MEDS: DOCUSATE NA/SENNA CONC 1 TAB PO SCH (21:05)
[2020-01-21] MEDS: ATORVASTATIN 40 MG TAB PO SCH (21:05)
--- NOTE | 2020-01-22 02:30 | FAST ---
[employer] FORM SHIFT START DATE/TIME: 01/21/2020 19:00 (DEDICATED DRIVER) SHIFT END DATE/TIME: 01/22/2020 07:00 (DEDICATED DRIVER) NAME ALEXANDER CONNOR DATE OF : 1940 DATE OF ADMISSION: 01/15/2020 16:40 (DEDICATED DRIVER) PHONE: AGE: 79 SSN# [id number] GENDER: Male ENCOUNTER PHYSICIAN: Dr. Marcell Mccarthy M.D. ADMISSION DIAGNOSIS: - Debility 16 - Debility (16) WEAKNESS,SCS PLACEMENT. EATING: Not assessed/no information CODE: - ORAL HYGIENE: Not assessed/no information CODE: - TOILETING HYGIENE: TOILETING HYGIENE - STEP 1: Does the patient complete the activity by him/herself with no assistance (physical, verbal/nonverbal cueing, setup/clean-up)? No. TOILETING HYGIENE - STEP 2: Does the patient need only setup/clean-up assistance from one helper? No. TOILETING HYGIENE - STEP 3: Does the patient need only verbal/nonverbal cueing or touching/steadying/contact guard assistance fro m one helper? Yes. 1. [id number] ADMISSION PERFORMANCE: Supervision or touching assistance CODE: 04 BATHING: Not assessed/no information CODE: - DRESSING - UPPER BODY: Not assessed/no information CODE: - DRESSING - LOWER BODY: Not assessed/no information CODE: - PUTTING ON/TAKING OFF FOOTWEAR: Not assessed/no information CODE: - ROLL LEFT AND RIGHT: ROLL LEFT AND RIGHT - STEP 1: Does the patient complete the activity by him/herself with no assistance (physical, verbal/nonverbal cueing, setup/clean-up)? No. ROLL LEFT AND RIGHT - STEP 2: Does the patient need only setup/clean-up assistance from one helper? No. ROLL LEFT AND RIGHT - STEP 3: Does the patient need only verbal/nonverbal cueing or touching/steadying/contact guard assistance fro m one helper? Yes. 1. [id number] ADMISSION PERFORMANCE: Supervision or touching assistance CODE: 04 SIT TO LYING: SIT TO LYING - STEP 1: Does the patient complete the activity by him/herself with no assistance (physical, verbal/nonverbal cueing, setup/clean-up)? No. SIT TO LYING - STEP 2: Does the patient need only setup/clean-up assistance from one helper? No. SIT TO LYING - STEP 3: Does the patient need only verbal/nonverbal cueing or touching/steadying/contact guard assistance fro m one helper? Yes. 1. [id number] ADMISSION PERFORMANCE: Supervision or touching assistance CODE: 04 LYING TO SITTING: LYING TO SITTING ON SIDE OF BED - STEP 1: Does the patient complete the activity by him/herself with no assistance (physical, verbal/nonverbal cueing, setup/clean-up)? No. LYING TO SITTING ON SIDE OF BED - STEP 2: Does the patient need only setup/clean-up assistance from one helper? No. LYING TO SITTING ON SIDE OF BED - STEP 3: Does the patient need only verbal/nonverbal cueing or touching/steadying/contact guard assistance fro m one helper? Yes. 1. [id number] ADMISSION PERFORMANCE: Supervision or touching assistance CODE: 04 SIT TO STAND: SIT TO STAND - STEP 1: Does the patient complete the activity by him/herself with no assistance (physical, verbal/nonverbal cueing, setup/clean-up)? No. SIT TO STAND - STEP 2: Does the patient need only setup/clean-up assistance from one helper? No. SIT TO STAND - STEP 3: Does the patient need only verbal/nonverbal cueing or touching/steadying/contact guard assistance fro m one helper? Yes. 1. [id number] ADMISSION PERFORMANCE: Supervision or touching assistance CODE: 04 TRANSFERS: BED, CHAIR: CHAIR/[id number] TRANSFER - STEP 1: Does the patient complete the activity by him/herself with no assistance (physical, verbal/nonverbal cueing, setup/clean-up)? No. CHAIR/[id number] TRANSFER - STEP 2: Does the patient need only setup/clean-up assistance from one helper? No. CHAIR/[id number] TRANSFER - STEP 3: Does the patient need only verbal/nonverbal cueing or touching/steadying/contact guard assistance fro m one helper? Yes. 1. [id number] ADMISSION PERFORMANCE: Supervision or touching assistance CODE: 04 TRANSFER TOILET: TOILET TRANSFER - STEP 1: Does the patient complete the activity by him/herself with no assistance (physical, verbal/nonverbal cueing, setup/clean-up)? No. TOILET TRANSFER - STEP 2: Does the patient need only setup/clean-up assistance from one helper? No. TOILET TRANSFER - STEP 3: Does the patient need only verbal/nonverbal cueing or touching/steadying/contact guard assistance fro m one helper? Yes. 1. [id number] ADMISSION PERFORMANCE: Supervision or touching assistance CODE: 04 TRANSFERS: CAR: Not assessed/no information CODE: - WALK 10 FEET: Not assessed/no information CODE: - 1 STEP (CURB): Not assessed/no information CODE: - PICKING UP OBJECT: Not assessed/no information CODE: - DOES THE PATIENT USE A WHEELCHAIR/SCOOTER? CODE: EXPR WHEEL 50 FEET WITH TWO TURNS: Not assessed/no information CODE: - INDICATE THE TYPE OF WHEELCHAIR/SCOOTER USED: CODE: EXPR WHEEL 150 FEET: Not assessed/no information CODE: - INDICATE THE TYPE OF WHEELCHAIR/SCOOTER USED: CODE: EXPR BLADDER AND BOWEL: H350. BLADDER CONTINENCE (3-DAY ASSESSMENT PERIOD): Always continent (no documented incontinence) CODE: 0 H400. BOWEL CONTINENCE (3-DAY ASSESSMENT PERIOD): Always continent CODE: 0
[2020-01-22] MEDS: METOPROLOL TAR 50 MG TAB PO SCH ×2 (05:15→17:35)
[2020-01-22] MEDS: MAGNESIUM CHLORIDE 64 MG TAB PO SCH ×2 (06:41→16:54)
[2020-01-22] MEDS: METOCLOPRAMIDE 5 MG TAB PO SCH ×2 (06:41→16:54)
[2020-01-22] MEDS: PANTOPRAZOLE 40MG TABLET PO SCH ×2 (06:42→16:54)
[2020-01-22] MEDS: cloNIDine HCL 0.1 MG TAB PO SCH ×2 (08:00→20:00)
[2020-01-22] MEDS: TIZANIDINE 4 MG TABLET PO PRN ×3 (08:28→14:41)
[2020-01-22] MEDS: POLYETHYL GLY 3350 17 GM/DOSE PO SCH (08:28)
[2020-01-22] MEDS: FINASTERIDE 5 MG TAB PO SCH (08:29)
[2020-01-22] MEDS: GABAPENTIN 300 MG CAP PO SCH ×2 (08:29→20:21)
[2020-01-22] MEDS: DULOXETINE 30 MG CAP PO SCH (08:29)
[2020-01-22] MEDS: FLUCONAZOLE 100 MG TAB PO SCH (08:29)
[2020-01-22] MEDS: FLUOXETINE 10 MG CAP PO SCH (08:29)
[2020-01-22] MEDS: AMIODARONE HCL 200 MG TAB PO SCH ×2 (08:29→20:20)
[2020-01-22] MEDS: LIDOCAINE 4% PATCH TOP SCH (11:08)
[2020-01-22] MEDS: RIVAROXABAN 20 MG TABLET PO SCH (16:54)
[2020-01-22] MEDS: DOCUSATE NA/SENNA CONC 1 TAB PO SCH (20:21)
[2020-01-22] MEDS: TRAZODONE 50 MG TABLET PO SCH (20:21)
[2020-01-22] MEDS: TERAZOSIN HCL 5 MG CAP PO SCH (20:21)
[2020-01-22] MEDS: ATORVASTATIN 40 MG TAB PO SCH (20:21)
[2020-01-22] MEDS: NA CHLORIDE 0.9% 1,000 ML IV SCH (20:22)
[2020-01-22] MEDS: ONDANSETRON 4 MG/2 ML VIAL IV PRN (21:48)
[2020-01-23] MEDS: METOPROLOL TAR 50 MG TAB PO SCH ×2 (05:01→16:44)
[2020-01-23] MEDS: LIDOCAINE 4% PATCH TOP SCH (07:08)
[2020-01-23] MEDS: MAGNESIUM CHLORIDE 64 MG TAB PO SCH ×2 (07:09→16:43)
[2020-01-23] MEDS: METOCLOPRAMIDE 5 MG TAB PO SCH ×2 (07:09→16:44)
[2020-01-23] MEDS: PANTOPRAZOLE 40MG TABLET PO SCH ×2 (07:09→16:43)
[2020-01-23] MEDS: HYDROCODONE/APAP 5/325 MG TAB PO PRN ×3 (08:18→20:03)
[2020-01-23] MEDS: FLUCONAZOLE 100 MG TAB PO SCH (08:20)
[2020-01-23] MEDS: POLYETHYL GLY 3350 17 GM/DOSE PO SCH (08:20)
[2020-01-23] MEDS: FINASTERIDE 5 MG TAB PO SCH (08:20)
[2020-01-23] MEDS: FLUOXETINE 10 MG CAP PO SCH (08:21)
[2020-01-23] MEDS: DULOXETINE 30 MG CAP PO SCH (08:21)
[2020-01-23] MEDS: AMIODARONE HCL 200 MG TAB PO SCH ×2 (08:21→20:04)
[2020-01-23] MEDS: cloNIDine HCL 0.1 MG TAB PO SCH ×2 (08:21→20:02)
[2020-01-23] MEDS: GABAPENTIN 300 MG CAP PO SCH ×2 (08:22→20:03)
[2020-01-23] MEDS: NA CHLORIDE 0.9% 1,000 ML IV SCH (09:26)
[2020-01-23] MEDS: ONDANSETRON 4 MG/2 ML VIAL IV PRN ×2 (12:18→20:02)
[2020-01-23] MEDS: RIVAROXABAN 20 MG TABLET PO SCH (16:43)
[2020-01-23] MEDS: DOCUSATE NA/SENNA CONC 1 TAB PO SCH (20:02)
[2020-01-23] MEDS: ATORVASTATIN 40 MG TAB PO SCH (20:02)
[2020-01-23] MEDS: TERAZOSIN HCL 5 MG CAP PO SCH (20:03)
[2020-01-23] MEDS: TRAZODONE 50 MG TABLET PO SCH (20:03)
[2020-01-24] MEDS: METOPROLOL TAR 50 MG TAB PO SCH ×2 (05:05→16:45)
[2020-01-24] MEDS: HYDROCODONE/APAP 5/325 MG TAB PO PRN (06:42)
[2020-01-24] MEDS: cloNIDine HCL 0.1 MG TAB PO SCH (08:00)
[2020-01-24] MEDS: POLYETHYL GLY 3350 17 GM/DOSE PO SCH (08:00)
[2020-01-24] MEDS: PANTOPRAZOLE 40MG TABLET PO SCH ×2 (08:20→16:50)
[2020-01-24] MEDS: MAGNESIUM CHLORIDE 64 MG TAB PO SCH ×2 (09:24→16:45)
[2020-01-24] MEDS: METOCLOPRAMIDE 5 MG TAB PO SCH ×2 (09:24→16:45)
[2020-01-24] MEDS: FINASTERIDE 5 MG TAB PO SCH (09:24)
[2020-01-24] MEDS: GABAPENTIN 300 MG CAP PO SCH ×2 (09:25→20:01)
[2020-01-24] MEDS: DULOXETINE 30 MG CAP PO SCH (09:25)
[2020-01-24] MEDS: AMIODARONE HCL 200 MG TAB PO SCH ×2 (09:25→20:01)
[2020-01-24] MEDS: FLUOXETINE 10 MG CAP PO SCH (09:25)
[2020-01-24] MEDS: ONDANSETRON 4 MG/2 ML VIAL IV PRN ×2 (09:40→23:57)
[2020-01-24] MEDS: LIDOCAINE 4% PATCH TOP SCH (12:00)
--- NOTE | 2020-01-24 16:03 | R.PN ---
PROGRESS NOTES ENCOUNTER DATE AND TIME: 01/24/2020 15:59 (UNIVERSITY ADMINISTRATIVE ASSISTANT) NAME ALEXANDER CONNOR DATE OF : 1940 DATE OF ADMISSION: 01/15/2020 16:40 (UNIVERSITY ADMINISTRATIVE ASSISTANT) WEAKNESS,SCS PLACEMENTCHIEF COMPLAINT: Debility, diffuse weakness. SUBJECTIVE: Pt denied any depression. Pt denied any Shortness of Breath. WBC 7.8, Hgb 11.9, Plt 186, vertical lathe operator 0.97, prealbumin 21.4, glucose 128 to 152. UA is negative, COVID-19 n egative. Ambulated 1500' with standby assistance using a rolling walker. VITAL SIGNS Temperature: 97.3 F SBP/DBP: 158 to 85/56 to 73 Pulse: 61 Resp: 16 MEDICATION ALLERGIES: No Known Drug Allergies (NKDA) ENVIRONMENTAL ALLERGIES: - Substance Allergies None Known - Other Allergies None Known NURSING: - Shower allowing shower ACTIVITIES OOB only with supervision THERAPIES: - Dietary and Nutrition Adequate Nutrition. Nutritional Education. Nutritional Supplements. PHYSICAL EXAM - Gen Alert and awake Lying in bed No apparent distress Oriented to: person, time, and place - Skin No skin breakdown. Normacephalic - Eyes No abnormalities - ENMT No abnormalities - Neck No abnormalities No cervical adenopathy - CVS RRR - Chest No abnormalities - Resp Clear to auscultation - Abd Soft - GI + bowel sounds Deferred - No abnormalities - Ext No significant edema - MSK 4+/5 weakness in both lower extremities. - Neuro 4/5 strength bilaterally lower extremities. - Psych No abnormalities ASSESSMENT: Pt. is a 79 yo Right-handed male of unknown race.On 01/02/[address] [facility] with diagnosis WEAKNESS,SCS PLACEMENT.His impairment category is Debility 16 - Debility (1 6).Pre-morbidly, Pt. was independent/mod-I in Safety Awareness, Social Cognition, Transfers Control, and Communication; and he had good Endurance and Self-Care.Currently, he has deficits of Balance, Sph incter Control, Transfers Control, Social Cognition, and Endurance.Pt. is now referred to [facility] for acute in-patient rehabilitation in order to maximize patient's functional independence in activities of daily living, strength, ROM, and mobility.- Rehab Goal Patient has realistic goal of being discharged at assistance level 7-Ind to reside at Home with Fami ly/Relatives. MDM/PLAN: - Physical Therapy Gait dysfunction - to improve, our physical therapists will perform initial evaluation of pt's statu s upon admission and devise an individualized program for Gait Training, and Wheel Chair mobility Inability to transfer - to improve, our physical therapists will perform initial evaluation of pt's status upon admission and devise an individualized program for Bed mobility Need for home safety evaluation - to improve, our physical therapists will perform initial evaluatio n of pt's status upon admission and devise an individualized program for Home Evaluation Need in caregiver upon discharge - to improve, our physical therapists will perform initial evaluati on of pt's status upon admission and devise an individualized program for Caregiver Training New precaution - to improve, our physical therapists will perform initial evaluation of pt's status upon admission and devise an individualized program for Patient precaution education Edema - to improve, our physical therapists will perform initial evaluation of pt's status upon admi ssion and devise an individualized program for Elevation Training, and Lymphedema Therapy Poor balance - to improve, our physical therapists will perform initial evaluation of pt's status up on admission and devise an individualized program for Balance Training Poor endurance - to improve, our physical therapists will perform initial evaluation of pt's status upon admission and devise an individualized program for Endurance Training Weakness - to improve, our physical therapists will perform initial evaluation of pt's status upon a dmission and devise an individualized program for Aquatic Therapy, Neuromuscular Reeducation, and Str engthening Achieving independence - to improve, our physical therapists will perform initial evaluation of pt's status upon admission and devise an individualized program for Community Reintegration Activities - Occupational Therapy Cognitive deficits - to improve, our occupation therapists will perform initial evaluation of pt's s tatus upon admission and devise an individualized program for Cognition - orientation Need for intensive care medicine specialist - to improve, our occupation therapists will perform initial evaluation of pt's status upon admission and devise an individualized program for Caregiver Training Weakness - to improve, our occupation therapists will perform initial evaluation of pt's status upon admission and devise an individualized program for Aquatic Therapy, Balance, Endurance, UE ROM, and UE strengthening - Other See attached MAR (Medication Administration Record) - Diet Type Continue Regular - Diet - Liquid Texture Continue Regular - Tube Feed Continue N/A - Diet - Solid Texture Continue Regular - Shower allowing shower FUNCTIONAL STATUS: UPDATED AT WEEKLY TEAM CONFERENCE - Bladder Same accident frequency: 7-Ind - No accidents in the past 7 days - Bowel Same accident frequency: 7-Ind - No accidents in the past 7 days - Walking Same score based on distance walked: 0(N/A) Same score based on distance walked: 2(50-149ft) - Wheelchair Same score based on distance traveled: 0(N/A) FUNCTIONAL STATUS: - Self-Care A. Eating sup B. Grooming Danielle C. Bathing sup D. Dressing - Upper sup E. Dressing - Lower Lizett F. Toileting sup - Sphincter Control G. Bladder control Danielle H. Bowel control Danielle - Transfers Control I. Bed/Chair/Wheelchair Lizett J. Toilet Lizett K. Tub/Shower modA - Locomotion L. Walk/Wheelchair (B) Lizett M. Stairs ADNO - Communication N. Comprehension (B) Danielle O. Expression (B) Danielle - Social Cognition P. Social Interaction Danielle Q. Problem Solving Danielle R. Memory Danielle - Endurance Good - Balance Good - Safety Awareness Good QI SCORES: - Self-Care A. Eating 04-Supervision or touching assistance B. Oral hygiene 03-Partial/moderate assistance C. Toileting hygiene 03-Partial/moderate assistance E. Shower/bathe self 03-Partial/moderate assistance F. Upper body dressing 03-Partial/moderate assistance G. Lower body dressing 03-Partial/moderate assistance H. Putting on/taking off footwear 88-Not attempted due to medical condition or safety concerns - Mobility A. Roll left and right 03-Partial/moderate assistance B. Sit to lying 03-Partial/moderate assistance C. Lying to sitting on side of bed 03-Partial/moderate assistance D. Sit to stand 03-Partial/moderate assistance E. Chair/[id number] transfer 03-Partial/moderate assistance F. Toilet transfer 03-Partial/moderate assistance G. Car transfer 88-Not attempted due to medical condition or safety concerns I. Walk 10 feet 03-Partial/moderate assistance J. Walk 50 feet with two turns 88-Not attempted due to medical condition or safety concerns K. Walk 150 feet 88-Not attempted due to medical condition or safety concerns L. Walking 10 feet on uneven surfaces 88-Not attempted due to medical condition or safety concerns M. 1 step (curb) 88-Not attempted due to medical condition or safety concerns N. 4 steps 88-Not attempted due to medical condition or safety concerns O. 12 steps 88-Not attempted due to medical condition or safety concerns P. Picking up object 88-Not attempted due to medical condition or safety concerns R. Wheel 50 feet with two turns 88-Not attempted due to medical condition or safety concerns S. Wheel 150 feet 88-Not attempted due to medical condition or safety concerns - Bladder and Bowel Bladder continence Bowel continence - Endurance Fair - Balance Fair - Safety Awareness Fair CURRENT [facility]. DEFICITS: Self-Care, Mobility, Endurance, Balance, and Safety Awareness SIGNATURE PANEL: (UNIVERSITY ADMINISTRATIVE ASSISTANT)
[2020-01-24] MEDS: RIVAROXABAN 20 MG TABLET PO SCH (16:45)
[2020-01-24] MEDS: TRAZODONE 50 MG TABLET PO SCH (20:01)
[2020-01-24] MEDS: TERAZOSIN HCL 5 MG CAP PO SCH (20:01)
[2020-01-24] MEDS: ATORVASTATIN 40 MG TAB PO SCH (20:01)
[2020-01-24] MEDS: DOCUSATE NA/SENNA CONC 1 TAB PO SCH (20:01)
[2020-01-25] MEDS: METOPROLOL TAR 50 MG TAB PO SCH ×2 (05:07→17:12)
[2020-01-25 06:19] LABS: Absolute Lymphocytes (CBC) 1.1 K/uL (0.7-4.9); Basophils % 0.2 % (0-1.3); Hematocrit 36.5 % (39.6-49.0); Lymphocytes % 16.9 % (15.3-44.8); MPV 8.1 fL (7.6-11.3)
[2020-01-25 06:43] LABS: Albumin 2.8 g/dL (3.4-5.0); Potassium 4.4 mmol/L (3.5-5.1); Prealbumin 16.9 mg/dL (20-40)
[2020-01-25] MEDS: GABAPENTIN 300 MG CAP PO SCH ×2 (08:55→20:41)
[2020-01-25] MEDS: DULOXETINE 30 MG CAP PO SCH (08:56)
[2020-01-25] MEDS: AMIODARONE HCL 200 MG TAB PO SCH ×2 (08:56→20:41)
[2020-01-25] MEDS: FINASTERIDE 5 MG TAB PO SCH (08:56)
[2020-01-25] MEDS: ONDANSETRON 4 MG (ODT) TAB PO PRN ×2 (08:56→12:54)
[2020-01-25] MEDS: LIDOCAINE 4% PATCH TOP SCH (08:57)
[2020-01-25] MEDS: FLUOXETINE 10 MG CAP PO SCH (08:57)
[2020-01-25] MEDS: METOCLOPRAMIDE 5 MG TAB PO SCH ×2 (09:01→17:10)
[2020-01-25] MEDS: PANTOPRAZOLE 40MG TABLET PO SCH ×2 (09:01→17:11)
[2020-01-25] MEDS: MAGNESIUM CHLORIDE 64 MG TAB PO SCH ×2 (09:04→17:11)
[2020-01-25] MEDS: POLYETHYL GLY 3350 17 GM/DOSE PO SCH (12:54)
[2020-01-25] MEDS: RIVAROXABAN 20 MG TABLET PO SCH (17:11)
[2020-01-25] MEDS: DOCUSATE NA/SENNA CONC 1 TAB PO SCH (20:40)
[2020-01-25] MEDS: TERAZOSIN HCL 5 MG CAP PO SCH (20:40)
[2020-01-25] MEDS: ATORVASTATIN 40 MG TAB PO SCH (20:41)
[2020-01-25] MEDS: TRAZODONE 50 MG TABLET PO SCH (20:41)
[2020-01-26] MEDS: METOPROLOL TAR 50 MG TAB PO SCH (05:22)
[2020-01-26] MEDS: PANTOPRAZOLE 40MG TABLET PO SCH ×2 (06:31→17:30)
[2020-01-26] MEDS: METOCLOPRAMIDE 5 MG TAB PO SCH ×2 (06:31→17:30)
[2020-01-26] MEDS: ONDANSETRON 4 MG (ODT) TAB PO PRN (06:32)
[2020-01-26] MEDS: MAGNESIUM CHLORIDE 64 MG TAB PO SCH ×2 (06:32→17:30)
[2020-01-26] MEDS: ONDANSETRON 4 MG/2 ML VIAL IV PRN (07:18)
[2020-01-26] MEDS: DULOXETINE 30 MG CAP PO SCH (09:19)
[2020-01-26] MEDS: POLYETHYL GLY 3350 17 GM/DOSE PO SCH (09:19)
[2020-01-26] MEDS: GABAPENTIN 300 MG CAP PO SCH ×2 (09:20→20:46)
[2020-01-26] MEDS: FINASTERIDE 5 MG TAB PO SCH (09:20)
[2020-01-26] MEDS: LIDOCAINE 4% PATCH TOP SCH (09:21)
[2020-01-26] MEDS: FLUOXETINE 10 MG CAP PO SCH (09:21)
[2020-01-26] MEDS: AMIODARONE HCL 200 MG TAB PO SCH ×2 (09:21→20:46)
--- NOTE | 2020-01-26 10:13 | P.RH.PN ---
Estimated Length of Stay: 15 Expected Discharge Date: 01/30/20 Discharge Disposition Plan: Home Family Support: Yes Snf Goal: Mobility, Transfers, Self Care Vital Signs: Last Vital Signs Temp 97.4 F 01/26/20 07:24 Pulse 64 01/26/20 07:24 Resp 18 01/26/20 07:24 BP 116/68 01/26/20 07:24 Pulse Ox 95 01/26/20 07:24 Laboratory: Laboratory Last Values WBC 6.3 K/uL (4.3-10.9) D 01/25/20 05:40 RBC 4.10 M/uL (4.33-5.43) L 01/25/20 05:40 Hgb 12.0 g/dL (13.6-17.9) L 01/25/20 05:40 Hct 36.5 % (39.6-49.0) L 01/25/20 05:40 MCV 89.0 fL (80-100) 01/25/20 05:40 MCH 29.4 pg (27.0-35.0) 01/25/20 05:40 MCHC 33.0 g/dL (32.0-36.0) 01/25/20 05:40 RDW 14.1 % (12.1-15.2) 01/25/20 05:40 Plt Count 185 K/uL (152-406) 01/25/20 05:40 MPV 8.1 fL (7.6-11.3) 01/25/20 05:40 Neutrophils % 70.6 % (41.7-73.7) 01/25/20 05:40 Lymphocytes % 16.9 % (15.3-44.8) 01/25/20 05:40 Monocytes % 8.6 % (3.3-12.3) 01/25/20 05:40 Eosinophils % 3.7 % (0-4.4) 01/25/20 05:40 Basophils % 0.2 % (0-1.3) 01/25/20 05:40 Absolute Neutrophils 4.5 K/uL (1.8-8.0) 01/25/20 05:40 Absolute Lymphocytes 1.1 K/uL (0.7-4.9) 01/25/20 05:40 Absolute Monocytes 0.5 K/uL (0.1-1.3) 01/25/20 05:40 Absolute Eosinophils 0.2 K/uL (0-0.5) 01/25/20 05:40 Absolute Basophils 0.0 K/uL (0-0.5) 01/25/20 05:40 Sodium 139 mmol/L (136-145) 01/25/20 05:40 Potassium 4.4 mmol/L (3.5-5.1) 01/25/20 05:40 Chloride 104 mmol/L (98-107) 01/25/20 05:40 Carbon Dioxide 33 mmol/L (21-32) H 01/25/20 05:40 BUN 11 mg/dL (7-18) 01/25/20 05:40 Creatinine 0.93 mg/dL (0.55-1.3) 01/25/20 05:40 Estimated GFR 78 mL/min (=/>90) L 01/25/20 05:40 Glucose 118 mg/dL (74-106) H 01/25/20 05:40 POC Glucose 152 mg/dL (65-120) H 01/19/20 12:16 Calcium 8.6 mg/dL (8.5-10.1) 01/25/20 05:40 Magnesium 2.0 mg/dL (1.8-2.4) 01/25/20 05:40 Albumin 2.8 g/dL (3.4-5.0) L 01/25/20 05:40 Prealbumin 16.9 mg/dL (20-40) L 01/25/20 05:40 Urine Color Yellow 01/15/20 19:05 Urine Appearance Clear 01/15/20 19:05 Urine pH 5.5 (5.0-7.0) 01/15/20 19:05 Ur Specific [place] 1.020 (1.005-1.030) 01/15/20 19:05 Glucose (UA)(Auto) Negative (NEG) 01/15/20 19:05 Urine Ketones Negative (NEG) 01/15/20 19:05 Urine Blood Negative (NEG) 01/15/20 19:05 Urine Nitrite Negative (NEG) 01/15/20 19:05 Urine Bilirubin Negative (NEG) 01/15/20 19:05 Urine Urobilinogen 0.2 mg/dL (0.2-1.0) 01/15/20 19:05 Ur Leukocyte Esterase Negative (NEG) 01/15/20 19:05 Urine RBC <5 /HPF (NONE SEEN) 01/15/20 19:05 Urine WBC <5 /HPF (<5) 01/15/20 19:05 Ur Squamous Epith Cells <5 /HPF (NONE SEEN) 01/15/20 19:05 Urine Bacteria <20 /HPF (NONE SEEN) 01/15/20 19:05 Urine Mucus 1+ /HPF (NONE SEEN) 01/15/20 19:05 Urine Culture Reflexed Not needed 01/15/20 19:05 Urine Total Protein Negative (NEG) 01/15/20 19:05 SARS-CoV-2 RNA (RT-PCR) Negative (NEGATIVE) 01/15/20 21:20 Weight: 200 lb 12.8 oz Wound Present: No Closed Surgical Incision Present: Yes Negative Pressure Wound Therapy Present: No Physician Update: Labs are reviewed. His has mild to moderate cognitive functioning at [facility]. He is still has episodes of vomiting despite scheduled reglan. He is making fair overall progress with therapy. Comment: 12/26 SP Spinal cord stimulator placement Functional Improvement: pt has tolerated therapy fair. He has been limited by pain and nausea the past few days. pt typically performs better in the morning and is more fatigued in the afternoon. pt continues to require PT services to enhance functional abilities and safety. Speech Therapy Update: Patient's overall cognitive-linguistic skills are mildly impaired. Patient exhibits occasional forgetfulness and word-finding difficulty. He benefits from occasional reminders and extra processing time. It is not anticipated that he will require ST services once discharged home. Summary: Patient's care plan and terminal gauger goals have been reviewed and revised as necessary. Please see the Rehabilitation Signature page for all necessary signatures.
[2020-01-26] MEDS: METOPROLOL TAR 25 MG TAB PO SCH (17:30)
[2020-01-26] MEDS: RIVAROXABAN 20 MG TABLET PO SCH (17:30)
--- NOTE | 2020-01-26 18:58 | RAD REPORT ---
EXAM DESCRIPTION: RAD - Abdomen 1 View (KUB) - 01/26/2020 6:48 pm CLINICAL HISTORY: Abdomen pain. FINDINGS: The bowel gas pattern is unremarkable. Moderate stool is present throughout colon. Neurostimulator device in place
[2020-01-26] MEDS: TRAZODONE 50 MG TABLET PO SCH (20:46)
[2020-01-26] MEDS: DOCUSATE NA/SENNA CONC 1 TAB PO SCH (20:46)
[2020-01-26] MEDS: TERAZOSIN HCL 5 MG CAP PO SCH (20:46)
[2020-01-26] MEDS: ATORVASTATIN 40 MG TAB PO SCH (20:47)
[2020-01-26] MEDS: HYDROCODONE/APAP 5/325 MG TAB PO PRN (20:52)
[2020-01-27] MEDS: METOPROLOL TAR 25 MG TAB PO SCH ×2 (05:12→16:35)
[2020-01-27] MEDS: MAGNESIUM CHLORIDE 64 MG TAB PO SCH ×2 (07:40→16:36)
[2020-01-27] MEDS: ONDANSETRON 4 MG (ODT) TAB PO SCH (07:40)
[2020-01-27] MEDS: LIDOCAINE 4% PATCH TOP SCH (07:40)
[2020-01-27] MEDS: PANTOPRAZOLE 40MG TABLET PO SCH ×2 (07:40→16:36)
[2020-01-27] MEDS: METOCLOPRAMIDE 5 MG TAB PO SCH ×2 (07:40→16:36)
[2020-01-27] MEDS: HYDROCODONE/APAP 5/325 MG TAB PO PRN ×2 (07:50→16:35)
[2020-01-27] MEDS: AMIODARONE HCL 200 MG TAB PO SCH ×2 (09:04→21:10)
[2020-01-27] MEDS: GABAPENTIN 300 MG CAP PO SCH ×2 (09:04→21:09)
[2020-01-27] MEDS: POLYETHYL GLY 3350 17 GM/DOSE PO SCH (09:04)
[2020-01-27] MEDS: FINASTERIDE 5 MG TAB PO SCH (09:05)
[2020-01-27] MEDS: DULOXETINE 30 MG CAP PO SCH (09:05)
[2020-01-27] MEDS: FLUOXETINE 10 MG CAP PO SCH (09:05)
[2020-01-27] MEDS: RIVAROXABAN 20 MG TABLET PO SCH (16:36)
[2020-01-27] MEDS: cloNIDine HCL 0.1 MG TAB PO PRN (18:15)
[2020-01-27] MEDS: DOCUSATE NA/SENNA CONC 1 TAB PO SCH (21:09)
[2020-01-27] MEDS: TRAZODONE 50 MG TABLET PO SCH (21:09)
[2020-01-27] MEDS: ATORVASTATIN 40 MG TAB PO SCH (21:09)
[2020-01-27] MEDS: TERAZOSIN HCL 5 MG CAP PO SCH (21:10)
--- NOTE | 2020-01-27 21:23 | R.PN ---
PROGRESS NOTES ENCOUNTER DATE AND TIME: 01/27/2020 21:18 (FIREARMS INSTRUCTOR) NAME ALEXANDER CONNOR DATE OF : 1940 DATE OF ADMISSION: 01/15/2020 16:40 (FIREARMS INSTRUCTOR) WEAKNESS,SCS PLACEMENTCHIEF COMPLAINT: Debility, diffuse weakness. SUBJECTIVE: Pt denied any depression. Pt denied any Shortness of Breath. 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 UA is negative, COVID-19 n egative. Ambulated 500' with standby assistance using a rolling walker. Up and down 5 steps x 2 with rest tarun k. KUB shows no unexpected findings. No obstruction, neurostimulator is in place. Denies vomiting with meals today. Reports ongoing chronic knee pain. VITAL SIGNS Temperature: 97.1 F SBP/DBP: 180/83 Pulse: 67 Resp: 16 MEDICATION ALLERGIES: No Known Drug Allergies (NKDA) ENVIRONMENTAL ALLERGIES: - Substance Allergies None Known - Other Allergies None Known NURSING: - Shower allowing shower ACTIVITIES OOB only with supervision THERAPIES: - Dietary and Nutrition Adequate Nutrition. Nutritional Education. Nutritional Supplements. PHYSICAL EXAM - Gen Alert and awake Lying in bed No apparent distress Oriented to: person, time, and place - Skin No skin breakdown. Normacephalic - Eyes No abnormalities - ENMT No abnormalities - Neck No abnormalities No cervical adenopathy - CVS RRR - Chest No abnormalities - Resp Clear to auscultation - Abd Soft - GI + bowel sounds Deferred - No abnormalities - Ext No significant edema - MSK 4+/5 weakness in both lower extremities. - Neuro 4/5 strength bilaterally lower extremities. - Psych No abnormalities ASSESSMENT: Pt. is a 79 yo Right-handed male of unknown race.On 01/02/2020 he was admitted to [facility] with diagnosis WEAKNESS,SCS PLACEMENT.His impairment category is Debility 16 - Debility (1 6).Pre-morbidly, Pt. was independent/mod-I in Safety Awareness, Social Cognition, Transfers Control, and Communication; and he had good Endurance and Self-Care.Currently, he has deficits of Balance, Sph incter Control, Transfers Control, Social Cognition, and Endurance.Pt. is now referred to [facility] for acute in-patient rehabilitation in order to maximize patient's functional independence in activities of daily living, strength, ROM, and mobility.- Rehab Goal Patient has realistic goal of being discharged at assistance level 7-Ind to reside at Home with Fami ly/Relatives. MDM/PLAN: - Physical Therapy Gait dysfunction - to improve, our physical therapists will perform initial evaluation of pt's statu s upon admission and devise an individualized program for Gait Training, and Wheel Chair mobility Inability to transfer - to improve, our physical therapists will perform initial evaluation of pt's status upon admission and devise an individualized program for Bed mobility Need for home safety evaluation - to improve, our physical therapists will perform initial evaluatio n of pt's status upon admission and devise an individualized program for Home Evaluation Need in caregiver upon discharge - to improve, our physical therapists will perform initial evaluati on of pt's status upon admission and devise an individualized program for Caregiver Training New precaution - to improve, our physical therapists will perform initial evaluation of pt's status upon admission and devise an individualized program for Patient precaution education Edema - to improve, our physical therapists will perform initial evaluation of pt's status upon admi ssion and devise an individualized program for Elevation Training, and Lymphedema Therapy Poor balance - to improve, our physical therapists will perform initial evaluation of pt's status up on admission and devise an individualized program for Balance Training Poor endurance - to improve, our physical therapists will perform initial evaluation of pt's status upon admission and devise an individualized program for Endurance Training Weakness - to improve, our physical therapists will perform initial evaluation of pt's status upon a dmission and devise an individualized program for Aquatic Therapy, Neuromuscular Reeducation, and Str engthening Achieving independence - to improve, our physical therapists will perform initial evaluation of pt's status upon admission and devise an individualized program for Community Reintegration Activities - Occupational Therapy Cognitive deficits - to improve, our occupation therapists will perform initial evaluation of pt's s tatus upon admission and devise an individualized program for Cognition - orientation Need for post acute care nurse - to improve, our occupation therapists will perform initial evaluation of pt's status upon admission and devise an individualized program for Caregiver Training Weakness - to improve, our occupation therapists will perform initial evaluation of pt's status upon admission and devise an individualized program for Aquatic Therapy, Balance, Endurance, UE ROM, and UE strengthening - Other See attached MAR (Medication Administration Record) - Diet Type Continue Regular - Diet - Liquid Texture Continue Regular - Tube Feed Continue N/A - Diet - Solid Texture Continue Regular - Shower allowing shower FUNCTIONAL STATUS: UPDATED AT WEEKLY TEAM CONFERENCE - Bladder Same accident frequency: 7-Ind - No accidents in the past 7 days - Bowel Same accident frequency: 7-Ind - No accidents in the past 7 days - Walking Same score based on distance walked: 0(N/A) Same score based on distance walked: 2(50-149ft) - Wheelchair Same score based on distance traveled: 0(N/A) FUNCTIONAL STATUS: - Self-Care A. Eating sup B. Grooming Danielle C. Bathing sup D. Dressing - Upper sup E. Dressing - Lower Lizett F. Toileting sup - Sphincter Control G. Bladder control Danielle H. Bowel control Danielle - Transfers Control I. Bed/Chair/Wheelchair Lizett J. Toilet Lizett K. Tub/Shower modA - Locomotion L. Walk/Wheelchair (B) Lizett M. Stairs ADNO - Communication N. Comprehension (B) Danielle O. Expression (B) Danielle - Social Cognition P. Social Interaction Danielle Q. Problem Solving Danielle R. Memory Danielle - Endurance Good - Balance Good - Safety Awareness Good QI SCORES: - Self-Care A. Eating 04-Supervision or touching assistance B. Oral hygiene 03-Partial/moderate assistance C. Toileting hygiene 03-Partial/moderate assistance E. Shower/bathe self 03-Partial/moderate assistance F. Upper body dressing 03-Partial/moderate assistance G. Lower body dressing 03-Partial/moderate assistance H. Putting on/taking off footwear 88-Not attempted due to medical condition or safety concerns - Mobility A. Roll left and right 03-Partial/moderate assistance B. Sit to lying 03-Partial/moderate assistance C. Lying to sitting on side of bed 03-Partial/moderate assistance D. Sit to stand 03-Partial/moderate assistance E. Chair/enk-sd-couby transfer 03-Partial/moderate assistance F. Toilet transfer 03-Partial/moderate assistance G. Car transfer 88-Not attempted due to medical condition or safety concerns I. Walk 10 feet 03-Partial/moderate assistance J. Walk 50 feet with two turns 88-Not attempted due to medical condition or safety concerns K. Walk 150 feet 88-Not attempted due to medical condition or safety concerns L. Walking 10 feet on uneven surfaces 88-Not attempted due to medical condition or safety concerns M. 1 step (curb) 88-Not attempted due to medical condition or safety concerns N. 4 steps 88-Not attempted due to medical condition or safety concerns O. 12 steps 88-Not attempted due to medical condition or safety concerns P. Picking up object 88-Not attempted due to medical condition or safety concerns R. Wheel 50 feet with two turns 88-Not attempted due to medical condition or safety concerns S. Wheel 150 feet 88-Not attempted due to medical condition or safety concerns - Bladder and Bowel Bladder continence Bowel continence - Endurance Fair - Balance Fair - Safety Awareness Fair [facility] DEFICITS: Self-Care, Mobility, Endurance, Balance, and Safety Awareness SIGNATURE PANEL: (FIREARMS INSTRUCTOR)
[2020-01-28] MEDS: METOPROLOL TAR 25 MG TAB PO SCH ×2 (05:03→17:08)
[2020-01-28] MEDS: ONDANSETRON 4 MG (ODT) TAB PO SCH (06:46)
[2020-01-28] MEDS: PANTOPRAZOLE 40MG TABLET PO SCH ×2 (06:46→16:15)
[2020-01-28] MEDS: MAGNESIUM CHLORIDE 64 MG TAB PO SCH ×2 (06:46→17:08)
[2020-01-28] MEDS: METOCLOPRAMIDE 5 MG TAB PO SCH ×2 (06:46→16:14)
[2020-01-28] MEDS: LIDOCAINE 4% PATCH TOP SCH ×2 (08:00→09:13)
[2020-01-28] MEDS: HYDROCODONE/APAP 5/325 MG TAB PO PRN (09:12)
[2020-01-28] MEDS: POLYETHYL GLY 3350 17 GM/DOSE PO SCH (09:13)
[2020-01-28] MEDS: FINASTERIDE 5 MG TAB PO SCH (09:14)
[2020-01-28] MEDS: DULOXETINE 30 MG CAP PO SCH (09:15)
[2020-01-28] MEDS: FLUOXETINE 10 MG CAP PO SCH (09:16)
[2020-01-28] MEDS: AMIODARONE HCL 200 MG TAB PO SCH ×2 (09:17→20:19)
[2020-01-28] MEDS: GABAPENTIN 300 MG CAP PO SCH ×2 (09:40→20:19)
[2020-01-28] MEDS: RIVAROXABAN 20 MG TABLET PO SCH (16:15)
[2020-01-28] MEDS: TRAZODONE 50 MG TABLET PO SCH (20:19)
[2020-01-28] MEDS: ATORVASTATIN 40 MG TAB PO SCH (20:19)
[2020-01-28] MEDS: DOCUSATE NA/SENNA CONC 1 TAB PO SCH (20:19)
[2020-01-28] MEDS: TERAZOSIN HCL 5 MG CAP PO SCH (20:19)
[2020-01-28] MEDS: CRANBERRY FRUIT EXTRACT 200 MG CAP PO SCH (20:19)
[2020-01-29] MEDS: METOPROLOL TAR 25 MG TAB PO SCH ×2 (05:17→17:21)
[2020-01-29] MEDS: PANTOPRAZOLE 40MG TABLET PO SCH ×2 (08:57→17:22)
[2020-01-29] MEDS: METOCLOPRAMIDE 5 MG TAB PO SCH ×2 (08:57→17:22)
[2020-01-29] MEDS: ONDANSETRON 4 MG (ODT) TAB PO SCH (08:58)
[2020-01-29] MEDS: MAGNESIUM CHLORIDE 64 MG TAB PO SCH ×2 (08:58→17:21)
[2020-01-29] MEDS: AMIODARONE HCL 200 MG TAB PO SCH ×2 (08:58→19:38)
[2020-01-29] MEDS: DULOXETINE 30 MG CAP PO SCH (08:58)
[2020-01-29] MEDS: GABAPENTIN 300 MG CAP PO SCH ×2 (08:58→19:38)
[2020-01-29] MEDS: FINASTERIDE 5 MG TAB PO SCH (08:58)
[2020-01-29] MEDS: FLUOXETINE 10 MG CAP PO SCH (08:58)
[2020-01-29] MEDS: CRANBERRY FRUIT EXTRACT 200 MG CAP PO SCH ×2 (08:58→19:38)
[2020-01-29] MEDS: LIDOCAINE 4% PATCH TOP SCH (08:59)
[2020-01-29] MEDS: POLYETHYL GLY 3350 17 GM/DOSE PO SCH (08:59)
[2020-01-29] MEDS: RIVAROXABAN 20 MG TABLET PO SCH (17:22)
[2020-01-29] MEDS: HYDROCODONE/APAP 5/325 MG TAB PO PRN (18:02)
--- NOTE | 2020-01-29 18:26 | R.PN ---
PROGRESS NOTES ENCOUNTER DATE AND TIME: 01/29/2020 18:24 (MILL HELPER) NAME ALEXANDER CONNOR DATE OF : 1940 DATE OF ADMISSION: 01/15/2020 16:40 (MILL HELPER) WEAKNESS,SCS PLACEMENTCHIEF COMPLAINT: Debility, diffuse weakness. SUBJECTIVE: Pt denied any depression. Pt denied any Shortness of Breath. 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 UA is negative, COVID-19 n egative. Ambulated 500' with minimum assistance using a rolling walker. Up and down 5 steps with minimum assi stance and rest break. KUB shows no unexpected findings. No obstruction, neurostimulator is in place. Denies vomiting with meals today. Reports ongoing chronic knee pain. VITAL SIGNS Temperature: 97.6 F SBP/DBP: 129/68 Pulse: 66 Resp: 15 MEDICATION ALLERGIES: No Known Drug Allergies (NKDA) ENVIRONMENTAL ALLERGIES: - Substance Allergies None Known - Other Allergies None Known NURSING: - Shower allowing shower ACTIVITIES OOB only with supervision THERAPIES: - Dietary and Nutrition Adequate Nutrition. Nutritional Education. Nutritional Supplements. PHYSICAL EXAM - Gen Alert and awake Lying in bed No apparent distress Oriented to: person, time, and place - Skin No skin breakdown. Normacephalic - Eyes No abnormalities - ENMT No abnormalities - Neck No abnormalities No cervical adenopathy - CVS RRR - Chest No abnormalities - Resp Clear to auscultation - Abd Soft - GI + bowel sounds Deferred - No abnormalities - Ext No significant edema - MSK 4+/5 weakness in both lower extremities. - Neuro 4/5 strength bilaterally lower extremities. - Psych No abnormalities ASSESSMENT: Pt. is a 79 yo Right-handed male of unknown race.On 01/02/2020 he was admitted to [facility] with diagnosis WEAKNESS,SCS PLACEMENT.His impairment category is Debility 16 - Debility (1 6).Pre-morbidly, Pt. was independent/mod-I in Safety Awareness, Social Cognition, Transfers Control, and Communication; and he had good Endurance and Self-Care.Currently, he has deficits of Balance, Sph incter Control, Transfers Control, Social Cognition, and Endurance.Pt. is now referred to [facility] for acute in-patient rehabilitation in order to maximize patient's functional independence in activities of daily living, strength, ROM, and mobility.- Rehab Goal Patient has realistic goal of being discharged at assistance level 7-Ind to reside at Home with Fami ly/Relatives. MDM/PLAN: - Physical Therapy Gait dysfunction - to improve, our physical therapists will perform initial evaluation of pt's statu s upon admission and devise an individualized program for Gait Training, and Wheel Chair mobility Inability to transfer - to improve, our physical therapists will perform initial evaluation of pt's status upon admission and devise an individualized program for Bed mobility Need for home safety evaluation - to improve, our physical therapists will perform initial evaluatio n of pt's status upon admission and devise an individualized program for Home Evaluation Need in caregiver upon discharge - to improve, our physical therapists will perform initial evaluati on of pt's status upon admission and devise an individualized program for Caregiver Training New precaution - to improve, our physical therapists will perform initial evaluation of pt's status upon admission and devise an individualized program for Patient precaution education Edema - to improve, our physical therapists will perform initial evaluation of pt's status upon admi ssion and devise an individualized program for Elevation Training, and Lymphedema Therapy Poor balance - to improve, our physical therapists will perform initial evaluation of pt's status up on admission and devise an individualized program for Balance Training Poor endurance - to improve, our physical therapists will perform initial evaluation of pt's status upon admission and devise an individualized program for Endurance Training Weakness - to improve, our physical therapists will perform initial evaluation of pt's status upon a dmission and devise an individualized program for Aquatic Therapy, Neuromuscular Reeducation, and Str engthening Achieving independence - to improve, our physical therapists will perform initial evaluation of pt's status upon admission and devise an individualized program for Community Reintegration Activities - Occupational Therapy Cognitive deficits - to improve, our occupation therapists will perform initial evaluation of pt's s tatus upon admission and devise an individualized program for Cognition - orientation Need for acute care clinical nurse specialist - to improve, our occupation therapists will perform initial evaluation of pt's status upon admission and devise an individualized program for Caregiver Training Weakness - to improve, our occupation therapists will perform initial evaluation of pt's status upon admission and devise an individualized program for Aquatic Therapy, Balance, Endurance, UE ROM, and UE strengthening - Other See attached MAR (Medication Administration Record) - Diet Type Continue Regular - Diet - Liquid Texture Continue Regular - Tube Feed Continue N/A - Diet - Solid Texture Continue Regular - Shower allowing shower FUNCTIONAL STATUS: UPDATED AT WEEKLY TEAM CONFERENCE - Bladder Same accident frequency: 7-Ind - No accidents in the past 7 days - Bowel Same accident frequency: 7-Ind - No accidents in the past 7 days - Walking Same score based on distance walked: 0(N/A) Same score based on distance walked: 2(50-149ft) - Wheelchair Same score based on distance traveled: 0(N/A) FUNCTIONAL STATUS: - Self-Care A. Eating sup B. Grooming Danielle C. Bathing sup D. Dressing - Upper sup E. Dressing - Lower Lizett F. Toileting sup - Sphincter Control G. Bladder control Danielle H. Bowel control Danielle - Transfers Control I. Bed/Chair/Wheelchair Lizett J. Toilet Lizett K. Tub/Shower modA - Locomotion L. Walk/Wheelchair (B) Lizett M. Stairs ADNO - Communication N. Comprehension (B) Danielle O. Expression (B) Danielle - Social Cognition P. Social Interaction Danielle Q. Problem Solving Danielle R. Memory Danielle - Endurance Good - Balance Good - Safety Awareness Good QI SCORES: - Self-Care A. Eating 04-Supervision or touching assistance B. Oral hygiene 03-Partial/moderate assistance C. Toileting hygiene 03-Partial/moderate assistance E. Shower/bathe self 03-Partial/moderate assistance F. Upper body dressing 03-Partial/moderate assistance G. Lower body dressing 03-Partial/moderate assistance H. Putting on/taking off footwear 88-Not attempted due to medical condition or safety concerns - Mobility A. Roll left and right 03-Partial/moderate assistance B. Sit to lying 03-Partial/moderate assistance C. Lying to sitting on side of bed 03-Partial/moderate assistance D. Sit to stand 03-Partial/moderate assistance E. Chair/cln-zf-yamqt transfer 03-Partial/moderate assistance F. Toilet transfer 03-Partial/moderate assistance G. Car transfer 88-Not attempted due to medical condition or safety concerns I. Walk 10 feet 03-Partial/moderate assistance J. Walk 50 feet with two turns 88-Not attempted due to medical condition or safety concerns K. Walk 150 feet 88-Not attempted due to medical condition or safety concerns L. Walking 10 feet on uneven surfaces 88-Not attempted due to medical condition or safety concerns M. 1 step (curb) 88-Not attempted due to medical condition or safety concerns N. 4 steps 88-Not attempted due to medical condition or safety concerns O. 12 steps 88-Not attempted due to medical condition or safety concerns P. Picking up object 88-Not attempted due to medical condition or safety concerns R. Wheel 50 feet with two turns 88-Not attempted due to medical condition or safety concerns S. Wheel 150 feet 88-Not attempted due to medical condition or safety concerns - Bladder and Bowel Bladder continence Bowel continence - Endurance Fair - Balance Fair - Safety Awareness Fair CURRENT [facility]. DEFICITS: Self-Care, Mobility, Endurance, Balance, and Safety Awareness SIGNATURE PANEL: (MILL HELPER)
[2020-01-29] MEDS: ATORVASTATIN 40 MG TAB PO SCH (20:11)
[2020-01-29] MEDS: TRAZODONE 50 MG TABLET PO SCH (20:11)
[2020-01-29] MEDS: TERAZOSIN HCL 5 MG CAP PO SCH (20:11)
[2020-01-29] MEDS: DOCUSATE NA/SENNA CONC 1 TAB PO SCH (20:12)
--- NOTE | 2020-01-30 02:46 | FAST ---
[employer] FORM SHIFT START DATE/TIME: 01/29/2020 19:00 (TOWBOAT ENGINEER) SHIFT END DATE/TIME: 01/30/2020 07:00 (TOWBOAT ENGINEER) NAME ALEXANDER CONNOR DATE OF : 1940 DATE OF ADMISSION: 01/15/2020 16:40 (TOWBOAT ENGINEER) PHONE: AGE: 79 SSN# [id number] GENDER: Male ENCOUNTER PHYSICIAN: Dr. Marcell Mccarthy M.D. ADMISSION DIAGNOSIS: - Debility 16 - Debility (16) WEAKNESS,SCS PLACEMENT. EATING: Not assessed/no information CODE: - ORAL HYGIENE: Not assessed/no information CODE: - TOILETING HYGIENE: TOILETING HYGIENE - STEP 1: Does the patient complete the activity by him/herself with no assistance (physical, verbal/nonverbal cueing, setup/clean-up)? No. TOILETING HYGIENE - STEP 2: Does the patient need only setup/clean-up assistance from one helper? No. TOILETING HYGIENE - STEP 3: Does the patient need only verbal/nonverbal cueing or touching/steadying/contact guard assistance fro m one helper? Yes. 1. [id number] ADMISSION PERFORMANCE: Supervision or touching assistance CODE: 04 BATHING: Not assessed/no information CODE: - DRESSING - UPPER BODY: Not assessed/no information CODE: - DRESSING - LOWER BODY: Not assessed/no information CODE: - PUTTING ON/TAKING OFF FOOTWEAR: Not assessed/no information CODE: - ROLL LEFT AND RIGHT: ROLL LEFT AND RIGHT - STEP 1: Does the patient complete the activity by him/herself with no assistance (physical, verbal/nonverbal cueing, setup/clean-up)? No. ROLL LEFT AND RIGHT - STEP 2: Does the patient need only setup/clean-up assistance from one helper? No. ROLL LEFT AND RIGHT - STEP 3: Does the patient need only verbal/nonverbal cueing or touching/steadying/contact guard assistance fro m one helper? Yes. 1. [id number] ADMISSION PERFORMANCE: Supervision or touching assistance CODE: 04 SIT TO LYING: SIT TO LYING - STEP 1: Does the patient complete the activity by him/herself with no assistance (physical, verbal/nonverbal cueing, setup/clean-up)? No. SIT TO LYING - STEP 2: Does the patient need only setup/clean-up assistance from one helper? No. SIT TO LYING - STEP 3: Does the patient need only verbal/nonverbal cueing or touching/steadying/contact guard assistance fro m one helper? Yes. 1. [id number] ADMISSION PERFORMANCE: Supervision or touching assistance CODE: 04 LYING TO SITTING: Not assessed/no information CODE: - SIT TO STAND: Not assessed/no information CODE: - TRANSFERS: BED, CHAIR: Not assessed/no information CODE: - TRANSFER TOILET: Not assessed/no information CODE: - TRANSFERS: CAR: Not assessed/no information CODE: - WALK 10 FEET: Not assessed/no information CODE: - 1 STEP (CURB): Not assessed/no information CODE: - PICKING UP OBJECT: Not assessed/no information CODE: - DOES THE PATIENT USE A WHEELCHAIR/SCOOTER? CODE: EXPR WHEEL 50 FEET WITH TWO TURNS: Not assessed/no information CODE: - INDICATE THE TYPE OF WHEELCHAIR/SCOOTER USED: CODE: EXPR WHEEL 150 FEET: Not assessed/no information CODE: - INDICATE THE TYPE OF WHEELCHAIR/SCOOTER USED: CODE: EXPR BLADDER AND BOWEL: H350. BLADDER CONTINENCE (3-DAY ASSESSMENT PERIOD): Stress incontinence only CODE: 1 H400. BOWEL CONTINENCE (3-DAY ASSESSMENT PERIOD): Always continent CODE: 0
[2020-01-30] MEDS: METOPROLOL TAR 25 MG TAB PO SCH (05:21)
[2020-01-30] MEDS: cloNIDine HCL 0.1 MG TAB PO PRN (05:21)
[2020-01-30 07:18] VITALS: BP 129/61; TEMP 97.8
[2020-01-30] MEDS: POLYETHYL GLY 3350 17 GM/DOSE PO SCH (08:00)
[2020-01-30] MEDS: MAGNESIUM CHLORIDE 64 MG TAB PO SCH (08:16)
[2020-01-30] MEDS: GABAPENTIN 300 MG CAP PO SCH (08:16)
[2020-01-30] MEDS: LIDOCAINE 4% PATCH TOP SCH (08:16)
[2020-01-30] MEDS: PANTOPRAZOLE 40MG TABLET PO SCH (08:16)
[2020-01-30] MEDS: DULOXETINE 30 MG CAP PO SCH (08:16)
[2020-01-30] MEDS: FLUOXETINE 10 MG CAP PO SCH (08:16)
[2020-01-30] MEDS: FINASTERIDE 5 MG TAB PO SCH (08:16)
[2020-01-30] MEDS: CRANBERRY FRUIT EXTRACT 200 MG CAP PO SCH (08:17)
[2020-01-30] MEDS: METOCLOPRAMIDE 5 MG TAB PO SCH (08:17)
[2020-01-30] MEDS: AMIODARONE HCL 200 MG TAB PO SCH (08:17)
[2020-01-30] MEDS: ONDANSETRON 4 MG (ODT) TAB PO SCH (08:17)
[2020-01-30] MEDS: HYDROCODONE/APAP 5/325 MG TAB PO PRN (11:58)
[2020-01-30] MEDS: ONDANSETRON 4 MG (ODT) TAB PO PRN (13:22)
--- NOTE | 2020-01-30 15:55 | FAST ---
[employer] FORM SHIFT START DATE/TIME: 01/30/2020 07:00 (FORMULATION CHEMIST) SHIFT END DATE/TIME: 01/30/2020 19:00 (FORMULATION CHEMIST) NAME ALEXANDER CONNOR DATE OF : 1940 DATE OF ADMISSION: 01/15/2020 16:40 (FORMULATION CHEMIST) PHONE: AGE: 79 N# [id number] GENDER: Male ENCOUNTER PHYSICIAN: Dr. Marcell Mccarthy M.D. ADMISSION DIAGNOSIS: - Debility 16 - Debility (16) WEAKNESS,SCS PLACEMENT. EATING: EATING - STEP 1: Does the patient complete the activity by him/herself with no assistance (physical, verbal/nonverbal cueing, setup/clean-up)? No. EATING - STEP 2: Does the patient need only setup/clean-up assistance from one helper? Yes. 1. [id number] ADMISSION PERFORMANCE: Setup or clean-up assistance CODE: 05 ORAL HYGIENE: ORAL HYGIENE - STEP 1: Does the patient complete the activity by him/herself with no assistance (physical, verbal/nonverbal cueing, setup/clean-up)? No. ORAL HYGIENE - STEP 2: Does the patient need only setup/clean-up assistance from one helper? Yes. 1. [id number] ADMISSION PERFORMANCE: Setup or clean-up assistance CODE: 05 TOILETING HYGIENE: TOILETING HYGIENE - STEP 1: Does the patient complete the activity by him/herself with no assistance (physical, verbal/nonverbal cueing, setup/clean-up)? No. TOILETING HYGIENE - STEP 2: Does the patient need only setup/clean-up assistance from one helper? Yes. 1. [id number] ADMISSION PERFORMANCE: Setup or clean-up assistance CODE: 05 BATHING: Not assessed/no information CODE: - DRESSING - UPPER BODY: DRESSING - UPPER BODY - STEP 1: Does the patient complete the activity by him/herself with no assistance (physical, verbal/nonverbal cueing, setup/clean-up)? No. DRESSING - UPPER BODY - STEP 2: Does the patient need only setup/clean-up assistance from one helper? Yes. 1. [id number] ADMISSION PERFORMANCE: Setup or clean-up assistance CODE: 05 DRESSING - LOWER BODY: DRESSING - LOWER BODY - STEP 1: Does the patient complete the activity by him/herself with no assistance (physical, verbal/nonverbal cueing, setup/clean-up)? No. DRESSING - LOWER BODY - STEP 2: Does the patient need only setup/clean-up assistance from one helper? No. DRESSING - LOWER BODY - STEP 3: Does the patient need only verbal/nonverbal cueing or touching/steadying/contact guard assistance fro m one helper? Yes. 1. [id number] ADMISSION PERFORMANCE: Supervision or touching assistance CODE: 04 PUTTING ON/TAKING OFF FOOTWEAR: FOOTWEAR - STEP 1: Does the patient complete the activity by him/herself with no assistance (physical, verbal/nonverbal cueing, setup/clean-up)? No. FOOTWEAR - STEP 2: Does the patient need only setup/clean-up assistance from one helper? No. FOOTWEAR - STEP 3: Does the patient need only verbal/nonverbal cueing or touching/steadying/contact guard assistance fro m one helper? Yes. 1. [id number] ADMISSION PERFORMANCE: Supervision or touching assistance CODE: 04 ROLL LEFT AND RIGHT: ROLL LEFT AND RIGHT - STEP 1: Does the patient complete the activity by him/herself with no assistance (physical, verbal/nonverbal cueing, setup/clean-up)? No. ROLL LEFT AND RIGHT - STEP 2: Does the patient need only setup/clean-up assistance from one helper? No. ROLL LEFT AND RIGHT - STEP 3: Does the patient need only verbal/nonverbal cueing or touching/steadying/contact guard assistance fro m one helper? Yes. 1. [id number] ADMISSION PERFORMANCE: Supervision or touching assistance CODE: 04 SIT TO LYING: SIT TO LYING - STEP 1: Does the patient complete the activity by him/herself with no assistance (physical, verbal/nonverbal cueing, setup/clean-up)? No. SIT TO LYING - STEP 2: Does the patient need only setup/clean-up assistance from one helper? No. SIT TO LYING - STEP 3: Does the patient need only verbal/nonverbal cueing or touching/steadying/contact guard assistance fro m one helper? Yes. 1. [id number] ADMISSION PERFORMANCE: Supervision or touching assistance CODE: 04 LYING TO SITTING: LYING TO SITTING ON SIDE OF BED - STEP 1: Does the patient complete the activity by him/herself with no assistance (physical, verbal/nonverbal cueing, setup/clean-up)? No. LYING TO SITTING ON SIDE OF BED - STEP 2: Does the patient need only setup/clean-up assistance from one helper? No. LYING TO SITTING ON SIDE OF BED - STEP 3: Does the patient need only verbal/nonverbal cueing or touching/steadying/contact guard assistance fro m one helper? Yes. 1. [id number] ADMISSION PERFORMANCE: Supervision or touching assistance CODE: 04 SIT TO STAND: SIT TO STAND - STEP 1: Does the patient complete the activity by him/herself with no assistance (physical, verbal/nonverbal cueing, setup/clean-up)? No. SIT TO STAND - STEP 2: Does the patient need only setup/clean-up assistance from one helper? No. SIT TO STAND - STEP 3: Does the patient need only verbal/nonverbal cueing or touching/steadying/contact guard assistance fro m one helper? Yes. 1. [id number] ADMISSION PERFORMANCE: Supervision or touching assistance CODE: 04 TRANSFERS: BED, CHAIR: CHAIR/[id number] TRANSFER - STEP 1: Does the patient complete the activity by him/herself with no assistance (physical, verbal/nonverbal cueing, setup/clean-up)? No. CHAIR/[id number] TRANSFER - STEP 2: Does the patient need only setup/clean-up assistance from one helper? No. CHAIR/[id number] TRANSFER - STEP 3: Does the patient need only verbal/nonverbal cueing or touching/steadying/contact guard assistance fro m one helper? Yes. 1. [id number] ADMISSION PERFORMANCE: Supervision or touching assistance CODE: 04 TRANSFER TOILET: TOILET TRANSFER - STEP 1: Does the patient complete the activity by him/herself with no assistance (physical, verbal/nonverbal cueing, setup/clean-up)? No. TOILET TRANSFER - STEP 2: Does the patient need only setup/clean-up assistance from one helper? No. TOILET TRANSFER - STEP 3: Does the patient need only verbal/nonverbal cueing or touching/steadying/contact guard assistance fro m one helper? Yes. 1. [id number] ADMISSION PERFORMANCE: Supervision or touching assistance CODE: 04 TRANSFERS: CAR: Not assessed/no information CODE: - WALK 10 FEET: Not assessed/no information CODE: - 1 STEP (CURB): Not assessed/no information CODE: - PICKING UP OBJECT: Not assessed/no information CODE: - DOES THE PATIENT USE A WHEELCHAIR/SCOOTER? Q1. DOES THE PATIENT USE A WHEELCHAIR/SCOOTER?: Yes CODE: 1 WHEEL 50 FEET WITH TWO TURNS: WHEEL 50 FEET WITH TWO TURNS - STEP 1: Does the patient complete the activity by him/herself with no assistance (physical, verbal/nonverbal cueing, setup/clean-up)? No. WHEEL 50 FEET WITH TWO TURNS - STEP 2: Does the patient need only setup/clean-up assistance from one helper? No. WHEEL 50 FEET WITH TWO TURNS - STEP 3: Does the patient need only verbal/nonverbal cueing or touching/steadying/contact guard assistance fro m one helper? Yes. 1. [id number] ADMISSION PERFORMANCE: Supervision or touching assistance CODE: 04 INDICATE THE TYPE OF WHEELCHAIR/SCOOTER USED: RR1. INDICATE THE TYPE OF WHEELCHAIR/SCOOTER USED.: Manual CODE: 1 WHEEL 150 FEET: WHEEL 150 FEET - STEP 1: Does the patient complete the activity by him/herself with no assistance (physical, verbal/nonverbal cueing, setup/clean-up)? No. WHEEL 150 FEET - STEP 2: Does the patient need only setup/clean-up assistance from one helper? No. WHEEL 150 FEET - STEP 3: Does the patient need only verbal/nonverbal cueing or touching/steadying/contact guard assistance fro m one helper? Yes. 1. [id number] ADMISSION PERFORMANCE: Supervision or touching assistance CODE: 04 INDICATE THE TYPE OF WHEELCHAIR/SCOOTER USED: SS1. INDICATE THE TYPE OF WHEELCHAIR/SCOOTER USED.: Manual CODE: 1 BLADDER AND BOWEL: H350. BLADDER CONTINENCE (3-DAY ASSESSMENT PERIOD): Stress incontinence only CODE: 1 H400. BOWEL CONTINENCE (3-DAY ASSESSMENT PERIOD): Always continent CODE: 0 SIGNATURE PANEL: The following modified sections: 1. [id number] Admission Performance, 1. [id number] Admission Performance, 1. VM5600V Admission Performance, 1. WD4647l Admission Performance, 1. FA5982e Admission Performance, 1. VU8844m Admission Performance, 1. OR5261x Admission Performance, 1. RX9177S Admission Performance , 1. RX5679O Admission Performance, 1. CK6342S Admission Performance, 1. [id number] Admission Performanc e, 1. [id number] Admission Performance, 1. [id number] Admission Performance, Q1. Does the patient use a whe elchair/scooter?, 1. PH4098E Admission Performance, RR1. Indicate the type of wheelchair/scooter used ., 1. NW3165I Admission Performance, Code, SS1. Indicate the type of wheelchair/scooter used., H400. Bowel Continence (3-day assessment period), H350. Bladder Continence (3-day assessment period) were [ electronically] signed by Patrice SolorioNYunior on WedJan 30 2020 15:54:24 GMT-0600 (Central Standard Time)
--- NOTE | 2020-02-22 14:05 | R.DS ---
DISCHARGE SUMMARY FACILITY [facility] MR# [id number] NAME ALEXANDER CONNOR ADDRESS [address] [place] [address] PHONE DATE OF 1940 AGE 79 SSN# [id number] GENDER Male DEXTERITY Right-handed MARITAL STATUS RACE Unknown race ENCOUNTER PHYSICIAN Dr. Marcell Mccarthy M.D. REFERRING DOCTOR marilyn Connors REFERRING FACILITY [facility] PRIMARY CARE PHYSICIAN JENNYFER INTERIANO DISCHARGE DIAGNOSIS: - Debility 16 - Debility (16) WEAKNESS,SCS PLACEMENT. DATE OF ADMISSION 01/15/2020 16:40 (JACK SPOOLER TENDER) MEDICATION ALLERGIES: No Known Drug Allergies (NKDA) ENVIRONMENTAL ALLERGIES: - Substance Allergies None Known - Other Allergies None Known DISCHARGE MEDICATIONS: Other- ContinueSee attached MAR (Medication Administration Record). NURSING: - Shower allowing shower ACTIVITIES OOB only with supervision THERAPIES: - Dietary and Nutrition Adequate Nutrition Nutritional Education Nutritional Supplements HISTORY OF PRESENT ILLNESS: Pt. is a 79 yo Right-handed male of unknown race.On 01/02/2020 he was admitted to [facility] with diagnosis WEAKNESS,SCS PLACEMENT.His impairment category is Debility 16 - Debility (1 6).Pre-morbidly, Pt. was independent/mod-I in Safety Awareness, Social Cognition, Transfers Control, and Communication; and he had good Endurance and Self-Care.Currently, he has deficits of Balance, Sph incter Control, Transfers Control, Social Cognition, and Endurance.Pt. is now referred to [facility] for acute in-patient rehabilitation in order to maximize patient's functional independence in activities of daily living, strength, ROM, and mobility.- Rehab Goal Patient has realistic goal of being discharged at assistance level 7-Ind to reside at Home with Fami ly/Relatives. HOSPITAL COURSE: DIET - LIQUID TEXTURE: On 01/11/2020 Pt was upgraded to Regular Diet - Liquid Texture. DIET - SOLID TEXTURE: On 01/11/2020 Pt was upgraded to Regular Diet - Solid Texture. DIET TYPE: On 01/11/2020 Pt was upgraded to Regular Diet Type. TUBE FEED: On 01/11/2020 Pt was changed to N/A Tube Feed. DISCHARGE PHYSICAL EXAM - Gen Alert and awake Lying in bed No apparent distress Oriented to: person, time, and place - Skin No skin breakdown. Normacephalic - Eyes No abnormalities - ENMT No abnormalities - Neck No abnormalities No cervical adenopathy - CVS RRR - Chest No abnormalities - Resp Clear to auscultation - Abd Soft - GI + bowel sounds Deferred - No abnormalities - Ext No significant edema - MSK 4+/5 weakness in both lower extremities. - Neuro 4/5 strength bilaterally lower extremities. - Psych No abnormalities FUNCTIONAL STATUS: - Self-Care A. Eating 6-Danielle B. Grooming 6-Danielle C. Bathing 6-Danielle D. Dressing - Upper 6-Danielle E. Dressing - Lower 6-Danielle F. Toileting 6-Danielle - Sphincter Control G. Bladder control 6-Danielle H. Bowel control 6-Danielle - Transfers Control I. Bed/Chair/Wheelchair 6-Danielle J. Toilet 6-Danielle K. Tub/Shower 6-Danielle - Locomotion L. Walk/Wheelchair (B) 6-Danielle M. Stairs 6-Danielle - Communication N. Comprehension (B) 6-Danielle O. Expression (B) 6-Danielle - Social Cognition P. Social Interaction 6-Danielle Q. Problem Solving 6-Danielle R. Memory 6-Danielle - Endurance Good - Balance Good - Safety Awareness Good QI SCORES: - Self-Care A. Eating 04-Supervision or touching assistance B. Oral hygiene 03-Partial/moderate assistance C. Toileting hygiene 03-Partial/moderate assistance E. Shower/bathe self 03-Partial/moderate assistance F. Upper body dressing 03-Partial/moderate assistance G. Lower body dressing 03-Partial/moderate assistance H. Putting on/taking off footwear 88-Not attempted due to medical condition or safety concerns - Mobility A. Roll left and right 03-Partial/moderate assistance B. Sit to lying 03-Partial/moderate assistance C. Lying to sitting on side of bed 03-Partial/moderate assistance D. Sit to stand 03-Partial/moderate assistance E. Chair/cha-uk-ggdkb transfer 03-Partial/moderate assistance F. Toilet transfer 03-Partial/moderate assistance G. Car transfer 88-Not attempted due to medical condition or safety concerns I. Walk 10 feet 03-Partial/moderate assistance J. Walk 50 feet with two turns 88-Not attempted due to medical condition or safety concerns K. Walk 150 feet 88-Not attempted due to medical condition or safety concerns L. Walking 10 feet on uneven surfaces 88-Not attempted due to medical condition or safety concerns M. 1 step (curb) 88-Not attempted due to medical condition or safety concerns N. 4 steps 88-Not attempted due to medical condition or safety concerns O. 12 steps 88-Not attempted due to medical condition or safety concerns P. Picking up object 88-Not attempted due to medical condition or safety concerns R. Wheel 50 feet with two turns 88-Not attempted due to medical condition or safety concerns S. Wheel 150 feet 88-Not attempted due to medical condition or safety concerns - Bladder and Bowel Bladder continence Bowel continence - Endurance Fair - Balance Fair - Safety Awareness Fair DISCHARGE INSTRUCTIONS: - N/A Xarelto 20 mg daily. DISCHARGE PLAN, FOLLOW UP CARE PROVISIONS: - Estimated Length of Stay (days) 13. - Consensus on plan Discharge plan has been discussed with primary caregiver. Patient/Family is in agreement with the megan n. Primary caregiver is in agreement with the plan. - Patient/Family Goals Return home independently. - Planned Living Setting Upon Discharge Home, to live with Family/Relatives. Transitional Living. SIGNATURE PANEL: (JACK SPOOLER TENDER)
== END 2020-01-30 15:15 | disposition home or self-care (01) | DRG 948 ==
LOC: 5TH 01-15 18:40
PROVIDERS: ADMIT Psychiatry & Neurology Neurology with Special Qualifications in Child Neurology; ATTEND Psychiatry & Neurology Neurology with Special Qualifications in Child Neurology
DX: R53.81 Other malaise (principal); R53.1 Weakness; Z20.828 Contact with and (suspected) exposure to other viral communicable diseases; Z23 Encounter for immunization
CPT/HCPCS: 36415; 74018; 80048; 81001; 82040; 82947; 83735; 84134; 85025; 87086; 87088; 90471; 90732; 92523; 92610; 97110; 97116; 97127; 97161; 97530; 97542; J2405; J7030; U0002; U0003